=== PATIENT | female | born 1950 | race Caucasian/White ===

== ENCOUNTER → 2016-11-25 | Outpatient (CLI) | payer BC ==
[~2016-11-25] MED LIST: ASPCH81X PO; FEXO1TAB49 PO; KRIL1CAP3 PO; LISI-729 PO; METO1TAB71 PO; RANI300T2 PO; ROSU40TA PO
== END | disposition home or self-care (01) ==
LOC: C.PAPS 11:31
PROVIDERS: ATTEND Obstetrics & Gynecology
DX: Z01.419 Encounter for gynecological examination (general) (routine) without abnormal findings (principal)

== ENCOUNTER → 2017-05-24 | Outpatient (CLI) | payer BC ==
[2017-05-24 09:52] LABS: CHOLESTEROL/HDL RATIO 3.3
== END | disposition home or self-care (01) ==
LOC: C.LAB1850 08:05
PROVIDERS: ATTEND Internal Medicine Cardiovascular Disease
DX: I25.10 Atherosclerotic heart disease of native coronary artery without angina pectoris (principal); E78.5 Hyperlipidemia, unspecified

== ENCOUNTER → 2017-09-29 | Outpatient (CLI) | payer BC ==
[~2017-09-29] MED LIST changes: +METO-649 PO; -METO1TAB71 PO
--- NOTE | 2017-09-29 15:18 | MAMMOGRAPHY REPORT ---
BILATERAL DIGITAL DIAGNOSTIC MAMMOGRAM TOMOSYNTHESIS WITH CAD: 09/29/2017 CLINICAL HISTORY: Personal history of breast cancer. The patient reports no current complaints. TECHNIQUE: Breast tomosynthesis in addition to standard 2D mammography was performed. Current study was also evaluated with a Computer Aided Detection (CAD) system. Bilateral CC and MLO 2-D and tomosy nthesis images and spot magnification left CC and ML views were obtained. COMPARISON: Comparison is made to exams dated: 09/23/2016 mammogram, 09/18/2015 mammogram, 4 mammogram, 09/01/2013 mammogram, 08/26/2012 mammogram, and 08/25/2011 mammogram - [facility]. BREAST COMPOSITION: There are scattered areas of fibroglandular density in both breasts. FINDINGS: There are no suspicious masses, calcifications, or areas of architectural distortion noted within either breast. There has been no significant interval change compared to prior exams. There are stable post surgical changes in the left superior posterior breast at the site of prior lumpectom y, including stable density, architectural distortion, and surgical clips at the lumpectomy bed. The patient had questions regarding the supplemental screening with ultrasound or breast MRI. Given the personal history of breast cancer and strong family history, I would recommend supplemental scree edith with breast MRI, which could be performed between mammograms. IMPRESSION: ACR BI-RADS CATEGORY 2: BENIGN There is no mammographic evidence of malignancy. A 1 year screening mammogram is recommended. Additi onally, given the personal history of breast cancer and strong family history, the patient may qualif y for yearly screening breast MRI in addition to yearly mammography, ideally performed in between [facility] mograms. The patient has been verbally notified of the results. Approximately 10% of breast cancers are not detected with mammography. A negative mammographic report should not delay biopsy if a clinically suggestive mass is present. Mishel Casey M.D. /:09/29/2017 14:57:48 Certified Phlebotomist: Otilio OSPINA(R)(M), [facility] letter sent: Normal 1/2 BI-RADS Code: ACR BI-RADS Category 2: Benign
== END | disposition home or self-care (01) ==
LOC: C.MAMM 13:41
PROVIDERS: ATTEND Obstetrics & Gynecology
DX: Z12.31 Encounter for screening mammogram for malignant neoplasm of breast (principal); Z85.3 Personal history of malignant neoplasm of breast

== ENCOUNTER → 2017-11-17 | Outpatient (CLI) | payer BC ==
[~2017-11-17] MED LIST changes: -METO-649 PO; +METO200T32 PO
[2017-11-17 17:16] LABS: BASO % 0.4 %; BASO ABS # 0.05 K/uL (0-0.2); EOS % 2.1 %; EOS ABS # 0.27 K/uL (0-0.5); HEMATOCRIT 41.3 % (37-47); HEMOGLOBIN 14.1 g/dL (12.0-16.0); IG# 0.05 K/uL (0.00-0.02); LYMPH % 11.1 %; MEAN CELL VOLUME 101.2 fL (80-100); MEAN CORPUSCULAR HEMOGLOBIN 34.6 pg (25-34); MEAN CORPUSCULAR HGB CONC 34.1 g/dl (32-36); MEAN PLATELET VOLUME 9.6 fL (7.4-10.4); MONO % 7.1 %; MONO ABS # 0.89 K/uL (0.11-0.59); NEUT % 78.9 %; PLATELET COUNT 206 K/uL (130-400); RED CELL DISTRIBUTION WIDTH CV 14.7 % (11.5-14.5); RED CELL DISTRIBUTION WIDTH SD 53.7 fL (36.4-46.3); WHITE BLOOD COUNT 12.56 K/uL (4.8-10.8)
[2017-11-17 17:24] LABS: INR 0.9 (0.9-1.1)
[2017-11-17 17:37] LABS: BLOOD UREA NITROGEN 7 mg/dl (7-18); CALCIUM 9.1 mg/dl (8.5-10.1); CARBON DIOXIDE 28 mmol/L (21-32); CREATININE 0.76 mg/dl (0.60-1.20); GLUCOSE 88 mg/dl (70-99); POTASSIUM 3.9 mmol/L (3.5-5.1); SODIUM 136 mmol/L (136-145)
== END | disposition home or self-care (01) ==
LOC: C.LAB1850 16:35
PROVIDERS: ATTEND Physician Assistant Medical
DX: R06.09 Other forms of dyspnea (principal); I73.9 Peripheral vascular disease, unspecified; I25.10 Atherosclerotic heart disease of native coronary artery without angina pectoris

== ENCOUNTER 2017-11-22 09:14 | Day surgery (SDC) | payer BC ==
[~2017-11-22] VITALS: Ht 167.6 cm; Wt 61.0 kg
[~2017-11-22 09:14] MED LIST changes: +SODIUM CHLORIDE 0.9% 1000ML 1,000 ML IV SCH
[2017-11-22 09:46] VITALS: BP 107/69; PULSE 110; TEMP 36.7; O2SAT 94; Ht 167.6 cm; Wt 61.0 kg
--- NOTE | 2017-11-22 11:16 | History & Physical Bridge Note ---
H&P Re-Evaluation Bridge Note: I have examined the patient, reviewed the History & Physical and in the interval since the performance of the History & Physical I have noted the following changes of clinical significance: No changes noted
--- NOTE | 2017-11-22 11:17 | Pre Sedation Assessment ---
Pre Sedation Assessment General Date of Sedation: Nov 22, 2017. Vital Signs Past 12 Hours Date Time Temp Pulse Resp B/P (MAP) Pulse Ox O2 Delivery O2 Flow Rate FiO2 11/22/17 09:46 36.7 110 20 107/69 (82) 94 Room Air Review Cardiovascular: regular rate, rhythm, no edema Lungs: chest non-tender, lungs clear Pre-Sedation Airway Assessment Smoking Status: Current Every Day Smoker Hx of Sleep Apnea: No Hx of difficult intubation: No Short Thick Neck: No Oral Cavity: Capped Teeth Mallampati Classification: Class II ASA Classification: Class III NPO Status Date of Last Intake of Fluids: Nov 22, 2017 Time of Last Intake of Fluids: 0800 Date of Last Intake of Solids: Nov 21, 2017 Time of Last Intake of Solids: 1800 Procedure Planning Contraindications for Sedation: None Current Medications Reviewed: Yes Notes The planned sedation has been discussed with the patient. Informed Consent was obtained. I have identified the patient, determined the appropriateness of sedation and have assessed the patient immediately prior to the procedure. All medicine(s) and interventions are by my order.
[2017-11-22] MEDS ORDERED: FENTANYL CITRATE INJ 50 MCG/1 ML 2 ML VIAL ONE (12:00)
[2017-11-22] MEDS ORDERED: HEPARIN SOD (PORCINE) 1000 UNIT/ML 10 ML VIAL ONE (12:00)
[2017-11-22] MEDS ORDERED: MIDAZOLAM HCL 1 MG/ML 2ML VIAL ONE (12:00)
[2017-11-22] MEDS ORDERED: FENTANYL CITRATE INJ 50 MCG/1 ML 2 ML VIAL IV ONE ×2 (12:54→13:49)
[2017-11-22] MEDS ORDERED: MIDAZOLAM HCL 1 MG/ML 2ML VIAL IV ONE ×2 (12:54→13:49)
[2017-11-22] MEDS ORDERED: LIDOCAINE HCL 1% 20 ML VIAL INJ ONE (12:54)
[2017-11-22] MEDS ORDERED: HEPARIN SOD (PORCINE) 1000 UNIT/ML 10 ML VIAL IV ONE ×2 (13:15→13:50)
[2017-11-22] MEDS ORDERED: SODIUM CHLORIDE 0.9% 1000ML 300 ML IV SCH (13:23)
[2017-11-22] MEDS ORDERED: SODIUM CHLORIDE 0.9% 1000ML 100 ML IV SCH (13:53)
[2017-11-22] MEDS ORDERED: NITROGLYCERIN/D5W 100MCG/ML 20ML SYR ONE (14:10)
[2017-11-22] MEDS ORDERED: IODIXANOL (VISIPAQUE) 270 MG/ML 150ML XX ONE (15:00)
[2017-11-22] MEDS ORDERED: NITROGLYCERIN 5 MG/ML 10 ML VIAL IART ONE (15:04)
--- NOTE | 2017-11-22 15:05 | Post Sedation Assessment ---
Post Sedation Assessment General Date of Sedation Nov 22, 2017. Vital Signs: Vital Signs Past 12 Hours Date Time Temp Pulse Resp B/P (MAP) Pulse Ox O2 Delivery O2 Flow Rate FiO2 11/22/17 09:46 36.7 110 20 107/69 (82) 94 Room Air Post Procedure Recovery Score Activity: (2) Moves 4 extremities * Respiration: (2) Deep breath/cough Circulation: (2) +/-20% PreAnes Value Consciousness: (2) Fully Awake Oxygen Saturation: (2) > 92% On Room Air Discharge Sedation Level of Care: Fast Track Phase II Post Sedation Plan On clinical assessment, the patient appears to have tolerated the sedation without complications. Patient is recovering as anticipated. Patient will continue to be monitored by nursing and may be discharged when sedation discharge criteria are met per below protocol. Upon Completions of procedure and additional 15 minutes continue every 5 minute vital signs and the P.A.R. score; then discharge to a Phase I or Fast Track to Phase II per the following guidelines: * Discharge Patient to appropriate Phase II area if PAR is 8 or greater or return to pre- procedure baseline. The post - procedure orders will be as directed. * If PAR score is less than 8 or not return to pre-procedure baseline then patient will follow Phase I monitoring till PAR is reached for Phase II. The Phase I may be done in procedure room or may call to secure a Phase I area. * If naloxone or flumazenil are used for reversal, hold in Phase I for an additional 60 -120 minutes before discharge to Phase II. Please call the Sedation Physician to re-evaluate and complete post-note for discharge to Phase II area. Do NOT discharge from procedure sedation or Phase 1 until post- sedation evaluation note is complete by procedure /sedation MD Sedation Discharge Instructions to be given to the patient at discharge to home.
[2017-11-22] MEDS ORDERED: CLOPIDOGREL BISULFATE 300 MG TAB PO STA (15:19)
[2017-11-22] MEDS ORDERED: SODIUM CHLORIDE 0.9% 1000ML 1,000 ML IV SCH (15:19)
--- NOTE | 2017-11-22 15:19 | [facility] Operative Report ---
Operative Report Operative Date Nov 22, 2017. Pre-Operative Diagnosis Intermittent Claudication, Peripheral Artery Disease Post-Operative Diagnosis Peripheral Artery Disease Procedure(s) Performed Bilateral Lower Extremity Angiogram Ultrasound Localization of Right Femoral Artery Percutaneous Transluminal Angioplasty of Left Popliteal Mechanical Atherectomy of Left Popliteal Mechanical Closure of Right Femoral Artery Moderate Sedation: 1254- Surgeon Roman Cap Cutter Surgeon(s) None Estimated Blood Loss 32 Findings Left lower extremity: Common iliac - Minimal disease External iliac - Minimal disease Internal iliac - Minimal disease DOCTORATE OF CHIROPRACTIC - Minimal disease Profunda - Minimal disease SFA - Minimal disease Popliteal - Subtotal occlusion (50 mm) proximally with surrounding haziness suggestive of thrombus; reconstitution in mid popliteal TPT - minimal disease AT - mild disease PT - mild disease Peroneal - occluded in the mid segment Right lower extremity: Common iliac - Minimal disease External iliac - Minimal disease Internal iliac - Minimal disease DOCTORATE OF CHIROPRACTIC - Minimal disease, OK for closure device placement Profunda - Minimal disease SFA - Minimal disease Popliteal - Mild disease TPT - minimal disease AT - mild diffuse disease PT - mild disease Peroneal - mild disease Specimens None Drains None Anesthesia Moderate Complication(s) None Disposition Recovery Room / PACU Description of Procedure US guided right common femoral access obtained, short 5Fr sheath place LLE angiogram performed with RIM catheter 6Fr 45cm destination sheath placed Popliteal occlusion crossed with glideadvantage wire Lesion ballooned with 4.0 and 6.0 balloons without significant expansion Due to concern for thrombus decision made to perform atherectomy with Jetstream device. 7Fr 45cm destination sheat placed Glideadvantage wire exchanged for Spider Filter 2.1/3.0 Jetstream device used - 2 passes in total, 2nd with blades out. Lesion rewired with command wire and filter removed. Lesion treated with prolonged 6.0 balloon inflation with good expansion. Distal SFA/popliteal then treated with 6.0 x 120 mm Inpact drug-eluting balloon. Post procedure good angiographic result, no evidence of hemodynamically significant dissection and good 2 vessel distal run-off. Mynx device placed to right DOCTORATE OF CHIROPRACTIC. Summary: 1. Left lower extremity with short subtotal proximal popliteal occlusion and distal 2 vessel runoff (occluded peroneal) 2. Right lower extremity with minimal disease and 3 vessel distal runoff. 3. Successful BIOLOGY FACULTY MEMBER/atherectomyDrug-eluting balloon to left proximal popliteal artery I attest to the content of the Intraoperative Record and any orders documented therein. Any exceptions are noted below.
[2017-11-22 15:20] VITALS: BP 96/66; PULSE 60; TEMP 36.7; O2SAT 98
[2017-11-22] MEDS ORDERED: ASPIRIN 325 MG ECTAB PO ONE (15:30)
[2017-11-22] MEDS ORDERED: ACETAMINOPHEN 325 MG TAB PO PRN (15:30)
[2017-11-22] MEDS ORDERED: NURSING VERBAL MED ORDER ONE (15:30)
[2017-11-22 15:50] VITALS: BP 98/57; PULSE 68; O2SAT 99
[2017-11-22] MEDS ORDERED: PLV75 PO (17:31)
--- NOTE | 2017-11-22 17:34 | Discharge Instructions ---
Discharge Instructions Procedure Procedure Date: Nov 22, 2017. Reason for Visit: Peripheral Vascular Disease. Discharge Discharge Date: Nov 22, 2017. Discharge Diagnosis: Peripheral arterial disease Last Recorded Wt (Kilograms): 61 Instructions Activity Recommendations: limitations as noted below Recommended Home Diet: resume previous diet, low sodium Allergies: Coded Allergies: Tetracyclines (Verified Allergy, Unknown, MINOCIN-RASH,HIVES, 11/22/17) Follow Up Additional Instructions: ACTIVITY RECOMMENDATIONS: It is common to feel weak and fatigue for a few days. * Do not drive or operate any motorized equipment for the next 2 days. * Limit stair usage (2 or 3 trips a day only) for the next three days. * Do not lift anything heavier than 10 pounds for the next three days. * Do not engage in vigorous exercise or any sports for the next five days. * You may shower the day after your procedure, but do not immerse the area for three days. Cleanse the site gently with soap and water. SPECIAL CARE INSTRUCTIONS: * You may replace the pressure dressing or band-aid the morning after the procedure. * After your procedure, it is normal to have a small bruise or small lump at the site. Examine your site daily for any change in the bruise or lump, redness, swelling, drainage or numbness. Notify your doctor if any change. BLEEDING: * If there is a small amount of bleeding at the site, lie down and apply firm pressure with a clean cloth for ten minutes. When the bleeding stops, lie quietly keeping the procedure limb straight for six hours. Notify your doctor as soon as possible. * If the bleeding does not stop after ten minutes or if there is a large amount of bleeding or spurting, call 911 immediately. Continue to lie down and hold firm pressure until help arrives. SKIN IRRITATION: * You may experience some redness and/or swelling in the area where radiation was administered. If any skin irritation occurs, please contact your family physician. FOLLOW UP VISIT: Keep any scheduled doctor appointments. Follow-up with: [address] Roman Gandhi Recommendations: Call your doctor if: * Temperature above 101 degrees * Pain not relieved by pain medicine ordered * There is increased drainage or redness from any incision * You have any unanswered questions or concerns. Your Doctors Instructions noted above were prepared by provider Zeus Owens. Patient Signature Section: Patient Instructions Signature Page Genet Abraham Patient (or Guardian) Signature/Date: I have read and understand the instructions given to me by my caregivers. Caregiver/RN/Doctor Signature/Date: The above-named patient and/or guardian has received patient instructions on this date. + Original Patient Signature Page (only) stays with chart. Please make copy for patient.
[2017-11-23] MEDS ORDERED: ASPIRIN 81 MG ECTAB PO SCH (09:00)
[2017-11-23] MEDS ORDERED: CLOPIDOGREL BISULFATE 75 MG TAB PO SCH (09:00)
== END 2017-11-22 17:45 | disposition home or self-care (01) ==
LOC: C.ACU 09:14
PROVIDERS: ATTEND Internal Medicine Interventional Cardiology
DX: I73.9 Peripheral vascular disease, unspecified (principal); I87.2 Venous insufficiency (chronic) (peripheral); R09.89 Other specified symptoms and signs involving the circulatory and respiratory systems; I25.10 Atherosclerotic heart disease of native coronary artery without angina pectoris; I10 Essential (primary) hypertension; E78.5 Hyperlipidemia, unspecified; F17.200 Nicotine dependence, unspecified, uncomplicated; K58.9 Irritable bowel syndrome, unspecified; I25.2 Old myocardial infarction; Z85.3 Personal history of malignant neoplasm of breast; Z80.3 Family history of malignant neoplasm of breast; Z80.0 Family history of malignant neoplasm of digestive organs

== ENCOUNTER → 2017-11-26 | Outpatient (CLI) | payer BC ==
[~2017-11-26] MED LIST changes: -KRIL1CAP3 PO; +PLV75 PO; -SODIUM CHLORIDE 0.9% 1000ML 1,000 ML IV SCH
--- NOTE | 2017-11-26 16:05 | DIAGNOSTIC IMAGING REPORT ---
CHEST 2 VIEWS ROUTINE CLINICAL HISTORY: Dyspnea on exertion. COMPARISON STUDY: Chest radiograph December 28, 2011. FINDINGS: Old lateral left fourth rib fracture is incidentally noted. Lung volumes are normal. No pneumothorax or pleural effusion is noted. Pulmonary vascularity is normal. Cardiomediastinal silhouette is normal. The appearance of the chest is unchanged. There is no consolidation to suggest pneumonia. Left breast/axillary surgical clips are noted. IMPRESSION: No acute cardiopulmonary findings. Electronically signed by: Harrison Hoang M.D. 11/26/2017 4:04 PM Dictated Date/Time: 11/26/2017 4:03 PM
== END | disposition home or self-care (01) ==
LOC: C.RAD1850 15:41
PROVIDERS: ATTEND Physician Assistant Medical
DX: R06.09 Other forms of dyspnea (principal)

== ENCOUNTER → 2017-12-27 | Outpatient (CLI) | payer BC ==
--- NOTE | 2017-12-27 16:14 | DIAGNOSTIC IMAGING REPORT ---
CT LUNG SCREENING, LOW DOSE WITH COMPUTER-AIDED DETECTION (CAD) CLINICAL HISTORY: 67 years-old Female with screening study. COMPARISON STUDY: No previous studies for comparison. CT DOSE: 67.94 mGycm TECHNIQUE: Low-dose helical CT was acquired without intravenous contrast from lung apices to bases and reconstructed at 2.5 mm every 2 mm. CAD was utilized for this study. A dose lowering technique was utilized adhering to the principles of ALARA. FINDINGS: No dominant thyroid nodule identified. Surgical clips are seen within the left axilla suggesting prior left axillary node dissection. Surgical clips are also noted within the lateral aspect of the left breast with adjacent surgical clips and soft tissue nodularity measuring 8 x 8 mm nicely seen on image 154 series 3. No pathologic adenopathy identified. Nonspecific white physiologic 8 mm subcarinal lymph node is present. Coronary arterial disease. Heart is within normal limits in size. No aortic aneurysm identified. Moderate atherosclerosis of the aorta. Mild centrilobular emphysema of the upper lung zones. 5 mm groundglass opacity of the left lung apex, image 35 series 3. Subpleural reticular opacities of the anterolateral lingula suggest posttreatment related changes/pleural parenchymal scarring. Additionally, there is mild subsegmental linear atelectasis/scarring of the basal right lower lobe. Central airways are patent. 1.5 x 1.1 cm tracheocele is noted adjacent to the right tracheoesophageal groove, image 33 series 3. Liver appears mildly enlarged. No acute abnormality of the imaged upper abdomen. Soft tissues are within normal limits. The bones appear intact. Mild multilevel intervertebral disc space narrowing with endplate spurring and facet arthrosis. IMPRESSION: 1. 5 mm groundglass nodule of the left lung apex. 2. Mild centrilobular emphysema. 3. Postoperative changes from prior left axillary node dissection. 8 mm nodule of the left breast is noted with adjacent surgical clips. 4. 1.5 cm tracheocele adjacent to the right tracheoesophageal groove. CAD FINDINGS: Overall Lung RADS Category: 2 Lung RADS Management Recommendation: Continue annual lung cancer screening. Lung RADS Follow Up Date: 2018-12-27 The above report was generated using voice recognition software. It may contain grammatical, syntax or spelling errors. Electronically signed by: Eitan Acevedo M.D. 12/27/2017 4:19 PM Dictated Date/Time: 12/27/2017 3:54 PM
== END | disposition home or self-care (01) ==
LOC: C.CTS 14:47
PROVIDERS: ATTEND Internal Medicine Pulmonary Disease
DX: Z87.891 Personal history of nicotine dependence (principal); R91.8 Other nonspecific abnormal finding of lung field

== ENCOUNTER 2018-02-25 16:44 | Emergency (ER) | payer BC ==
[~2018-02-25] VITALS: Ht 167.6 cm; Wt 59.0 kg
[2018-02-25 16:48] VITALS: TEMP 36.9; Ht 167.6 cm; Wt 59.0 kg
[2018-02-25] MEDS ORDERED: FENTANYL CITRATE INJ 50 MCG/1 ML 2 ML VIAL IV STA (17:11)
[2018-02-25 17:34] LABS: BASO % 0.1 %; BASO ABS # 0.02 K/uL (0-0.2); EOS % 0.7 %; EOS ABS # 0.09 K/uL (0-0.5); HEMATOCRIT 38.6 % (37-47); HEMOGLOBIN 13.1 g/dL (12.0-16.0); IG# 0.05 K/uL (0.00-0.02); LYMPH % 7.8 %; LYMPH ABS # 1.06 K/uL (1.2-3.4); MEAN CORPUSCULAR HEMOGLOBIN 33.2 pg (25-34); MEAN CORPUSCULAR HGB CONC 33.9 g/dl (32-36); MONO % 14.6 %; MONO ABS # 1.98 K/uL (0.11-0.59); NEUT % 76.4 %; NEUT ABS # 10.36 K/uL (1.4-6.5); PLATELET COUNT 224 K/uL (130-400); RED CELL DISTRIBUTION WIDTH CV 14.4 % (11.5-14.5); RED CELL DISTRIBUTION WIDTH SD 51.1 fL (36.4-46.3); WHITE BLOOD COUNT 13.56 K/uL (4.8-10.8)
[2018-02-25] MEDS ORDERED: HEPARIN SOD 5000 UNIT/0.5 ML CARP ONE (17:38)
[2018-02-25] MEDS ORDERED: HEPARIN 25000 UNIT/500 ML D5W ONE (17:39)
[2018-02-25 17:46] LABS: PTT PATIENT 25.7 SECONDS (21.0-31.0)
[2018-02-25] MEDS ORDERED: GABA-113 PO (17:49)
[2018-02-25 17:54] LABS: ALBUMIN 3.4 gm/dl (3.4-5.0); CALCIUM 9.5 mg/dl (8.5-10.1); CREATININE 0.9 mg/dl (0.60-1.20); POTASSIUM 3.4 mmol/L (3.5-5.1)
[2018-02-25 18:11] VITALS: O2SAT 94
[2018-02-25] MEDS ORDERED: SODIUM CHLORIDE 0.9% 1000ML 1,000 ML IV STA (18:46)
[2018-02-25] MEDS ORDERED: MoRPHine SULFATE 4 MG/ML 1 ML CARP\\VIAL IV STA (19:02)
--- NOTE | 2018-02-25 19:05 | DIAGNOSTIC IMAGING REPORT ---
L ART DOP DUPLEX LWR EXT UNI HISTORY: 67 years-old Female cyanosis acute pain and swelling of the left lower extremity COMPARISON: Duplex venous Doppler study of same day TECHNIQUE: Multiple real-time sonographic images of the left lower extremity arterial structures were obtained assessing grayscale appearance, color and spectral flow FINDINGS: Common femoral artery is patent. Moderate mixed plaquing of the common femoral artery is noted. There is patency of the profunda femoris artery. The proximal and mid portions of the superficial femoral artery are patent with triphasic waveforms. Mildly blunted biphasic waveforms are seen within the distal superficial femoral artery with exclusion of the distal femoral, popliteal and proximal posterior tibial arteries. Blunted monophasic waveform with spectral broadening noted within the proximal and mid posterior tibial artery. There is an area of no flow seen within the mid posterior tibial artery as well. Blunted monophasic waveforms of the distal posterior tibial artery. Occlusion of the peroneal artery. Blunted monophasic waveforms are seen within the anterior tibial and dorsalis pedis arteries. Collateral vessels of the left lower extremity are noted throughout the left lower extremity about the knee and calf. No significantly elevated peak systolic velocities identified. IMPRESSION: 1. Occlusion of the distal aspect superficial femoral artery extending into the popliteal and posterior tibial artery with occlusion of the peroneal artery also noted. Associated collateral vessels of the left lower extremity may reflect chronic etiology. Correlate with clinical exam and patient presentation. 2. Patent common femoral artery with moderate degree of mixed plaquing. The above report was generated using voice recognition software. It may contain grammatical, syntax or spelling errors. Electronically signed by: Eitan Acevedo M.D. 02/25/2018 7:04 PM Dictated Date/Time: 02/25/2018 6:59 PM
[2018-02-25 22:10] VITALS: BP 116/65; PULSE 87; O2SAT 95
--- NOTE | 2018-02-25 22:11 | EMERGENCY ROOM VISIT NOTE ---
History Report prepared by Sergio: Supriya Wilson Under the Supervision of: Dr. Joe Vela M.D. First contact with patient: 17:01 Chief Complaint: ABNORMAL DIAGNOSTIC TESTING Stated Complaint: SAMANTHA, BLOOD FLOW TO LEFT FOOT History of Present Illness The patient is a 67 year old female who presents to the Emergency Room with complaints of worsening left leg pain starting 1 month ago. She was referred to the ED with a arterial occlusion. The patient had a popliteal angioplasty in the left leg around 3 months ago. 1 month ago, she started having worsening pain and discoloration which started in her toes and spread up her leg. She denies any fever, chills, cough, or congestion. She has not had any procedures on her right leg. She is currently not on any blood thinners. Source of History: patient Onset: 1 month ago Position: leg (left) Quality: other (pain, discoloration) Timing: worsening Associated Symptoms: No fevers, No chills, No cough Review of Systems See HPI for pertinent positives and negatives. A total of ten systems were reviewed and were otherwise negative. Past Medical & Surgical Medical Problems: (1) Breast cancer Family History Cancer Heart disease Social History Smoking Status: Current Every Day Smoker Occupation Status: retired Current/Historical Medications Scheduled Aspirin (Aspirin Chewable), 81 MG PO QPM Gabapentin (Neurontin), 300 MG PO BID Gabapentin (Neurontin), 600 MG PO QPM Lisinopril (Zestril), 5 MG PO QAM Metoprolol Succinate (Toprolxl (Toprol-Xl), 200 MG PO QAM Montelukast Sodium (Singulair), 1 TAB PO DAILY Rosuvastatin Calcium (Crestor), 40 MG PO QAM Allergies Coded Allergies: Tetracyclines (Verified Allergy, Unknown, MINOCIN-RASH,HIVES, 02/25/18) Physical Exam Vital Signs Date Time Temp Pulse Resp B/P (MAP) Pulse Ox O2 Delivery O2 Flow Rate FiO2 02/25/18 22:10 87 16 116/65 95 02/25/18 21:08 88 16 131/80 97 Room Air 02/25/18 19:35 89 16 127/81 98 Room Air 02/25/18 18:11 97 126/85 95 02/25/18 18:11 94 Room Air 02/25/18 17:38 96 02/25/18 16:48 36.9 98 18 153/76 99 Room Air Physical Exam GENERAL: Awake, alert, uncomfortable-appearing, in no distress HENT: Normocephalic, atraumatic. Dry mucous membranes, otherwise oropharynx unremarkable. EYES: Normal conjunctiva. Sclera non-icteric. NECK: Supple. No nuchal rigidity. FROM. No JVD. RESPIRATORY: Clear to auscultation. CARDIAC: Regular rate, normal rhythm. Extremities warm and well perfused. Pulses equal. ABDOMEN: Soft, non-distended. No tenderness to palpation. No rebound or guarding. No masses. RECTAL: Deferred. MUSCULOSKELETAL: Chest examination reveals no tenderness. The back is symmetrical on inspection without obvious abnormality. There is no CVA tenderness to palpation. No joint edema. LOWER EXTREMITIES: Mild edema, cyanosis, and coolness to the left foot, no dopplerable pulses, delayed cap refill >5 seconds. NEURO: Normal sensorium. No sensory or motor deficits noted. SKIN: No rash or jaundice noted. Medical Decision & Procedures ER Provider Diagnostic Interpretation: Radiology results as stated below per my review and radiologist interpretation: L ART DOP DUPLEX LWR EXT UNI HISTORY: 67 years-old Female cyanosis acute pain and swelling of the left lower extremity COMPARISON: Duplex venous Doppler study of same day TECHNIQUE: Multiple real-time sonographic images of the left lower extremity arterial structures were obtained assessing grayscale appearance, color and spectral flow FINDINGS: Common femoral artery is patent. Moderate mixed plaquing of the common femoral artery is noted. There is patency of the profunda femoris artery. The proximal and mid portions of the superficial femoral artery are patent with triphasic waveforms. Mildly blunted biphasic waveforms are seen within the distal superficial femoral artery with exclusion of the distal femoral, popliteal and proximal posterior tibial arteries. Blunted monophasic waveform with spectral broadening noted within the proximal and mid posterior tibial artery. There is an area of no flow seen within the mid posterior tibial artery as well. Blunted monophasic waveforms of the distal posterior tibial artery. Occlusion of the peroneal artery. Blunted monophasic waveforms are seen within the anterior tibial and dorsalis pedis arteries. Collateral vessels of the left lower extremity are noted throughout the left lower extremity about the knee and calf. No significantly elevated peak systolic velocities identified. IMPRESSION: 1. Occlusion of the distal aspect superficial femoral artery extending into the popliteal and posterior tibial artery with occlusion of the peroneal artery also noted. Associated collateral vessels of the left lower extremity may reflect chronic etiology. Correlate with clinical exam and patient presentation. 2. Patent common femoral artery with moderate degree of mixed plaquing. The above report was generated using voice recognition software. It may contain grammatical, syntax or spelling errors. Electronically signed by: Eitan Acevedo M.D. 02/25/2018 7:04 PM Dictated Date/Time: 02/25/2018 6:59 PM Laboratory Results 02/25/18 17:17 Red Blood Count 3.94, Mean Corpuscular Volume 98.0, Mean Corpuscular Hemoglobin 33.2, Mean Corpuscular Hemoglobin Concent 33.9, Mean Platelet Volume 9.0, Neutrophils (%) (Auto) 76.4, Lymphocytes (%) (Auto) 7.8, Monocytes (%) (Auto) 14.6, Eosinophils (%) (Auto) 0.7, Basophils (%) (Auto) 0.1, Neutrophils # (Auto ) 10.36, Lymphocytes # (Auto) 1.06, Monocytes # (Auto) 1.98, Eosinophils # (Auto ) 0.09, Basophils # (Auto) 0.02 02/25/18 17:17 Test 02/25/18 17:17 White Blood Count 13.56 K/uL (4.8-10.8) Red Blood Count 3.94 M/uL (4.2-5.4) Hemoglobin 13.1 g/dL (12.0-16.0) Hematocrit 38.6 % (37-47) Mean Corpuscular Volume 98.0 fL (80-100) Mean Corpuscular Hemoglobin 33.2 pg (25-34) Mean Corpuscular Hemoglobin Concent 33.9 g/dl (32-36) Platelet Count 224 K/uL (130-400) Mean Platelet Volume 9.0 fL (7.4-10.4) Neutrophils (%) (Auto) 76.4 % Lymphocytes (%) (Auto) 7.8 % Monocytes (%) (Auto) 14.6 % Eosinophils (%) (Auto) 0.7 % Basophils (%) (Auto) 0.1 % Neutrophils # (Auto) 10.36 K/uL (1.4-6.5) Lymphocytes # (Auto) 1.06 K/uL (1.2-3.4) Monocytes # (Auto) 1.98 K/uL (0.11-0.59) Eosinophils # (Auto) 0.09 K/uL (0-0.5) Basophils # (Auto) 0.02 K/uL (0-0.2) RDW Standard Deviation 51.1 fL (36.4-46.3) RDW Coefficient of Variation 14.4 % (11.5-14.5) Immature Granulocyte % (Auto) 0.4 % Immature Granulocyte # (Auto) 0.05 K/uL (0.00-0.02) Prothrombin Time 10.0 SECONDS (9.0-12.0) Prothromb Time International Ratio 1.0 (0.9-1.1) Activated Partial Thromboplast Time 25.7 SECONDS (21.0-31.0) Partial Thromboplastin Ratio 1.0 Anion Gap 3.0 mmol/L (3-11) Est Creatinine Clear Calc Drug Dose 57.3 ml/min Estimated GFR () 77.2 Estimated GFR (Non- 66.6 BUN/Creatinine Ratio 11.0 (10-20) Calcium Level 9.5 mg/dl (8.5-10.1) Total Bilirubin 1.0 mg/dl (0.2-1) Direct Bilirubin 0.3 mg/dl (0-0.2) Aspartate Amino Transf (AST/SGOT) 25 U/L (15-37) Alanine Aminotransferase (ALT/SGPT) 20 U/L (12-78) Alkaline Phosphatase 151 U/L (45-117) Total Protein 8.0 gm/dl (6.4-8.2) Albumin 3.4 gm/dl (3.4-5.0) Lipase 194 U/L (73-393) Laboratory results reviewed by me Medications Administered Medications (Trade) Dose Ordered Sig/Nika Route Start Time Stop Time Status Last Admin Dose Admin Fentanyl Citrate (Fentanyl Inj) 50 mcg NOW STAT IV 02/25/18 17:11 02/25/18 17:12 DC 02/25/18 17:26 50 MCG Heparin Sodium (Porcine) (Heparin Sq 5000 Unit/0.5ml) 5,000 unit STK-MED ONCE .ROUTE 02/25/18 17:38 02/25/18 17:39 DC 02/25/18 17:44 5,000 UNIT Heparin Sodium/ Dextrose (Heparin 25,000 Unit/500ml D5W) 25,000 unit STK-MED ONCE .ROUTE 02/25/18 17:39 02/25/18 17:40 DC 02/25/18 17:43 25,000 UNIT Sodium Chloride 1,000 ml @ 100 mls/hr Q10H STAT IV 02/25/18 18:46 02/25/18 22:33 DC 02/25/18 19:38 100 MLS/HR Morphine Sulfate (MoRPHine SULFATE INJ) 4 mg NOW STAT IV 02/25/18 19:02 02/25/18 19:03 DC 02/25/18 19:38 4 MG ECG Per My Interpretation Indication: other Rate (beats per minute): 91 Rhythm: sinus rhythm Findings: PAC (occasional), PVC (occasional), no acute ischemic change, other ( normal axis) ED Course 1655: I spoke with Dr. Owens, [facility] [place] cardiology who let me know that the patient is coming. We discussed the patient's case. He will be in to see the patient. 1703: The patient was evaluated in room C2B. A complete history and physical exam was performed. 1725: Dr. Owens is at bedside. 1803: Dr. Owens has evaluated the patient and will arrange transfer to [place]. He recommends getting an arterial duplex. Medical Decision I reviewed the patient's past medical history, medications, and the nursing notes as described above. Differential diagnosis: Etiologies such as DVT, musculoskeletal, infection, joint effusion, trauma, lymphedema, idiopathic, CHF, as well as others were entertained.. The patient is a 67-year-old woman with a past medical history of peripheral artery disease status post left popliteal artery angioplasty in October presents emergency department with worsening pain in her left lower extremity with discoloration seen by PA at vascular clinic referred to the emergency department for vascular evaluation per hpi. I discussed the case with Dr. Owens , patient's vascular surgeon who informed us of the patient's arrival, labs were ordered and the patient was placed on heparin per recommendations. On arrival patient is uncomfortable but no acute distress, afebrile stable vital signs. Her left lower extremity has mild edema with mild discoloration/ cyanosis that is cool. Patient has monophasic popliteal dopplerable pulse. Otherwise left DP, PT, AT not detected. Dr. Owens evaluated the patient at the bedside and decision was made to transfer the patient to [facility]. Arrangements made by Dr. Owens. Arterial duplex demonstrates "occlusion of the distal aspect superficial femoral artery extending into the popliteal and posterior tibial artery with occlusion of the peroneal artery also noted. Associated collateral vessels of the left lower extremity may reflect chronic etiology". WBC 13 and labs otherwise unremarkable. Patient transferred via ALS with heparin drip. Medication Reconcilliation Current Medication List: was personally reviewed by me Blood Pressure Screening Patient's blood pressure: Elevated blood pressure Consults Consulting Physician: Dr. Owens, [facility] [place] cardiology Returned Call: [phone] I spoke with him who let me know that the patient is coming. We discussed the patient's case. He will be in to see the patient. Impression Primary Impression: Arterial occlusion, lower extremity Critical Care I have personally spent greater than 35 minutes of critical care time in the direct management of this patient. This includes bedside care, interpretation of diagnostic studies, and testing, discussion with consultants, patient, and family members, and other required patient management activities. This 35 minutes is in excess of all separately billable procedures. Scribe Attestation The scribe's documentation has been prepared under my direction and personally reviewed by me in its entirety. I confirm that the note above accurately reflects all work, treatment, procedures, and medical decision making performed by me. Departure Information Dispostion Transfer Acute Care Facility Referrals Josie Sommer D.O. (PCP) Patient Instructions [facility]
[2018-02-26] MEDS ORDERED: FENTANYL CITRATE INJ 50 MCG/1 ML 2 ML VIAL ONE (02:46)
[2018-02-26] MEDS ORDERED: HEPARIN 25,000 UNIT/500ML D5W 500 ML IV SCH (14:30)
--- NOTE | 2018-03-01 02:42 | CARDIOLOGY CONSULTATION ---
DATE OF CONSULTATION: 02/25/2018 CONSULTATION REQUESTED BY: Dr. Vela. REASON FOR CONSULTATION: Acute limb ischemia. HISTORY OF PRESENT ILLNESS: Mrs. Abraham is a very pleasant 67-year-old woman with a history of coronary artery disease, status post anterior AR in September of 2018, hypertension, dyslipidemia, chronic venous insufficiency, status post multiple saphenous vein ablations, ongoing tobacco abuse, and peripheral arterial disease, status post prior endovascular intervention to her left popliteal artery in October of 2017, who presented to my office earlier today with worsening left lower extremity pain. The patient endorsed pain 4 weeks which is becoming progressively worse over the last several days. Her leg was discolored and was unable to move her toes distally, and with any light touch, experienced severe pain. She initially presented to the pain management and was referred for urgent evaluation at our office. In the office, lower extremity arterial duplex was obtained which showed a newly occluded distal SFA in the popliteal with occluded peroneal artery. TBIs could not be obtained. In the setting of diminished pulses and what appeared to be possible acute limb ischemia, she was referred to the ED. PAST MEDICAL HISTORY: Peripheral arterial disease, underwent [employer] with atherectomy, popliteal artery and was treated with a drug-eluting balloon to her popliteal artery, her post-procedure VAL showed normal tibial pressures on the left post-intervention, coronary artery disease status post AR in September of 2008, hypertension, dyslipidemia, chronic venous insufficiency, irritable bowel. FAMILY HISTORY: Has a family history of breast cancer and colon cancer. PAST SURGICAL HISTORY: Prior partial mastectomy, history of cardiac catheterization as discussed above and endovascular intervention as discussed above. SOCIAL HISTORY: She reports being a social drinker. She is a current active smoker. She is , still working. HOME MEDICATIONS: Include rosuvastatin 40, lisinopril 5, metoprolol succinate 200 mg daily, Nitrostat, Farida. ALLERGIES: MINOCYCLINE, TETRACYCLINE. PHYSICAL EXAMINATION: VITAL SIGNS: Temperature 36.9, pulse 98, blood pressure 153/76, satting 99% on room air. GENERAL: She appeared comfortable with significant lower extremity discomfort. HEENT: Sclerae anicteric. Oropharynx is clear. LUNGS: Clear to auscultation bilaterally. CARDIAC: She has regular rate and rhythm with no murmurs, rubs or gallops. ABDOMEN: Soft, nontender. EXTREMITIES: She had nonpalpable DP and PT pulses, nonpalpable popliteal pulse on the left. Her lower extremity was discolored, purplish from toes up to ankle. She had decreased motion in her toes and had severe pain to any light sensation over her foot. She had palpable DP pulse on the right. NEUROLOGIC: Nonfocal. PSYCHIATRIC: Alert and appropriate. LABORATORY DATA: White blood cell count is 13.5, hemoglobin of 13.1, platelets of 224. INR was 1.0. Sodium 135, potassium 3.4, BUN of 10, creatinine of 0.9. LFTs within normal limits except for an alkaline phosphatase that was mildly elevated at 151. Lower extremity arterial duplex showed occlusion of the distal aspect of the superficial femoral artery extending through the popliteal as well as occlusion of the peroneal artery. There was an associated collaterals and tibial flow in the anterior tibial and posterior tibial arteries. IMPRESSION AND PLAN: 1. Acute lower limb ischemia. 2. History of peripheral arterial disease, status post prior endovascular intervention to left popliteal artery. 3. History of coronary artery disease, status post prior myocardial infarction. 4. Ongoing tobacco abuse. 5. Hypertension. 6. Chronic venous insufficiency. Mrs. Abraham is here with subacute onset of left lower extremity pain. On exam, she has signs of inadequate perfusion with nonpalpable pulses. She has limited motion of her distal left foot and sensory, but no significant sensory loss. At this time, concerned for acute limb ischemia with a threatened viable limb. I have discussed options with patient and would recommend urgent revascularization. Unfortunately, unable to perform procedure at [facility] and have discussed with [facility] vascular surgery who is willing to accept patient. We will arrange for transfer to [facility]. I will continue on heparin infusion until that time. Otherwise, will continue on home antihypertensives and antiplatelet therapy. Thank you for allowing us to participate in the care of this patient.
== END 2018-02-25 22:10 | disposition short-term general hospital (02) ==
LOC: C.EDB 16:45 → C.EDC 22:10
DX: I74.3 Embolism and thrombosis of arteries of the lower extremities (principal); I73.9 Peripheral vascular disease, unspecified; F17.200 Nicotine dependence, unspecified, uncomplicated; Z85.3 Personal history of malignant neoplasm of breast; Z79.82 Long term (current) use of aspirin; Z79.899 Other long term (current) drug therapy; Z88.1 Allergy status to other antibiotic agents; Z98.62 Peripheral vascular angioplasty status

== ENCOUNTER → 2018-02-25 | Outpatient (CLI) | payer BC ==
[~2018-02-25] MED LIST changes: +GABA-113 PO; +HYDR25TA4 PO; +MONT1TAB3 PO
--- NOTE | 2018-02-25 09:53 | DIAGNOSTIC IMAGING REPORT ---
LEFT LOWER EXTREMITY VENOUS DOPPLER CLINICAL HISTORY: Left foot pain. COMPARISON STUDY: No previous studies for comparison. TECHNIQUE: Sonography of the deep venous system of the left lower extremity was performed. Compression and augmentation were evaluated. FINDINGS: The left common femoral, superficial femoral and popliteal veins were compressible. Augmentation was normal. Flow was shown within the deep calf vessels. IMPRESSION: No evidence of deep venous thrombus within the left lower extremity. Electronically signed by: Harrison Hoang M.D. 02/25/2018 9:51 AM Dictated Date/Time: 02/25/2018 9:48 AM
== END | disposition home or self-care (01) ==
LOC: C.ULTRBC 09:22
PROVIDERS: ATTEND Anesthesiology
DX: M79.673 Pain in unspecified foot (principal)

== ENCOUNTER → 2018-02-25 | Outpatient (CLI) | payer BC ==
[2018-02-25 13:40] LABS: BASO % 0.2 %; BASO ABS # 0.02 K/uL (0-0.2); EOS % 0.9 %; EOS ABS # 0.11 K/uL (0-0.5); HEMATOCRIT 39.2 % (37-47); HEMOGLOBIN 13.2 g/dL (12.0-16.0); IG# 0.04 K/uL (0.00-0.02); LYMPH % 8.1 %; LYMPH ABS # 1.04 K/uL (1.2-3.4); MEAN CELL VOLUME 98.5 fL (80-100); MEAN CORPUSCULAR HEMOGLOBIN 33.2 pg (25-34); MEAN CORPUSCULAR HGB CONC 33.7 g/dl (32-36); MEAN PLATELET VOLUME 9.9 fL (7.4-10.4); MONO % 11.4 %; MONO ABS # 1.47 K/uL (0.11-0.59); NEUT % 79.1 %; NEUT ABS # 10.22 K/uL (1.4-6.5); PLATELET COUNT 246 K/uL (130-400); RED CELL DISTRIBUTION WIDTH CV 14.2 % (11.5-14.5); RED CELL DISTRIBUTION WIDTH SD 50.4 fL (36.4-46.3)
== END | disposition home or self-care (01) ==
LOC: C.LABBC 10:15
PROVIDERS: ATTEND Anesthesiology
DX: M79.89 Other specified soft tissue disorders (principal)

== ENCOUNTER → 2018-03-08 | Outpatient (CLI) | payer BC ==
[~2018-03-08] MED LIST changes: +BUPR-79 PO; +CLIN1GEL5 TOP; +ELDCR/30 TOP; -FEXO1TAB49 PO; +FLUO0.0566 TOP; -HYDR25TA4 PO; +NF34; -PLV75 PO; -RANI300T2 PO; +TACR0.5C3 PO
--- NOTE | 2018-03-08 14:45 | DIAGNOSTIC IMAGING REPORT ---
LEFT LOWER EXTREMITY VENOUS DOPPLER HISTORY: L LEG SWELLING NON HEALING WOUND R/O DVT COMPARISON STUDY: None. FINDINGS: There is normal compressibility, flow, and augmentation within the left lower extremity deep venous system. IMPRESSION: No DVT within the left lower extremity. Electronically signed by: Mark Garcia M.D. 03/08/2018 2:44 PM Dictated Date/Time: 03/08/2018 2:44 PM
== END | disposition home or self-care (01) ==
LOC: C.ULTRBC 13:56
PROVIDERS: ATTEND Emergency Medicine
DX: M79.89 Other specified soft tissue disorders (principal)

== ENCOUNTER 2021-08-30 22:27 | Inpatient (IN) ==
[2021-08-30] MEDS ORDERED: ONDANSETRON INJ 2 MG/ML 2 ML VIAL IV STA (22:48)
[2021-08-30] MEDS ORDERED: cefTRIAXone SODIUM 1,000 MG/50 ML BAG IV STA (22:48)
--- NOTE | 2021-08-30 22:57 | Emergency Department Note ---
Impression & Plan Hypotension, Hematemesis, Anemia, Acute GI bleeding, Fall, Acute head trauma, Diffuse abdominal pain ED Provider Note NAME: KACY BONE AGE: 71 SEX: F : 1950 ARRIVES VIA: Ambulance INFORMANT: [Patient][daughter, nursing] ED PROVIDER(S): [Bryce Farias MD] CHIEF COMPLAINT: Fall HISTORY OF PRESENT ILLNESS: The patient is a 71-year-old female who apparently fell 2 days ago striking her head. Somehow, she fell she was trying to get to the bathroom. She had a contusion around her right eye. She seemed fine after so she was not seen by any physician. Tonight, around 2 hours ago, she called her daughter as she had fallen again. When the daughter arrived, she found an area of bloody emesis. EMS was summoned. The patient seems disoriented to the daughter, she seems in pain and dehydrated. The patient has a history of alcohol abuse but the daughter is unsure if the patient is currently drinking alcohol heavily. The daughter states the patient had a negative endoscopy and colonoscopy just last month. The patient does live alone. The patient is a poor historian. She is moaning. She says that she is thirsty. She feels nauseated. She complains of diffuse abdominal pain. Given the mental state, no further history obtainable. REVIEW OF SYSTEMS: Unobtainable given the mental state. PMHx/PSHx: See Below SOCIAL HISTORY: See Below. PHYSICAL EXAM: GENERAL: Patient is in mild distress from pain. Thin and frail. HEENT: Patient has an older appearing contusion to the right face just lateral to her eye. The right globe appears uninjured. Mucous membranes quite dry, no nasal congestion. NECK: No stridor, no adenopathy, no meningismus, trachea is midline. No cervical spine step-off. LUNGS: Clear to auscultation bilaterally when listening anteriorly no wheeze, no rhonchi, breath sounds equal. HEART: Without murmurs gallops or rubs, regular rate and rhythm. ABDOMEN: Soft, mildly diffusely tender, bowel sounds positive, no hernias, no peritonitis. EXTREMITIES: No cyanosis, mild bilateral pedal edema, full range of motion of all the joints without pain or difficulty, no signs for acute trauma. NEUROLOGIC: Confused, moaning, no acute motor or sensory deficits, no focal weakness. SKIN: No rash, no diaphoresis. Rectal: Tarry stool, heme positive. DIFFERENTIAL DIAGNOSIS: Infection, sepsis, UTI, dehydration, metabolic abnormality, hypo/hyperglycemia, electrolyte disturbance, anemia, hypoxia, cardiac sources, intracerebral event, toxicologic issues, stroke, TIA, as well as other pathologies. Differential diagnosis also included intracranial bleeding, facial fracture, C-spine fractu re, GI bleeding, among others. EMERGENCY DEPARTMENT COURSE/PROCEDURES: ECG: Indication was abdominal pain and fall. ECG shows a sinus rhythm with a shorter TX. The rate is 92. There are flat T waves in the lateral leads. There is some very mild T wave depression laterally. No ST elevation, no PVCs. The QTc is 477. Compared to an ECG from 23 June 2021, the T wave changes actually appear improved. Continuous Cardiac Monitoring: An order was placed for continuous cardiac monitoring. The monitor shows a rate of 103 with sinus tachycardia. Critical Care Note: I have personally spent 68 minutes of critical care time in the direct management of this patient. This includes bedside care, interpretation of diagnostic studies, and testing, discussion with consultants, patient, and family members, and other required patient management activities. This 68 minutes is in excess of all separately billable procedures. MEDICAL DECISION MAKING: There is a mild leukocytosis, this could be consistent with infection or just the stress of today's event. Hemoglobin was low at 8.1. This is a three-point drop for her. Rectal exam was performed, stool was tarry in color and heme p ositive. Platelet count mildly high at 402. No coagulopathy. Renal panel testing does suggest some dehydration with a higher BUN and creatinine. Potassium was normal. Lactic acid level was elevated at over 3. This elevation is consistent with dehydration or infection. No concerning liver enzyme elevation. Ammonia level is not elevated. Patient appears to be in a euthyroid state. ECG shows a sinus rhythm with a shorter TX, no ST elevation. The ECG actually looked improved compared to previous EKGs. Cardiac enzyme testing x1 is not consistent with acute cardiac injury. Urinalysis shows some contamination, no obvious infection. Alcohol level was undetectable. Covid test was negative. Chest film did not show CHF or pneumonia. There was no free air. Brain CT showed no acute bleed or mass-effect. C-spine CT showed no acute fracture. Facial CT showed no acute fracture. Abdominal and pelvis CT showed some gastritis, no bowel obstruction, no free air, no evidence for intraabdominal traumatic injury. The patient was hypotensive. She had vomited blood prior to arrival. She had suffered 2 recent falls. She had a history of alcohol abuse. The patient was aggressively managed. 3 IVs were established. She received 2 L of IV saline, she received IV Protonix, IV Zofran. She received IV ceftriaxone, IV Tylenol, IV fentanyl. She was ordered for 1 unit of packed red blood cells to be transfused. I did speak with GI. They suggested starting octreotide. She received an IV bolus of octreotide and then was placed on an octreotide drip. I spoke with the patient's daughter, I spoke with the patient. The patient wants resuscitation but does not want overly aggressive care. I spoke with her daughter over the phone and the daughter reviewed the patient's living well. She does not believe the patient wants CPR or intubation. The patient is clearly in need of a hospital stay. She is suffering from an upper GI bleed. She is anemic, she is dehydrated. She has suffered 2 falls as of late. The patient's vital signs have improved. She seems more comfortable. I did speak with case management, the on-call hospitalist was consulted. Past Med/Surg History Medical History Acute renal insufficiency Anemia CAD (coronary artery disease) Cataract Lt eye Critical lower limb ischemia Dyslipidemia (high LDL; low HDL) GERD (gastroesophageal reflux disease) History of breast cancer Lt - s/p lumpectomy, chemo/radiation History of broken leg RLE - 04/2019 - S/P SURGICAL REPAIR History of herpes simplex infection HTN (hypertension) Hx of radiation therapy Ischemic leg Myocardial Infarction 2007 Neuropathy On anticoagulant therapy Prediabetes PVD (peripheral vascular disease) Rosacea Smoker Surgical History History of anesthesia reaction combative History of angioplasty of peripheral vessel X 2 - LLE - FOLLOWS W/ DR. ANDREA - on Eliquis History of breast biopsy History of cardiac cath 2007 - [facility] - NO STENTS - FOLLOWS W/ DR. WHITLEY History of cataract surgery Rt eye History of colonoscopy w/ polypectomy History of laparoscopy x 3 History of lumpectomy History of lymph node excision History of surgery on extremity broken RLE 04/2019 History of tonsillectomy S/P femoral-popliteal bypass surgery Family History Mother Breast cancer Grandmother (Maternal) Family hx of colon cancer Social History (Reviewed 08/31/21 @ 01:22 EST by Bryce Farias MD) Smoking Status: Current every day smoker Tobacco Type: Cigarettes Cigarettes Per Day: 15-20 a day; Second Hand Exposure: No; Hx Alcohol Use: Yes (2-4 glasses daily) Alcohol type: wine Hx Substance Use: No Preferred Language: Palestinian Communication Ability: Effective Visual Impairment: Limited Hearing Ability: Normal Copy Supervisor Required: No Beliefs That Will Affect Care: None marital status: Current Living Situation: Family Current Living Situation Comment: lives w/ dtr current occupational status: retired Feels Safe at Home: No Is there a partner from a previous relationship who is making you feel unsafe now?: No Assistive Devices: Cane, Glasses and Walker Allergies Allergies Allergy/AdvReac Type Severity Reaction Status Date / Time minocycline Allergy Intermediate Hives Verified 08/30/21 23:46 Tetracyclines Allergy Intermediate MINOCIN-ROSANNA Verified 08/30/21 23:46 H,HIVES duloxetine AdvReac Intermediate "MADE ME Verified 08/30/21 23:46 LOOPY" Home Meds Home Medications Medication Instructions Recorded Confirmed alpha lipoic acid 300 mg capsule 300 mg PO DAILY 06/23/21 08/30/21 apixaban 2.5 mg tablet (Eliquis) 2.5 mg PO BID 06/23/21 08/30/21 clopidogrel 75 mg tablet 75 mg PO DAILY 06/23/21 08/30/21 cyanocobalamin (vitamin B-12) 1,000 mcg PO DAILY 06/23/21 08/30/21 1,000 mcg tablet folic acid 1 mg tablet 1 mg PO DAILY 06/23/21 08/30/21 furosemide 20 mg tablet 20 mg PO DAILY PRN 06/23/21 08/30/21 gabapentin 300 mg capsule 300 mg PO TID 06/23/21 08/30/21 hydroxyzine HCl 25 mg tablet 25 mg PO Q6 PRN 06/23/21 08/30/21 omeprazole 20 mg capsule,delayed 20 mg PO BID 06/23/21 08/30/21 release thiamine HCl (vitamin B1) 100 mg 100 mg PO DAILY 06/23/21 08/30/21 tablet aspirin 81 mg tablet,delayed 81 mg PO HS 08/07/21 08/30/21 release Previous Rx's Medication Instructions Recorded rosuvastatin 40 mg tablet 40 mg PO HS #90 tab 12/31/20 metoprolol succinate 25 mg 25 mg PO QAM #90 tab 03/06/21 tablet,extended release 24 hr nitroglycerin 0.4 mg sublingual 0.4 mg SL .COMPLEX PRN #25 tab 04/16/21 tablet ondansetron 4 mg disintegrating 4 mg PO Q8H PRN #10 tab 06/23/21 tablet doxepin 10 mg capsule 10 mg PO DAILY 30 Days #30 cap 08/07/21 Results & Data (ED) Vital Signs Vital Signs - 24 hr 08/30/21 22:32 08/30/21 23:08 08/30/21 23:30 Temperature 36.4 C L Temperature Source Oral Pulse Rate 103 H 93 H Pulse Rate [Left Finger] Pulse Rate from SpO2 Sensor Pulse Rhythm Regular Pulse Rhythm [Left Finger] Pulse Strength Normal Pulse Strength [Left Finger] Respiratory Rate 18 22 Respiratory Effort / Characteristics Non-Labored Spontaneous Respiratory Depth Normal Respiratory Pattern Regular Blood Pressure 92/60 L 126/79 Blood Pressure [Right Arm] Blood Pressure Mean 70 94 Blood Pressure Mean [Right Arm] Blood Pressure Position Lying Blood Pressure Position [Right Arm] Pulse Oximetry 94 94 Oxygen Delivery Method Room Air Sepsis Recent Fever Within 48 Hours No Sepsis New/Unexplained Change in Mental Status N/A Sepsis Action Taken by Nursing No Action Required 08/31/21 00:30 08/31/21 00:53 08/31/21 01:25 EDT Temperature 36.5 C Temperature Source Oral Pulse Rate 94 H 83 Pulse Rate [Left Finger] 93 H Pulse Rate from SpO2 Sensor 93 H Pulse Rhythm Pulse Rhythm [Left Finger] Regular Pulse Strength Pulse Strength [Left Finger] Normal Respiratory Rate 25 H 16 18 Respiratory Effort / Characteristics Non-Labored Spontaneous Respiratory Depth Normal Respiratory Pattern Regular Blood Pressure 109/64 109/64 Blood Pressure [Right Arm] 117/68 Blood Pressure Mean 79 79 Blood Pressure Mean [Right Arm] 84 Blood Pressure Position Lying Blood Pressure Position [Right Arm] Lying Pulse Oximetry 91 100 100 Oxygen Delivery Method Room Air Sepsis Recent Fever Within 48 Hours Sepsis New/Unexplained Change in Mental Status Sepsis Action Taken by Longterm Medications Current Medication List: was personally reviewed by me Laboratory Data Attestation: I reviewed the patient's lab results. Result diagrams: 08/30/21 22:47 08/30/21 22:47 Lab Results 08/30/21 08/30/21 08/30/21 Range/Units 22:47 22:47 22:47 WBC 12.88 H (4.8-10.8) K/uL RBC 2.62 L (4.2-5.4) M/uL Hgb 8.1 L (12.0-16.0) g/dL Hct 24.5 L (37-47) % MCV 93.5 (80-100) fL MCH 30.9 (25-34) pg MCHC 33.1 (32-36) g/dL RDW Std Deviation 51.9 H (36.4-46.3) fL RDW Coeff of Farrah 15.2 H (11.5-14.5) % Plt Count 402 H (130-400) K/uL MPV 10.3 (7.4-10.4) fL Immature Gran % (Auto) 1.7 % Neut % (Auto) 81.1 % Lymph % (Auto) 11.4 % [place] % (Auto) 5.3 % Eos % (Auto) 0.3 % Baso % (Auto) 0.2 % Neut # (Auto) 10.44 H (1.4-6.5) K/uL Lymph # (Auto) 1.47 (1.2-3.4) K/uL [place] # (Auto) 0.68 H (0.11-0.59) K/uL Eos # (Auto) 0.04 (0-0.5) K/uL Baso # (Auto) 0.03 (0-0.2) K/uL Immature Gran # (Auto) 0.22 H (0.00-0.02) K/uL Absolute Nucleated RBC 0.03 H (0-0) K/uL Nucleated RBC % (auto) 0.2 % PT 10.9 (9.0-12.0) Seconds INR 1.1 (0.9-1.1) APTT 23.4 (21.0-31.0) Seconds PTT Ratio 0.9 Sodium 139 (136-145) mmol/L Potassium 4.1 (3.5-5.1) mmol/L Chloride 108 H (98-107) mmol/L Carbon Dioxide 18 L (21-32) mmol/L Anion Gap 14.0 H (3-11) BUN 34 H (7-18) mg/dl Creatinine 1.26 H (0.6-1.2) mg/dl Est Cr Clr Drug Dosing 34.7 ml/min Est GFR ( Amer) 50.0 ml/min Est GFR (Non-Af Amer) 43.1 ml/min BUN/Creatinine Ratio 27.2 H (10-20) Glucose 150 H (70-99) mg/dl Lactate (0.4-2.0) mmol/L Calcium 8.7 (8.5-10.1) mg/dl Magnesium 2.1 (1.8-2.4) mg/dl Total Bilirubin 0.2 (0.2-1) mg/dl AST 27 (15-37) U/L ALT 16 (12-78) U/L Alkaline Phosphatase 90 (45-117) U/L Ammonia (11-32) umol/L Total Creatine Kinase 165 (26-192) U/L Troponin I < 0.015 (0-0.045) ng/ml Total Protein 5.8 L (6.4-8.2) gm/dl Albumin 2.0 L (3.4-5.0) gm/dl Globulin 3.8 (2.5-4.0) gm/dl Albumin/Globulin Ratio 0.5 L (0.9-2) TSH 3.770 (0.300-4.500) uIu/ml Urine Color Urine Appearance (Clear) Urine pH (4.5-7.5) Ur Specific [place] (1.000-1.030) Urine Protein (Negative) Urine Glucose (UA) (Negative) Urine Ketones (Negative) Urine Blood (Negative) Urine Nitrite (Negative) Urine Bilirubin (Negative) Urine Urobilinogen (Negative) Ur Leukocyte Esterase (Negative) Urine WBC (Auto) (0-5) /hpf Urine RBC (Auto) (0-4) /hpf U Hyaline Cast (Auto) (0-5) /lpf U Epithel Cells (Auto) (0-5) /lpf Urine Bacteria (Auto) (Negative) Ur Renal Epithelial Cell Calcium Oxalate Crystal (None Prsent) Granular Casts (0) /lpf Urine Mucus (None Prsent) Ethyl Alcohol mg/dL (0-3) mg/dl COVID-19 Eval Order SARS-CoV-2 (PCR) (Negative) Blood Type Antibody Screen Crossmatch 08/30/21 08/30/21 08/30/21 Range/Units 23:04 23:04 23:08 WBC (4.8-10.8) K/uL RBC (4.2-5.4) M/uL Hgb (12.0-16.0) g/dL Hct (37-47) % MCV (80-100) fL MCH (25-34) pg MCHC (32-36) g/dL RDW Std Deviation (36.4-46.3) fL RDW Coeff of Farrah (11.5-14.5) % Plt Count (130-400) K/uL MPV (7.4-10.4) fL Immature Gran % (Auto) % Neut % (Auto) % Lymph % (Auto) % [place] % (Auto) % Eos % (Auto) % Baso % (Auto) % Neut # (Auto) (1.4-6.5) K/uL Lymph # (Auto) (1.2-3.4) K/uL [place] # (Auto) (0.11-0.59) K/uL Eos # (Auto) (0-0.5) K/uL Baso # (Auto) (0-0.2) K/uL Immature Gran # (Auto) (0.00-0.02) K/uL Absolute Nucleated RBC (0-0) K/uL Nucleated RBC % (auto) % PT (9.0-12.0) Seconds INR (0.9-1.1) APTT (21.0-31.0) Seconds PTT Ratio Sodium (136-145) mmol/L Potassium (3.5-5.1) mmol/L Chloride (98-107) mmol/L Carbon Dioxide (21-32) mmol/L Anion Gap (3-11) BUN (7-18) mg/dl Creatinine (0.6-1.2) mg/dl Est Cr Clr Drug Dosing ml/min Est GFR ( Amer) ml/min Est GFR (Non-Af Amer) ml/min BUN/Creatinine Ratio (10-20) Glucose (70-99) mg/dl Lactate 3.5 H* (0.4-2.0) mmol/L Calcium (8.5-10.1) mg/dl Magnesium (1.8-2.4) mg/dl Total Bilirubin (0.2-1) mg/dl AST (15-37) U/L ALT (12-78) U/L Alkaline Phosphatase (45-117) U/L Ammonia (11-32) umol/L Total Creatine Kinase (26-192) U/L Troponin I (0-0.045) ng/ml Total Protein (6.4-8.2) gm/dl Albumin (3.4-5.0) gm/dl Globulin (2.5-4.0) gm/dl Albumin/Globulin Ratio (0.9-2) TSH (0.300-4.500) uIu/ml Urine Color Urine Appearance (Clear) Urine pH (4.5-7.5) Ur Specific [place] (1.000-1.030) Urine Protein (Negative) Urine Glucose (UA) (Negative) Urine Ketones (Negative) Urine Blood (Negative) Urine Nitrite (Negative) Urine Bilirubin (Negative) Urine Urobilinogen (Negative) Ur Leukocyte Esterase (Negative) Urine WBC (Auto) (0-5) /hpf Urine RBC (Auto) (0-4) /hpf U Hyaline Cast (Auto) (0-5) /lpf U Epithel Cells (Auto) (0-5) /lpf Urine Bacteria (Auto) (Negative) Ur Renal Epithelial Cell Calcium Oxalate Crystal (None Prsent) Granular Casts (0) /lpf Urine Mucus (None Prsent) Ethyl Alcohol mg/dL (0-3) mg/dl COVID-19 Eval Order Covid19 at [facility] SARS-CoV-2 (PCR) NEGATIVE (Negative) Blood Type Antibody Screen Crossmatch 08/30/21 08/30/21 08/30/21 Range/Units 23:08 23:08 23:11 WBC (4.8-10.8) K/uL RBC (4.2-5.4) M/uL Hgb (12.0-16.0) g/dL Hct (37-47) % MCV (80-100) fL MCH (25-34) pg MCHC (32-36) g/dL RDW Std Deviation (36.4-46.3) fL RDW Coeff of Farrah (11.5-14.5) % Plt Count (130-400) K/uL MPV (7.4-10.4) fL Immature Gran % (Auto) % Neut % (Auto) % Lymph % (Auto) % [place] % (Auto) % Eos % (Auto) % Baso % (Auto) % Neut # (Auto) (1.4-6.5) K/uL Lymph # (Auto) (1.2-3.4) K/uL [place] # (Auto) (0.11-0.59) K/uL Eos # (Auto) (0-0.5) K/uL Baso # (Auto) (0-0.2) K/uL Immature Gran # (Auto) (0.00-0.02) K/uL Absolute Nucleated RBC (0-0) K/uL Nucleated RBC % (auto) % PT (9.0-12.0) Seconds INR (0.9-1.1) APTT (21.0-31.0) Seconds PTT Ratio Sodium (136-145) mmol/L Potassium (3.5-5.1) mmol/L Chloride (98-107) mmol/L Carbon Dioxide (21-32) mmol/L Anion Gap (3-11) BUN (7-18) mg/dl Creatinine (0.6-1.2) mg/dl Est Cr Clr Drug Dosing ml/min Est GFR ( Amer) ml/min Est GFR (Non-Af Amer) ml/min BUN/Creatinine Ratio (10-20) Glucose (70-99) mg/dl Lactate (0.4-2.0) mmol/L Calcium (8.5-10.1) mg/dl Magnesium (1.8-2.4) mg/dl Total Bilirubin (0.2-1) mg/dl AST (15-37) U/L ALT (12-78) U/L Alkaline Phosphatase (45-117) U/L Ammonia 17.5 (11-32) umol/L Total Creatine Kinase (26-192) U/L Troponin I (0-0.045) ng/ml Total Protein (6.4-8.2) gm/dl Albumin (3.4-5.0) gm/dl Globulin (2.5-4.0) gm/dl Albumin/Globulin Ratio (0.9-2) TSH (0.300-4.500) uIu/ml Urine Color Urine Appearance (Clear) Urine pH (4.5-7.5) Ur Specific [place] (1.000-1.030) Urine Protein (Negative) Urine Glucose (UA) (Negative) Urine Ketones (Negative) Urine Blood (Negative) Urine Nitrite (Negative) Urine Bilirubin (Negative) Urine Urobilinogen (Negative) Ur Leukocyte Esterase (Negative) Urine WBC (Auto) (0-5) /hpf Urine RBC (Auto) (0-4) /hpf U Hyaline Cast (Auto) (0-5) /lpf U Epithel Cells (Auto) (0-5) /lpf Urine Bacteria (Auto) (Negative) Ur Renal Epithelial Cell Calcium Oxalate Crystal (None Prsent) Granular Casts (0) /lpf Urine Mucus (None Prsent) Ethyl Alcohol mg/dL < 3.0 (0-3) mg/dl COVID-19 Eval Order SARS-CoV-2 (PCR) (Negative) Blood Type A Positive Antibody Screen NEGATIVE Crossmatch See Detail 08/30/21 08/31/21 Range/Units 23:15 01:29 EST WBC (4.8-10.8) K/uL RBC (4.2-5.4) M/uL Hgb (12.0-16.0) g/dL Hct (37-47) % MCV (80-100) fL MCH (25-34) pg MCHC (32-36) g/dL RDW Std Deviation (36.4-46.3) fL RDW Coeff of Farrah (11.5-14.5) % Plt Count (130-400) K/uL MPV (7.4-10.4) fL Immature Gran % (Auto) % Neut % (Auto) % Lymph % (Auto) % [place] % (Auto) % Eos % (Auto) % Baso % (Auto) % Neut # (Auto) (1.4-6.5) K/uL Lymph # (Auto) (1.2-3.4) K/uL [place] # (Auto) (0.11-0.59) K/uL Eos # (Auto) (0-0.5) K/uL Baso # (Auto) (0-0.2) K/uL Immature Gran # (Auto) (0.00-0.02) K/uL Absolute Nucleated RBC (0-0) K/uL Nucleated RBC % (auto) % PT (9.0-12.0) Seconds INR (0.9-1.1) APTT (21.0-31.0) Seconds PTT Ratio Sodium (136-145) mmol/L Potassium (3.5-5.1) mmol/L Chloride (98-107) mmol/L Carbon Dioxide (21-32) mmol/L Anion Gap (3-11) BUN (7-18) mg/dl Creatinine (0.6-1.2) mg/dl Est Cr Clr Drug Dosing ml/min Est GFR ( Amer) ml/min Est GFR (Non-Af Amer) ml/min BUN/Creatinine Ratio (10-20) Glucose (70-99) mg/dl Lactate 1.5 (0.4-2.0) mmol/L Calcium (8.5-10.1) mg/dl Magnesium (1.8-2.4) mg/dl Total Bilirubin (0.2-1) mg/dl AST (15-37) U/L ALT (12-78) U/L Alkaline Phosphatase (45-117) U/L Ammonia (11-32) umol/L Total Creatine Kinase (26-192) U/L Troponin I (0-0.045) ng/ml Total Protein (6.4-8.2) gm/dl Albumin (3.4-5.0) gm/dl Globulin (2.5-4.0) gm/dl Albumin/Globulin Ratio (0.9-2) TSH (0.300-4.500) uIu/ml Urine Color Dark Yellow Urine Appearance Cloudy A (Clear) Urine pH 5.5 (4.5-7.5) Ur Specific [place] 1.027 (1.000-1.030) Urine Protein 1+ H (Negative) Urine Glucose (UA) Negative (Negative) Urine Ketones 1+ H (Negative) Urine Blood Negative (Negative) Urine Nitrite Negative (Negative) Urine Bilirubin 2+ H (Negative) Urine Urobilinogen Negative (Negative) Ur Leukocyte Esterase 1+ H (Negative) Urine WBC (Auto) 5-10 H (0-5) /hpf Urine RBC (Auto) 0-4 (0-4) /hpf U Hyaline Cast (Auto) 10-30 H (0-5) /lpf U Epithel Cells (Auto) >30 H (0-5) /lpf Urine Bacteria (Auto) 1+ H (Negative) Ur Renal Epithelial Cell Not Reportable Calcium Oxalate Crystal Present A (None Prsent) Granular Casts 1-5 H (0) /lpf Urine Mucus Present A (None Prsent) Ethyl Alcohol mg/dL (0-3) mg/dl COVID-19 Eval Order SARS-CoV-2 (PCR) (Negative) Blood Type Antibody Screen Crossmatch Administered Medications Octreotide Acetate 500 mcg/ (Sodium Chloride) 105 mls @ 10.5 mls/hr IV .Q10H ELY Stop: 09/30/21 00:44 Last Admin: 08/31/21 01:14 EDT Dose: 50 mcg/hr, 10.5 mls/hr Documented by: [id number] Discontinued Medications Fentanyl Citrate (Fentanyl Citrate 100 Mcg/2 Ml Vial) 50 mcg IV NOW STA Stop: 08/30/21 23:58 Last Admin: 08/31/21 00:17 Dose: 50 mcg Documented by: [id number] Sodium Chloride (Nss 1000ml) 1,000 mls @ 999 mls/hr IV .Q1H1M ELY Stop: 08/31/21 00:00 Last Infusion: 08/31/21 00:02 Dose: 0 mls/hr Documented by: [id number] Admin: 08/30/21 22:54 Dose: 999 mls/hr Documented by: [id number] Ceftriaxone Sodium (Rocephin) 1,000 mg in 50 mls @ 100 mls/hr IV NOW STA Stop: 08/30/21 23:17 Last Infusion: 08/30/21 23:45 Dose: 0 mls/hr Documented by: [id number] Admin: 08/30/21 23:15 Dose: 100 mls/hr Documented by: [id number] Pantoprazole Sodium 80 mg/ (Dextrose) 100 mls @ 400 mls/hr IV ONE STA Stop: 08/30/21 23:55 Last Infusion: 08/31/21 00:49 Dose: 0 mls/hr Documented by: [id number] Admin: 08/31/21 00:10 Dose: 400 mls/hr Documented by: [id number] Acetaminophen (Ofirmev) 65 mls @ 200 mls/hr IV NOW ONE; Protocol Stop: 08/31/21 00:16 Last Infusion: 08/31/21 01:04 EDT Dose: 0 mls/hr Documented by: [id number] Admin: 08/31/21 00:43 Dose: 200 mls/hr Documented by: [id number] Sodium Chloride (Nss 1000ml) 1,000 mls @ 999 mls/hr IV .Q1H1M ONE Stop: 08/31/21 00:58 Last Admin: 08/31/21 01:09 EDT Dose: 999 mls/hr Documented by: [id number] Octreotide Acetate 50 mcg/ (Syringe) 10 mls @ 3 mls/min IV ONE STA Stop: 08/31/21 00:35 Last Admin: 08/31/21 01:05 EDT Dose: 3 mls/min Documented by: [id number] Ioversol (Optiray 320 100ml) 94 ml IV ONCE ONE Stop: 08/31/21 00:15 Last Admin: 08/31/21 00:14 Dose: 94 ml Documented by: [id number] Ondansetron HCl (Ondansetron Inj 2 Mg/Ml 2 Ml Vial) 4 mg IV NOW STA Stop: 08/30/21 22:49 Last Admin: 08/30/21 23:10 Dose: 4 mg Documented by: [id number] Imaging Data Attestation: I personally reviewed and interpreted this imaging study as follows: My Impression: Chest x-ray: There is no free air, no mediastinal widening, lungs are clear. Radiologist's Impression: Brain CT: No acute intracranial hemorrhage. Age-related cerebral volume loss. Facial CT: There is no acute facial fracture. Soft tissue swelling seen. C-spine CT: There is no acute fracture. There is some degenerative change noted. Abdominal and pelvis CT with contrast: Mild wall thickening of the antrum and proximal duodenum which may be underdistention or gastritis. No acute fracture seen. No solid organ injury. No free air in the abdomen or pelvis. Head Trauma GCS Score: 14 Discharge Plan Visit Data Chief Complaint: Fall Stated Complaint: GENERAL ILLNESS ED Provider: Bryce Farias Discharge Problem: Hypotension, Hematemesis, Anemia, Acute GI bleeding, Fall, Acute head trauma, Diffuse abdominal pain Patient Disposition: Admitted As Inpatient Condition: Serious Forms Stand Alone Forms: My [facility] Prescriptions Prescriptions: No Action rosuvastatin 40 mg tablet 40 mg PO HS Qty: 90 RF: 3 metoprolol succinate 25 mg tablet extended release 24 hr 25 mg PO QAM Qty: 90 RF: 3 aspirin 81 mg tablet,delayed release (DR/EC) 81 mg PO HS RF: 0 doxepin 10 mg capsule 10 mg PO DAILY 30 Days Qty: 30 RF: 1 nitroglycerin 0.4 mg tablet, sublingual 0.4 mg SL .COMPLEX PRN (Reason: chest pain) Qty: 25 RF: 2 clopidogrel 75 mg tablet 75 mg PO DAILY RF: 0 Eliquis 2.5 mg tablet 2.5 mg PO BID RF: 0 folic acid 1 mg tablet 1 mg PO DAILY RF: 0 omeprazole 20 mg capsule,delayed release(DR/EC) 20 mg PO BID RF: 0 gabapentin 300 mg capsule 300 mg PO TID RF: 0 hydroxyzine HCl 25 mg tablet 25 mg PO Q6 PRN (Reason: Anxiety) RF: 0 thiamine HCl (vitamin B1) 100 mg tablet 100 mg PO DAILY RF: 0 cyanocobalamin (vitamin B-12) 1,000 mcg Tablet 1,000 mcg PO DAILY RF: 0 alpha lipoic acid 300 mg Capsule 300 mg PO DAILY RF: 0 furosemide 20 mg Tablet 20 mg PO DAILY PRN (Reason: Fluid Retention) RF: 0 ondansetron 4 mg tablet,disintegrating 4 mg PO Q8H PRN (Reason: nausea and vomiting) Qty: 10 RF: 0 Referrals Referrals: Josie Sommer DO [Primary Care Provider] - Discharge Problem: Hypotension Qualifiers: Hypotension type: unspecified hypotension type Qualified Code(s): I95.9 - Hypotension, unspecified Hematemesis Qualifiers: Nausea presence: unspecified Qualified Code(s): K92.0 - Hematemesis Anemia Qualifiers: Anemia type: unspecified type Qualified Code(s): D64.9 - Anemia, unspecified Fall Qualifiers: Encounter type: initial encounter Qualified Code(s): W19.XXXA - Unspecified fall, initial encounter Acute head trauma Qualifiers: Encounter type: initial encounter Qualified Code(s): S09.90XA - Unspecified injury of head, initial encounter
[2021-08-30] MEDS ORDERED: SODIUM CHLORIDE 0.9% 1000ML 1,000 ML IV SCH (23:00)
[2021-08-30 23:05] LABS: Basophils # (auto) 0.03 K/uL (0-0.2); Basophils % (auto) 0.2 %; Eosinophils # (auto) 0.04 K/uL (0-0.5); Eosinophils % (auto) 0.3 %; Hematocrit (blood only) 24.5 % (37-47); Hemoglobin 8.1 g/dL (12.0-16.0); Immature Granulocytes # (auto) 0.22 K/uL (0.00-0.02); Immature Granulocytes % (auto) 1.7 %; Lymphocytes # (auto) 1.47 K/uL (1.2-3.4); Lymphocytes % (auto) 11.4 %; Mean Corpuscular Hemoglobin 30.9 pg (25-34); Mean Corpuscular Hgb Conc 33.1 g/dL (32-36); Mean Corpuscular Volume 93.5 fL (80-100); Mean Platelet Volume 10.3 fL (7.4-10.4); Monocytes # (auto) 0.68 K/uL (0.11-0.59); Monocytes % (auto) 5.3 %; Neutrophils # (auto) 10.44 K/uL (1.4-6.5); Neutrophils % (auto) 81.1 %; Nucleated RBC # (auto) 0.03 K/uL (0-0); Nucleated RBC % (auto) 0.2 %; Platelet Count 402 K/uL (130-400); RDW Coefficient of Variation 15.2 % (11.5-14.5); RDW Standard Deviation 51.9 fL (36.4-46.3); Red Blood Count 2.62 M/uL (4.2-5.4); White Blood Count 12.88 K/uL (4.8-10.8)
[2021-08-30] MEDS ORDERED: SODIUM CHLORIDE 0.9% 250 ML IV PRN (23:10)
[2021-08-30 23:17] LABS: INR 1.1 (0.9-1.1); Partial Thromboplastin Ratio 0.9; Partial Thromboplastin Time 23.4 Seconds (21.0-31.0); Prothrombin Time 10.9 Seconds (9.0-12.0)
[2021-08-30 23:29] LABS: Appearance Urine Cloudy (Clear); Blood Urine Negative (Negative); Color Urine Dark Yellow; Epithelial Cell Urine Auto >30 /lpf (0-5); Glucose Urine UA Negative (Negative); Ketones Urine 1+ (Negative); Leukocyte Esterase Urine 1+ (Negative); Nitrite Urine Negative (Negative); Protein Urine 1+ (Negative); Specific Gravity Urine 1.027 (1.000-1.030); Urobilinogen Urine Negative (Negative); pH Urine 5.5 (4.5-7.5)
[2021-08-30 23:30] LABS: Bilirubin Urine 2+ (Negative)
[2021-08-30 23:31] LABS: Alanine Aminotransferase 16 U/L (12-78); Aspartate Aminotransferase 27 U/L (15-37); BUN Creatinine Ratio 27.2 (10-20); Blood Urea Nitrogen 34 mg/dl (7-18); Calcium 8.7 mg/dl (8.5-10.1); Carbon Dioxide 18 mmol/L (21-32); Chloride 108 mmol/L (98-107); Creatinine Clr Calc Pharmacy 34.7 ml/min; Est GFR (Non-African American) 43.1 ml/min; Glucose 150 mg/dl (70-99); Magnesium 2.1 mg/dl (1.8-2.4); Potassium 4.1 mmol/L (3.5-5.1); Sodium 139 mmol/L (136-145)
[2021-08-30] MEDS ORDERED: PANTOprazole 80 MG in DEXTROSE 5% 100 ML IV STA (23:41)
[2021-08-30 23:42] LABS: Albumin Globulin Ratio 0.5 (0.9-2); Alkaline Phosphatase 90 U/L (45-117); Bilirubin,Total 0.2 mg/dl (0.2-1); Creatine Kinase 165 U/L (26-192); Globulin 3.8 gm/dl (2.5-4.0); Total Protein 5.8 gm/dl (6.4-8.2); Troponin I < 0.015 ng/ml (0-0.045)
[2021-08-30 23:47] LABS: Mucus Urine Present (None Prsent)
[2021-08-30 23:49] LABS: Calcium Oxalate Crystals Urine Present (None Prsent)
[2021-08-30 23:51] LABS: RBC Urine Automated 0-4 /hpf (0-4)
[2021-08-30 23:54] LABS: Bacteria Urine Automated 1+ (Negative)
[2021-08-30] MEDS ORDERED: fentaNYL citrate 100 MCG/2 ML VIAL IV PRN (23:57)
[2021-08-30] MEDS ORDERED: ACETAMINOPHEN 65 ML IV ONE (23:57)
[2021-08-30] MEDS ORDERED: fentaNYL citrate 100 MCG/2 ML VIAL IV STA (23:57)
[2021-08-30] MEDS ORDERED: SODIUM CHLORIDE 0.9% 1000ML 1,000 ML IV ONE (23:58)
[2021-08-31] MEDS ORDERED: OPTIRAY 320 100ml IV ONE (00:14)
[2021-08-31] MEDS ORDERED: OCTREOTIDE ACETATE 50 MCG in SYRINGE 9.5 ML IV STA (00:32)
[2021-08-31] MEDS ORDERED: SODIUM CHLORIDE 0.9% 250 ML IV PRN ×2 (00:37→08:37)
[2021-08-31] MEDS: OCTREOTIDE ACETATE 500 MCG in 0.9 % SODIUM CHLORIDE 100 ML IV SCH ×2 (01:14→11:55)
[2021-08-31] MEDS ORDERED: THIAMINE HCL 100 MG in SYRINGE 9 ML IV STA (01:47)
--- NOTE | 2021-08-31 02:04 | History & Physical Report ---
Date of Service August 31, 2021 Assessment & Plan (1) UGIB (upper gastrointestinal bleed): Plan: Differentials include alcoholic gastritis, Isabella-Tran tear, PUD In the setting of ASA, Eliquis intake for PAD status post surgery Hemodynamic instability upon arrival at the ER given hypotension and hemoglobin drop from baseline. Recurrent syncope likely from orthostasis from GI bleed Rule out alcohol withdrawal seizures hx CAD as per records valvular heart disease (mild MR, mild to moderate TR, trace AR on TTE 2020) hypertension, patient hypotensive upon arrival to the ER hyperlipidemia on statin Rx CRI, creatinine at baseline left breast cancer status post surgery/chemoradiation fatty liver as per records Depression, suboptimal with fleeting suicidal ideations although none currently as per patient history laryngocele status post surgery/difficult intubation as per records Hyperglycemia rule out DM Malnutrition, low BMI chronic neuropathy ongoing tobacco abuse Medical telemetry IV PPI Appropriate to hold aspirin and Eliquis for now given active GI bleed Transfuse PRBC to maintain hemoglobin above 8 GI consult Re: UGI B (ER provider already in touch with Dr. Yates who recommends Octreotide infusion as well. Keep n.p.o. in anticipation of endoscopy in a.m.) Hold home BP and diuretic meds until BP improved IVF EEG Re: Recurrent syncope ABILIO S, DT precautions Psych consult Re: Depression with fleeting suicidal ideations Check hemoglobin A1c Nutrition consult Re: Low BMI Nutrition consult DVT prophylaxis. TEDS (pharmacologic anticoagulation contraindicated with GI bleed, SCDs contraindicated with PAD history) Full code in a temporary situation as per patient. Patient requests for her daughter to be updated of plan of care. Ms. Azul Abraham, contact #[phone]. Text document was generated using [employer] voice recognition software. It may contain grammatical or spelling errors. Kindly contact undersigned for clarification of any documentation item in question. History of Present Illness Chief Complaint: Hematemesis Primary Care Provider: Josie Sommer DO History obtained from patient and records. Medical history significant for CAD, PAD status post surgery on Eliquis, valvular heart disease (mild MR, mild to moderate TR, trace AR on TTE 2020), hypertension, hyperlipidemia, CRI (baseline creatinine 1.5), left breast cancer status post surgery/chemoradiation, fatty liver as per records, chronic anemia (recent outpatient hemoglobin 10-11), anxiety disorder, history laryngocele status post surgery, difficult intubation as per records, chronic neuropathy, past alcohol abuse as per patient, ongoing tobacco abuse. Six months history of achy abdominal pain with diarrhea symptoms occasionally with dark stools. Dysphagia and about 20 pound weight loss as per patient. Admits to some depression with fleeting suicidal ideations. Endoscopy recommended by GI specialist on outpatient visit 3 months ago. Outpatient psychology referral made by PCP on follow-up visit 2 months ago. Outpatient EGD last month was normal. Colonoscopy showed internal hemorrhoids, poor preparation. Dark stools noted the last few days at home with usual achy abdominal pain as per patient. Two unwitnessed syncopal events at home the last week preceded by lightheadedness on getting up. Second episode led to a "black eye" on the right. No consultations done. No tongue biting/seizures as per patient. Last night, patient felt nauseous and sick after taking her gabapentin pill for neuropathy. Patient felt lightheaded on her way to the bathroom culminating in a " controlled fall" as per patient. No head trauma, no syncope, no chest pain, no S OB. Subsequent hematemesis. Last EtOH intake as per patient was 2 nights ago. Patient later brought to ER for evaluation. Initial SBP at the ER 90s. IV Protonix and Octreotide given at the ER for GI bleed 1 unit packed RBC administered at the ER. Medical History as above Last confinement [facility] January 21 to January 24, 2021 for critical left lower extremity ischemia status post mechanical thrombectomy and angioplasty with catheter directed TPA. Difficult airway posed by laryngoceles necessitating intubation with 5.5 ET tube and postop mechanical ventilation and Decadron for about 2 days. Patient discharged on aspirin, Plavix and Eliquis. Patient later on stopped Plavix as per her preference. Patient underwent direct microlaryngoscopy with CO2 laser excision [place] [facility] [place]. Surgical History : Breast/lymph node biopsy, left breast surgery, femoropopliteal artery revascularization with stent and angioplasty,, partial mastectomy left, pilonidal cyst removal, laryngoscopy with biopsy Family History : Breast cancer, colon cancer, dementia, heart disease, stroke Personal/Social history : Reports pack daily, past alcohol abuse as per patient, occasional EtOH consumption currently; [employer] employment Allergies Allergy/AdvReac Type Severity Reaction Status Date / Time minocycline Allergy Intermediate Hives Verified 08/30/21 23:46 Tetracyclines Allergy Intermediate MINOCIN-ROSANNA Verified 08/30/21 23:46 H,HIVES duloxetine AdvReac Intermediate "MADE ME Verified 08/30/21 23:46 LOOPY" Home Medications Medication Instructions Recorded Confirmed Type rosuvastatin 40 mg tablet 40 mg PO HS #90 tab 12/31/20 08/30/21 Rx metoprolol succinate 25 mg 25 mg PO QAM #90 tab 03/06/21 08/30/21 Rx tablet,extended release 24 hr nitroglycerin 0.4 mg sublingual 0.4 mg SL .COMPLEX PRN #25 tab 04/16/21 08/30/21 Rx tablet alpha lipoic acid 300 mg capsule 300 mg PO DAILY 06/23/21 08/30/21 History apixaban 2.5 mg tablet (Eliquis) 2.5 mg PO BID 06/23/21 08/30/21 History cyanocobalamin (vitamin B-12) 1,000 mcg PO DAILY 06/23/21 08/30/21 History 1,000 mcg tablet folic acid 1 mg tablet 1 mg PO DAILY 06/23/21 08/30/21 History furosemide 20 mg tablet 20 mg PO DAILY PRN 06/23/21 08/30/21 History gabapentin 300 mg capsule 300 mg PO TID 06/23/21 08/30/21 History hydroxyzine HCl 25 mg tablet 25 mg PO Q6 PRN 06/23/21 08/30/21 History omeprazole 20 mg capsule,delayed 20 mg PO BID 06/23/21 08/30/21 History release ondansetron 4 mg disintegrating 4 mg PO Q8H PRN #10 tab 06/23/21 08/30/21 Rx tablet thiamine HCl (vitamin B1) 100 mg 100 mg PO DAILY 06/23/21 08/30/21 History tablet aspirin 81 mg tablet,delayed 81 mg PO HS 08/07/21 08/30/21 History release doxepin 10 mg capsule 10 mg PO DAILY 30 Days #30 cap 08/07/21 08/30/21 Rx Past Med/Surg History Medical History Acute renal insufficiency Anemia CAD (coronary artery disease) Cataract Lt eye Critical lower limb ischemia Dyslipidemia (high LDL; low HDL) GERD (gastroesophageal reflux disease) History of breast cancer Lt - s/p lumpectomy, chemo/radiation History of broken leg RLE - 04/2019 - S/P SURGICAL REPAIR History of herpes simplex infection HTN (hypertension) Hx of radiation therapy Ischemic leg Myocardial Infarction 2007 Neuropathy On anticoagulant therapy Prediabetes PVD (peripheral vascular disease) Rosacea Smoker Surgical History History of anesthesia reaction combative History of angioplasty of peripheral vessel X 2 - LLE - FOLLOWS W/ DR. ANDREA - on Eliquis History of breast biopsy History of cardiac cath 2007 - [facility] - NO STENTS - FOLLOWS W/ DR. RADFORD History of cataract surgery Rt eye History of colonoscopy w/ polypectomy History of laparoscopy x 3 History of lumpectomy History of lymph node excision History of surgery on extremity broken RLE 04/2019 History of tonsillectomy S/P femoral-popliteal bypass surgery Family History Mother Breast cancer Grandmother (Maternal) Family hx of colon cancer Social History (Reviewed 08/31/21 @ 01:22 EST by Bryce Farias MD) Smoking Status: Current every day smoker Tobacco Type: Cigarettes Cigarettes Per Day: 15-20; Second Hand Exposure: No; Hx Alcohol Use: Yes Alcohol type: hard liquor Hx Substance Use: No Preferred Language: Cymraes Communication Ability: Effective Visual Impairment: Limited Hearing Ability: Normal Engineering Associate Required: No Beliefs That Will Affect Care: None marital status: Current Living Situation: Alone Current Living Situation Comment: at home alone current occupational status: retired Feels Safe at Home: Yes Safety Concerns: Feels Safe At This Time Assistive Devices: None Review of Systems Review of Systems: As per HPI, all 10 systems reviewed, all other ROS negative Physical Exam Physical Exam: GENERAL: Slightly uncomfortable, alcoholic fetor, underweight, no respiratory distress SKIN: Pallor, warm HEENT: Right periorbital ecchymosis, pale palpebral conjunctivae, no ptosis, dry buccal mucosa NECK : Supple, no tenderness CHEST : Decreased breath sounds, no tenderness HEART : RRR, no obvious murmurs ABDOMEN: Minimal distention, epigastric tenderness EXTREMITIES : No LE swelling/tenderness, no other conspicuous deformities noted NEUROLOGIC : Coherent, no facial asymmetry, no other gross focality Results & Data Results & Data ([facility]) Vital Signs (Past 12 Hours) Vital Signs Temp Pulse Pulse Resp BP BP Pulse Ox 08/31/21 01:25 EDT 36.5 C 83 18 109/64 100 08/31/21 00:53 93 H 16 117/68 100 08/31/21 00:30 94 H 25 H 109/64 91 08/30/21 23:30 93 H 22 126/79 94 08/30/21 23:08 94 08/30/21 22:32 36.4 C L 103 H 18 92/60 L Laboratory Results Laboratory Results WBC 12.88 K/uL (4.8-10.8) H 08/30/21 22:47 RBC 2.62 M/uL (4.2-5.4) L 08/30/21 22:47 Hgb 8.1 g/dL (12.0-16.0) L 08/30/21 22:47 Hct 24.5 % (37-47) L 08/30/21 22:47 MCV 93.5 fL (80-100) 08/30/21 22:47 MCH 30.9 pg (25-34) 08/30/21 22:47 MCHC 33.1 g/dL (32-36) 08/30/21 22:47 RDW Std Deviation 51.9 fL (36.4-46.3) H 08/30/21 22:47 RDW Coeff of Farrah 15.2 % (11.5-14.5) H 08/30/21 22:47 Plt Count 402 K/uL (130-400) H 08/30/21 22:47 MPV 10.3 fL (7.4-10.4) 08/30/21 22:47 Immature Gran % (Auto) 1.7 % 08/30/21 22:47 Neut % (Auto) 81.1 % 08/30/21 22:47 Lymph % (Auto) 11.4 % 08/30/21 22:47 [place] % (Auto) 5.3 % 08/30/21 22:47 Eos % (Auto) 0.3 % 08/30/21 22:47 Baso % (Auto) 0.2 % 08/30/21 22:47 Neut # (Auto) 10.44 K/uL (1.4-6.5) H 08/30/21 22:47 Lymph # (Auto) 1.47 K/uL (1.2-3.4) 08/30/21 22:47 [place] # (Auto) 0.68 K/uL (0.11-0.59) H 08/30/21 22:47 Eos # (Auto) 0.04 K/uL (0-0.5) 08/30/21 22:47 Baso # (Auto) 0.03 K/uL (0-0.2) 08/30/21 22:47 Immature Gran # (Auto) 0.22 K/uL (0.00-0.02) H 08/30/21 22:47 Absolute Nucleated RBC 0.03 K/uL (0-0) H 08/30/21 22:47 Nucleated RBC % (auto) 0.2 % 08/30/21 22:47 PT 10.9 Seconds (9.0-12.0) 08/30/21 22:47 INR 1.1 (0.9-1.1) 08/30/21 22:47 APTT 23.4 Seconds (21.0-31.0) 08/30/21 22:47 PTT Ratio 0.9 08/30/21 22:47 Sodium 139 mmol/L (136-145) 08/30/21 22:47 Potassium 4.1 mmol/L (3.5-5.1) 08/30/21 22:47 Chloride 108 mmol/L (98-107) H 08/30/21 22:47 Carbon Dioxide 18 mmol/L (21-32) L 08/30/21 22:47 Anion Gap 14.0 (3-11) H 08/30/21 22:47 BUN 34 mg/dl (7-18) H 08/30/21 22:47 Creatinine 1.26 mg/dl (0.6-1.2) H 08/30/21 22:47 Est Cr Clr Drug Dosing 34.7 ml/min 08/30/21 22:47 Est GFR ( Amer) 50.0 ml/min 08/30/21 22:47 Est GFR (Non-Af Amer) 43.1 ml/min 08/30/21 22:47 BUN/Creatinine Ratio 27.2 (10-20) H 08/30/21 22:47 Glucose 150 mg/dl (70-99) H 08/30/21 22:47 Lactate 1.5 mmol/L (0.4-2.0) 08/31/21 01:29 EST Calcium 8.7 mg/dl (8.5-10.1) 08/30/21 22:47 Magnesium 2.1 mg/dl (1.8-2.4) 08/30/21 22:47 Total Bilirubin 0.2 mg/dl (0.2-1) 08/30/21 22:47 AST 27 U/L (15-37) 08/30/21 22:47 ALT 16 U/L (12-78) 08/30/21 22:47 Alkaline Phosphatase 90 U/L (45-117) 08/30/21 22:47 Ammonia 17.5 umol/L (11-32) 08/30/21 23:08 Total Creatine Kinase 165 U/L (26-192) 08/30/21 22:47 Troponin I < 0.015 ng/ml (0-0.045) 08/30/21 22:47 Total Protein 5.8 gm/dl (6.4-8.2) L 08/30/21 22:47 Albumin 2.0 gm/dl (3.4-5.0) L 08/30/21 22:47 Globulin 3.8 gm/dl (2.5-4.0) 08/30/21 22:47 Albumin/Globulin Ratio 0.5 (0.9-2) L 08/30/21 22:47 TSH 3.770 uIu/ml (0.300-4.500) 08/30/21 22:47 Urine Color Dark Yellow 08/30/21 23:15 Urine Appearance Cloudy (Clear) A 08/30/21 23:15 Urine pH 5.5 (4.5-7.5) 08/30/21 23:15 Ur Specific [place] 1.027 (1.000-1.030) 08/30/21 23:15 Urine Protein 1+ (Negative) H 08/30/21 23:15 Urine Glucose (UA) Negative (Negative) 08/30/21 23:15 Urine Ketones 1+ (Negative) H 08/30/21 23:15 Urine Blood Negative (Negative) 08/30/21 23:15 Urine Nitrite Negative (Negative) 08/30/21 23:15 Urine Bilirubin 2+ (Negative) H 08/30/21 23:15 Urine Urobilinogen Negative (Negative) 08/30/21 23:15 Ur Leukocyte Esterase 1+ (Negative) H 08/30/21 23:15 Urine WBC (Auto) 5-10 /hpf (0-5) H 08/30/21 23:15 Urine RBC (Auto) 0-4 /hpf (0-4) 08/30/21 23:15 U Hyaline Cast (Auto) 10-30 /lpf (0-5) H 08/30/21 23:15 U Epithel Cells (Auto) >30 /lpf (0-5) H 08/30/21 23:15 Urine Bacteria (Auto) 1+ (Negative) H 08/30/21 23:15 Ur Renal Epithelial Cell Not Reportable 08/30/21 23:15 Calcium Oxalate Crystal Present (None Prsent) A 08/30/21 23:15 Granular Casts 1-5 /lpf (0) H 08/30/21 23:15 Urine Mucus Present (None Prsent) A 08/30/21 23:15 Ethyl Alcohol mg/dL < 3.0 mg/dl (0-3) 08/30/21 23:08 COVID-19 Eval Order Covid19 at [facility] 08/30/21 23:04 SARS-CoV-2 (PCR) NEGATIVE (Negative) 08/30/21 23:04 Blood Type A Positive 08/30/21 23:11 Antibody Screen NEGATIVE 08/30/21 23:11 Crossmatch See Detail 08/30/21 23:[address] read as follows CT HEAD: No acute intracranial hemorrhage, extra-axial fluid collection or mass- effect. No CT evidence of acute territorial infarct. Age-related generalized cerebral volume losswith mild presumed chronic microvascular ischemic changes in the supratentorial white matter. CT FACIAL: No acute fracture of the facial b ones. Mild bilateral periorbital soft tissue swelling. CT C SPINE: No acute fracture or traumatic malalignment of the cervical spine. Mild multilevel degenerative changes of the spine. Atherosclerotic calcifications of both carotid bulbs. Mild emphysematous changes visualized within the lung apices. CT ABDOMEN & PELVIS With Contrast: Mild wall thickening of the antrumand proximal duodenummaybe attributed to under distention versus gastritis/duodenitis. No acute fracture visualized. No evidence of solid organ injury. No significant ascites or free air in the abdomen or pelvis. EKG as per my interpretation : Rate 90, NSR, normal axis, short AR, delta wave, incomplete RBBB, diffuse T wave flattening over limb leads
[2021-08-31] MEDS: PANTOprazole 40 MG in DEXTROSE 5% 100 ML IV SCH ×3 (03:01→14:16)
[2021-08-31] MEDS: NICOTINE 14 MG/24 HR PATCH TD SCH ×2 (03:21→07:49)
[2021-08-31] MEDS ORDERED: LORazepam 2 MG/4 ML VIAL IV PRN (04:47)
[2021-08-31] MEDS ORDERED: LORazepam 1 MG/2 ML VIAL IV PRN ×2 (04:47)
[2021-08-31] MEDS ORDERED: HYDROmorphone INJ 0.5 MG/0.5 ML SYR IV PRN (04:47)
[2021-08-31] MEDS ORDERED: LORazepam 3 MG/6 ML VIAL IV PRN (04:47)
[2021-08-31] MEDS ORDERED: ACETAMINOPHEN 325 MG TAB PO PRN (04:47)
[2021-08-31] MEDS ORDERED: PROMETHAZINE HCL 6.25 MG in SODIUM CHLORIDE 0.9% 50 ML IV PRN (04:47)
[2021-08-31] MEDS ORDERED: ATIVAN IV ALCOHOL WITHDRAWL IV PRN (04:47)
[2021-08-31] MEDS: SODIUM CHLORIDE 0.9% 1000ML 1,000 ML IV SCH (04:56)
--- NOTE | 2021-08-31 07:44 | CT Scan Report ---
CT facial bones wo con CLINICAL HISTORY: 71 years-old Female presenting with fall, trauma. Acute facial trauma status post f all COMPARISON STUDY: CT head and cervical spine studies of same day TECHNIQUE: High-resolution CT scan of the facial bones is performed. Images are reviewed in the axia l, sagittal, and coronal planes. IV contrast was not administered for this examination. A dose lower ing technique was utilized adhering to the principles of ALARA. FINDINGS: Prior bilateral lens repair. Streak artifact from dental amalgam hardware. Minimal periorbital subcut aneous edema. No opaque foreign body. Degenerative changes of the imaged cervical spine. Mastoid air cells and middle ear cavities are clear. Paranasal sinuses are generally clear with minimal polypoid mucosal thickening of the right maxillary sinus. No acute facial bone fracture. IMPRESSION: No acute facial bone fracture. ACT 112: Negative or not required by law. The above report was generated using voice recognition software. It may contain grammatical, syntax o r spelling errors. Electronically signed by: García Acevedo M.D. 08/31/2021 7:43 AM
--- NOTE | 2021-08-31 07:47 | CT Scan Report ---
CT head/brain wo con CLINICAL HISTORY: 71 years-old Female with fall, trauma. Acute posttraumatic head injury TECHNIQUE: Multiple axial CT images of the head were obtained without contrast. A dose lowering tech nique was utilized adhering to the principles of ALARA. COMPARISON: CT cervical spine and maxillofacial studies of same day FINDINGS: No acute intracranial hemorrhage, midline shift, intracranial mass, hydrocephalus, territorial ischem ia or abnormal extra-axial collection. Age-related involutional changes. White matter hypodensities s uggest chronic microvascular ischemic disease. Cerebral vascular calcifications. The calvarium is intact. Prior bilateral lens repair. The paranasal sinuses, mastoid air cells, and m iddle ear cavities are clear. IMPRESSION: No acute intracranial abnormality or calvarial fracture. ACT 112: Negative or not required by law. The above report was generated using voice recognition software. It may contain grammatical, syntax o r spelling errors. Electronically signed by: García Acevedo M.D. 08/31/2021 7:46 AM
--- NOTE | 2021-08-31 07:51 | CT Scan Report ---
CT OF THE CERVICAL SPINE WITHOUT CONTRAST CLINICAL HISTORY: fall, trauma COMPARISON STUDY: No previous studies for comparison. TECHNIQUE: Helical axial images of the cervical spine were obtained without IV contrast. Sagittal a nd coronal reconstructions were viewed. Automated exposure control was utilized for the study. A do se lowering technique was utilized adhering to the principles of ALARA. FINDINGS: Alignment of the cervical spine is anatomic. Vertebral body heights are maintained. No acut e cervical spine fracture or subluxation is present. There is no prevertebral edema. Facet joints are intact. Moderate multilevel facet arthrosis is present. A 9 mm left upper lobe groundglass nodule w ith possible small solid component is noted. This has mildly increased in size since chest CT of 2017. Upper lobe emphysema. Hypodensities within the vallecula, left larger than right, are note d. IMPRESSION: 1. No acute cervical spine fracture or subluxation. 2. Slight increase in size of a 9 mm left upper lobe groundglass nodule with possible small solid com ponent since CT of December 27, 2017. This is indeterminate. Nonemergent chest CT is recommended. This fi nding will be called/faxed to the ordering provider at time of dictation. 3. Apparent cystic lesions within the vallecula and along the epiglottis, as described above. Follow- up nonemergent CT of the neck with IV contrast is recommended for further evaluation ACT 112: Negative or not required by law. Electronically signed by: Harrison Hoang M.D. 08/31/2021 7:49 AM
--- NOTE | 2021-08-31 07:59 | CT Scan Report ---
ABDOMEN AND PELVIS CT WITH IV CONTRAST HISTORY: Acute abdominal trauma status post fall vomiting, pain TECHNIQUE: Multiaxial CT images of the abdomen and pelvis were performed following the IV administrat ion of 94 cc of Optiray, A dose lowering technique was utilized adhering to the principles of ALARA. COMPARISON STUDY: CT abdomen and pelvis 06/23/2021 FINDINGS: Coronary artery calcifications. Mild linear subsegmental bibasilar atelectasis/scarring. No pneumatosis or pneumoperitoneum. Unremarkable spleen, mildly distended gallbladder, and adrenal glan ds. Hepatic steatosis. No evidence of cirrhosis or hepatic mass lesion. Patent portal vein. Edema adj acent to the pancreatic head is likely reactive from the gastric and duodenal findings as below. Mild generalized pancreatic atrophy. Unremarkable kidneys. No hydronephrosis. 8 mm cyst of the superior p ole right kidney. Moderate urinary bladder wall thickening with partial distention. Unremarkable uter us and ovaries. Atherosclerosis of the aorta without aneurysm. High-grade stenosis at the origin of t he SMA with at least moderate stenosis of the proximal renal arteries. No adenopathy. No bowel obstruction. There is moderate wall thickening of the distal stomach and proximal duodenum. There is a 1.7 cm saccular outpouching involving the distal stomach on image 164 series 10. No eviden ce of perforation. Mildly prominent lymph nodes measure up to 5 mm. Moderate fecal retention. Mild co lonic diverticulosis. Scattered small and large bowel air-fluid levels are present with normal append ix. Unremarkable soft tissues. Degenerative changes of the spine, pelvis and hips. Healing subacute a ppearing lateral right ninth rib. IMPRESSION: 1. 1.7 cm saccular outpouching involving the distal stomach with moderate adjacent distal stomach and proximal duodenal wall thickening with mild surrounding inflammatory stranding. This finding is sugg estive of probable peptic ulcer disease however correlation with endoscopy is recommended to exclude the less likely possibility of an ulcerative mucosal lesion. No evidence of perforation. 2. No bowel obstruction or pneumoperitoneum. 3. Hepatic steatosis. 4. Colonic diverticulosis. 5. Healing subacute nondisplaced fracture of the lateral right ninth rib. 6. Additional findings as above. ACT 112: Negative or not required by law. The above report was generated using voice recognition software. It may contain grammatical, syntax o r spelling errors. Electronically signed by: García Acevedo M.D. 08/31/2021 7:57 AM
[2021-08-31] MEDS ORDERED: INFLUENZA VACCINE HIGH DOSE PF 65+ 0.7 ML SYR IM ONE (08:00)
--- NOTE | 2021-08-31 08:14 | XRay Report ---
XR chest 1V portable HISTORY: 71 years-old Female weakness acute weakness COMPARISON: Chest radiograph 04/26/2019 TECHNIQUE: Portable AP view of the chest FINDINGS: Cardiomediastinal and hilar silhouettes are within normal limits. No pneumothorax, pleural effusion, airspace consolidation or overt pulmonary edema. Emphysema. Nipple shadow projects over the left lung base. Degenerative changes of the shoulders and spine. Healed chronic fracture deformity of the post erolateral left fourth rib. Surgical clips of the left axilla. IMPRESSION: Emphysema without acute process. ACT 112: Negative or not required by law. The above report was generated using voice recognition software. It may contain grammatical, syntax o r spelling errors. Electronically signed by: García Acevedo M.D. 08/31/2021 8:13 AM
[2021-08-31 08:26] LABS: Basophils # (auto) 0.02 K/uL (0-0.2); Basophils % (auto) 0.2 %; Eosinophils # (auto) 0.05 K/uL (0-0.5); Eosinophils % (auto) 0.4 %; Hematocrit (blood only) 22.3 % (37-47); Hemoglobin 7.4 g/dL (12.0-16.0); Immature Granulocytes # (auto) 0.07 K/uL (0.00-0.02); Immature Granulocytes % (auto) 0.6 %; Lymphocytes # (auto) 1.24 K/uL (1.2-3.4); Lymphocytes % (auto) 10.2 %; Mean Corpuscular Hemoglobin 30.6 pg (25-34); Mean Corpuscular Hgb Conc 33.2 g/dL (32-36); Mean Corpuscular Volume 92.1 fL (80-100); Mean Platelet Volume 9.7 fL (7.4-10.4); Monocytes % (auto) 8.2 %; Neutrophils % (auto) 80.4 %; Platelet Count 214 K/uL (130-400); RDW Coefficient of Variation 15.4 % (11.5-14.5); RDW Standard Deviation 50.9 fL (36.4-46.3); Red Blood Count 2.42 M/uL (4.2-5.4); White Blood Count 12.18 K/uL (4.8-10.8)
[2021-08-31 08:42] LABS: RBC Morphology Unremarkable
[2021-08-31 08:55] LABS: Albumin Level 1.3 gm/dl (3.4-5.0); BUN Creatinine Ratio 32.6 (10-20); Calcium 7.6 mg/dl (8.5-10.1); Creatinine Clr Calc Pharmacy 41.2 ml/min; Est GFR (African American) 65.3 ml/min; Est GFR (Non-African American) 56.4 ml/min; Potassium 3.7 mmol/L (3.5-5.1)
[2021-08-31 09:19] LABS: Albumin Globulin Ratio 0.5 (0.9-2); Bilirubin,Total 0.2 mg/dl (0.2-1); Globulin 2.8 gm/dl (2.5-4.0); Total Protein 4.1 gm/dl (6.4-8.2)
--- NOTE | 2021-08-31 09:36 | Gastrointestinal Consultation ---
Date of Consultation August 31, 2021 Assessment & Plan (1) UGIB (upper gastrointestinal bleed): Suspect PUD based on CT scan findings and elevated BUN. Continue IV PPI EGD today. Patient was explained in detail regarding risks, benefits, limitations and alternatives of the above endoscopic procedure. Risks of intravenous sedation used for procedure were also explained. Risks include, but not limited to perforation, bleeding, infection, respiratory distress, cardiac arrest and . Patient is also aware about the possibility of missed lesion. Patient's questions were answered. The patient verbalized understanding the information and agreed to undergo the procedure. (2) Anemia: History of Present Illness Attending Physician: Chilango Bay MD History of Present Illness 71 years old female patient with medical comorbids pf PVD on Eliquis, HTN, CKD, Neuropathy, Hx of Laryngocele, Chronic alcohol abuse, presented to the hospital after multiple falls, found to have a anemia with drop in H/H, reports an episode of hematemesis. Had EGD/colonoscopy last month foe dysphagia and diarrhea and both were unremarkable. Also follows with Hepatology for abnormal LFTs. Allergies Allergy/AdvReac Type Severity Reaction Status Date / Time minocycline Allergy Intermediate Hives Verified 08/30/21 23:46 Tetracyclines Allergy Intermediate MINOCIN-ROSANNA Verified 08/30/21 23:46 H,HIVES duloxetine AdvReac Intermediate "MADE ME Verified 08/30/21 23:46 LOOPY" Home Medications Medication Instructions Recorded Confirmed Type rosuvastatin 40 mg tablet 40 mg PO HS #90 tab 12/31/20 08/30/21 Rx metoprolol succinate 25 mg 25 mg PO QAM #90 tab 03/06/21 08/30/21 Rx tablet,extended release 24 hr nitroglycerin 0.4 mg sublingual 0.4 mg SL .COMPLEX PRN #25 tab 04/16/21 08/30/21 Rx tablet alpha lipoic acid 300 mg capsule 300 mg PO DAILY 06/23/21 08/30/21 History apixaban 2.5 mg tablet (Eliquis) 2.5 mg PO BID 06/23/21 08/30/21 History cyanocobalamin (vitamin B-12) 1,000 mcg PO DAILY 06/23/21 08/30/21 History 1,000 mcg tablet folic acid 1 mg tablet 1 mg PO DAILY 06/23/21 08/30/21 History furosemide 20 mg tablet 20 mg PO DAILY PRN 06/23/21 08/30/21 History gabapentin 300 mg capsule 300 mg PO TID 06/23/21 08/30/21 History hydroxyzine HCl 25 mg tablet 25 mg PO Q6 PRN 06/23/21 08/30/21 History omeprazole 20 mg capsule,delayed 20 mg PO BID 06/23/21 08/30/21 History release ondansetron 4 mg disintegrating 4 mg PO Q8H PRN #10 tab 06/23/21 08/30/21 Rx tablet thiamine HCl (vitamin B1) 100 mg 100 mg PO DAILY 06/23/21 08/30/21 History tablet aspirin 81 mg tablet,delayed 81 mg PO HS 08/07/21 08/30/21 History release doxepin 10 mg capsule 10 mg PO DAILY 30 Days #30 cap 08/07/21 08/30/21 Rx Patient History Medical History Acute renal insufficiency Anemia CAD (coronary artery disease) Cataract Lt eye Critical lower limb ischemia Dyslipidemia (high LDL; low HDL) GERD (gastroesophageal reflux disease) History of breast cancer Lt - s/p lumpectomy, chemo/radiation History of broken leg RLE - 04/2019 - S/P SURGICAL REPAIR History of herpes simplex infection HTN (hypertension) Hx of radiation therapy Ischemic leg Myocardial Infarction 2007 Neuropathy On anticoagulant therapy Prediabetes PVD (peripheral vascular disease) Rosacea Smoker Surgical History History of anesthesia reaction combative History of angioplasty of peripheral vessel X 2 - LLE - FOLLOWS W/ DR. ANDREA - on Eliquis History of breast biopsy History of cardiac cath 2007 - [facility] - NO STENTS - FOLLOWS W/ DR. WHITLEY History of cataract surgery Rt eye History of colonoscopy w/ polypectomy History of laparoscopy x 3 History of lumpectomy History of lymph node excision History of surgery on extremity broken RLE 04/2019 History of tonsillectomy S/P femoral-popliteal bypass surgery Family History Mother Breast cancer Grandmother (Maternal) Family hx of colon cancer Social History (Reviewed 08/31/21 @ 01:22 EST by Bryce Farias MD) Smoking Status: Current every day smoker Tobacco Type: Cigarettes Cigarettes Per Day: 15-20; Second Hand Exposure: No; Hx Alcohol Use: Yes Alcohol type: hard liquor Hx Substance Use: No Preferred Language: Georgian Communication Ability: Effective Visual Impairment: Limited Hearing Ability: Normal Biomedical Engineering Internship Required: No Beliefs That Will Affect Care: None marital status: Current Living Situation: Alone Current Living Situation Comment: at home alone current occupational status: retired Feels Safe at Home: Yes Safety Concerns: Feels Safe At This Time Assistive Devices: None Review of Systems Constitutional: no fever, no chills, no fatigue and no weight loss Eyes: no eye pain and no worsening vision Ear, Nose, Mouth, Throat: no tinnitus, no dizziness, no nasal discharge and no epistaxis Respiratory: no cough, no dyspnea, no dyspnea on exertion and no wheezing Cardiovascular: no chest pain, no orthopnea, no palpitations and no edema Gastrointestinal: as per Subjective / HPI Genitourinary: no dysuria, no urinary frequency, no urinary incontinence and no hematuria Musculoskeletal: no stiffness and no myalgia Neurologic: no localized weakness, no paralysis, no tremor(s) and no headache(s) Endocrine: no polydipsia and no polyuria Hematologic / Lymphatic: no easy bleeding and no night sweats Physical Exam Constitutional: + well hydrated, cooperative and comfortable Eyes: PERRL, conjunctivae normal, anicteric sclerae ENMT: external ear and nose normal, oropharynx normal Neck: normal visual inspection and trachea midline Respiratory: normal respiratory effort, lungs clear to auscultation Auscultation: no wheezes Cardiovascular: RRR, no murmur, no edema Gastrointestinal (Abdomen): Inspection/Auscultation: abdomen normal to inspect ion and normal bowel sounds Percussion/Palpation: abdomen soft Musculoskeletal: no cyanosis or clubbing, extremities motor strength 5/5 Skin: no rashes, warm and dry Neurologic: awake; no focal motor deficits Motor/Sensory: no tremor Results & Data ([facility]) Vital Signs (Past 12 Hours) Vital Signs Temp Pulse Pulse Resp BP BP BP 08/31/21 07:55 36.5 C 95 H 94/48 L 08/31/21 05:42 69 08/31/21 05:01 36.4 C L 75 18 105/74 08/31/21 03:59 74 18 106/65 08/31/21 02:06 80 18 123/94 08/31/21 01:25 EDT 36.5 C 83 18 109/64 08/31/21 00:53 93 H 16 117/68 08/31/21 00:30 94 H 25 H 109/64 08/30/21 23:30 93 H 22 126/79 08/30/21 23:08 Pulse Ox 08/31/21 07:55 90 08/31/21 05:42 08/31/21 05:01 91 08/31/21 03:59 98 08/31/21 02:06 95 08/31/21 01:25 EDT 100 08/31/21 00:53 100 08/31/21 00:30 91 08/30/21 23:30 94 08/30/21 23:08 94 Laboratory Results Laboratory Results - last 24 hr 08/30/21 08/30/21 08/30/21 22:47 22:47 22:47 WBC 12.88 H RBC 2.62 L Hgb 8.1 L Hct 24.5 L MCV 93.5 MCH 30.9 MCHC 33.1 RDW Std Deviation 51.9 H RDW Coeff of Farrah 15.2 H Plt Count 402 H MPV 10.3 Immature Gran % (Auto) 1.7 Neut % (Auto) 81.1 Lymph % (Auto) 11.4 [place] % (Auto) 5.3 Eos % (Auto) 0.3 Baso % (Auto) 0.2 Neut # (Auto) 10.44 H Lymph # (Auto) 1.47 [place] # (Auto) 0.68 H Eos # (Auto) 0.04 Baso # (Auto) 0.03 Immature Gran # (Auto) 0.22 H Absolute Nucleated RBC 0.03 H Nucleated RBC % (auto) 0.2 RBC Morphology PT 10.9 INR 1.1 APTT 23.4 PTT Ratio 0.9 Sodium 139 Potassium 4.1 Chloride 108 H Carbon Dioxide 18 L Anion Gap 14.0 H BUN 34 H Creatinine 1.26 H Est Cr Clr Drug Dosing 34.7 Est GFR ( Amer) 50.0 Est GFR (Non-Af Amer) 43.1 BUN/Creatinine Ratio 27.2 H Glucose 150 H Estimat Average Glucose Hemoglobin A1c Lactate Calcium 8.7 Magnesium 2.1 Total Bilirubin 0.2 AST 27 ALT 16 Alkaline Phosphatase 90 Ammonia Total Creatine Kinase 165 Troponin I < 0.015 Total Protein 5.8 L Albumin 2.0 L Globulin 3.8 Albumin/Globulin Ratio 0.5 L TSH 3.770 Urine Color Urine Appearance Urine pH Ur Specific Roby Urine Protein Urine Glucose (UA) Urine Ketones Urine Blood Urine Nitrite Urine Bilirubin Urine Urobilinogen Ur Leukocyte Esterase Urine WBC (Auto) Urine RBC (Auto) U Hyaline Cast (Auto) U Epithel Cells (Auto) Urine Bacteria (Auto) Ur Renal Epithelial Cell Calcium Oxalate Crystal Granular Casts Urine Mucus Ethyl Alcohol mg/dL COVID-19 Eval Order SARS-CoV-2 (PCR) Blood Type Antibody Screen Crossmatch 08/30/21 08/30/21 08/30/21 23:04 23:04 23:05 WBC RBC Hgb Hct MCV MCH MCHC RDW Std Deviation RDW Coeff of Farrah Plt Count MPV Immature Gran % (Auto) Neut % (Auto) Lymph % (Auto) [place] % (Auto) Eos % (Auto) Baso % (Auto) Neut # (Auto) Lymph # (Auto) [place] # (Auto) Eos # (Auto) Baso # (Auto) Immature Gran # (Auto) Absolute Nucleated RBC Nucleated RBC % (auto) RBC Morphology PT INR APTT PTT Ratio Sodium Potassium Chloride Carbon Dioxide Anion Gap BUN Creatinine Est Cr Clr Drug Dosing Est GFR ( Amer) Est GFR (Non-Af Amer) BUN/Creatinine Ratio Glucose Estimat Average Glucose Pending Hemoglobin A1c Pending Lactate Calcium Magnesium Total Bilirubin AST ALT Alkaline Phosphatase Ammonia Total Creatine Kinase Troponin I Total Protein Albumin Globulin Albumin/Globulin Ratio TSH Urine Color Urine Appearance Urine pH Ur Specific [place] Urine Protein Urine Glucose (UA) Urine Ketones Urine Blood Urine Nitrite Urine Bilirubin Urine Urobilinogen Ur Leukocyte Esterase Urine WBC (Auto) Urine RBC (Auto) U Hyaline Cast (Auto) U Epithel Cells (Auto) Urine Bacteria (Auto) Ur Renal Epithelial Cell Calcium Oxalate Crystal Granular Casts Urine Mucus Ethyl Alcohol mg/dL COVID-19 Eval Order Covid19 at [facility] SARS-CoV-2 (PCR) NEGATIVE Blood Type Antibody Screen Crossmatch 08/30/21 08/30/21 08/30/21 23:08 23:08 23:08 WBC RBC Hgb Hct MCV MCH MCHC RDW Std Deviation RDW Coeff of Farrah Plt Count MPV Immature Gran % (Auto) Neut % (Auto) Lymph % (Auto) [place] % (Auto) Eos % (Auto) Baso % (Auto) Neut # (Auto) Lymph # (Auto) [place] # (Auto) Eos # (Auto) Baso # (Auto) Immature Gran # (Auto) Absolute Nucleated RBC Nucleated RBC % (auto) RBC Morphology PT INR APTT PTT Ratio Sodium Potassium Chloride Carbon Dioxide Anion Gap BUN Creatinine Est Cr Clr Drug Dosing Est GFR ( Amer) Est GFR (Non-Af Amer) BUN/Creatinine Ratio Glucose Estimat Average Glucose Hemoglobin A1c Lactate 3.5 H* Calcium Magnesium Total Bilirubin AST ALT Alkaline Phosphatase Ammonia 17.5 Total Creatine Kinase Troponin I Total Protein Albumin Globulin Albumin/Globulin Ratio TSH Urine Color Urine Appearance Urine pH Ur Specific [place] Urine Protein Urine Glucose (UA) Urine Ketones Urine Blood Urine Nitrite Urine Bilirubin Urine Urobilinogen Ur Leukocyte Esterase Urine WBC (Auto) Urine RBC (Auto) U Hyaline Cast (Auto) U Epithel Cells (Auto) Urine Bacteria (Auto) Ur Renal Epithelial Cell Calcium Oxalate Crystal Granular Casts Urine Mucus Ethyl Alcohol mg/dL < 3.0 COVID-19 Eval Order SARS-CoV-2 (PCR) Blood Type Antibody Screen Crossmatch 08/30/21 08/30/21 08/31/21 23:11 23:15 01:29 EST WBC RBC Hgb Hct MCV MCH MCHC RDW Std Deviation RDW Coeff of Farrah Plt Count MPV Immature Gran % (Auto) Neut % (Auto) Lymph % (Auto) [place] % (Auto) Eos % (Auto) Baso % (Auto) Neut # (Auto) Lymph # (Auto) [place] # (Auto) Eos # (Auto) Baso # (Auto) Immature Gran # (Auto) Absolute Nucleated RBC Nucleated RBC % (auto) RBC Morphology PT INR APTT PTT Ratio Sodium Potassium Chloride Carbon Dioxide Anion Gap BUN Creatinine Est Cr Clr Drug Dosing Est GFR ( Amer) Est GFR (Non-Af Amer) BUN/Creatinine Ratio Glucose Estimat Average Glucose Hemoglobin A1c Lactate 1.5 Calcium Magnesium Total Bilirubin AST ALT Alkaline Phosphatase Ammonia Total Creatine Kinase Troponin I Total Protein Albumin Globulin Albumin/Globulin Ratio TSH Urine Color Dark Yellow Urine Appearance Cloudy A Urine pH 5.5 Ur Specific [place] 1.027 Urine Protein 1+ H Urine Glucose (UA) Negative Urine Ketones 1+ H Urine Blood Negative Urine Nitrite Negative Urine Bilirubin 2+ H Urine Urobilinogen Negative Ur Leukocyte Esterase 1+ H Urine WBC (Auto) 5-10 H Urine RBC (Auto) 0-4 U Hyaline Cast (Auto) 10-30 H U Epithel Cells (Auto) >30 H Urine Bacteria (Auto) 1+ H Ur Renal Epithelial Cell Not Reportable Calcium Oxalate Crystal Present A Granular Casts 1-5 H Urine Mucus Present A Ethyl Alcohol mg/dL COVID-19 Eval Order SARS-CoV-2 (PCR) Blood Type A Positive Antibody Screen NEGATIVE Crossmatch See Detail 08/31/21 08/31/21 08:18 08:19 WBC 12.18 H RBC 2.42 L Hgb 7.4 L Hct 22.3 L MCV 92.1 MCH 30.6 MCHC 33.2 RDW Std Deviation 50.9 H RDW Coeff of Farrah 15.4 H Plt Count 214 MPV 9.7 Immature Gran % (Auto) 0.6 Neut % (Auto) 80.4 Lymph % (Auto) 10.2 [place] % (Auto) 8.2 Eos % (Auto) 0.4 Baso % (Auto) 0.2 Neut # (Auto) 9.80 H Lymph # (Auto) 1.24 [place] # (Auto) 1.00 H Eos # (Auto) 0.05 Baso # (Auto) 0.02 Immature Gran # (Auto) 0.07 H Absolute Nucleated RBC Nucleated RBC % (auto) RBC Morphology Unremarkable PT INR APTT PTT Ratio Sodium 143 Potassium 3.7 Chloride 115 H Carbon Dioxide 19 L Anion Gap 9.0 BUN 33 H Creatinine 1.01 Est Cr Clr Drug Dosing 41.2 Est GFR ( Amer) 65.3 Est GFR (Non-Af Amer) 56.4 BUN/Creatinine Ratio 32.6 H Glucose 92 Estimat Average Glucose Hemoglobin A1c Lactate Calcium 7.6 L Magnesium Total Bilirubin 0.2 AST 25 ALT 13 Alkaline Phosphatase 86 Ammonia Total Creatine Kinase Troponin I Total Protein 4.1 L D Albumin 1.3 L Globulin 2.8 Albumin/Globulin Ratio 0.5 L TSH Urine Color Urine Appearance Urine pH Ur Specific [place] Urine Protein Urine Glucose (UA) Urine Ketones Urine Blood Urine Nitrite Urine Bilirubin Urine Urobilinogen Ur Leukocyte Esterase Urine WBC (Auto) Urine RBC (Auto) U Hyaline Cast (Auto) U Epithel Cells (Auto) Urine Bacteria (Auto) Ur Renal Epithelial Cell Calcium Oxalate Crystal Granular Casts Urine Mucus Ethyl Alcohol mg/dL COVID-19 Eval Order SARS-CoV-2 (PCR) Blood Type Antibody Screen Crossmatch
[2021-08-31] MEDS ORDERED: PROPOFOL IV EMULSION 10 MG/ML 20 ML VIAL IV ONE (09:42)
[2021-08-31] MEDS ORDERED: LIDOCAINE 2% 2 ML VIAL/AMP(20MG/ML) INFIL ONE (09:42)
[2021-08-31] MEDS ORDERED: SUCCINYLCHOLINE CHLORIDE 20 MG/ML 10 ML VIAL IV ONE (09:42)
--- NOTE | 2021-08-31 09:57 | Anesthesiology Consultation ---
Date of Service August 31, 2021 Assessment & Plan (1) Encounter for pre-operative examination: History Surgery Operation Date: 08/31/21 09:15 Proposed Procedures p Esophagogastroduodenoscopy - Luanne Yates MD Height/Weight Height: 5 ft 6 in Weight: 50.3 kg Allergies Allergy/AdvReac Type Severity Reaction Status Date / Time minocycline Allergy Intermediate Hives Verified 08/30/21 23:46 Tetracyclines Allergy Intermediate MINOCIN-ROSANNA Verified 08/30/21 23:46 H,HIVES duloxetine AdvReac Intermediate "MADE ME Verified 08/30/21 23:46 LOOPY" Medications Home Medications Medication Instructions Recorded Confirmed Last Taken rosuvastatin 40 mg tablet 40 mg PO HS #90 tab 12/31/20 08/30/21 06/22/21 metoprolol succinate 25 mg 25 mg PO QAM #90 tab 03/06/21 08/30/21 06/23/21 tablet,extended release 24 hr nitroglycerin 0.4 mg sublingual 0.4 mg SL .COMPLEX PRN #25 tab 04/16/21 08/30/21 Unknown tablet alpha lipoic acid 300 mg capsule 300 mg PO DAILY 06/23/21 08/30/21 06/23/21 apixaban 2.5 mg tablet (Eliquis) 2.5 mg PO BID 06/23/21 08/30/21 08/30/21 08:00 cyanocobalamin (vitamin B-12) 1,000 mcg PO DAILY 06/23/21 08/30/21 06/23/21 1,000 mcg tablet folic acid 1 mg tablet 1 mg PO DAILY 06/23/21 08/30/21 06/23/21 furosemide 20 mg tablet 20 mg PO DAILY PRN 06/23/21 08/30/21 Unknown gabapentin 300 mg capsule 300 mg PO TID 06/23/21 08/30/21 06/23/21 hydroxyzine HCl 25 mg tablet 25 mg PO Q6 PRN 06/23/21 08/30/21 Unknown omeprazole 20 mg capsule,delayed 20 mg PO BID 06/23/21 08/30/21 06/23/21 release ondansetron 4 mg disintegrating 4 mg PO Q8H PRN #10 tab 06/23/21 08/30/21 Unknown tablet thiamine HCl (vitamin B1) 100 mg 100 mg PO DAILY 06/23/21 08/30/21 06/23/21 tablet aspirin 81 mg tablet,delayed 81 mg PO HS 08/07/21 08/30/21 08/29/21 release doxepin 10 mg capsule 10 mg PO DAILY 30 Days #30 cap 08/07/21 08/30/21 Unknown Active Medications Generic Name Dose Route Start Last Admin Trade Name Navarro PRN Reason Stop Dose Admin Octreotide Acetate 500 mcg/ 105 mls @ 10.5 mls/hr 08/31/21 00:45 08/31/21 01:14 EDT Sodium Chloride IV 09/30/21 00:44 50 mcg/hr .Q10H ELY 10.5 mls/hr Administration 50 MCG/HR Pantoprazole Sodium 40 mg/ 100 mls @ 20 mls/hr 08/31/21 02:15 08/31/21 07:48 Dextrose IV 09/30/21 02:14 8 mg/hr Q5H ELY 20 mls/hr Administration 8 MG/HR Sodium Chloride 1,000 mls @ 60 mls/hr 08/31/21 02:15 08/31/21 04:56 Nss 1000ml IV 09/30/21 02:14 60 mls/hr .[id number] ELY Administration Miscellaneous 1 ea 08/31/21 08:59 08/31/21 07:51 Remove Nicoderm Patch N/A 09/30/21 08:58 Not Given DAILY@[id number] ELY Nicotine 14 mg 08/31/21 02:15 08/31/21 07:49 Nicotine 14 Mg/24 Hr Patch TD 09/30/21 02:14 14 mg QAM ELY Administration Past Medical History Medical History Acute renal insufficiency Anemia CAD (coronary artery disease) Cataract Lt eye Critical lower limb ischemia Dyslipidemia (high LDL; low HDL) GERD (gastroesophageal reflux disease) History of breast cancer Lt - s/p lumpectomy, chemo/radiation History of broken leg RLE - 04/2019 - S/P SURGICAL REPAIR History of herpes simplex infection HTN (hypertension) Hx of radiation therapy Ischemic leg Myocardial Infarction 2007 Neuropathy On anticoagulant therapy Prediabetes PVD (peripheral vascular disease) Rosacea Smoker Past Family History Family History Mother Breast cancer Grandmother (Maternal) Family hx of colon cancer Past Surgical History Surgical History History of anesthesia reaction combative History of angioplasty of peripheral vessel X 2 - LLE - FOLLOWS W/ DR. ANDREA - on Eliquis History of breast biopsy History of cardiac cath 2007 - [facility] - NO STENTS - FOLLOWS W/ DR. RADFORD History of cataract surgery Rt eye History of colonoscopy w/ polypectomy History of laparoscopy x 3 History of lumpectomy History of lymph node excision History of surgery on extremity broken RLE 04/2019 History of tonsillectomy S/P femoral-popliteal bypass surgery Social History Smoking Status: Current every day smoker tobacco type: cigarettes Smoking cigarettes per day: 15-20 Hx Alcohol Use: Yes Alcohol type: hard liquor alcohol intake frequency: 0-2 drinks per day Alcohol Intake Frequency Comment: "I've been trying to be on the wagon for at least 2 months" Hx Substance Use: No substance use type: does not use Physical Exam Vital Signs Last Vital Signs Temp 36.5 C 08/31/21 09:37 Pulse 73 08/31/21 09:37 Resp 16 08/31/21 09:37 BP 90/57 L 08/31/21 09:37 Pulse Ox 90 08/31/21 07:55 Testing Laboratory Results 08/31/21 08:19 08/31/21 08:18 PT 10.9 Seconds (9.0-12.0) 08/30/21 22:47 INR 1.1 (0.9-1.1) 08/30/21 22:47 APTT 23.4 Seconds (21.0-31.0) 08/30/21 22:47 Urine Color Dark Yellow 08/30/21 23:15 Urine Appearance Cloudy (Clear) A 08/30/21 23:15 Urine pH 5.5 (4.5-7.5) 08/30/21 23:15 Ur Specific [place] 1.027 (1.000-1.030) 08/30/21 23:15 Urine Protein 1+ (Negative) H 08/30/21 23:15 Urine Glucose (UA) Negative (Negative) 08/30/21 23:15 Urine Ketones 1+ (Negative) H 08/30/21 23:15 Urine Nitrite Negative (Negative) 08/30/21 23:15 Ur Leukocyte Esterase 1+ (Negative) H 08/30/21 23:15 Urine WBC (Auto) 5-10 /hpf (0-5) H 08/30/21 23:15 Urine RBC (Auto) 0-4 /hpf (0-4) 08/30/21 23:15 U Hyaline Cast (Auto) 10-30 /lpf (0-5) H 08/30/21 23:15 U Epithel Cells (Auto) >30 /lpf (0-5) H 08/30/21 23:15 Urine Bacteria (Auto) 1+ (Negative) H 08/30/21 23:15 Blood Type A Positive 08/30/21 23:11 Antibody Screen NEGATIVE 08/30/21 23:11 Electrocardiogram Date: 08/30/21 Sinus rhythm with short OR Nonspecific ST and T wave abnormality Abnormal ECG When compared with ECG of 23-JUN-2021 16:38, Nonspecific T wave abnormality, improved in Inferior leads T wave inversion no longer evident in Anterolateral leads Chest X-Ray Date: 08/30/21 IMPRESSION: Emphysema without acute process. Echocardiogram Date: 01/10/21 EF: 55-60 LV Function: normal hypokinesis
[2021-08-31] MEDS ORDERED: ATROPINE SULFATE 0.1 MG/ML 10ML SYR IV PRN (10:20)
[2021-08-31] MEDS ORDERED: ePHEDrine sulfate 50 MG/ML AMP IV PRN (10:20)
[2021-08-31] MEDS ORDERED: KETAMINE 50 MG/5 ML SYRINGE ONE (10:29)
--- NOTE | 2021-08-31 10:31 | Psychiatric Consultation ---
Date of Consultation August 31, 2021 Impression / Recommendations Impression 71 yo female with vegetative symptoms of depression that could also be attributable to significant anemia and GI issues. She is not particularly interested in a retrial of medication "unless helpful for neuropathy" and she is already on doxepin, neurontin, and is listed to have a reaction to a prior trial of duloxetine. Reviewed that Remeron can be helpful for sleep and appetite but I would not advise starting at this time as NPO and recent falls I'd be concerned about combined sedation with doxepin and neurontin given she lives alone. (1) Depressive disorder: She is agreeable to a therapy referral and liaison can assist with a list of providers, referral if still hospitalized when offices reopen, etc. Psych History Identifying Data 71 yo female, prefers name Tania, lives alone in [place]. Admite medically 08/31/21 for anemia, recent falls, need GI w/u. Chief Complaint "Yeah, I've been depressed for a while, low energy, just like I'm a burden but I'm also not very excited to try medications". History of Present Illness She has had fleeting SI in the past, none currently. Hx of alcohol abuse (none in 2 months other than 1 drink 3-4 times/month). Admit with low Hemoglobin and received PRBCs. Currently NPO. She states that she chronically has diarrhea of a cyclical nature. She is then afraid to refeed after and recently has only been taking in 1-2 bites of yogurt a day. "No wonder I fell". Sleep varies depending on her neuropathy. She scored a 12 on PHQ-9 for little interest "just do through motions of life",, depression, anergia, poor appetite, "I'm a pain to my daughter", etc. 0 on question 9. Past Psychiatric History Previous Psych History: saw a psychiatrist >5 years ago, otherwise no services, inpatient, prior suicide attempts, no access to guns. Past Medication Trials: "tried 3-4 and they made me feel funny". Duloxetine is listed among her allergies. Allergies Allergy/AdvReac Type Severity Reaction Status Date / Time minocycline Allergy Intermediate Hives Verified 08/30/21 23:46 Tetracyclines Allergy Intermediate MINOCIN-ROSANNA Verified 08/30/21 23:46 H,HIVES duloxetine AdvReac Intermediate "MADE ME Verified 08/30/21 23:46 LOOPY" Home Medications Medication Instructions Recorded Confirmed Type rosuvastatin 40 mg tablet 40 mg PO HS #90 tab 12/31/20 08/30/21 Rx metoprolol succinate 25 mg 25 mg PO QAM #90 tab 03/06/21 08/30/21 Rx tablet,extended release 24 hr nitroglycerin 0.4 mg sublingual 0.4 mg SL .COMPLEX PRN #25 tab 04/16/21 08/30/21 Rx tablet alpha lipoic acid 300 mg capsule 300 mg PO DAILY 06/23/21 08/30/21 History apixaban 2.5 mg tablet (Eliquis) 2.5 mg PO BID 06/23/21 08/30/21 History cyanocobalamin (vitamin B-12) 1,000 mcg PO DAILY 06/23/21 08/30/21 History 1,000 mcg tablet folic acid 1 mg tablet 1 mg PO DAILY 06/23/21 08/30/21 History furosemide 20 mg tablet 20 mg PO DAILY PRN 06/23/21 08/30/21 History gabapentin 300 mg capsule 300 mg PO TID 06/23/21 08/30/21 History hydroxyzine HCl 25 mg tablet 25 mg PO Q6 PRN 06/23/21 08/30/21 History omeprazole 20 mg capsule,delayed 20 mg PO BID 06/23/21 08/30/21 History release ondansetron 4 mg disintegrating 4 mg PO Q8H PRN #10 tab 06/23/21 08/30/21 Rx tablet thiamine HCl (vitamin B1) 100 mg 100 mg PO DAILY 06/23/21 08/30/21 History tablet aspirin 81 mg tablet,delayed 81 mg PO HS 08/07/21 08/30/21 History release doxepin 10 mg capsule 10 mg PO DAILY 30 Days #30 cap 08/07/21 08/30/21 Rx Family History denied Substance Abuse History no rehab, denies substances other than Etoh Personal History Living Arrangements Comments: daughter lives close by Employment Status: Retired Marital Status: Single Beliefs That Will Affect Care: None History of Legal Problems: no Psychological Trauma History Comment: no "just life" Patient History Medical History Acute renal insufficiency Anemia CAD (coronary artery disease) Cataract Lt eye Critical lower limb ischemia Dyslipidemia (high LDL; low HDL) GERD (gastroesophageal reflux disease) History of breast cancer Lt - s/p lumpectomy, chemo/radiation History of broken leg RLE - 04/2019 - S/P SURGICAL REPAIR History of herpes simplex infection HTN (hypertension) Hx of radiation therapy Ischemic leg Myocardial Infarction 2007 Neuropathy On anticoagulant therapy Prediabetes PVD (peripheral vascular disease) Rosacea Smoker Surgical History History of anesthesia reaction combative History of angioplasty of peripheral vessel X 2 - LLE - FOLLOWS W/ DR. ANDREA - on Eliquis History of breast biopsy History of cardiac cath 2007 - [facility] - NO STENTS - FOLLOWS W/ DR. WHITLEY History of cataract surgery Rt eye History of colonoscopy w/ polypectomy History of laparoscopy x 3 History of lumpectomy History of lymph node excision History of surgery on extremity broken RLE 04/2019 History of tonsillectomy S/P femoral-popliteal bypass surgery Family History Mother Breast cancer Grandmother (Maternal) Family hx of colon cancer Social History (Reviewed 08/31/21 @ 01:22 EST by Bryce Farias MD) Smoking Status: Current every day smoker Tobacco Type: Cigarettes Cigarettes Per Day: 15-20; Second Hand Exposure: No; Hx Alcohol Use: Yes Alcohol type: hard liquor Hx Substance Use: No Preferred Language: Afghan Communication Ability: Effective Visual Impairment: Limited Hearing Ability: Normal Gang Supervisor Required: No Beliefs That Will Affect Care: None marital status: Current Living Situation: Alone Current Living Situation Comment: at home alone current occupational status: retired Feels Safe at Home: Yes Safety Concerns: Feels Safe At This Time Assistive Devices: None Physical Exam Psychiatric: Orientation: alert and oriented x 3 Apperance: appropriately groomed Eye Contact: + poor eye contact Motor Behavior: no abnormal motor movements Speech: normal rate/rhythm/volume of speech Affect: + depressed affect Mood: + depressed mood Thought Process: goal directed thought process Thought Content: reality based without delusions Suicidal Thoughts: denies suicidal thoughts Homicidal Thoughts: denies homicidal thoughts Hallucinations: no auditory hallucinations and no visual hallucinations Cognition: attention grossly intact and language grossly intact Estimated Intelligence: consistent with education level Vital Signs (Past 24 Hours): Last Vital Signs Temp 36.5 C 11/07/21 09:37 Pulse 73 08/31/21 09:37 Resp 16 08/31/21 09:37 BP 90/57 L 08/31/21 09:37 Pulse Ox 90 08/31/21 07:55 Review of Systems All systems reviewed & are unremarkable except as noted in HPI & below Results & Data (PSY) Laboratory Results 08/31/21 08/31/21 08/31/21 Range/Units 08:19 08:18 01:29 EST WBC 12.18 H (4.8-10.8) K/uL RBC 2.42 L (4.2-5.4) M/uL Hgb 7.4 L (12.0-16.0) g/dL Hct 22.3 L (37-47) % MCV 92.1 (80-100) fL MCH 30.6 (25-34) pg MCHC 33.2 (32-36) g/dL RDW Std Deviation 50.9 H (36.4-46.3) fL RDW Coeff of Farrah 15.4 H (11.5-14.5) % Plt Count 214 (130-400) K/uL MPV 9.7 (7.4-10.4) fL Immature Gran % (Auto) 0.6 % Neut % (Auto) 80.4 % Lymph % (Auto) 10.2 % [place] % (Auto) 8.2 % Eos % (Auto) 0.4 % Baso % (Auto) 0.2 % Neut # (Auto) 9.80 H (1.4-6.5) K/uL Lymph # (Auto) 1.24 (1.2-3.4) K/uL [place] # (Auto) 1.00 H (0.11-0.59) K/uL Eos # (Auto) 0.05 (0-0.5) K/uL Baso # (Auto) 0.02 (0-0.2) K/uL Immature Gran # (Auto) 0.07 H (0.00-0.02) K/uL Absolute Nucleated RBC (0-0) K/uL Nucleated RBC % (auto) % RBC Morphology Unremarkable PT (9.0-12.0) Seconds INR (0.9-1.1) APTT (21.0-31.0) Seconds PTT Ratio Sodium 143 (136-145) mmol/L Potassium 3.7 (3.5-5.1) mmol/L Chloride 115 H (98-107) mmol/L Carbon Dioxide 19 L (21-32) mmol/L Anion Gap 9.0 (3-11) BUN 33 H (7-18) mg/dl Creatinine 1.01 (0.6-1.2) mg/dl Est Cr Clr Drug Dosing 41.2 ml/min Est GFR ( Amer) 65.3 ml/min Est GFR (Non-Af Amer) 56.4 ml/min BUN/Creatinine Ratio 32.6 H (10-20) Glucose 92 (70-99) mg/dl Estimat Average Glucose Hemoglobin A1c Lactate 1.5 (0.4-2.0) mmol/L Calcium 7.6 L (8.5-10.1) mg/dl Magnesium (1.8-2.4) mg/dl Total Bilirubin 0.2 (0.2-1) mg/dl AST 25 (15-37) U/L ALT 13 (12-78) U/L Alkaline Phosphatase 86 (45-117) U/L Ammonia (11-32) umol/L Total Creatine Kinase (26-192) U/L Troponin I (0-0.045) ng/ml Total Protein 4.1 L D (6.4-8.2) gm/dl Albumin 1.3 L (3.4-5.0) gm/dl Globulin 2.8 (2.5-4.0) gm/dl Albumin/Globulin Ratio 0.5 L (0.9-2) TSH (0.300-4.500) uIu/ml Urine Color Urine Appearance (Clear) Urine pH (4.5-7.5) Ur Specific [place] (1.000-1.030) Urine Protein (Negative) Urine Glucose (UA) (Negative) Urine Ketones (Negative) Urine Blood (Negative) Urine Nitrite (Negative) Urine Bilirubin (Negative) Urine Urobilinogen (Negative) Ur Leukocyte Esterase (Negative) Urine WBC (Auto) (0-5) /hpf Urine RBC (Auto) (0-4) /hpf U Hyaline Cast (Auto) (0-5) /lpf U Epithel Cells (Auto) (0-5) /lpf Urine Bacteria (Auto) (Negative) Ur Renal Epithelial Cell Calcium Oxalate Crystal (None Prsent) Granular Casts (0) /lpf Urine Mucus (None Prsent) Ethyl Alcohol mg/dL (0-3) mg/dl COVID-19 Eval Order SARS-CoV-2 (PCR) (Negative) Blood Type Antibody Screen Crossmatch 08/30/21 08/30/21 08/30/21 Range/Units 23:15 23:11 23:08 WBC (4.8-10.8) K/uL RBC (4.2-5.4) M/uL Hgb (12.0-16.0) g/dL Hct (37-47) % MCV (80-100) fL MCH (25-34) pg MCHC (32-36) g/dL RDW Std Deviation (36.4-46.3) fL RDW Coeff of Farrah (11.5-14.5) % Plt Count (130-400) K/uL MPV (7.4-10.4) fL Immature Gran % (Auto) % Neut % (Auto) % Lymph % (Auto) % [place] % (Auto) % Eos % (Auto) % Baso % (Auto) % Neut # (Auto) (1.4-6.5) K/uL Lymph # (Auto) (1.2-3.4) K/uL [place] # (Auto) (0.11-0.59) K/uL Eos # (Auto) (0-0.5) K/uL Baso # (Auto) (0-0.2) K/uL Immature Gran # (Auto) (0.00-0.02) K/uL Absolute Nucleated RBC (0-0) K/uL Nucleated RBC % (auto) % RBC Morphology PT (9.0-12.0) Seconds INR (0.9-1.1) APTT (21.0-31.0) Seconds PTT Ratio Sodium (136-145) mmol/L Potassium (3.5-5.1) mmol/L Chloride (98-107) mmol/L Carbon Dioxide (21-32) mmol/L Anion Gap (3-11) BUN (7-18) mg/dl Creatinine (0.6-1.2) mg/dl Est Cr Clr Drug Dosing ml/min Est GFR ( Amer) ml/min Est GFR (Non-Af Amer) ml/min BUN/Creatinine Ratio (10-20) Glucose (70-99) mg/dl Estimat Average Glucose Hemoglobin A1c Lactate (0.4-2.0) mmol/L Calcium (8.5-10.1) mg/dl Magnesium (1.8-2.4) mg/dl Total Bilirubin (0.2-1) mg/dl AST (15-37) U/L ALT (12-78) U/L Alkaline Phosphatase (45-117) U/L Ammonia (11-32) umol/L Total Creatine Kinase (26-192) U/L Troponin I (0-0.045) ng/ml Total Protein (6.4-8.2) gm/dl Albumin (3.4-5.0) gm/dl Globulin (2.5-4.0) gm/dl Albumin/Globulin Ratio (0.9-2) TSH (0.300-4.500) uIu/ml Urine Color Dark Yellow Urine Appearance Cloudy A (Clear) Urine pH 5.5 (4.5-7.5) Ur Specific [place] 1.027 (1.000-1.030) Urine Protein 1+ H (Negative) Urine Glucose (UA) Negative (Negative) Urine Ketones 1+ H (Negative) Urine Blood Negative (Negative) Urine Nitrite Negative (Negative) Urine Bilirubin 2+ H (Negative) Urine Urobilinogen Negative (Negative) Ur Leukocyte Esterase 1+ H (Negative) Urine WBC (Auto) 5-10 H (0-5) /hpf Urine RBC (Auto) 0-4 (0-4) /hpf U Hyaline Cast (Auto) 10-30 H (0-5) /lpf U Epithel Cells (Auto) >30 H (0-5) /lpf Urine Bacteria (Auto) 1+ H (Negative) Ur Renal Epithelial Cell Not Reportable Calcium Oxalate Crystal Present A (None Prsent) Granular Casts 1-5 H (0) /lpf Urine Mucus Present A (None Prsent) Ethyl Alcohol mg/dL < 3.0 (0-3) mg/dl COVID-19 Eval Order SARS-CoV-2 (PCR) (Negative) Blood Type A Positive Antibody Screen NEGATIVE Crossmatch See Detail 08/30/21 08/30/21 08/30/21 Range/Units 23:08 23:08 23:05 WBC (4.8-10.8) K/uL RBC (4.2-5.4) M/uL Hgb (12.0-16.0) g/dL Hct (37-47) % MCV (80-100) fL MCH (25-34) pg MCHC (32-36) g/dL RDW Std Deviation (36.4-46.3) fL RDW Coeff of Farrah (11.5-14.5) % Plt Count (130-400) K/uL MPV (7.4-10.4) fL Immature Gran % (Auto) % Neut % (Auto) % Lymph % (Auto) % [place] % (Auto) % Eos % (Auto) % Baso % (Auto) % Neut # (Auto) (1.4-6.5) K/uL Lymph # (Auto) (1.2-3.4) K/uL [place] # (Auto) (0.11-0.59) K/uL Eos # (Auto) (0-0.5) K/uL Baso # (Auto) (0-0.2) K/uL Immature Gran # (Auto) (0.00-0.02) K/uL Absolute Nucleated RBC (0-0) K/uL Nucleated RBC % (auto) % RBC Morphology PT (9.0-12.0) Seconds INR (0.9-1.1) APTT (21.0-31.0) Seconds PTT Ratio Sodium (136-145) mmol/L Potassium (3.5-5.1) mmol/L Chloride (98-107) mmol/L Carbon Dioxide (21-32) mmol/L Anion Gap (3-11) BUN (7-18) mg/dl Creatinine (0.6-1.2) mg/dl Est Cr Clr Drug Dosing ml/min Est GFR ( Amer) ml/min Est GFR (Non-Af Amer) ml/min BUN/Creatinine Ratio (10-20) Glucose (70-99) mg/dl Estimat Average Glucose Pending Hemoglobin A1c Pending Lactate 3.5 H* (0.4-2.0) mmol/L Calcium (8.5-10.1) mg/dl Magnesium (1.8-2.4) mg/dl Total Bilirubin (0.2-1) mg/dl AST (15-37) U/L ALT (12-78) U/L Alkaline Phosphatase (45-117) U/L Ammonia 17.5 (11-32) umol/L Total Creatine Kinase (26-192) U/L Troponin I (0-0.045) ng/ml Total Protein (6.4-8.2) gm/dl Albumin (3.4-5.0) gm/dl Globulin (2.5-4.0) gm/dl Albumin/Globulin Ratio (0.9-2) TSH (0.300-4.500) uIu/ml Urine Color Urine Appearance (Clear) Urine pH (4.5-7.5) Ur Specific [place] (1.000-1.030) Urine Protein (Negative) Urine Glucose (UA) (Negative) Urine Ketones (Negative) Urine Blood (Negative) Urine Nitrite (Negative) Urine Bilirubin (Negative) Urine Urobilinogen (Negative) Ur Leukocyte Esterase (Negative) Urine WBC (Auto) (0-5) /hpf Urine RBC (Auto) (0-4) /hpf U Hyaline Cast (Auto) (0-5) /lpf U Epithel Cells (Auto) (0-5) /lpf Urine Bacteria (Auto) (Negative) Ur Renal Epithelial Cell Calcium Oxalate Crystal (None Prsent) Granular Casts (0) /lpf Urine Mucus (None Prsent) Ethyl Alcohol mg/dL (0-3) mg/dl COVID-19 Eval Order SARS-CoV-2 (PCR) (Negative) Blood Type Antibody Screen Crossmatch 08/30/21 08/30/21 08/30/21 Range/Units 23:04 23:04 22:47 WBC (4.8-10.8) K/uL RBC (4.2-5.4) M/uL Hgb (12.0-16.0) g/dL Hct (37-47) % MCV (80-100) fL MCH (25-34) pg MCHC (32-36) g/dL RDW Std Deviation (36.4-46.3) fL RDW Coeff of Farrah (11.5-14.5) % Plt Count (130-400) K/uL MPV (7.4-10.4) fL Immature Gran % (Auto) % Neut % (Auto) % Lymph % (Auto) % [place] % (Auto) % Eos % (Auto) % Baso % (Auto) % Neut # (Auto) (1.4-6.5) K/uL Lymph # (Auto) (1.2-3.4) K/uL [place] # (Auto) (0.11-0.59) K/uL Eos # (Auto) (0-0.5) K/uL Baso # (Auto) (0-0.2) K/uL Immature Gran # (Auto) (0.00-0.02) K/uL Absolute Nucleated RBC (0-0) K/uL Nucleated RBC % (auto) % RBC Morphology PT (9.0-12.0) Seconds INR (0.9-1.1) APTT (21.0-31.0) Seconds PTT Ratio Sodium 139 (136-145) mmol/L Potassium 4.1 (3.5-5.1) mmol/L Chloride 108 H (98-107) mmol/L Carbon Dioxide 18 L (21-32) mmol/L Anion Gap 14.0 H (3-11) BUN 34 H (7-18) mg/dl Creatinine 1.26 H (0.6-1.2) mg/dl Est Cr Clr Drug Dosing 34.7 ml/min Est GFR ( Amer) 50.0 ml/min Est GFR (Non-Af Amer) 43.1 ml/min BUN/Creatinine Ratio 27.2 H (10-20) Glucose 150 H (70-99) mg/dl Estimat Average Glucose Hemoglobin A1c Lactate (0.4-2.0) mmol/L Calcium 8.7 (8.5-10.1) mg/dl Magnesium 2.1 (1.8-2.4) mg/dl Total Bilirubin 0.2 (0.2-1) mg/dl AST 27 (15-37) U/L ALT 16 (12-78) U/L Alkaline Phosphatase 90 (45-117) U/L Ammonia (11-32) umol/L Total Creatine Kinase 165 (26-192) U/L Troponin I < 0.015 (0-0.045) ng/ml Total Protein 5.8 L (6.4-8.2) gm/dl Albumin 2.0 L (3.4-5.0) gm/dl Globulin 3.8 (2.5-4.0) gm/dl Albumin/Globulin Ratio 0.5 L (0.9-2) TSH 3.770 (0.300-4.500) uIu/ml Urine Color Urine Appearance (Clear) Urine pH (4.5-7.5) Ur Specific [place] (1.000-1.030) Urine Protein (Negative) Urine Glucose (UA) (Negative) Urine Ketones (Negative) Urine Blood (Negative) Urine Nitrite (Negative) Urine Bilirubin (Negative) Urine Urobilinogen (Negative) Ur Leukocyte Esterase (Negative) Urine WBC (Auto) (0-5) /hpf Urine RBC (Auto) (0-4) /hpf U Hyaline Cast (Auto) (0-5) /lpf U Epithel Cells (Auto) (0-5) /lpf Urine Bacteria (Auto) (Negative) Ur Renal Epithelial Cell Calcium Oxalate Crystal (None Prsent) Granular Casts (0) /lpf Urine Mucus (None Prsent) Ethyl Alcohol mg/dL (0-3) mg/dl COVID-19 Eval Order Covid19 at [facility] SARS-CoV-2 (PCR) NEGATIVE (Negative) Blood Type Antibody Screen Crossmatch 08/30/21 08/30/21 Range/Units 22:47 22:47 WBC 12.88 H (4.8-10.8) K/uL RBC 2.62 L (4.2-5.4) M/uL Hgb 8.1 L (12.0-16.0) g/dL Hct 24.5 L (37-47) % MCV 93.5 (80-100) fL MCH 30.9 (25-34) pg MCHC 33.1 (32-36) g/dL RDW Std Deviation 51.9 H (36.4-46.3) fL RDW Coeff of Farrah 15.2 H (11.5-14.5) % Plt Count 402 H (130-400) K/uL MPV 10.3 (7.4-10.4) fL Immature Gran % (Auto) 1.7 % Neut % (Auto) 81.1 % Lymph % (Auto) 11.4 % [place] % (Auto) 5.3 % Eos % (Auto) 0.3 % Baso % (Auto) 0.2 % Neut # (Auto) 10.44 H (1.4-6.5) K/uL Lymph # (Auto) 1.47 (1.2-3.4) K/uL [place] # (Auto) 0.68 H (0.11-0.59) K/uL Eos # (Auto) 0.04 (0-0.5) K/uL Baso # (Auto) 0.03 (0-0.2) K/uL Immature Gran # (Auto) 0.22 H (0.00-0.02) K/uL Absolute Nucleated RBC 0.03 H (0-0) K/uL Nucleated RBC % (auto) 0.2 % RBC Morphology PT 10.9 (9.0-12.0) Seconds INR 1.1 (0.9-1.1) APTT 23.4 (21.0-31.0) Seconds PTT Ratio 0.9 Sodium (136-145) mmol/L Potassium (3.5-5.1) mmol/L Chloride (98-107) mmol/L Carbon Dioxide (21-32) mmol/L Anion Gap (3-11) BUN (7-18) mg/dl Creatinine (0.6-1.2) mg/dl Est Cr Clr Drug Dosing ml/min Est GFR ( Amer) ml/min Est GFR (Non-Af Amer) ml/min BUN/Creatinine Ratio (10-20) Glucose (70-99) mg/dl Estimat Average Glucose Hemoglobin A1c Lactate (0.4-2.0) mmol/L Calcium (8.5-10.1) mg/dl Magnesium (1.8-2.4) mg/dl Total Bilirubin (0.2-1) mg/dl AST (15-37) U/L ALT (12-78) U/L Alkaline Phosphatase (45-117) U/L Ammonia (11-32) umol/L Total Creatine Kinase (26-192) U/L Troponin I (0-0.045) ng/ml Total Protein (6.4-8.2) gm/dl Albumin (3.4-5.0) gm/dl Globulin (2.5-4.0) gm/dl Albumin/Globulin Ratio (0.9-2) TSH (0.300-4.500) uIu/ml Urine Color Urine Appearance (Clear) Urine pH (4.5-7.5) Ur Specific [place] (1.000-1.030) Urine Protein (Negative) Urine Glucose (UA) (Negative) Urine Ketones (Negative) Urine Blood (Negative) Urine Nitrite (Negative) Urine Bilirubin (Negative) Urine Urobilinogen (Negative) Ur Leukocyte Esterase (Negative) Urine WBC (Auto) (0-5) /hpf Urine RBC (Auto) (0-4) /hpf U Hyaline Cast (Auto) (0-5) /lpf U Epithel Cells (Auto) (0-5) /lpf Urine Bacteria (Auto) (Negative) Ur Renal Epithelial Cell Calcium Oxalate Crystal (None Prsent) Granular Casts (0) /lpf Urine Mucus (None Prsent) Ethyl Alcohol mg/dL (0-3) mg/dl COVID-19 Eval Order SARS-CoV-2 (PCR) (Negative) Blood Type Antibody Screen Crossmatch Medications Administered Octreotide Acetate 500 mcg/ (Sodium Chloride) 105 mls @ 10.5 mls/hr IV .Q10H ELY Stop: 09/30/21 00:44 Last Admin: 08/31/21 01:14 EDT Dose: 50 mcg/hr, 10.5 mls/hr Documented by: [id number] Pantoprazole Sodium 40 mg/ (Dextrose) 100 mls @ 20 mls/hr IV Q5H ELY Stop: 09/30/21 02:14 Last Admin: 08/31/21 07:48 Dose: 8 mg/hr, 20 mls/hr Documented by: [id number] Infusion: 08/31/21 07:48 Dose: 8 mg/hr, 20 mls/hr Documented by: [id number] Admin: 08/31/21 03:01 Dose: 8 mg/hr, 20 mls/hr Documented by: [id number] Sodium Chloride (Nss 1000ml) 1,000 mls @ 60 mls/hr IV .[id number] ELY Stop: 09/30/21 02:14 Last Admin: 08/31/21 04:56 Dose: 60 mls/hr Documented by: [id number] Miscellaneous (Remove Nicoderm Patch) 1 ea N/A DAILY@[id number] ELY Stop: 09/30/21 08:58 Last Admin: 08/31/21 07:51 Dose: Not Given Documented by: [id number] Nicotine (Nicotine 14 Mg/24 Hr Patch) 14 mg TD QAM [facility] Stop: 09/30/21 02:14 Last Admin: 08/31/21 07:49 Dose: 14 mg Documented by: [id number] Admin: 08/31/21 03:21 Dose: Not Given Documented by: [id number] Coding Level of Care Code 06661 U Intl Hosp Care Lvl 2 Diagnoses Depressive disorder F32.9
--- NOTE | 2021-08-31 11:18 | Electrocardiogram Report ---
Test Reason : Blood Pressure : / mmHG Vent. Rate : 092 BPM Atrial Rate : 092 BPM P-R Int : 104 ms QRS Dur : 068 ms QT Int : 386 ms P-R-T Axes : 003 012 084 degrees QTc Int : 477 ms Poor data quality, interpretation may be adversely affected Sinus rhythm with short FL Nonspecific ST and T wave abnormality Abnormal ECG When compared with ECG of 23-JUN-2021 16:38, Nonspecific T wave abnormality, improved in Inferior leads T wave inversion no longer evident in Anterolateral leads Confirmed by Larry Pickard ([id number]) on 08/31/2021 11:17:36 AM Referred By: REFERRED SELF Confirmed By:Larry Pickard
--- NOTE | 2021-08-31 11:23 | Operative Report ---
Post Operative Report Pre & Post Diagnosis Operation Date: 08/31/21 09:15 Pre-Op Diagnosis: Gastrointestinal Bleed Post-Op Diagnosis: Gastrointestinal Bleed I identified the patient and participated in the time-out.: Yes Procedure Operation Date: 08/31/21 09:15 Actual Procedures p Esophagogastroduodenoscopy(Not Applicable) - Luanne Yates MD Surgeon Luanne Yates MD Stave Hewer None Estimated Blood Loss 0 Findings See Below (Non bleeding large duodenal ulcer) Specimens None Description of Procedure EGD I attest to the content of the Intraoperative Record and any orders documented therein. Any exceptions are noted below.
[2021-08-31] MEDS ORDERED: PHENYLEPHRINE 100MCG/ML 5ML SYR ONE (11:28)
[2021-08-31] MEDS: CHOLECALCIFEROL 1,000 UNITS 25 MCG TAB PO SCH (11:33)
[2021-08-31] MEDS: FOLIC ACID 1 MG TAB PO SCH (11:33)
[2021-08-31] MEDS: MULTIVITAMIN TAB PO SCH (11:33)
[2021-08-31] MEDS: GABAPENTIN 300 MG CAP PO SCH ×3 (11:33→22:20)
--- NOTE | 2021-08-31 11:55 | GI REPORT ---
Patient Name: Genet Abarham Procedure Date: 08/31/2021 10:50 AM Date of : 1950 Admit Type: Inpatient Age: 71 Gender: Female Attending MD: Luanne Yates MD Procedure: Upper GI endoscopy Providers: Luanne Yates MD Referring MD: [place] Md Indications: Hematemesis Medicines: Propofol per Anesthesia Complications: No immediate complications. Estimated Blood Loss: Estimated blood loss: none. Procedure: Pre-Anesthesia Assessment: - Prior to the procedure, a History and Physical was performed, and patient medications, allergies and sensitivities were reviewed. The patient's tolerance of previous anesthesia was reviewed. - The risks and benefits of the procedure and the sedation options and risks were discussed with the patient. All questions were answered and informed consent was obtained. - Patient identification and proposed procedure were verified prior to the procedure by the physician and the nurse. The procedure was verified in the procedure room. - Pre-procedure physical examination revealed no contraindications to sedation. After obtaining informed consent, the endoscope was passed under direct vision. Throughout the procedure, the patient's blood pressure, pulse, and oxygen saturations were monitored continuously. The Scope was introduced through the mouth, and advanced to the second part of duodenum. The upper GI endoscopy was accomplished without difficulty. The patient tolerated the procedure well. Findings: The examined esophagus was normal. A small hiatal hernia was present. A few localized erosions with no stigmata of recent bleeding were found in the prepyloric region of the stomach. One non-bleeding cratered duodenal ulcer with no stigmata of bleeding was found in the duodenal bulb. The lesion was 20 mm in largest dimension. The second portion of the duodenum was normal. Impression: - Normal esophagus. - Small hiatal hernia. - Gastritis. - Non-bleeding duodenal ulcer with no stigmata of bleeding. - Normal second portion of the duodenum. - No specimens collected. Recommendation: - [facility]. - Clear liquid diet today. - No aspirin, ibuprofen, naproxen, or other non-steroidal anti-inflammatory drugs. - Use a proton pump inhibitor PO BID for 3 months. - Repeat upper endoscopy in 3 months to check healing. - Alcohol cessation. Luanne Yates MD 08/31/2021 11:55:09 AM This report has been signed electronically. Note Initiated On: 08/31/2021 10:50 AM Number of Addenda: 0 I attest to the content of the Intraoperative Record and orders documented therein, exceptions below {[id number]}
--- NOTE | 2021-08-31 12:02 | Anesthesiology Progress Note ---
Date of Service August 31, 2021 Anesthesia Post Procedure Vital Signs Vital Signs: Temp Pulse Pulse Pulse Resp BP BP 08/31/21 12:00 36.6 C 69 16 08/31/21 11:50 74 18 08/31/21 11:45 68 18 104/59 L 08/31/21 11:40 68 18 08/31/21 11:30 36.3 C L 73 73 12 81/61 L 08/31/21 09:37 36.5 C 73 16 90/57 L 08/31/21 07:55 36.5 C 95 H 94/48 L 08/31/21 05:42 69 08/31/21 05:01 36.4 C L 75 18 08/31/21 03:59 74 18 08/31/21 02:06 80 18 08/31/21 01:25 EDT 36.5 C 83 18 109/64 08/31/21 00:53 93 H 16 08/31/21 00:30 94 H 25 H 109/64 08/30/21 23:30 93 H 22 126/79 08/30/21 23:08 08/30/21 22:32 36.4 C L 103 H 18 92/60 L BP Pulse Ox 08/31/21 12:00 99/60 L 100 08/31/21 11:50 102/61 100 08/31/21 11:45 100 08/31/21 11:40 103/52 L 100 08/31/21 11:30 81/61 L 98 08/31/21 09:37 08/31/21 07:55 90 08/31/21 05:42 08/31/21 05:01 105/74 91 08/31/21 03:59 106/65 98 08/31/21 02:06 123/94 95 08/31/21 01:25 EDT 100 08/31/21 00:53 117/68 100 08/31/21 00:30 91 08/30/21 23:30 94 08/30/21 23:08 94 08/30/21 22:32 Pain Intensity Abdomen: Pain Intensity: 9 Transfer of Care Handoff Completed per policy Notes Mental Status: alert / awake / arousable and participated in evaluation Patient Amnestic to Procedure: Yes Nausea / Vomiting: adequately controlled Pain: adequately controlled Airway Patency, RR, SpO2: stable & adequate BP & HR: stable & adequate Hydration State: stable & adequate Anesthetic Complications: no major complications apparent and Pt Satisfied with anesthetic care
[2021-08-31 14:20] LABS: Hematocrit (blood only) 27.2 % (37-47)
--- NOTE | 2021-08-31 15:44 | Hospitalist Progress Note ---
Date of Service August 31, 2021 Assessment & Plan (1) UGIB (upper gastrointestinal bleed): Plan: Acute upper GI bleed Acute blood loss anemia secondary to above in setting of Aspirin/Eliquis use -CT ABD:1.7 cm saccular outpouching involving the distal stomach with moderate adjacent distal stomach and proximal duodenal wall thickening with mild surrounding inflammatory stranding. This finding is suggestive of probable peptic ulcer disease however correlation with endoscopy is recommended to exclude the less likely possibility of an ulcerative mucosal lesion. No evidence of perforation. No bowel obstruction or pneumoperitoneum. Hepatic steatosis. Colonic diverticulosis. . S/P 2 units PRBCs S/P EGD: Small hiatal hernia, gastritis, nonbleeding duodenal ulcer with no stigmata of bleeding Avoid aspirin, NSAIDs, anticoagulation for now IV Protonix ggt transition to twice daily Appreciate GI input Alcohol cessation counseled We will need repeat endoscopy in in 3 months Monitor H&H and transfuse PRBCs as needed Recurrent syncope Likely Orthostasis from GI bleed CT head:No acute intracranial abnormality or calvarial fracture. Neck CT:No acute cervical spine fracture or subluxation. Fall precautions PT OT when appropriate next Call use disorder Monitor for withdrawal On Ativan protocol Continue thiamine, folic acid Right 9th Rib Fracture Imaging showed Healing subacute nondisplaced fracture of the lateral right ninth rib. Incentive Spirometry Cystic lesions on vallecula and epiglottis Incidental finding on imaging:Hypodensities within the vallecula, left larger than right, are noted. H/O laryngocele S/P surgery Follow-up with ENT as outpatient Left upper lobe pulmonary nodule Imaging showed 9 mm left upper lobe groundglass nodule with possible small solid component is noted Needs follow up with Pulm as outpatient CAD PAD Valvular heart disease (mild MR, mild to moderate TR, trace [place] on TTE 2020) Aspirin on hold Continue metoprolol, statin Hypertension Continue metoprolol with holding parameters Blood pressure relatively low Continue IV fluids Hyperlipidemia on statin CKD III Monitor renal function Avoid nephrotoxic agents as able Left breast cancer S/P surgery/chemoradiation Depression Continue home medications Psychiatry consulted Malnutrition BMI 17.9 Dietitian consulted Ongoing Tobacco abuse 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 patch 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 Quality Improvement to quit DVT Px: TEDS for now Code Status Full code Admission and Anticipated Discharge Date Admission Date: August 31, 2021 Subjective Patient is seen and examined at bedside States feeling slightly better today Had EGD earlier today Reports 2 bowel movements today with no bleeding Received 1 unit PRBC this morning Denies any significant abdominal pain Also denies any chest pain, shortness of breath, dizziness, nausea, vomiting Review of Systems Review of Systems: All systems reviewed & are unremarkable except as noted in Subjective Physical Exam Physical Exam: Physical Exam: Vitals signs as noted above General Appearance: Thin, frail, chronically appearing, no apparent distress Head: normocephalic, Atraumatic Eyes: normal inspection, EOMI Neck: supple, Trachea midline Respiratory/Chest: Decreased breath sounds, CTA Cardiovascular: S1, S2, No murmur Abdomen/GI:Soft, Non tender, Bowel sounds present Extremities/Musculoskeletal:normal inspection, Trace edema Neurologic/Psych:AAOX3, grossly no focal neurological deficits Skin: normal color, warm Results & Data Results & Data ([facility]) Vital Signs (Past 12 Hours) Vital Signs Temp Pulse Pulse Pulse Resp BP BP 08/31/21 15:21 36.4 C L 85 20 97/65 L 08/31/21 12:43 36.7 C 70 99/61 L 08/31/21 12:15 36.7 C 68 16 99/61 L 08/31/21 12:00 36.6 C 69 16 08/31/21 11:50 74 18 08/31/21 11:45 68 18 104/59 L 08/31/21 11:40 68 18 08/31/21 11:30 36.3 C L 73 73 12 81/61 L 08/31/21 09:37 36.5 C 73 16 90/57 L 08/31/21 07:55 36.5 C 95 H 94/48 L 08/31/21 05:42 69 08/31/21 05:01 36.4 C L 75 18 08/31/21 03:59 74 18 BP Pulse Ox 08/31/21 15:21 98 08/31/21 12:43 100 08/31/21 12:15 100 08/31/21 12:00 99/60 L 100 08/31/21 11:50 102/61 100 08/31/21 11:45 100 08/31/21 11:40 103/52 L 100 08/31/21 11:30 81/61 L 98 08/31/21 09:37 08/31/21 07:55 90 08/31/21 05:42 08/31/21 05:01 105/74 91 08/31/21 03:59 106/65 98 Laboratory Results Short CBC 08/30/21 08/31/21 08/31/21 Range/Units 22:47 08:19 13:59 WBC 12.88 H 12.18 H (4.8-10.8) K/uL Hgb 8.1 L 7.4 L 9.0 L (12.0-16.0) g/dL Hct 24.5 L 22.3 L 27.2 L (37-47) % Plt Count 402 H 214 (130-400) K/uL BMP 08/30/21 08/31/21 22:47 08:18 Sodium 139 143 Potassium 4.1 3.7 Chloride 108 H 115 H Carbon Dioxide 18 L 19 L BUN 34 H 33 H Creatinine 1.26 H 1.01 Glucose 150 H 92 Calcium 8.7 7.6 L Cardiac Enzymes 08/30/21 Range/Units 22:47 Total Creatine Kinase 165 (26-192) U/L Troponin I < 0.015 (0-0.045) ng/ml Liver Function 08/30/21 08/31/21 Range/Units 22:47 08:18 Total Bilirubin 0.2 0.2 (0.2-1) mg/dl AST 27 25 (15-37) U/L ALT 16 13 (12-78) U/L Alkaline Phosphatase 90 86 (45-117) U/L Albumin 2.0 L 1.3 L (3.4-5.0) gm/dl Urine 08/30/21 Range/Units 23:15 Urine Color Dark Yellow Urine Appearance Cloudy A (Clear) Urine pH 5.5 (4.5-7.5) Ur Specific [place] 1.027 (1.000-1.030) Urine Protein 1+ H (Negative) Urine Glucose (UA) Negative (Negative)
[2021-08-31 17:58] LABS: Hematocrit (blood only) 28.3 % (37-47); Hemoglobin 9.3 g/dL (12.0-16.0)
[2021-08-31] MEDS: DOXEPIN HCL 10 MG CAPSULE PO SCH (22:20)
[2021-08-31] MEDS: PANTOprazole 40 MG in SYRINGE 0 ML IV SCH (22:23)
[2021-08-31] MEDS: ROSUVASTATIN CALCIUM 20 MG TAB PO SCH (22:25)
[2021-09-01] MEDS: SODIUM CHLORIDE 0.9% 1000ML 1,000 ML IV SCH ×2 (00:42→22:51)
[2021-09-01] MEDS ORDERED: MELATONIN 3 MG TAB PO PRN (01:08)
[2021-09-01 07:13] LABS: Estimated Average Glucose 97 mg/dl
[2021-09-01] MEDS: CHOLECALCIFEROL 1,000 UNITS 25 MCG TAB PO SCH (07:42)
[2021-09-01] MEDS: GABAPENTIN 300 MG CAP PO SCH ×3 (07:44→21:41)
[2021-09-01] MEDS: FOLIC ACID 1 MG TAB PO SCH (07:45)
[2021-09-01] MEDS: METOPROLOL SUCC 25MG EXT REL TAB PO SCH (07:45)
[2021-09-01] MEDS: MULTIVITAMIN TAB PO SCH (07:46)
[2021-09-01] MEDS: THIAMINE HCL 100 MG TAB PO SCH (07:46)
[2021-09-01] MEDS: PANTOprazole 40 MG in SYRINGE 0 ML IV SCH ×2 (07:47→21:41)
[2021-09-01 07:52] LABS: Hematocrit (blood only) 26.7 % (37-47); Hemoglobin 8.9 g/dL (12.0-16.0); Mean Corpuscular Hemoglobin 30.3 pg (25-34); Mean Corpuscular Hgb Conc 33.3 g/dL (32-36); Mean Corpuscular Volume 90.8 fL (80-100); Mean Platelet Volume 9.7 fL (7.4-10.4); Platelet Count 241 K/uL (130-400); RDW Coefficient of Variation 15.7 % (11.5-14.5); Red Blood Count 2.94 M/uL (4.2-5.4); White Blood Count 12.09 K/uL (4.8-10.8)
[2021-09-01 08:25] LABS: Albumin Level 1.4 gm/dl (3.4-5.0); BUN Creatinine Ratio 23.3 (10-20); Calcium 7.9 mg/dl (8.5-10.1); Creatinine Clr Calc Pharmacy 42.2 ml/min; Est GFR (Non-African American) 54.4 ml/min; Magnesium 1.8 mg/dl (1.8-2.4); Potassium 3.5 mmol/L (3.5-5.1)
[2021-09-01 08:28] LABS: Albumin Globulin Ratio 0.5 (0.9-2); Bilirubin,Total 0.2 mg/dl (0.2-1); Total Protein 4.4 gm/dl (6.4-8.2)
--- NOTE | 2021-09-01 08:53 | Hospitalist Progress Note ---
Date of Service September 01, 2021 Assessment & Plan (1) UGIB (upper gastrointestinal bleed): Plan: Acute upper GI bleed Acute blood loss anemia secondary to above in setting of Aspirin/Eliquis use Presented with intermittent black stools, episode of hematemesis -CT ABD:1.7 cm saccular outpouching involving the distal stomach with moderate adjacent distal stomach and proximal duodenal wall thickening with mild surrounding inflammatory stranding. This finding is suggestive of probable peptic ulcer disease however correlation with endoscopy is recommended to exclude the less likely possibility of an ulcerative mucosal lesion. No evidence of perforation. No bowel obstruction or pneumoperitoneum. Hepatic steatosis. Colonic diverticulosis. . S/P 2 units PRBCs S/P EGD: Small hiatal hernia, gastritis, nonbleeding duodenal ulcer with no s tigmata of bleeding Avoid aspirin, NSAIDs, anticoagulation for now IV Protonix ggt transition to twice daily Appreciate GI input Alcohol cessation counseled We will need repeat endoscopy in in 3 months Monitor H&H and transfuse PRBCs as needed Advance to regular diet Transition to p.o. Protonix tomorrow Hemoglobin 8.9 today Recurrent syncope Likely Orthostasis from GI bleed CT head:No acute intracranial abnormality or calvarial fracture. Neck CT:No acute cervical spine fracture or subluxation. Fall precautions PT OT eval Abnormal UA R/O UTI Empirically Started on Rocephin Urine Culture growing gram-negative bacilli Alcohol use disorder Monitor for withdrawal On Ativan protocol Continue thiamine, folic acid Counseled to quit Right 9th Rib Fracture Imaging showed Healing subacute nondisplaced fracture of the lateral right ninth rib. Incentive Spirometry Cystic lesions on vallecula and epiglottis Incidental finding on imaging:Hypodensities within the vallecula, left larger than right, are noted. H/O laryngocele S/P surgery Follow-up with ENT as outpatient Left upper lobe pulmonary nodule Imaging showed 9 mm left upper lobe groundglass nodule with possible small solid component is noted Needs follow up with Pulm as outpatient CAD PAD Valvular heart disease (mild MR, mild to moderate TR, trace [place] on TTE 2020) Aspirin on hold Continue metoprolol, statin Hypertension Continue metoprolol with holding parameters Blood pressure relatively low Received IV fluids Hyperlipidemia on statin CKD III Monitor renal function Avoid nephrotoxic agents as able Left breast cancer S/P surgery/chemoradiation Depression Continue home medications Psychiatry consulted Malnutrition BMI 17.9 Dietitian consulted Ongoing Tobacco abuse 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 DVT Px: TEDS for now Code Status Full code Admission and Anticipated Discharge Date Admission Date: August 31, 2021 Subjective Patient is seen and examined at bedside No recurrence of bleeding issues today States having generalized weakness and tiredness Requesting for regular diet Denies any chest pain, shortness of breath, abd pain, dizziness, nausea, vomiting Review of Systems Review of Systems: All systems reviewed & are unremarkable except as noted in Subjective Physical Exam Physical Exam: Physical Exam: Vitals signs as noted above General Appearance: Thin, frail, chronically appearing, no apparent distress Head: normocephalic, Atraumatic Eyes: normal inspection, EOMI Neck: supple, Trachea midline Respiratory/Chest: Decreased breath sounds, CTA Cardiovascular: S1, S2, No murmur Abdomen/GI:Soft, Non tender, Bowel sounds present Extremities/Musculoskeletal:normal inspection, Trace edema Neurologic/Psych:AAOX3, grossly no focal neurological deficits Skin: normal color, warm Results & Data Results & Data ([facility]) Vital Signs (Past 12 Hours) Vital Signs Temp Pulse Pulse Pulse Resp BP Pulse Ox 09/01/21 08:20 36.4 C L 64 16 121/74 96 09/01/21 04:36 71 09/01/21 03:14 36.6 C 70 17 102/65 98 08/31/21 23:02 36.8 C 69 18 115/73 99 Laboratory Results Short CBC 08/31/21 08/31/21 09/01/21 Range/Units 13:59 17:52 07:31 WBC 12.09 H (4.8-10.8) K/uL Hgb 9.0 L 9.3 L 8.9 L (12.0-16.0) g/dL Hct 27.2 L 28.3 L 26.7 L (37-47) % Plt Count 241 (130-400) K/uL BMP 08/31/21 09/01/21 08:18 07:31 Sodium 143 145 Potassium 3.7 3.5 Chloride 115 H 117 H Carbon Dioxide 19 L 20 L BUN 33 H 24 H Creatinine 1.01 1.04 Glucose 92 84 Calcium 7.6 L 7.9 L Liver Function 08/31/21 09/01/21 Range/Units 08:18 07:31 Total Bilirubin 0.2 0.2 (0.2-1) mg/dl AST 25 33 (15-37) U/L ALT 13 15 (12-78) U/L Alkaline Phosphatase 86 78 (45-117) U/L Albumin 1.3 L 1.4 L (3.4-5.0) gm/dl
[2021-09-01] MEDS: cefTRIAXone SODIUM 1,000 MG in DEXTROSE 5% 50 ML IV SCH (10:57)
[2021-09-01 16:17] LABS: Hematocrit (blood only) 26.7 % (37-47); Hemoglobin 8.7 g/dL (12.0-16.0)
--- NOTE | 2021-09-01 16:28 | Electroencephalogram ---
EEG Procedure Note Date of Service September 01, 2021 Start / End Times Start Time: 06:27 End Time: 06:[address] Bay History A 71 year old woman with recurrent syncope. EEG performed for evaluation of epileptiform activity. Home Medication List Medication Instructions Recorded Confirmed Type rosuvastatin 40 mg tablet 40 mg PO HS #90 tab 12/31/20 08/30/21 Rx metoprolol succinate 25 mg 25 mg PO QAM #90 tab 03/06/21 08/30/21 Rx tablet,extended release 24 hr nitroglycerin 0.4 mg sublingual 0.4 mg SL .COMPLEX PRN #25 tab 04/16/21 08/30/21 Rx tablet alpha lipoic acid 300 mg capsule 300 mg PO DAILY 06/23/21 08/30/21 History apixaban 2.5 mg tablet (Eliquis) 2.5 mg PO BID 06/23/21 08/30/21 History cyanocobalamin (vitamin B-12) 1,000 mcg PO DAILY 06/23/21 08/30/21 History 1,000 mcg tablet folic acid 1 mg tablet 1 mg PO DAILY 06/23/21 08/30/21 History furosemide 20 mg tablet 20 mg PO DAILY PRN 06/23/21 08/30/21 History gabapentin 300 mg capsule 300 mg PO TID 06/23/21 08/30/21 History hydroxyzine HCl 25 mg tablet 25 mg PO Q6 PRN 06/23/21 08/30/21 History omeprazole 20 mg capsule,delayed 20 mg PO BID 06/23/21 08/30/21 History release ondansetron 4 mg disintegrating 4 mg PO Q8H PRN #10 tab 06/23/21 08/30/21 Rx tablet thiamine HCl (vitamin B1) 100 mg 100 mg PO DAILY 06/23/21 08/30/21 History tablet aspirin 81 mg tablet,delayed 81 mg PO HS 08/07/21 08/30/21 History release doxepin 10 mg capsule 10 mg PO DAILY 30 Days #30 cap 08/07/21 08/30/21 Rx Inpatient Medication List Doxepin HCl (Doxepin Hcl 10 Mg Capsule) 10 mg PO HS [facility] Stop: 09/06/21 21:01 Last Admin: 08/31/21 22:20 Dose: Not Given Documented by: [id number] Folic Acid (Folic Acid 1 Mg Tab) 1 mg PO DAILY [facility] Stop: 09/30/21 08:59 Last Admin: 09/01/21 07:45 Dose: 1 mg Documented by: [id number] Admin: 08/31/21 11:33 Dose: Not Given Documented by: [id number] Gabapentin (Gabapentin 300 Mg Cap) 300 mg PO TID [facility] Stop: 09/30/21 08:59 Last Admin: 09/01/21 14:12 Dose: 300 mg Documented by: [id number] Admin: 09/01/21 07:44 Dose: 300 mg Documented by: [id number] Admin: 08/31/21 22:20 Dose: Not Given Documented by: [id number] Admin: 08/31/21 15:01 Dose: 300 mg Documented by: [id number] Admin: 08/31/21 11:33 Dose: Not Given Documented by: [id number] Sodium Chloride (Nss 1000ml) 1,000 mls @ 60 mls/hr IV .[id number] [facility] Stop: 09/02/21 04:14 Last Infusion: 09/01/21 10:57 Dose: 60 mls/hr Documented by: [id number] Admin: 09/01/21 00:42 Dose: 60 mls/hr Documented by: [id number] Infusion: 08/31/21 23:09 Dose: 60 mls/hr Documented by: [id number] Infusion: 08/31/21 12:42 Dose: 60 mls/hr Documented by: [id number] Infusion: 08/31/21 11:09 Dose: 0 mls/hr Documented by: [id number] Admin: 08/31/21 04:56 Dose: 60 mls/hr Documented by: [id number] Pantoprazole Sodium 40 mg/ (Syringe) 10 mls @ 5 mls/min IV BID [facility] Stop: 09/30/21 20:59 Last Admin: 09/01/21 07:47 Dose: 5 mls/min Documented by: [id number] Admin: 08/31/21 22:23 Dose: 5 mls/min Documented by: [id number] Ceftriaxone Sodium 1,000 mg/ (Dextrose) 50 mls @ 100 mls/hr IV Q24H [facility]; Protocol Stop: 09/06/21 08:59 Last Infusion: 09/01/21 12:36 Dose: 0 mls/hr Documented by: [id number] Admin: 09/01/21 10:57 Dose: 100 mls/hr Documented by: [id number] Melatonin (Melatonin 3 Mg Tab) 3 mg PO HS PRN PRN Reason: Sleep Stop: 10/01/21 01:07 Last Admin: 09/01/21 01:24 Dose: 3 mg Documented by: [id number] Metoprolol Succinate (Metoprolol Succ 25mg Ext Rel Tab) 25 mg PO QAM [facility] Stop: 10/01/21 08:59 Last Admin: 09/01/21 07:45 Dose: 25 mg Documented by: [id number] Miscellaneous (Remove Nicoderm Patch) 1 ea N/A [id number] [facility] Stop: 09/30/21 08:58 Last Admin: 09/01/21 07:46 Dose: 1 ea Documented by: [id number] Admin: 08/31/21 07:51 Dose: Not Given Documented by: [id number] Multivitamins ([facility]ivitamin Tab) [facility] [place]: 09/30/21 08:59 Last Admin: 09/01/21 07:46 Dose: 1 tab Documented by: [id number] Admin: 08/31/21 11:33 Dose: Not Given Documented by: [id number] Nicotine (Nicotine 14 Mg/24 Hr Patch) 14 [facility] [place]: 09/30/21 02:14 Last Admin: 08/31/21 07:49 Dose: 14 mg Documented by: [id number] Admin: 08/31/21 03:21 Dose: Not Given Documented by: [id number] Rosuvastatin Calcium (Rosuvastatin Calcium 20 Mg Tab) 40 mg PO HS [facility] Stop: 09/30/21 20:59 Last Admin: 08/31/21 22:25 Dose: 40 mg Documented by: [id number] Thiamine HCl (Thiamine Hcl 100 Mg Tab) 100 mg PO DAILY [facility] Stop: 10/01/21 08:59 Last Admin: 09/01/21 07:46 Dose: 100 mg Documented by: [id number] Vitamin D (Cholecalciferol 1,000 Units 25 Mcg Tab) 1,000 units PO DAILY [facility] Stop: 09/30/21 08:59 Last Admin: 09/01/21 07:42 Dose: Not Given Documented by: [id number] Admin: 08/31/21 11:33 Dose: Not Given Documented by: [id number] Discontinued Medications Fentanyl Citrate (Fentanyl Citrate 100 Mcg/2 Ml Vial) 50 mcg IV NOW STA Stop: 08/30/21 23:58 Last Admin: 08/31/21 00:17 Dose: 50 mcg Documented by: [id number] Sodium Chloride (Nss 1000ml) 1,000 mls @ 999 mls/hr IV .Q1H1M [facility] Stop: 08/31/21 00:00 Last Infusion: 08/31/21 00:02 Dose: 0 mls/hr Documented by: [id number] Admin: 08/30/21 22:54 Dose: 999 mls/hr Documented by: [id number] Ceftriaxone Sodium (Rocephin) 1,000 mg in 50 mls @ 100 mls/hr IV NOW STA Stop: 08/30/21 23:17 Last Infusion: 08/30/21 23:45 Dose: 0 mls/hr Documented by: [id number] Admin: 08/30/21 23:15 Dose: 100 mls/hr Documented by: [id number] Pantoprazole Sodium 80 mg/ (Dextrose) 100 mls @ 400 mls/hr IV ONE STA Stop: 08/30/21 23:55 Last Infusion: 08/31/21 00:49 Dose: 0 mls/hr Documented by: [id number] Admin: 08/31/21 00:10 Dose: 400 mls/hr Documented by: [id number] Acetaminophen (Ofirmev) 65 mls @ 200 mls/hr IV NOW ONE; Protocol Stop: 08/31/21 00:16 Last Infusion: 08/31/21 01:04 EDT Dose: 0 mls/hr Documented by: [id number] Admin: 08/31/21 00:43 Dose: 200 mls/hr Documented by: [id number] Sodium Chloride (Nss 1000ml) 1,000 mls @ 999 mls/hr IV .Q1H1M ONE Stop: 08/31/21 00:58 Last Infusion: 08/31/21 01:43 EST Dose: 0 mls/hr Documented by: [id number] Admin: 08/31/21 01:09 EDT Dose: 999 mls/hr Documented by: [id number] Octreotide Acetate 50 mcg/ (Syringe) 10 mls @ 3 mls/min IV ONE STA Stop: 08/31/21 00:35 Last Admin: 08/31/21 01:05 EDT Dose: 3 mls/min Documented by: [id number] Octreotide Acetate 500 mcg/ (Sodium Chloride) 105 mls @ 10.5 mls/hr IV .Q10H [facility] Stop: 09/30/21 00:44 Last Admin: 08/31/21 11:55 Dose: Not Given Documented by: [id number] Infusion: 08/31/21 11:09 Dose: 0 mcg/hr, 0 mls/hr Documented by: [id number] Admin: 08/31/21 01:14 EDT Dose: 50 mcg/hr, 10.5 mls/hr Documented by: [id number] Thiamine HCl 100 mg/ Syringe 10 mls @ 2 mls/min IV NOW STA Stop: 08/31/21 01:51 EST Last Admin: 08/31/21 02:31 Dose: 2 mls/min Documented by: [id number] Pantoprazole Sodium 40 mg/ (Dextrose) 100 mls @ 20 mls/hr IV Q5H [facility] Stop: 09/30/21 02:14 Last Admin: 08/31/21 14:16 Dose: Not Given Documented by: [id number] Infusion: 08/31/21 14:16 Dose: 0 mg/hr, 0 mls/hr Documented by: [id number] Infusion: 08/31/21 12:42 Dose: 8 mg/hr, 20 mls/hr Documented by: [id number] Infusion: 08/31/21 11:09 Dose: 0 mg/hr, 0 mls/hr Documented by: [id number] Admin: 08/31/21 07:48 Dose: 8 mg/hr, 20 mls/hr Documented by: [id number] Infusion: 08/31/21 07:48 Dose: 8 mg/hr, 20 mls/hr Documented by: [id number] Admin: 08/31/21 03:01 Dose: 8 mg/hr, 20 mls/hr Documented by: [id number] Sodium Chloride (Nss) 250 mls @ 15 mls/hr IV .[id number] PRN PRN Reason: For Transfusion Stop: 08/31/21 18:40 Last Infusion: 08/31/21 14:16 Dose: 0 mls/hr Documented by: [id number] Admin: 08/31/21 12:15 Dose: 150 mls/hr Documented by: [id number] Influenza Virus Vaccine (Influenza Vaccine High Dose Pf 65+ 0.7 Ml Syr) 0.7 ml IM .ONCE ONE Stop: 08/31/21 08:01 Last Admin: 09/01/21 07:42 Dose: Not Given Documented by: [id number] Ioversol (Optiray 320 100ml) 94 ml IV ONCE ONE Stop: 08/31/21 00:15 Last Admin: 08/31/21 00:14 Dose: 94 ml Documented by: [id number] Ondansetron HCl (Ondansetron Inj 2 Mg/Ml 2 Ml Vial) 4 mg IV NOW STA Stop: 08/30/21 22:49 Last Admin: 08/30/21 23:10 Dose: 4 mg Documented by: [id number] Description This is a 21 electrode EEG with a single channel dedicated to limited EKG. The electrodes were placed in accordance with the International 10-20 system. REPORT: At the onset of the EEG the patient is awake. The posterior dominant rhythm is 9 Hz. There is a normal anterior to posterior gradient. Drowsiness is characterized by increased theta activity and decreased myogenic artifact. Photic stimulation does not induce any abnormalities. Interpretation IMPRESSION: This is a normal awake and drowsy EEG. There is no evidence of epileptiform activity.
[2021-09-01] MEDS: ROSUVASTATIN CALCIUM 20 MG TAB PO SCH (21:41)
[2021-09-01] MEDS: DOXEPIN HCL 10 MG CAPSULE PO SCH (21:55)
[2021-09-02 07:22] LABS: Hematocrit (blood only) 25.4 % (37-47); Hemoglobin 8.5 g/dL (12.0-16.0); Mean Corpuscular Hemoglobin 30.7 pg (25-34); Mean Corpuscular Hgb Conc 33.5 g/dL (32-36); Mean Corpuscular Volume 91.7 fL (80-100); Mean Platelet Volume 9.8 fL (7.4-10.4); Platelet Count 221 K/uL (130-400); RDW Coefficient of Variation 15.9 % (11.5-14.5); RDW Standard Deviation 52.6 fL (36.4-46.3); Red Blood Count 2.77 M/uL (4.2-5.4); White Blood Count 8.96 K/uL (4.8-10.8)
[2021-09-02 07:47] LABS: BUN Creatinine Ratio 19.1 (10-20); Calcium 7.8 mg/dl (8.5-10.1); Creatinine Clr Calc Pharmacy 46.1 ml/min; Est GFR (African American) 71.2 ml/min; Est GFR (Non-African American) 61.5 ml/min; Potassium 3.4 mmol/L (3.5-5.1)
[2021-09-02] MEDS ORDERED: POTASSIUM CHLORIDE CRTAB 20 MEQ TABCR PO ONE (08:09)
[2021-09-02] MEDS: NICOTINE 14 MG/24 HR PATCH TD SCH (09:12)
[2021-09-02] MEDS: cefTRIAXone SODIUM 1,000 MG in DEXTROSE 5% 50 ML IV SCH (09:13)
[2021-09-02] MEDS: GABAPENTIN 300 MG CAP PO SCH ×3 (09:14→21:37)
[2021-09-02] MEDS: CHOLECALCIFEROL 1,000 UNITS 25 MCG TAB PO SCH ×2 (09:14→09:22)
[2021-09-02] MEDS: FOLIC ACID 1 MG TAB PO SCH (09:14)
[2021-09-02] MEDS: MULTIVITAMIN TAB PO SCH (09:15)
[2021-09-02] MEDS: PANTOprazole 40 MG in SYRINGE 0 ML IV SCH (09:15)
[2021-09-02] MEDS: METOPROLOL SUCC 25MG EXT REL TAB PO SCH (09:15)
[2021-09-02] MEDS: THIAMINE HCL 100 MG TAB PO SCH (09:16)
[2021-09-02] MEDS ORDERED: POTASSIUM CHLORIDE PWD 20 MEQ PACK PO ONE (11:45)
[2021-09-02] MEDS: oxyCODONE HCL IR 5 MG TAB (IMMEDIATE RELEASE) PO PRN ×2 (12:56→19:32)
--- NOTE | 2021-09-02 15:39 | Hospitalist Progress Note ---
Date of Service September 02, 2021 Assessment & Plan (1) UGIB (upper gastrointestinal bleed): Plan: Acute upper GI bleed Acute blood loss anemia secondary to above in setting of Aspirin/Eliquis use Presented with intermittent black stools, episode of hematemesis -CT ABD:1.7 cm saccular outpouching involving the distal stomach with moderate adjacent distal stomach and proximal duodenal wall thickening with mild surrounding inflammatory stranding. This finding is suggestive of probable peptic ulcer disease however correlation with endoscopy is recommended to exclude the less likely possibility of an ulcerative mucosal lesion. No evidence of perforation. No bowel obstruction or pneumoperitoneum. Hepatic steatosis. Colonic diverticulosis. . S/P 2 units PRBCs S/P EGD: Small hiatal hernia, gastritis, nonbleeding duodenal ulcer with no s tigmata of bleeding Avoid aspirin, NSAIDs, anticoagulation for now IV Protonix ggt transition to PO Protonix BID Appreciate GI input Alcohol cessation counseled We will need repeat endoscopy in in 3 months Monitor H&H and transfuse PRBCs as needed Hemoglobin 8.5 today Needs follow-up with GI upon discharge OK to resume Aspirin upon discharge as per GI (Discussed with GI on 09/02/21) Recurrent syncope Likely due to Orthostasis from GI bleed Positive orthostatics CT head:No acute intracranial abnormality or calvarial fracture. Neck CT:No acute cervical spine fracture or subluxation. EEG:This is a normal awake and drowsy EEG. There is no evidence of epileptiform activity. Fall precautions PT OT eval Patient currently not interested in rehab placement Abnormal UA R/O UTI Continue Rocephin empirically Urine Culture growing gram-negative bacilli Alcohol use disorder Monitor for withdrawal On Ativan protocol Continue thiamine, folic acid Counseled to quit Right 9th Rib Fracture Imaging showed Healing subacute nondisplaced fracture of the lateral right ninth rib. Incentive Spirometry Cystic lesions on vallecula and epiglottis Incidental finding on imaging:Hypodensities within the vallecula, left larger than right, are noted. H/O laryngocele S/P surgery Follow-up with ENT as outpatient Left upper lobe pulmonary nodule Imaging showed 9 mm left upper lobe groundglass nodule with possible small solid component is noted Needs follow up with Pulm as outpatient CAD PAD Valvular heart disease (mild MR, mild to moderate TR, trace [place] on TTE 2020) Aspirin on hold Continue metoprolol, statin Hypertension Continue metoprolol Monitor Hyperlipidemia on statin CKD III Monitor renal function Avoid nephrotoxic agents as able Left breast cancer S/P surgery/chemoradiation Depression Continue home medications Psychiatry consulted Malnutrition BMI 17.9 Dietitian consulted Ongoing Tobacco abuse 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 DVT Px: MACHELLE for now Code Status Full code Admission and Anticipated Discharge Date Admission Date: August 31, 2021 Subjective Patient is seen and examined at bedside Ambulated in hallways earlier today Reports having intermittent dizziness Eager to get discharged Still has significant generalized weakness Denies any chest pain, shortness of breath, abd pain, dizziness, nausea, vomiting No recurrence of bleeding issues Review of Systems Review of Systems: All systems reviewed & are unremarkable except as noted in Subjective Physical Exam Physical Exam: Physical Exam: Vitals signs as noted above General Appearance: Thin, frail, chronically appearing, no apparent distress Head: normocephalic, Atraumatic Eyes: normal inspection, EOMI Neck: supple, Trachea midline Respiratory/Chest: Decreased breath sounds, CTA Cardiovascular: S1, S2, No murmur Abdomen/GI:Soft, Non tender, Bowel sounds present Extremities/Musculoskeletal:normal inspection, Trace edema Neurologic/Psych:AAOX3, grossly no focal neurological deficits Skin: normal color, warm Results & Data Results & Data ([facility]) Vital Signs (Past 12 Hours) Vital Signs Temp Pulse Pulse Pulse Resp BP BP 09/02/21 15:13 76 09/02/21 14:54 36.7 C 69 18 100/65 09/02/21 12:49 80 91/64 L 09/02/21 12:45 74 115/75 09/02/21 08:31 37 C 86 18 117/69 09/02/21 07:45 36.5 C 67 20 116/72 09/02/21 04:23 37.1 C 62 16 93/56 L Pulse Ox 09/02/21 15:13 09/02/21 14:54 100 09/02/21 12:49 09/02/21 12:45 09/02/21 08:31 94 09/02/21 07:45 95 09/02/21 04:23 98 Laboratory Results Short CBC 09/01/21 09/02/21 Range/Units 15:48 07:09 WBC 8.96 (4.8-10.8) K/uL Hgb 8.7 L 8.5 L (12.0-16.0) g/dL Hct 26.7 L 25.4 L (37-47) % Plt Count 221 (130-400) K/uL BMP 09/02/21 07:09 Sodium 146 H Potassium 3.4 L Chloride 120 H Carbon Dioxide 19 L BUN 18 Creatinine 0.94 Glucose 91 Calcium 7.8 L
[2021-09-02 21:17] LABS: Hematocrit (blood only) 22.5 % (37-47); Hemoglobin 7.5 g/dL (12.0-16.0)
[2021-09-02] MEDS: DOXEPIN HCL 10 MG CAPSULE PO SCH (21:36)
[2021-09-02] MEDS: ROSUVASTATIN CALCIUM 20 MG TAB PO SCH (21:37)
[2021-09-02] MEDS: PANTOprazole 40 MG TAB PO SCH (21:37)
[2021-09-03 07:13] LABS: Hematocrit (blood only) 24.3 % (37-47); Hemoglobin 7.9 g/dL (12.0-16.0); Mean Corpuscular Hemoglobin 30.6 pg (25-34); Mean Corpuscular Hgb Conc 32.5 g/dL (32-36); Mean Corpuscular Volume 94.2 fL (80-100); Mean Platelet Volume 9.8 fL (7.4-10.4); Platelet Count 200 K/uL (130-400); RDW Coefficient of Variation 16.1 % (11.5-14.5); RDW Standard Deviation 54.8 fL (36.4-46.3); Red Blood Count 2.58 M/uL (4.2-5.4); White Blood Count 7.49 K/uL (4.8-10.8)
[2021-09-03] MEDS: NICOTINE 14 MG/24 HR PATCH TD SCH (07:25)
[2021-09-03] MEDS: cefTRIAXone SODIUM 1,000 MG in DEXTROSE 5% 50 ML IV SCH (07:31)
[2021-09-03] MEDS: CHOLECALCIFEROL 1,000 UNITS 25 MCG TAB PO SCH (07:31)
[2021-09-03] MEDS: GABAPENTIN 300 MG CAP PO SCH ×3 (07:31→20:32)
[2021-09-03] MEDS: MULTIVITAMIN TAB PO SCH (07:32)
[2021-09-03] MEDS: FOLIC ACID 1 MG TAB PO SCH (07:32)
[2021-09-03] MEDS: THIAMINE HCL 100 MG TAB PO SCH (07:32)
[2021-09-03] MEDS: PANTOprazole 40 MG TAB PO SCH ×2 (07:32→20:32)
[2021-09-03] MEDS: METOPROLOL SUCC 25MG EXT REL TAB PO SCH (07:32)
[2021-09-03 07:45] LABS: BUN Creatinine Ratio 13.9 (10-20); Calcium 8.2 mg/dl (8.5-10.1); Creatinine Clr Calc Pharmacy 45.2 ml/min; Est GFR (African American) 68.6 ml/min; Est GFR (Non-African American) 59.2 ml/min; Magnesium 1.8 mg/dl (1.8-2.4); Phosphorus 2.4 mg/dl (2.5-4.9); Potassium 3.9 mmol/L (3.5-5.1)
[2021-09-03] MEDS: oxyCODONE HCL IR 5 MG TAB (IMMEDIATE RELEASE) PO PRN ×2 (10:35→20:29)
--- NOTE | 2021-09-03 13:54 | Hospitalist Progress Note ---
Date of Service September 03, 2021 Assessment & Plan (1) UGIB (upper gastrointestinal bleed): Plan: Acute upper GI bleed Acute blood loss anemia secondary to above in setting of Aspirin/Eliquis use Presented with intermittent black stools, episode of hematemesis -CT ABD:1.7 cm saccular outpouching involving the distal stomach with moderate adjacent distal stomach and proximal duodenal wall thickening with mild surrounding inflammatory stranding. This finding is suggestive of probable peptic ulcer disease however correlation with endoscopy is recommended to exclude the less likely possibility of an ulcerative mucosal lesion. No evidence of perforation. No bowel obstruction or pneumoperitoneum. Hepatic steatosis. Colonic diverticulosis. . S/P 2 units PRBCs S/P EGD: Small hiatal hernia, gastritis, nonbleeding duodenal ulcer with no stigmata of bleeding Avoid aspirin, NSAIDs, anticoagulation for now IV Protonix ggt transition to PO Protonix BID Appreciate GI input Alcohol cessation counseled Will need repeat endoscopy in in 3 months Monitor H&H and transfuse PRBCs as needed Needs follow-up with GI upon discharge OK to resume Aspirin upon discharge as per GI (Discussed with GI on 09/02/21) Recurrent syncope Likely due to Orthostasis from GI bleed Positive orthostatics CT head:No acute intracranial abnormality or calvarial fracture. Neck CT:No acute cervical spine fracture or subluxation. EEG:This is a normal awake and drowsy EEG. There is no evidence of epileptiform activity. Fall precautions PT OT eval Patient currently not interested in rehab placement Abnormal UA R/O UTI Continue Rocephin empirically Urine Culture growing gram-negative bacilli Alcohol use disorder Monitor for withdrawal On Ativan protocol Continue thiamine, folic acid Counseled to quit Right 9th Rib Fracture Imaging showed Healing subacute nondisplaced fracture of the lateral right ninth rib. Incentive Spirometry Cystic lesions on vallecula and epiglottis Incidental finding on imaging:Hypodensities within the vallecula, left larger than right, are noted. H/O laryngocele S/P surgery Follow-up with ENT as outpatient Left upper lobe pulmonary nodule Imaging showed 9 mm left upper lobe groundglass nodule with possible small solid component is noted Needs follow up with Pulm as outpatient CAD PAD Valvular heart disease (mild MR, mild to moderate TR, trace [place] on TTE 2020) Aspirin on hold Continue metoprolol, statin Hypertension Continue metoprolol Monitor Hyperlipidemia on statin CKD III Monitor renal function Avoid nephrotoxic agents as able Left breast cancer S/P surgery/chemoradiation Depression Continue home medications Psychiatry consulted Malnutrition BMI 17.9 Dietitian consulted Ongoing Tobacco abuse 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 DVT Px: MACHELLE for now Code Status Full code Admission and Anticipated Discharge Date Admission Date: August 31, 2021 Subjective Patient is seen in follow up of GI bleed Hgb 7.5 last night, 7.9 this AM Notified pt hypotensive when working with PT Eager to get discharged home w/ HH, not interested in rehab Denies any chest pain, shortness of breath, abd pain, dizziness, nausea, vomiting Repeat H&H Review of Systems Review of Systems: All systems reviewed & are unremarkable except as noted in Subjective Physical Exam Physical Exam: General Appearance: Thin, frail, chronically appearing, no apparent distress Head: normocephalic, Atraumatic Eyes: normal inspection, EOMI Neck: supple, Trachea midline Respiratory/Chest: Decreased breath sounds, CTA Cardiovascular: S1, S2, No murmur Abdomen/GI:Soft, Non tender, Bowel sounds present, soft Extremities/Musculoskeletal:normal inspection, Trace edema Neurologic/Psych:AAOX3, speech fluent, moves extremities Skin: normal color, warm Results & Data Results & Data ([facility]) Vital Signs (Past 12 Hours) Vital Signs Temp Pulse Pulse Pulse Resp BP Pulse Ox 09/03/21 12:30 36.7 C 71 18 94/61 L 98 09/03/21 07:36 36.3 C L 77 18 106/71 92 09/03/21 03:57 104/62 09/03/21 03:28 67 09/03/21 03:19 36.6 C 68 16 93/54 L 95 Laboratory Results 09/03/21 09/03/21 09/02/21 Range/Units 06:52 06:52 20:52 WBC 7.49 (4.8-10.8) K/uL RBC 2.58 L (4.2-5.4) M/uL Hgb 7.9 L 7.5 L (12.0-16.0) g/dL Hct 24.3 L 22.5 L (37-47) % MCV 94.2 (80-100) fL MCH 30.6 (25-34) pg MCHC 32.5 (32-36) g/dL RDW Std Deviation 54.8 H (36.4-46.3) fL RDW Coeff of Farrah 16.1 H (11.5-14.5) % Plt Count 200 (130-400) K/uL MPV 9.8 (7.4-10.4) fL Sodium 143 (136-145) mmol/L Potassium 3.9 (3.5-5.1) mmol/L Chloride 118 H (98-107) mmol/L Carbon Dioxide 21 (21-32) mmol/L Anion Gap 4.0 (3-11) BUN 14 (7-18) mg/dl Creatinine 0.97 (0.6-1.2) mg/dl Est Cr Clr Drug Dosing 45.2 ml/min Est GFR ( Amer) 68.6 ml/min Est GFR (Non-Af Amer) 59.2 ml/min BUN/Creatinine Ratio 13.9 (10-20) Glucose 85 (70-99) mg/dl Calcium 8.2 L (8.5-10.1) mg/dl Phosphorus 2.4 L (2.5-4.9) mg/dl Magnesium 1.8 (1.8-2.4) mg/dl Crossmatch 08/30/21 Range/Units 23:11 WBC (4.8-10.8) K/uL RBC (4.2-5.4) M/uL Hgb (12.0-16.0) g/dL Hct (37-47) % MCV (80-100) fL MCH (25-34) pg MCHC (32-36) g/dL RDW Std Deviation (36.4-46.3) fL RDW Coeff of Farrah (11.5-14.5) % Plt Count (130-400) K/uL MPV (7.4-10.4) fL Sodium (136-145) mmol/L Potassium (3.5-5.1) mmol/L Chloride (98-107) mmol/L Carbon Dioxide (21-32) mmol/L Anion Gap (3-11) BUN (7-18) mg/dl Creatinine (0.6-1.2) mg/dl Est Cr Clr Drug Dosing ml/min Est GFR ( Amer) ml/min Est GFR (Non-Af Amer) ml/min BUN/Creatinine Ratio (10-20) Glucose (70-99) mg/dl Calcium (8.5-10.1) mg/dl Phosphorus (2.5-4.9) mg/dl Magnesium (1.8-2.4) mg/dl Crossmatch See Detail Medications Administered Current Inpatient Medications Acetaminophen (Acetaminophen 325 Mg Tab) 325 mg PO Q6H PRN PRN Reason: Mild Pain Stop: 09/30/21 04:46 Doxepin HCl (Doxepin Hcl 10 Mg Capsule) 10 mg PO HS [facility] Stop: 09/06/21 21:01 Last Admin: 09/02/21 21:36 Dose: Not Given Documented by: Doxepin HCl (Doxepin Hcl 10 Mg Capsule) 20 mg PO HS [facility]Y Stop: 10/07/21 20:59 Folic Acid (Folic Acid 1 Mg Tab) 1 mg PO DAILY [facility] Stop: 09/30/21 08:59 Last Admin: 09/03/21 07:32 Dose: 1 mg Documented by: Gabapentin (Gabapentin 300 Mg Cap) 300 mg PO TID [facility] Stop: 09/30/21 08:59 Last Admin: 09/03/21 13:48 Dose: 300 mg Documented by: Hydromorphone HCl (Hydromorphone Inj 0.5 Mg/0.5 Ml Syr) 0.25 mg IV Q6H PRN PRN Reason: Pain Stop: 09/14/21 04:46 Lorazepam (Ativan) 1 mg in 2 mls @ 0.5 mls/min IV Q10M PRN PRN Reason: seizures Stop: 09/30/21 04:46 Promethazine HCl 6.25 mg/ (Sodium Chloride) 50.25 mls @ 201 mls/hr IV Q6H PRN PRN Reason: Nausea And Vomiting Stop: 09/30/21 04:46 Lorazepam (Ativan) 1 mg in 2 mls @ 2 mls/min IV UD PRN; Protocol PRN Reason: EtOH Withdrawl AWSS Score 6,7 Stop: 09/30/21 04:46 Lorazepam (Ativan) 2 mg in 4 mls @ 4 mls/min IV UD PRN; Protocol PRN Reason: EtOH Withdrawl AWSS Score 8,9 Stop: 09/30/21 04:46 Lorazepam (Ativan) 3 mg in 6 mls @ 4 mls/min IV ONCE PRN; Protocol PRN Reason: EtOH Withdrawl AWSS Score >=10 Stop: 09/30/21 04:46 Ceftriaxone Sodium 1,000 mg/ (Dextrose) 50 mls @ 100 mls/hr IV Q24H [facility]; Protocol Stop: 09/06/21 08:59 Last Infusion: 09/03/21 08:16 Dose: Infused Documented by: Melatonin (Melatonin 3 Mg Tab) 3 mg PO HS PRN PRN Reason: Sleep Stop: 10/01/21 01:07 Last Admin: 09/01/21 01:24 Dose: 3 mg Documented by: Metoprolol Succinate (Metoprolol Succ 25mg Ext Rel Tab) 25 mg PO QAM [facility] Stop: 10/01/21 08:59 Last Admin: 09/03/21 07:32 Dose: 25 mg Documented by: Miscellaneous (Remove Nicoderm Patch) 1 ea N/A DAILY@0859 [facility] Stop: 09/30/21 08:58 Last Admin: 09/03/21 07:25 Dose: Not Given Documented by: Multivitamins ([facility]itamin Tab) [facility] Stop: 09/30/21 08:59 Last Admin: 09/03/21 07:32 Dose: 1 tab Documented by: Nicotine (Nicotine 14 Mg/24 Hr Patch) 14 mg TD QAM [facility] Stop: 09/30/21 02:14 Last Admin: 09/03/21 07:25 Dose: Not Given Documented by: Oxycodone HCl (Oxycodone Hcl Ir 5 Mg Tab (Immediate Release)) 5 mg PO Q4H PRN PRN Reason: Pain Stop: 09/14/21 04:46 Last Admin: 09/03/21 10:35 Dose: 5 mg Documented by: Pantoprazole Sodium (Pantoprazole 40 Mg Tab) 40 mg PO BID [facility] Stop: 10/02/21 20:59 Last Admin: 09/03/21 07:32 Dose: 40 mg Documented by: Rosuvastatin Calcium (Rosuvastatin Calcium 20 Mg Tab) 40 mg PO HS [facility] Stop: 09/30/21 20:59 Last Admin: 09/02/21 21:37 Dose: 40 mg Documented by: Thiamine HCl (Thiamine Hcl 100 Mg Tab) 100 mg PO DAILY [facility] Stop: 10/01/21 08:59 Last Admin: 09/03/21 07:32 Dose: 100 mg Documented by: Vitamin D (Cholecalciferol 1,000 Units 25 Mcg Tab) 1,000 units PO DAILY [facility] Stop: 09/30/21 08:59 Last Admin: 09/03/21 07:31 Dose: 1,000 units Documented by:
[2021-09-03 14:40] LABS: Hematocrit (blood only) 25.6 % (37-47); Hemoglobin 8.4 g/dL (12.0-16.0)
[2021-09-03] MEDS: DOCUSATE SODIUM 100 MG CAP PO SCH (20:30)
[2021-09-03] MEDS: DOXEPIN HCL 10 MG CAPSULE PO SCH (20:32)
[2021-09-03] MEDS: ROSUVASTATIN CALCIUM 20 MG TAB PO SCH (20:33)
[2021-09-04] MEDS ORDERED: ceFAZolin 1000MG 1,000 MG/7.5 ML SYR IV SCH (06:00)
--- NOTE | 2021-09-04 08:04 | Hospitalist Progress Note ---
Date of Service September 04, 2021 Assessment & Plan (1) UGIB (upper gastrointestinal bleed): Plan: Acute upper GI bleed Acute blood loss anemia secondary to above in setting of Aspirin/Eliquis use Presented with intermittent black stools, episode of hematemesis -CT ABD:1.7 cm saccular outpouching involving the distal stomach with moderate adjacent distal stomach and proximal duodenal wall thickening with mild surrounding inflammatory stranding. This finding is suggestive of probable peptic ulcer disease however correlation with endoscopy is recommended to exclude the less likely possibility of an ulcerative mucosal lesion. No evidence of perforation. No bowel obstruction or pneumoperitoneum. Hepatic steatosis. Colonic diverticulosis. . S/P 2 units PRBCs S/P EGD: Small hiatal hernia, gastritis, nonbleeding duodenal ulcer with no stigmata of bleeding Avoid aspirin, NSAIDs, anticoagulation for now IV Protonix ggt transition to PO Protonix BID Appreciate GI input Alcohol cessation counseled Will need repeat endoscopy in in 3 months Monitor H&H and transfuse PRBCs as needed Needs follow-up with GI upon discharge OK to resume Aspirin upon discharge as per GI (Discussed with GI on 09/02/21) Recurrent syncope Likely due to Orthostasis from GI bleed Positive orthostatics CT head:No acute intracranial abnormality or calvarial fracture. Neck CT:No acute cervical spine fracture or subluxation. EEG:This is a normal awake and drowsy EEG. There is no evidence of epileptiform activity. Fall precautions PT OT eval Patient currently not interested in rehab placement Abnormal UA R/O UTI Continue Rocephin empirically Urine Culture growing gram-negative bacilli PAD -Patient with history of PAD and Femoral-popliteal bypass graft occlusion, left -Arterial Doppler ordered, vascular surgery consulted -Start IV heparin with bolus, further recommendations pending imaging -Given recent GI bleed, monitor H&H closely, monitor for any bleed Venous doppler (09/04) FINDINGS: Currently there is normal compressibility of the deep venous system from the common femoral vein through the proximal calf veins. No current evidence of acute thrombosis is identified. There is a the [place] superficial femoral artery appears occluded to at least the level of the popliteus. Patency of the superficial femoral artery bypass appears occluded as well. Remaining arteries are not assessed on this venous study. Impression: 1. No evidence of deep venous thrombus. 2. 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 Alcohol use disorder Monitor for withdrawal On Ativan protocol Continue thiamine, folic acid Counseled to quit Right 9th Rib Fracture Imaging showed Healing subacute nondisplaced fracture of the lateral right ninth rib. Incentive Spirometry Cystic lesions on vallecula and epiglottis Incidental finding on imaging:Hypodensities within the vallecula, left larger than right, are noted. H/O laryngocele S/P surgery Follow-up with ENT as outpatient Left upper lobe pulmonary nodule Imaging showed 9 mm left upper lobe groundglass nodule with possible small solid component is noted Needs follow up with Pulm as outpatient CAD PAD Valvular heart disease (mild MR, mild to moderate TR, trace [place] on TTE 2020) Aspirin on hold Continue metoprolol, statin Hypertension Continue metoprolol Monitor Hyperlipidemia on statin CKD III Monitor renal function Avoid nephrotoxic agents as able Left breast cancer S/P surgery/chemoradiation Depression Continue home medications Psychiatry consulted Malnutrition BMI 17.9 Dietitian consulted Ongoing Tobacco abuse 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 DVT Px: TEDS for now Code Status Full code Admission and Anticipated Discharge Date Admission Date: August 31, 2021 Subjective Patient is seen in follow up of GI bleed Hgb 9.0 this AM This morning notified by nurse, that patient's left lower extremity is painful Ordered ultrasound, showing arterial occlusion, and arterial bypass occlusion Discussed with radiology, ordered arterial Doppler and also discussed with vascular surgery Patient tells me she noticed last night that she had troubles moving her toes and had more pain in her left calf Currently she is able to move her left toes, and her left leg does not feel very cool Denies any chest pain, shortness of breath, abd pain, dizziness, nausea, vomiting Review of Systems Review of Systems: All systems reviewed & are unremarkable except as noted in Subjective Physical Exam Physical Exam: General Appearance: Thin, frail, chronically ill appearing, no apparent distress Head: normocephalic, Atraumatic Eyes: normal inspection, EOMI Neck: supple, Trachea midline Respiratory/Chest: Decreased breath sounds, CTA Cardiovascular: S1, S2, No murmur Abdomen/GI: Soft, Non tender, Bowel sounds present, soft Extremities/Musculoskeletal: normal inspection, Trace edema Neurologic/Psych:AAOX3, speech fluent, moves extremities Skin: normal color, warm Results & Data Results & Data ([facility]) Vital Signs (Past 12 Hours) Vital Signs Temp Pulse Pulse Resp BP BP Pulse Ox 09/04/21 07:36 65 09/04/21 06:56 36.6 C 73 18 113/73 97 09/04/21 04:21 36.9 C 85 20 90/55 L 91 09/03/21 23:44 36.7 C 91 H 20 92/50 L 97 Laboratory Results 09/04/21 09/04/21 09/03/21 Range/Units 08:28 08:28 14:31 Hgb 9.0 L 8.4 L (12.0-16.0) g/dL Hct 27.8 L 25.6 L (37-47) % Sodium 143 (136-145) mmol/L Potassium 3.6 (3.5-5.1) mmol/L Chloride 115 H (98-107) mmol/L Carbon Dioxide 22 (21-32) mmol/L Anion Gap 6.0 (3-11) BUN 12 (7-18) mg/dl Creatinine 1.08 (0.6-1.2) mg/dl Est Cr Clr Drug Dosing 41.1 ml/min Est GFR ( Amer) 60.2 ml/min Est GFR (Non-Af Amer) 52.0 ml/min BUN/Creatinine Ratio 10.6 (10-20) Glucose 80 (70-99) mg/dl Calcium 8.6 (8.5-10.1) mg/dl Phosphorus 2.7 (2.5-4.9) mg/dl Magnesium 1.9 (1.8-2.4) mg/dl Medications Administered Current Inpatient Medications Acetaminophen (Acetaminophen 325 Mg Tab) 325 mg PO Q6H PRN PRN Reason: Mild Pain Stop: 09/30/21 04:46 Docusate Sodium (Docusate Sodium 100 Mg Cap) 100 mg PO BID [facility] Stop: 10/03/21 20:59 Last Admin: 09/03/21 20:30 Dose: 100 mg Documented by: Doxepin HCl (Doxepin Hcl 10 Mg Capsule) 10 mg PO HS [facility] Stop: 09/06/21 21:01 Last Admin: 09/03/21 20:32 Dose: Not Given Documented by: Doxepin HCl (Doxepin Hcl 10 Mg Capsule) 20 mg PO HS [facility] Stop: 10/07/21 20:59 Folic Acid (Folic Acid 1 Mg Tab) 1 mg PO DAILY [facility] Stop: 09/30/21 08:59 Last Admin: 09/03/21 07:32 Dose: 1 mg Documented by: Gabapentin (Gabapentin 300 Mg Cap) 300 mg PO TID [facility] Stop: 09/30/21 08:59 Last Admin: 09/03/21 20:32 Dose: 300 mg Documented by: Hydromorphone HCl (Hydromorphone Inj 0.5 Mg/0.5 Ml Syr) 0.25 mg IV Q6H PRN PRN Reason: Pain Stop: 09/14/21 04:46 Lorazepam (Ativan) 1 mg in 2 mls @ 0.5 mls/min IV Q10M PRN PRN Reason: seizures Stop: 09/30/21 04:46 Promethazine HCl 6.25 mg/ (Sodium Chloride) 50.25 mls @ 201 mls/hr IV Q6H PRN PRN Reason: Nausea And Vomiting Stop: 09/30/21 04:46 Lorazepam (Ativan) 1 mg in 2 mls @ 2 mls/min IV UD PRN; Protocol PRN Reason: EtOH Withdrawl AWSS Score 6,7 Stop: 09/30/21 04:46 Lorazepam (Ativan) 2 mg in 4 mls @ 4 mls/min IV UD PRN; Protocol PRN Reason: EtOH Withdrawl AWSS Score 8,9 Stop: 09/30/21 04:46 Lorazepam (Ativan) 3 mg in 6 mls @ 4 mls/min IV ONCE PRN; Protocol PRN Reason: EtOH Withdrawl AWSS Score >=10 Stop: 09/30/21 04:46 Ceftriaxone Sodium 1,000 mg/ (Dextrose) 50 mls @ 100 mls/hr IV Q24H [facility]; Protocol Stop: 09/06/21 08:59 Last Infusion: 09/03/21 08:16 Dose: Infused Documented by: Melatonin (Melatonin 3 Mg Tab) 3 mg PO HS PRN PRN Reason: Sleep Stop: 10/01/21 01:07 Last Admin: 09/01/21 01:24 Dose: 3 mg Documented by: Metoprolol Succinate (Metoprolol Succ 25mg Ext Rel Tab) 25 mg PO QAM [facility] Stop: 10/01/21 08:59 Last Admin: 09/03/21 07:32 Dose: 25 mg Documented by: Miscellaneous (Remove Nicoderm Patch) 1 ea N/A DAILY@0859 [facility] Stop: 09/30/21 08:58 Last Admin: 09/03/21 07:25 Dose: Not Given Documented by: Multivitamins (Multivitamin Tab) 1 tab PO QAM [facility] Stop: 09/30/21 08:59 Last Admin: 09/03/21 07:32 Dose: 1 tab Documented by: Nicotine (Nicotine 14 Mg/24 Hr Patch) 14 mg TD QAM [facility] Stop: 09/30/21 02:14 Last Admin: 09/03/21 07:25 Dose: Not Given Documented by: Oxycodone HCl (Oxycodone Hcl Ir 5 Mg Tab (Immediate Release)) 5 mg PO Q4H PRN PRN Reason: Pain Stop: 09/14/21 04:46 Last Admin: 09/03/21 20:29 Dose: 5 mg Documented by: Pantoprazole Sodium (Pantoprazole 40 Mg Tab) 40 mg PO BID [facility] Stop: 10/02/21 20:59 Last Admin: 09/03/21 20:32 Dose: 40 mg Documented by: Polyethylene Glycol (Polyethylene (Miralax) 17 Gm Pack) 17 gm PO DAILY PRN PRN Reason: Constipation Stop: 10/03/21 17:37 Rosuvastatin Calcium (Rosuvastatin Calcium 20 Mg Tab) 40 mg PO HS [facility] Stop: 09/30/21 20:59 Last Admin: 09/03/21 20:33 Dose: 40 mg Documented by: Thiamine HCl (Thiamine Hcl 100 Mg Tab) 100 mg PO DAILY [facility] Stop: 10/01/21 08:59 Last Admin: 09/03/21 07:32 Dose: 100 mg Documented by: Vitamin D (Cholecalciferol 1,000 Units 25 Mcg Tab) 1,000 units PO DAILY [facility] Stop: 09/30/21 08:59 Last Admin: 09/03/21 07:31 Dose: 1,000 units Documented by:
--- NOTE | 2021-09-04 08:17 | Communication Note ---
Date of Service: September 04, 2021 Clarification: Patient on doxepin on admission, indication did not appear to be psych (?pain, perhaps insomnia) and patient was not interested in new psych meds. She is refusing this medication and our service defers to hospitalist. If she was interested in an antidepressant to help sleep and appetite would suggest trial of Remeron as per initial consult. Patient is fall risk so sedating meds, particularly when lives alone should be used with caution.
[2021-09-04] MEDS: FOLIC ACID 1 MG TAB PO SCH (08:42)
[2021-09-04] MEDS: GABAPENTIN 300 MG CAP PO SCH ×3 (08:43→20:04)
[2021-09-04] MEDS: METOPROLOL SUCC 25MG EXT REL TAB PO SCH (08:43)
[2021-09-04] MEDS: DOCUSATE SODIUM 100 MG CAP PO SCH ×2 (08:43→20:06)
[2021-09-04] MEDS: PANTOprazole 40 MG TAB PO SCH (08:44)
[2021-09-04] MEDS: CHOLECALCIFEROL 1,000 UNITS 25 MCG TAB PO SCH (08:44)
[2021-09-04] MEDS: THIAMINE HCL 100 MG TAB PO SCH (08:44)
[2021-09-04] MEDS: cefTRIAXone SODIUM 1,000 MG in DEXTROSE 5% 50 ML IV SCH (08:44)
[2021-09-04] MEDS: NICOTINE 14 MG/24 HR PATCH TD SCH (08:45)
[2021-09-04] MEDS: MULTIVITAMIN TAB PO SCH (08:45)
[2021-09-04 08:46] LABS: Hematocrit (blood only) 27.8 % (37-47)
--- NOTE | 2021-09-04 08:54 | Ultrasound Report ---
US venous doppler LE LT CLINICAL HISTORY: r/o DVT COMPARISON: None available at the time of this dictation. TECHNIQUE: Left lower extremity real-time compression venous ultrasound with Color Doppler imaging. Utilizing real-time ultrasonic imaging multiple real time high-resolution ultrasonic images with comp ression and noncompression maneuvers of the deep venous system in addition to color doppler imaging w ere performed from the common femoral vein through the proximal calf veins. FINDINGS: Currently there is normal compressibility of the deep venous system from the common femoral vein thro ugh the proximal calf veins. No current evidence of acute thrombosis is identified. There is a the na tive superficial femoral artery appears occluded to at least the level of the popliteus. Patency of t he superficial femoral artery bypass appears occluded as well. Remaining arteries are not assessed on this venous study. Impression: 1. No evidence of deep venous thrombus. 2. 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 ACT 112: Negative or not required by law. Electronically signed by: Yassine Gil M.D. 09/04/2021 8:53 AM
[2021-09-04 09:23] LABS: BUN Creatinine Ratio 10.6 (10-20); Calcium 8.6 mg/dl (8.5-10.1); Creatinine Clr Calc Pharmacy 41.1 ml/min; Est GFR (African American) 60.2 ml/min; Magnesium 1.9 mg/dl (1.8-2.4); Phosphorus 2.7 mg/dl (2.5-4.9); Potassium 3.6 mmol/L (3.5-5.1)
[2021-09-04] MEDS ORDERED: HEPARIN SOD (PORCINE) 1000 UNIT/ML IV ONE (10:32)
[2021-09-04] MEDS ORDERED: Heparin IV Adult Wt-Based Standard WITH Bolus Protocol IV SCH (10:45)
[2021-09-04] MEDS: PANTOprazole 40 MG in SYRINGE 0 ML IV SCH (11:19)
[2021-09-04 11:26] LABS: Basophils # (auto) 0.04 K/uL (0-0.2); Basophils % (auto) 0.4 %; Eosinophils # (auto) 0.22 K/uL (0-0.5); Eosinophils % (auto) 2.3 %; Hematocrit (blood only) 26.6 % (37-47); Hemoglobin 8.6 g/dL (12.0-16.0); Immature Granulocytes # (auto) 0.06 K/uL (0.00-0.02); Immature Granulocytes % (auto) 0.6 %; Lymphocytes % (auto) 11.7 %; Mean Corpuscular Hemoglobin 30.6 pg (25-34); Mean Corpuscular Volume 94.7 fL (80-100); Mean Platelet Volume 10.2 fL (7.4-10.4); Monocytes # (auto) 1.24 K/uL (0.11-0.59); Monocytes % (auto) 13.2 %; Neutrophils # (auto) 6.76 K/uL (1.4-6.5); Neutrophils % (auto) 71.8 %; Platelet Count 210 K/uL (130-400); RDW Standard Deviation 54.2 fL (36.4-46.3); Red Blood Count 2.81 M/uL (4.2-5.4); White Blood Count 9.42 K/uL (4.8-10.8)
[2021-09-04] MEDS: HEPARIN SODIUM/DEXTROSE 25,000 UNITS/500 ML BAG IV SCH (11:27)
[2021-09-04 11:37] LABS: Partial Thromboplastin Time 25.5 Seconds (21.0-31.0)
[2021-09-04 11:45] LABS: Mean Corpuscular Hgb Conc 32.3 g/dL (32-36)
[2021-09-04] MEDS ORDERED: SODIUM CHLORIDE 0.9% 250 ML IV PRN (11:46)
--- NOTE | 2021-09-04 11:46 | Ultrasound Report ---
US arterial duplex LE LT HISTORY: 71 years-old Female arterial occlusion follow-up study in a patient with history of periphe ral arterial disease. History of occluded left lower extremity arterial bypass graft. COMPARISON: Duplex venous Doppler study of same day, left lower extremity arterial Doppler 08/06/2018 . TECHNIQUE: Multiple real-time sonographic images of the left lower extremity arterial structures were obtained assessing grayscale appearance, color and spectral flow. FINDINGS: Extensive atherosclerotic plaque is noted throughout. Triphasic waveforms noted within the common fem oral artery with biphasic waveforms within the profunda femoris. Blunted monophasic waveforms are not ed within the proximal aspect of the superficial femoral artery. Additionally, there is occlusion of the [place] superficial femoral, popliteal, posterior tibial, peroneal and dorsalis pedis arteries. Oc clusion of the dorsalis pedis artery appears new. Minimal flow within the anterior tibial artery is n oted with monophasic waveforms demonstrating spectral broadening. Arterial bypass graft is redemonstrated extending from the superficial femoral artery at the proximal calf demonstrating chronic occlusion. IMPRESSION: 1. Chronic occlusion of the bypass graft extending from the superficial femoral artery to the proxima l calf. 2. Chronic occlusion of the [place] superficial femoral, popliteal, posterior tibial and peroneal cisco noreen. 3. Occlusion of the dorsalis pedis artery appears new from 08/06/2018. ACT 112: Negative or not required by law. The above report was generated using voice recognition software. It may contain grammatical, syntax o r spelling errors. Electronically signed by: García Acevedo M.D. 09/04/2021 11:45 AM
[2021-09-04] MEDS ORDERED: ONDANSETRON INJ 2 MG/ML 2 ML VIAL ONE (13:58)
[2021-09-04] MEDS ORDERED: fentaNYL citrate 100 MCG/2 ML VIAL ONE (13:58)
[2021-09-04] MEDS ORDERED: LIDOCAINE 2% 2 ML VIAL/AMP(20MG/ML) INFIL ONE (13:58)
[2021-09-04] MEDS ORDERED: PROPOFOL IV EMULSION 10 MG/ML 20 ML VIAL IV ONE (13:58)
[2021-09-04] MEDS ORDERED: THROMBIN 5000 UNITS KIT ONE (14:30)
[2021-09-04] MEDS ORDERED: HEPARIN (PORCINE) 1000 UNIT/ML 10 ML (CATH LAB USE ONLY) ONE (14:30)
[2021-09-04] MEDS ORDERED: GELATIN SPONGE 12-7MM ONE (14:30)
--- NOTE | 2021-09-04 15:22 | Consultation ---
Date of Consultation September 04, 2021 Assessment & Plan (1) Femoral-popliteal bypass graft occlusion: Pt with occluded BPG, but continues to have adequate doppler DP pulse, and her pain has resolved. Pt also seen by Dr Andrea today, does not recommend aggressive revascularization d/t risks of worsening distal flow. Pt had very poor outflow from her BPG originally and has no good distal targets for new BPG. She does appear to have collateral flow which is perfusing her foot. If her sx become worse(rest pain or ulcerations develop), would reconsider intervention. Will see in office in 4 weeks for reeval. Pt will need eliquis 2.5mg BID at discharge to maintain patentcy of her collateral vessels. Pt is agreeable to this plan. Please call if needed. Patient was seen, examined, and chart reviewed. Agree with exam and treatment plan of the Vascular PA. Encounter type: initial encounter Qualified Code(s): T82.898A - Other specified complication of vascular prosthetic devices, implants and grafts, initial encounter History of Present Illness Reason for Consultation: PAD Attending Physician: Tramaine Feliz MD History of Present Illness 71 yo f with hx of breast ca, CAD, PAD, IBS, dyslipidemia, admitted with UGI bleed, seen in consultation today for occlusion of LLE fem-pop BPG. Pt well known to Dr Andrea for hx of severe PAD, has had LLE fem-pop BPG in 2018 at [facility], then underwent thrombectomy of BPG in 2018. Most recently, pt had thrombosis of her BPG in 12/2020 while at [facility] after her AC was stopped for a laryngeal procdure which required thrombolysis. Pt currently admitted with UGI bleed and her AC was stopped 5 days ago. She required transfusion of 2 PRBC, and her hgb has stabiilized. Pt noted pain/discomfort in L foot overnight and requested an US as she felt this was like previous occlusions. Pt states her pain resolved a few hr ago, and just her chronic numbness remains. States she will get an occasional wave of discomfort, but this is similar to her neuropathic pain. States her toes are chronically discolored, no different than usual. Pt denies DUNHAM, fever, chest pain, SOB, abd pain, N/V, rest pain, claudication, other complaints. Arterial US demonstrates occluded fem-pop BPG. Allergies Allergy/AdvReac Type Severity Reaction Status Date / Time minocycline Allergy Intermediate Hives Verified 08/30/21 23:46 Tetracyclines Allergy Intermediate MINOCIN-ROSANNA Verified 08/30/21 23:46 H,HIVES duloxetine AdvReac Intermediate "MADE ME Verified 08/30/21 23:46 LOOPY" Home Medications Medication Instructions Recorded Confirmed Type rosuvastatin 40 mg tablet 40 mg PO HS #90 tab 12/31/20 08/30/21 Rx metoprolol succinate 25 mg 25 mg PO QAM #90 tab 03/06/21 08/30/21 Rx tablet,extended release 24 hr nitroglycerin 0.4 mg sublingual 0.4 mg SL .COMPLEX PRN #25 tab 04/16/21 08/30/21 Rx tablet alpha lipoic acid 300 mg capsule 300 mg PO DAILY 06/23/21 08/30/21 History apixaban 2.5 mg tablet (Eliquis) 2.5 mg PO BID 06/23/21 08/30/21 History cyanocobalamin (vitamin B-12) 1,000 mcg PO DAILY 06/23/21 08/30/21 History 1,000 mcg tablet folic acid 1 mg tablet 1 mg PO DAILY 06/23/21 08/30/21 History furosemide 20 mg tablet 20 mg PO DAILY PRN 06/23/21 08/30/21 History gabapentin 300 mg capsule 300 mg PO TID 06/23/21 08/30/21 History hydroxyzine HCl 25 mg tablet 25 mg PO Q6 PRN 06/23/21 08/30/21 History omeprazole 20 mg capsule,delayed 20 mg PO BID 06/23/21 08/30/21 History release ondansetron 4 mg disintegrating 4 mg PO Q8H PRN #10 tab 06/23/21 08/30/21 Rx tablet thiamine HCl (vitamin B1) 100 mg 100 mg PO DAILY 06/23/21 08/30/21 History tablet aspirin 81 mg tablet,delayed 81 mg PO HS 08/07/21 08/30/21 History release doxepin 10 mg capsule 10 mg PO DAILY 30 Days #30 cap 08/07/21 08/30/21 Rx Patient History Medical History Acute renal insufficiency Anemia CAD (coronary artery disease) Cataract Lt eye Critical lower limb ischemia Dyslipidemia (high LDL; low HDL) GERD (gastroesophageal reflux disease) History of breast cancer Lt - s/p lumpectomy, chemo/radiation History of broken leg RLE - 04/2019 - S/P SURGICAL REPAIR History of herpes simplex infection HTN (hypertension) Hx of radiation therapy Ischemic leg Myocardial Infarction 2007 Neuropathy On anticoagulant therapy Prediabetes PVD (peripheral vascular disease) Rosacea Smoker Surgical History History of anesthesia reaction combative History of angioplasty of peripheral vessel X 2 - LLE - FOLLOWS W/ DR. ANDREA - on Eliquis History of breast biopsy History of cardiac cath 2007 - [facility] - NO STENTS - FOLLOWS W/ DR. WHITLEY History of cataract surgery Rt eye History of colonoscopy w/ polypectomy History of laparoscopy x 3 History of lumpectomy History of lymph node excision History of surgery on extremity broken RLE 04/2019 History of tonsillectomy S/P femoral-popliteal bypass surgery Family History Mother Breast cancer Grandmother (Maternal) Family hx of colon cancer Social History Smoking Status: Current every day smoker Tobacco Type: Cigarettes Cigarettes Per Day: 15-20; Second Hand Exposure: No; Hx Alcohol Use: Yes Alcohol type: hard liquor Hx Substance Use: No Preferred Language: Bruneian Communication Ability: Effective Visual Impairment: Limited Hearing Ability: Normal Envelope Addresser Required: No Beliefs That Will Affect Care: None marital status: Single Current Living Situation: Alone Current Living Situation Comment: at home alone current occupational status: retired Feels Safe at Home: Yes Safety Concerns: Feels Safe At This Time Assistive Devices: Glasses and Walker Review of Systems Review of Systems: All systems reviewed & are unremarkable except as noted in HPI & below Physical Exam Constitutional: WD/WN, vitals as above cooperative and comfortable; not in distress ENMT: Ears: no hearing impairment Neck: trachea midline Respiratory: normal respiratory effort, lungs clear to auscultation Auscultation: + diminished lung sounds Cardiovascular: Rate/Rhythm: regular rate and regular rhythm Vessels: posterior tibial pulses present (+ doppler RLE, no signal LLE), dorsalis pedis pulses present (+ doppler BLE) and radial pulses present; + abnormal peripheral pulses Extremities: + abnormal capillary refill (delayed BLE) Gastrointestinal (Abdomen): Inspection/Auscultation: normal bowel sounds; abdomen not distended Percussion/Palpation: abdomen soft; abdomen nontender Musculoskeletal: no cyanosis or clubbing, extremities motor strength 5/5 Skin: no rashes, warm and dry Neurologic: moves all extremities and awake; no focal motor deficits and not confused Psychiatric: A+Ox3, euthymic affect Results & Data ([facility]) Vital Signs (Past 12 Hours) Vital Signs Temp Pulse Pulse Resp BP BP Pulse Ox 09/04/21 14:30 36.6 C 77 16 124/73 98 09/04/21 07:36 65 09/04/21 06:56 36.6 C 73 18 113/73 97 09/04/21 04:21 36.9 C 85 20 90/55 L 91
[2021-09-04] MEDS: oxyCODONE HCL IR 5 MG TAB (IMMEDIATE RELEASE) PO PRN (15:50)
[2021-09-04 17:21] LABS: Hematocrit (blood only) 23.9 % (37-47); Hemoglobin 7.7 g/dL (12.0-16.0)
[2021-09-04 19:00] LABS: Partial Thromboplastin Ratio > 5.3
[2021-09-04 19:01] LABS: Partial Thromboplastin Time > 139.0 Seconds (21.0-31.0)
[2021-09-04] MEDS: PANTOprazole 40 MG in DEXTROSE 5% 100 ML IV SCH (19:11)
[2021-09-04] MEDS: ROSUVASTATIN CALCIUM 20 MG TAB PO SCH (20:04)
[2021-09-04] MEDS: DOXEPIN HCL 10 MG CAPSULE PO SCH (20:06)
[2021-09-04] MEDS: ASPIRIN 81 MG ECTAB PO SCH (20:09)
[2021-09-04 22:00] LABS: Partial Thromboplastin Ratio 2.3
[2021-09-04 22:04] LABS: Partial Thromboplastin Time 59.4 Seconds (21.0-31.0)
[2021-09-04 22:34] LABS: Hematocrit (blood only) 23.6 % (37-47); Hemoglobin 7.8 g/dL (12.0-16.0)
[2021-09-05] MEDS: PANTOprazole 40 MG in DEXTROSE 5% 100 ML IV SCH ×5 (00:09→21:05)
[2021-09-05 04:39] LABS: Partial Thromboplastin Ratio 4.3
[2021-09-05 04:41] LABS: BUN Creatinine Ratio 10.8 (10-20); Calcium 8.2 mg/dl (8.5-10.1); Creatinine Clr Calc Pharmacy 45.3 ml/min; Est GFR (African American) 67.7 ml/min; Est GFR (Non-African American) 58.4 ml/min; Phosphorus 2.7 mg/dl (2.5-4.9); Potassium 3.1 mmol/L (3.5-5.1)
[2021-09-05 04:53] LABS: Partial Thromboplastin Time 112.5 Seconds (21.0-31.0)
--- NOTE | 2021-09-05 06:50 | Hospitalist Progress Note ---
Date of Service September 05, 2021 Assessment & Plan (1) UGIB (upper gastrointestinal bleed): Plan: Acute upper GI bleed Acute blood loss anemia secondary to above in setting of Aspirin/Eliquis use Presented with intermittent black stools, episode of hematemesis -CT ABD:1.7 cm saccular outpouching involving the distal stomach with moderate adjacent distal stomach and proximal duodenal wall thickening with mild surrounding inflammatory stranding. This finding is suggestive of probable peptic ulcer disease however correlation with endoscopy is recommended to exclude the less likely possibility of an ulcerative mucosal lesion. No evidence of perforation. No bowel obstruction or pneumoperitoneum. Hepatic steatosis. Colonic diverticulosis. . S/P 2 units PRBCs S/P EGD: Small hiatal hernia, gastritis, nonbleeding duodenal ulcer with no stigmata of bleeding Avoid aspirin, NSAIDs, anticoagulation for now IV Protonix ggt transition to PO Protonix BID Appreciate GI input Alcohol cessation counseled Will need repeat endoscopy in in 3 months Monitor H&H and transfuse PRBCs as needed Needs follow-up with GI upon discharge Given arter. bypass occlusion, pt now on IV heparin Cont. to monitor H&H, stools PAD Femoral-popliteal bypass graft occlusion, left -Patient with history of PAD andFemoral-popliteal bypass graft occlusion, left -Arterial Doppler ordered, vascular surgery consulted -Started IV heparin with bolus -Given recent GI bleed, monitor H&H closely, monitor for any bleed Venous doppler (09/04) FINDINGS: Currently there is normal compressibility of the deep venous system from the common femoral vein through the proximal calf veins. No current evidence of acut e thrombosis is identified. There is a the [place] superficial femoral artery appears occluded to at least the level of the popliteus. Patency of the superficial femoral artery bypass appears occluded as well. Remaining arteries are not assessed on this venous study. Impression: 1. No evidence of deep venous thrombus. 2. 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 Recurrent syncope Likely due to Orthostasis from GI bleed Positive orthostatics CT head:No acute intracranial abnormality or calvarial fracture. Neck CT:No acute cervical spine fracture or subluxation. EEG:This is a normal awake and drowsy EEG. There is no evidence of epileptiform activity. Fall precautions PT OT eval Patient currently not interested in rehab placement Abnormal UA R/O UTI Continue Rocephin empirically Urine Culture growing gram-negative bacilli Alcohol use disorder Monitor for withdrawal On Ativan protocol Continue thiamine, folic acid Counseled to quit Right 9th Rib Fracture Imaging showed Healing subacute nondisplaced fracture of the lateral right ninth rib. Incentive Spirometry Cystic lesions on vallecula and epiglottis Incidental finding on imaging:Hypodensities within the vallecula, left larger than right, are noted. H/O laryngocele S/P surgery Follow-up with ENT as outpatient Left upper lobe pulmonary nodule Imaging showed 9 mm left upper lobe groundglass nodule with possible small solid component is noted Needs follow up with Pulm as outpatient CAD PAD Valvular heart disease (mild MR, mild to moderate TR, trace IN on TTE 2020) Aspirin on hold Continue metoprolol, statin Hypertension Continue metoprolol Monitor Hyperlipidemia on statin CKD III Monitor renal function Avoid nephrotoxic agents as able Left breast cancer S/P surgery/chemoradiation Depression Continue home medications Psychiatry consulted Malnutrition BMI 17.9 Dietitian consulted Ongoing Tobacco abuse Nicotine patch [employer] to quit DVT Px: TEDS for now Code Status Full code Admission and Anticipated Discharge Date Admission Date: August 31, 2021 Subjective Patient is seen in follow up of GI bleed, arter. bypass occlusion Hgb stable this AM, pt is on IV heparin Currently she is able to move her left toes, and her left leg does not feel very cool Denies any chest pain, shortness of breath, abd pain, dizziness, nausea, vomiting Seen by vasc. surgery this AM for follow up Review of Systems Review of Systems: All systems reviewed & are unremarkable except as noted in Subjective Physical Exam Physical Exam: General Appearance: Thin, frail, chronically ill appearing, no apparent distress Head: normocephalic, Atraumatic Eyes: normal inspection, EOMI Neck: supple, Trachea midline Respiratory/Chest: Decreased breath sounds, CTA Cardiovascular: S1, S2, No murmur Abdomen/GI: Soft, Non tender, Bowel sounds present, soft Extremities/Musculoskeletal: normal inspection, Trace edema Neurologic/Psych:AAOX3, speech fluent, moves extremities Skin: normal color, warm Results & Data Results & Data ([facility]) Vital Signs (Past 12 Hours) Vital Signs Temp Pulse Pulse Pulse Resp BP BP 09/05/21 05:07 75 09/05/21 04:00 36.9 C 70 18 85/51 L 09/04/21 23:00 37 C 74 20 82/41 L 09/04/21 19:13 36.8 C 71 20 103/59 L Pulse Ox 09/05/21 05:07 09/05/21 04:00 92 09/04/21 23:00 92 09/04/21 19:13 96 Laboratory Results 09/05/21 09/05/21 09/05/21 Range/Units 19:39 18:36 11:51 WBC (4.8-10.8) K/uL RBC (4.2-5.4) M/uL Hgb 7.6 L (12.0-16.0) g/dL Hct 23.1 L (37-47) % MCV (80-100) fL MCH (25-34) pg MCHC (32-36) g/dL RDW Std Deviation (36.4-46.3) fL RDW Coeff of Farrah (11.5-14.5) % Plt Count (130-400) K/uL MPV (7.4-10.4) fL APTT 55.8 H* 66.6 H* (21.0-31.0) Seconds PTT Ratio 2.1 2.5 Sodium (136-145) mmol/L Potassium (3.5-5.1) mmol/L Chloride (98-107) mmol/L Carbon Dioxide (21-32) mmol/L Anion Gap (3-11) BUN (7-18) mg/dl Creatinine (0.6-1.2) mg/dl Est Cr Clr Drug Dosing ml/min Est GFR ( Amer) ml/min Est GFR (Non-Af Amer) ml/min BUN/Creatinine Ratio (10-20) Glucose (70-99) mg/dl Calcium (8.5-10.1) mg/dl Phosphorus (2.5-4.9) mg/dl Magnesium (1.8-2.4) mg/dl 09/05/21 09/05/21 09/05/21 Range/Units 08:37 04:09 04:09 WBC 7.84 (4.8-10.8) K/uL RBC 2.74 L (4.2-5.4) M/uL Hgb 8.2 L (12.0-16.0) g/dL Hct 25.4 L (37-47) % MCV 92.7 (80-100) fL MCH 29.9 (25-34) pg MCHC 32.3 (32-36) g/dL RDW Std Deviation 52.5 H (36.4-46.3) fL RDW Coeff of Farrah 15.7 H (11.5-14.5) % Plt Count 223 (130-400) K/uL MPV 10.5 H (7.4-10.4) fL APTT 112.5 H* (21.0-31.0) Seconds PTT Ratio 4.3 Sodium 142 (136-145) mmol/L Potassium 3.1 L (3.5-5.1) mmol/L Chloride 114 H (98-107) mmol/L Carbon Dioxide 23 (21-32) mmol/L Anion Gap 5.0 (3-11) BUN 11 (7-18) mg/dl Creatinine 0.98 (0.6-1.2) mg/dl Est Cr Clr Drug Dosing 45.3 ml/min Est GFR ( Amer) 67.7 ml/min Est GFR (Non-Af Amer) 58.4 ml/min BUN/Creatinine Ratio 10.8 (10-20) Glucose 90 (70-99) mg/dl Calcium 8.2 L (8.5-10.1) mg/dl Phosphorus 2.7 (2.5-4.9) mg/dl Magnesium 2.0 (1.8-2.4) mg/dl Medications Administered Current Inpatient Medications Acetaminophen (Acetaminophen 325 Mg Tab) 325 mg PO Q6H PRN PRN Reason: Mild Pain Stop: 09/30/21 04:46 Aspirin (Aspirin 81 Mg Ectab) 81 mg PO [facility] Stop: 10/04/21 20:59 Last Admin: 09/04/21 20:09 Dose: 81 mg Documented by: Docusate Sodium (Docusate Sodium 100 Mg Cap) 100 mg PO BID [facility]Y Stop: 10/03/21 20:59 Last Admin: 09/04/21 20:06 Dose: 100 mg Documented by: Doxepin HCl (Doxepin Hcl 10 Mg Capsule) 10 mg PO [facility] Stop: 09/06/21 21:01 Last Admin: 09/04/21 20:06 Dose: Not Given Documented by: Doxepin HCl (Doxepin Hcl 10 Mg Capsule) 20 mg PO [facility] Stop: 10/07/21 20:59 Folic Acid (Folic Acid 1 Mg Tab) 1 mg PO DAILY ELY Stop: 09/30/21 08:59 Last Admin: 09/04/21 08:42 Dose: 1 mg Documented by: Gabapentin (Gabapentin 300 Mg Cap) 300 mg PO TID [facility]Y Stop: 09/30/21 08:59 Last Admin: 09/04/21 20:04 Dose: 300 mg Documented by: Hydromorphone HCl (Hydromorphone Inj 0.5 Mg/0.5 Ml Syr) 0.25 mg IV Q6H PRN PRN Reason: Pain Stop: 09/14/21 04:46 Lorazepam (Ativan) 1 mg in 2 mls @ 0.5 mls/min IV Q10M PRN PRN Reason: seizures Stop: 09/30/21 04:46 Promethazine HCl 6.25 mg/ (Sodium Chloride) 50.25 mls @ 201 mls/hr IV Q6H PRN PRN Reason: Nausea And Vomiting Stop: 09/30/21 04:46 Lorazepam (Ativan) 1 mg in 2 mls @ 2 mls/min IV UD PRN; Protocol PRN Reason: EtOH Withdrawl AWSS Score 6,7 Stop: 09/30/21 04:46 Lorazepam (Ativan) 2 mg in 4 mls @ 4 mls/min IV UD PRN; Protocol PRN Reason: EtOH Withdrawl AWSS Score 8,9 Stop: 09/30/21 04:46 Lorazepam (Ativan) 3 mg in 6 mls @ 4 mls/min IV ONCE PRN; Protocol PRN Reason: EtOH Withdrawl AWSS Score >=10 Stop: 09/30/21 04:46 Ceftriaxone Sodium 1,000 mg/ (Dextrose) 50 mls @ 100 mls/hr IV Q24H ELY; Protocol Stop: 09/06/21 08:59 Last Infusion: 09/04/21 09:57 Dose: Infused Documented by: Heparin Sodium/Dextrose (Heparin Sodium/Dextrose) 25,000 units in 500 mls @ 11 mls/hr IV .Q24H ELY; Protocol Stop: 10/04/21 10:44 Last Titration: 09/05/21 05:58 Dose: 550 units/hr, 11 mls/hr Documented by: Pantoprazole Sodium 40 mg/ (Syringe) 10 mls @ 5 mls/min IV BID [facility] Stop: 10/04/21 10:59 Last Admin: 09/04/21 11:19 Dose: 5 mls/min Documented by: Pantoprazole Sodium 40 mg/ (Dextrose) 100 mls @ 20 mls/hr IV Q5H [facility] Stop: 10/04/21 18:14 Last Admin: 09/05/21 05:01 Dose: 8 mg/hr, 20 mls/hr Documented by: Melatonin (Melatonin 3 Mg Tab) 3 mg PO HS PRN PRN Reason: Sleep Stop: 10/01/21 01:07 Last Admin: 09/01/21 01:24 Dose: 3 mg Documented by: Metoprolol Succinate (Metoprolol Succ 25mg Ext Rel Tab) 25 mg PO QAM [facility] Stop: 10/01/21 08:59 Last Admin: 09/04/21 08:43 Dose: 25 mg Documented by: Miscellaneous (Remove Nicoderm Patch) 1 ea N/A DAILY@0859 [facility] Stop: 09/30/21 08:58 Last Admin: 09/04/21 08:45 Dose: 1 ea Documented by: Multivitamins (Multivitamin Tab) 1 tab PO QAM [facility] Stop: 09/30/21 08:59 Last Admin: 09/04/21 08:45 Dose: 1 tab Documented by: Nicotine (Nicotine 14 Mg/24 Hr Patch) 14 mg TD QAM [facility] Stop: 09/30/21 02:14 Last Admin: 09/04/21 08:45 Dose: Not Given Documented by: Oxycodone HCl (Oxycodone Hcl Ir 5 Mg Tab (Immediate Release)) 5 mg PO Q4H PRN PRN Reason: Pain Stop: 09/14/21 04:46 Last Admin: 09/04/21 15:50 Dose: 5 mg Documented by: Pantoprazole Sodium (Pantoprazole 40 Mg Tab) 40 mg PO BID [facility] Stop: 10/02/21 20:59 Last Admin: 09/04/21 08:44 Dose: 40 mg Documented by: Polyethylene Glycol (Polyethylene (Miralax) 17 Gm Pack) 17 gm PO DAILY PRN PRN Reason: Constipation Stop: 10/03/21 17:37 Rosuvastatin Calcium (Rosuvastatin Calcium 20 Mg Tab) 40 mg PO HS [facility] Stop: 09/30/21 20:59 Last Admin: 09/04/21 20:04 Dose: 40 mg Documented by: Thiamine HCl (Thiamine Hcl 100 Mg Tab) 100 mg PO DAILY [facility] Stop: 10/01/21 08:59 Last Admin: 09/04/21 08:44 Dose: 100 mg Documented by: Vitamin D (Cholecalciferol 1,000 Units 25 Mcg Tab) 1,000 units PO DAILY [facility] Stop: 09/30/21 08:59 Last Admin: 09/04/21 08:44 Dose: 1,000 units Documented by:
[2021-09-05] MEDS: CHOLECALCIFEROL 1,000 UNITS 25 MCG TAB PO SCH (08:44)
[2021-09-05] MEDS: THIAMINE HCL 100 MG TAB PO SCH (08:44)
[2021-09-05] MEDS: DOCUSATE SODIUM 100 MG CAP PO SCH ×2 (08:44→20:35)
[2021-09-05] MEDS: GABAPENTIN 300 MG CAP PO SCH ×3 (08:44→20:33)
[2021-09-05] MEDS: FOLIC ACID 1 MG TAB PO SCH (08:44)
[2021-09-05] MEDS: METOPROLOL SUCC 25MG EXT REL TAB PO SCH (08:44)
[2021-09-05] MEDS: MULTIVITAMIN TAB PO SCH (08:44)
[2021-09-05] MEDS: NICOTINE 14 MG/24 HR PATCH TD SCH (08:45)
[2021-09-05] MEDS: cefTRIAXone SODIUM 1,000 MG in DEXTROSE 5% 50 ML IV SCH (08:45)
[2021-09-05 09:00] LABS: Hematocrit (blood only) 25.4 % (37-47); Hemoglobin 8.2 g/dL (12.0-16.0); Mean Corpuscular Hemoglobin 29.9 pg (25-34); Mean Corpuscular Hgb Conc 32.3 g/dL (32-36); Mean Corpuscular Volume 92.7 fL (80-100); Mean Platelet Volume 10.5 fL (7.4-10.4); Platelet Count 223 K/uL (130-400); RDW Coefficient of Variation 15.7 % (11.5-14.5); RDW Standard Deviation 52.5 fL (36.4-46.3); Red Blood Count 2.74 M/uL (4.2-5.4); White Blood Count 7.84 K/uL (4.8-10.8)
[2021-09-05] MEDS: HEPARIN SODIUM/DEXTROSE 25,000 UNITS/500 ML BAG IV SCH (10:30)
--- NOTE | 2021-09-05 10:46 | Surgery Progress Note ---
Date of Service September 05, 2021 Assessment & Plan (1) Femoral-popliteal bypass graft occlusion: Plan: Pt with occluded LLE fem-distal BPG, no indications for surgical intervention at this time. No changes on exam. Recommend d/c on Eliquis 2.5mg BID, and will follow up in 4 weeks in office. Please call if needed. Admission and Anticipated Discharge Date Admission Date: August 31, 2021 Subjective 71 yo f with extensive vascular hx, seen in f/ut hermila. Pt states she has "jabbing" pains in BLE, worse in LLE than RLE, but does not feel this is any worse than yesterday. Admits cramping sensation in BLE as well. No new complaints. Review of Systems Review of Systems: All systems reviewed & are unremarkable except as noted in HPI & below Physical Exam Constitutional: WD/WN, vitals as above Cardiovascular: Vessels: femoral pulses present, dorsalis pedis pulses present (LLE dopplerable) and radial pulses present; + abnormal peripheral pulses Extremities: + abnormal capillary refill (BLE toes cool, purplish, with + cap refill) Results & Data ([facility]) Vital Signs (Past 12 Hours) Vital Signs Temp Pulse Pulse Resp BP BP Pulse Ox 09/05/21 10:06 71 09/05/21 07:22 36.6 C 72 18 117/68 99 09/05/21 05:07 75 09/05/21 04:00 36.9 C 70 18 85/51 L 92 09/04/21 23:00 37 C 74 20 82/41 L 92 (1) Femoral-popliteal bypass graft occlusion Encounter type: initial encounter Qualified Code(s): T82.898A - Other specified complication of vascular prosthetic devices, implants and grafts, initial encounter
[2021-09-05] MEDS ORDERED: POTASSIUM CHLORIDE CRTAB 20 MEQ TABCR PO STA (10:47)
[2021-09-05 12:28] LABS: Partial Thromboplastin Ratio 2.5
[2021-09-05 12:30] LABS: Partial Thromboplastin Time 66.6 Seconds (21.0-31.0)
[2021-09-05] MEDS: oxyCODONE HCL IR 5 MG TAB (IMMEDIATE RELEASE) PO PRN ×2 (13:24→20:31)
[2021-09-05 19:11] LABS: Partial Thromboplastin Ratio 2.1
[2021-09-05 19:17] LABS: Partial Thromboplastin Time 55.8 Seconds (21.0-31.0)
[2021-09-05 19:49] LABS: Hematocrit (blood only) 23.1 % (37-47); Hemoglobin 7.6 g/dL (12.0-16.0)
[2021-09-05] MEDS: ROSUVASTATIN CALCIUM 20 MG TAB PO SCH (20:32)
[2021-09-05] MEDS: DOXEPIN HCL 10 MG CAPSULE PO SCH (20:34)
[2021-09-05] MEDS: ASPIRIN 81 MG ECTAB PO SCH (20:35)
[2021-09-06] MEDS: PANTOprazole 40 MG in DEXTROSE 5% 100 ML IV SCH ×5 (02:28→23:14)
[2021-09-06] MEDS: HEPARIN SODIUM/DEXTROSE 25,000 UNITS/500 ML BAG IV SCH (06:29)
[2021-09-06 07:31] LABS: Hematocrit (blood only) 25.7 % (37-47); Hemoglobin 8.4 g/dL (12.0-16.0); Mean Corpuscular Hemoglobin 30.5 pg (25-34); Mean Corpuscular Hgb Conc 32.7 g/dL (32-36); Mean Corpuscular Volume 93.5 fL (80-100); Mean Platelet Volume 10.4 fL (7.4-10.4); Platelet Count 231 K/uL (130-400); RDW Coefficient of Variation 15.4 % (11.5-14.5); Red Blood Count 2.75 M/uL (4.2-5.4); White Blood Count 7.29 K/uL (4.8-10.8)
[2021-09-06 07:52] LABS: Partial Thromboplastin Ratio 2.5
[2021-09-06 07:57] LABS: Partial Thromboplastin Time 64.9 Seconds (21.0-31.0)
[2021-09-06 07:59] LABS: BUN Creatinine Ratio 8.1 (10-20); Calcium 8.2 mg/dl (8.5-10.1); Creatinine Clr Calc Pharmacy 33.1 ml/min; Est GFR (African American) 47.7 ml/min; Est GFR (Non-African American) 41.1 ml/min; Phosphorus 2.7 mg/dl (2.5-4.9); Potassium 3.2 mmol/L (3.5-5.1)
[2021-09-06] MEDS: FOLIC ACID 1 MG TAB PO SCH (08:17)
[2021-09-06] MEDS: THIAMINE HCL 100 MG TAB PO SCH (08:17)
[2021-09-06] MEDS: METOPROLOL SUCC 25MG EXT REL TAB PO SCH (08:17)
[2021-09-06] MEDS: GABAPENTIN 300 MG CAP PO SCH ×3 (08:17→20:27)
[2021-09-06] MEDS: MULTIVITAMIN TAB PO SCH (08:18)
[2021-09-06] MEDS: CHOLECALCIFEROL 1,000 UNITS 25 MCG TAB PO SCH (08:18)
[2021-09-06] MEDS: NICOTINE 14 MG/24 HR PATCH TD SCH (08:19)
[2021-09-06] MEDS ORDERED: POTASSIUM CHLORIDE CRTAB 20 MEQ TABCR PO STA (08:25)
[2021-09-06] MEDS: DOCUSATE SODIUM 100 MG CAP PO SCH ×2 (08:26→20:29)
[2021-09-06] MEDS ORDERED: MAGNESIUM HYDROXIDE SUSP 30 ML UDC PO ONE (10:00)
[2021-09-06] MEDS ORDERED: SODIUM CHLORIDE 0.9% 1000ML 1,000 ML IV SCH (10:15)
[2021-09-06] MEDS: APIXABAN 2.5 MG TAB PO SCH ×2 (11:37→20:29)
--- NOTE | 2021-09-06 14:47 | Hospitalist Progress Note ---
Date of Service September 06, 2021 Assessment & Plan (1) UGIB (upper gastrointestinal bleed): Plan: Acute upper GI bleed Acute blood loss anemia secondary to above in setting of Aspirin/Eliquis use Presented with intermittent black stools, episode of hematemesis -CT ABD:1.7 cm saccular outpouching involving the distal stomach with moderate adjacent distal stomach and proximal duodenal wall thickening with mild surrounding inflammatory stranding. This finding is suggestive of probable peptic ulcer disease however correlation with endoscopy is recommended to exclude the less likely possibility of an ulcerative mucosal lesion. No evidence of perforation. No bowel obstruction or pneumoperitoneum. Hepatic steatosis. Colonic diverticulosis. . S/P 2 units PRBCs S/P EGD: Small hiatal hernia, gastritis, nonbleeding duodenal ulcer with no stigmata of bleeding Avoid aspirin, NSAIDs, anticoagulation for now IV Protonix ggt transition to PO Protonix BID Appreciate GI input Alcohol cessation counseled Will need repeat endoscopy in in 3 months Monitor H&H and transfuse PRBCs as needed Needs follow-up with GI upon discharge Hemoglobin remains stable at 8.4 as on 09/06/2021 Given arter. bypass occlusion, pt now on IV heparin Cont. to monitor H&H, stools IV heparin has been discontinued and started on Eliquis as recommended PAD Femoral-popliteal bypass graft occlusion, left -Patient with history of PAD andFemoral-popliteal bypass graft occlusion, left -Arterial Doppler ordered, vascular surgery consulted-appreciate vascular surgery input and recommendation -Started IV heparin with bolus -Given recent GI bleed, monitor H&H closely, monitor for any bleed Venous doppler (09/04) FINDINGS: Currently there is normal compressibility of the deep venous system from the common femoral vein through the proximal calf veins. No current evidence of acute thrombosis is identified. There is a the [place] superficial femoral artery appears occluded to at least the level of the popliteus. Patency of the superficial femoral artery bypass appears occluded as well. Remaining arteries are not assessed on this venous study. Impression: 1. No evidence of deep venous thrombus. 2. 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 Recurrent syncope Likely due to Orthostasis from GI bleed Positive orthostatics CT head:No acute intracranial abnormality or calvarial fracture. Neck CT:No acute cervical spine fracture or subluxation. EEG:This is a normal awake and drowsy EEG. There is no evidence of epileptiform activity. Fall precautions PT OT eval Patient currently not interested in rehab placement Abnormal UA R/O UTI Continue Rocephin empirically Urine Culture growing gram-negative bacilli-Gardnerella like bacilli Alcohol use disorder Monitor for withdrawal On Ativan protocol Continue thiamine, folic acid Counseled to quit Right 9th Rib Fracture Imaging showed Healing subacute nondisplaced fracture of the lateral right ninth rib. Incentive Spirometry Cystic lesions on vallecula and epiglottis Incidental finding on imaging:Hypodensities within the vallecula, left larger than right, are noted. H/O laryngocele S/P surgery Follow-up with ENT as outpatient Left upper lobe pulmonary nodule Imaging showed 9 mm left upper lobe groundglass nodule with possible small solid component is noted Needs follow up with Pulm as outpatient CAD PAD Valvular heart disease (mild MR, mild to moderate TR, trace VT on TTE 2020) Aspirin on hold Continue metoprolol, statin Hypertension Continue metoprolol Monitor Hyperlipidemia on statin CKD III Monitor renal function Avoid nephrotoxic agents as able Left breast cancer S/P surgery/chemoradiation Depression Continue home medications Psychiatry consulted Malnutrition BMI 17.9 Dietitian consulted Ongoing Tobacco abuse 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 DVT Px: TEDS for now Code Status Full code Plan: Likely discharge home with home health nurse Admission and Anticipated Discharge Date Admission Date: August 31, 2021 Subjective 09/06/2021 The patient was seen and examined in medical telemetry unit She has been complaining of bilateral leg pain secondary to neuropathy and is complicated by peripheral arterial disease status post bypass surgery Denies any abdominal pain, nausea and or vomiting Remains generally weak and lethargic Review of Systems Review of Systems: All systems reviewed and are unremarkable except as noted below Musculoskeletal: Additionally joint Neurologic: Bilateral leg pain Physical Exam Physical Exam: Lying in bed comfortably Constitutional: well developed, well nourished, + ill appearing and + obese Eyes: PERRL, conjunctivae normal, anicteric sclerae ENMT: external ear and nose normal, oropharynx normal Respiratory: no respiratory distress and no cough Auscultation: + diminished lung sounds; no crackles Cardiovascular: Rate/Rhythm: regular rate and regular rhythm; not tachycardic Heart Sounds: normal S1 and normal S2; no murmur Extremities: + edema (Trace edema bilaterally) Gastrointestinal (Abdomen): Inspection/Auscultation: normal bowel sounds; abdomen not distended Percussion/Palpation: abdomen soft; abdomen nontender Musculoskeletal: No acute arthritis in any joint Neurologic: Awake and oriented x3. She generally very weak and lethargic. Moving all limbs equally Results & Data Results & Data ([facility]) Vital Signs (Past 12 Hours) Vital Signs Temp Pulse Pulse Resp BP Pulse Ox 09/06/21 12:02 36.7 C 70 18 115/68 91 09/06/21 08:06 36.7 C 65 18 117/61 94 09/06/21 04:00 37.1 C 85 18 109/62 91 Laboratory Results Short CBC 09/05/21 09/06/21 Range/Units 19:39 07:11 WBC 7.29 (4.8-10.8) K/uL Hgb 7.6 L 8.4 L (12.0-16.0) g/dL Hct 23.1 L 25.7 L (37-47) % Plt Count 231 (130-400) K/uL BMP 09/06/21 07:11 Sodium 141 Potassium 3.2 L Chloride 110 H Carbon Dioxide 26 BUN 11 Creatinine 1.31 H D Glucose 81 Calcium 8.2 L Medications Administered Current Inpatient Medications Acetaminophen (Acetaminophen 325 Mg Tab) 325 mg PO Q6H PRN PRN Reason: Mild Pain Stop: 09/30/21 04:46 Apixaban (Apixaban 2.5 Mg Tab) 2.5 mg PO BID [facility] Stop: 10/06/21 10:14 Last Admin: 09/06/21 11:37 Dose: 2.5 mg Documented by: Aspirin (Aspirin 81 Mg Ectab) 81 mg PO HS [facility] Stop: 10/04/21 20:59 Last Admin: 09/05/21 20:35 Dose: 81 mg Documented by: Docusate Sodium (Docusate Sodium 100 Mg Cap) 100 mg PO BID [facility] Stop: 10/03/21 20:59 Last Admin: 09/06/21 08:26 Dose: 100 mg Documented by: Doxepin HCl (Doxepin Hcl 10 Mg Capsule) 10 mg PO HS [facility] Stop: 09/06/21 21:01 Last Admin: 09/05/21 20:34 Dose: 10 mg Documented by: Doxepin HCl (Doxepin Hcl 10 Mg Capsule) 20 mg PO [facility] Stop: 10/07/21 20:59 Folic Acid (Folic Acid 1 Mg Tab) 1 mg PO DAILY [facility] Stop: 09/30/21 08:59 Last Admin: 09/06/21 08:17 Dose: 1 mg Documented by: Gabapentin (Gabapentin 300 Mg Cap) 300 mg PO TID [facility] Stop: 09/30/21 08:59 Last Admin: 09/06/21 14:13 Dose: 300 mg Documented by: Hydromorphone HCl (Hydromorphone Inj 0.5 Mg/0.5 Ml Syr) 0.25 mg IV Q6H PRN PRN Reason: Pain Stop: 09/14/21 04:46 Lorazepam (Ativan) 1 mg in 2 mls @ 0.5 mls/min IV Q10M PRN PRN Reason: seizures Stop: 09/30/21 04:46 Promethazine HCl 6.25 mg/ (Sodium Chloride) 50.25 mls @ 201 mls/hr IV Q6H PRN PRN Reason: Nausea And Vomiting Stop: 09/30/21 04:46 Pantoprazole Sodium 40 mg/ (Syringe) 10 mls @ 5 mls/min IV BID [facility] Stop: 10/04/21 10:59 Last Admin: 09/04/21 11:19 Dose: 5 mls/min Documented by: Pantoprazole Sodium 40 mg/ (Dextrose) 100 mls @ 20 mls/hr IV Q5H [facility] Stop: 10/04/21 18:14 Last Admin: 09/06/21 12:46 Dose: 8 mg/hr, 20 mls/hr Documented by: Sodium Chloride (Nss 1000ml) 1,000 mls @ 125 mls/hr IV .Q8H [facility] Stop: 09/06/21 18:14 Last Admin: 09/06/21 11:38 Dose: 125 mls/hr Documented by: Melatonin (Melatonin 3 Mg Tab) 3 mg PO HS PRN PRN Reason: Sleep Stop: 10/01/21 01:07 Last Admin: 09/01/21 01:24 Dose: 3 mg Documented by: Metoprolol Succinate (Metoprolol Succ 25mg Ext Rel Tab) 25 mg PO QAM [facility] Stop: 10/01/21 08:59 Last Admin: 09/06/21 08:17 Dose: 25 mg Documented by: Miscellaneous (Remove Nicoderm Patch) 1 ea N/A DAILY@0859 [facility] Stop: 09/30/21 08:58 Last Admin: 09/06/21 08:15 Dose: 1 ea Documented by: Multivitamins (Multivitamin Tab) 1 tab PO QAM [facility] Stop: 09/30/21 08:59 Last Admin: 09/06/21 08:18 Dose: 1 tab Documented by: Nicotine (Nicotine 14 Mg/24 Hr Patch) 14 mg TD QAM [facility] Stop: 09/30/21 02:14 Last Admin: 09/06/21 08:19 Dose: Not Given Documented by: Oxycodone HCl (Oxycodone Hcl Ir 5 Mg Tab (Immediate Release)) 5 mg PO Q4H PRN PRN Reason: Pain Stop: 09/14/21 04:46 Last Admin: 09/05/21 20:31 Dose: 5 mg Documented by: Pantoprazole Sodium (Pantoprazole 40 Mg Tab) 40 mg PO BID [facility] Stop: 10/02/21 20:59 Last Admin: 09/04/21 08:44 Dose: 40 mg Documented by: Polyethylene Glycol (Polyethylene (Miralax) 17 Gm Pack) 17 gm PO DAILY PRN PRN Reason: Constipation Stop: 10/03/21 17:37 Rosuvastatin Calcium (Rosuvastatin Calcium 20 Mg Tab) 40 mg PO HS [facility] Stop: 09/30/21 20:59 Last Admin: 09/05/21 20:32 Dose: 40 mg Documented by: Thiamine HCl (Thiamine Hcl 100 Mg Tab) 100 mg PO DAILY [facility] Stop: 10/01/21 08:59 Last Admin: 09/06/21 08:17 Dose: 100 mg Documented by: Vitamin D (Cholecalciferol 1,000 Units 25 Mcg Tab) 1,000 units PO DAILY [facility] Stop: 09/30/21 08:59 Last Admin: 09/06/21 08:18 Dose: 1,000 units Documented by:
[2021-09-06] MEDS: oxyCODONE HCL IR 5 MG TAB (IMMEDIATE RELEASE) PO PRN (17:29)
[2021-09-06] MEDS: DOXEPIN HCL 10 MG CAPSULE PO SCH (20:28)
[2021-09-06] MEDS: ASPIRIN 81 MG ECTAB PO SCH (20:28)
[2021-09-06] MEDS: ROSUVASTATIN CALCIUM 20 MG TAB PO SCH (20:42)
[2021-09-06] MEDS ORDERED: SODIUM CHLORIDE 0.9% 1000ML 500 ML IV SCH (23:30)
[2021-09-07] MEDS ORDERED: D5W AND NSS 1,000 ML IV SCH (01:30)
[2021-09-07 01:40] LABS: Hematocrit (blood only) 23.5 % (37-47); Hemoglobin 7.5 g/dL (12.0-16.0); Mean Corpuscular Hemoglobin 29.9 pg (25-34); Mean Corpuscular Volume 93.6 fL (80-100); Mean Platelet Volume 10.2 fL (7.4-10.4); Platelet Count 220 K/uL (130-400); RDW Coefficient of Variation 15.4 % (11.5-14.5); Red Blood Count 2.51 M/uL (4.2-5.4); White Blood Count 8.95 K/uL (4.8-10.8)
[2021-09-07 01:52] LABS: Partial Thromboplastin Ratio 1.3; Partial Thromboplastin Time 34.9 Seconds (21.0-31.0)
[2021-09-07 01:57] LABS: Albumin Level 1.1 gm/dl (3.4-5.0); BUN Creatinine Ratio 8.5 (10-20); Calcium 7.6 mg/dl (8.5-10.1); Creatinine Clr Calc Pharmacy 35.9 ml/min; Est GFR (African American) 52.5 ml/min; Est GFR (Non-African American) 45.3 ml/min; Potassium 3.3 mmol/L (3.5-5.1)
[2021-09-07 02:00] LABS: Albumin Globulin Ratio 0.4 (0.9-2); Bilirubin,Total 0.2 mg/dl (0.2-1); Globulin 2.9 gm/dl (2.5-4.0)
[2021-09-07 02:04] LABS: Mean Corpuscular Hgb Conc 31.9 g/dL (32-36)
[2021-09-07] MEDS: oxyCODONE HCL IR 5 MG TAB (IMMEDIATE RELEASE) PO PRN ×3 (02:13→17:49)
[2021-09-07] MEDS ORDERED: POTASSIUM CHLORIDE CRTAB 20 MEQ TABCR PO STA (02:13)
[2021-09-07] MEDS ORDERED: SODIUM CHLORIDE 0.9% 250 ML IV PRN (02:14)
[2021-09-07 02:24] LABS: Basophils # (auto) 0.03 K/uL (0-0.2); Basophils % (auto) 0.3 %; Echinocytes 1+; Eosinophils # (auto) 0.32 K/uL (0-0.5); Eosinophils % (auto) 3.6 %; Immature Granulocytes # (auto) 0.02 K/uL (0.00-0.02); Immature Granulocytes % (auto) 0.2 %; Lymphocytes # (auto) 1.28 K/uL (1.2-3.4); Lymphocytes % (auto) 14.3 %; Monocytes # (auto) 1.65 K/uL (0.11-0.59); Monocytes % (auto) 18.4 %; Neutrophils # (auto) 5.65 K/uL (1.4-6.5); Neutrophils % (auto) 63.2 %
[2021-09-07] MEDS ORDERED: POTASSIUM CHLORIDE 20 MEQ/15 ML UDC PO STA (02:49)
[2021-09-07] MEDS: PANTOprazole 40 MG in DEXTROSE 5% 100 ML IV SCH ×4 (04:37→20:42)
--- NOTE | 2021-09-07 08:12 | Hospitalist Progress Note ---
Date of Service September 07, 2021 Assessment & Plan (1) UGIB (upper gastrointestinal bleed): Plan: Acute upper GI bleed Acute blood loss anemia secondary to above in setting of Aspirin/Eliquis use Presented with intermittent black stools, episode of hematemesis -CT ABD:1.7 cm saccular outpouching involving the distal stomach with moderate adjacent distal stomach and proximal duodenal wall thickening with mild surrounding inflammatory stranding. This finding is suggestive of probable peptic ulcer disease however correlation with endoscopy is recommended to exclude the less likely possibility of an ulcerative mucosal lesion. No evidence of perforation. No bowel obstruction or pneumoperitoneum. Hepatic steatosis. Colonic diverticulosis. . S/P 2 units PRBCs S/P EGD: Small hiatal hernia, gastritis, nonbleeding duodenal ulcer with no stigmata of bleeding Avoid aspirin, NSAIDs, anticoagulation for now IV Protonix ggt transition to PO Protonix BID Appreciate GI input Alcohol cessation counseled Will need repeat endoscopy in in 3 months Monitor H&H and transfuse PRBCs as needed Needs follow-up with GI upon discharge Hemoglobin stable at 8.4 as on 09/06/2021 -switched from IV heparin to Eliquis Current hemoglobin 7.5 (09/07) - and patient received 1 unit of PRBCs Given arter. bypass occlusion, pt was started on IV heparin, now back on home Eliquis Cont. to monitor H&H, stools PAD Femoral-popliteal bypass graft occlusion, left -Patient with history of PAD andFemoral-popliteal bypass graft occlusion, left -Arterial Doppler ordered, vascular surgery consulted-appreciate vascular surgery input and recommendation -Started IV heparin with bolus -Given recent GI bleed, monitor H&H closely, monitor for any bleed Venous doppler (09/04) FINDINGS: Currently there is normal compressibility of the deep venous system from the common femoral vein through the proximal calf veins. No current evidence of acute thrombosis is identified. There is a the [place] superficial femoral artery appears occluded to at least the level of the popliteus. Patency of the superficial femoral artery bypass appears occluded as well. Remaining arteries are not assessed on this venous study. Impression: 1. No evidence of deep venous thrombus. 2. 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 Recurrent syncope Likely due to Orthostasis from GI bleed Positive orthostatics CT head:No acute intracranial abnormality or calvarial fracture. Neck CT:No acute cervical spine fracture or subluxation. EEG:This is a normal awake and drowsy EEG. There is no evidence of epileptiform activity. Fall precautions PT OT eval Patient currently not interested in rehab placement Abnormal UA R/O UTI Continued Rocephin empirically - now stopped Urine Culture growing gram-negative bacilli-Gardnerella like bacilli Alcohol use disorder Monitor for withdrawal On Ativan protocol Continue thiamine, folic acid Counseled to quit Right 9th Rib Fracture Imaging showed Healing subacute nondisplaced fracture of the lateral right ninth rib. Incentive Spirometry Cystic lesions on vallecula and epiglottis Incidental finding on imaging:Hypodensities within the vallecula, left larger than right, are noted. H/O laryngocele S/P surgery Follow-up with ENT as outpatient Left upper lobe pulmonary nodule Imaging showed 9 mm left upper lobe groundglass nodule with possible small solid component is noted Needs follow up with Pulm as outpatient CAD PAD Valvular heart disease (mild MR, mild to moderate TR, trace [place] on TTE 2020) Aspirin on hold Continue metoprolol, statin ESTEFANIA -Creatinine elevated yesterday (09/06) at 1.3, patient received IV fluids -Renal function now normalized -Likely d/t poor p.o. intake, patient reports inadequate p.o. 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 bypass occlusion Hgb 7.5 this AM, and she received 1 unit of packed red blood cells IV heparin switched to Eliquis yesterday, as her H&H was stable Currently she is able to move her left toes, and her left leg feels warm, toes purple/ chronic She has been complaining of bilateral leg pain secondary to neuropathy and is complicated by peripheral arterial disease status post bypass surgery Denies any chest pain, shortness of breath, abd pain, dizziness, nausea, vomiting Reports no bowel movement Review of Systems Review of Systems: All systems reviewed & are unremarkable except as noted in Subjective Physical Exam Physical Exam: General Appearance: Thin, frail, chronically ill appearing, no apparent distress Head: normocephalic, Atraumatic Eyes: normal inspection, EOMI Neck: supple, Trachea midline Respiratory/Chest: Decreased breath sounds, CTA Cardiovascular: S1, S2, No murmur Abdomen/GI: Soft, Non tender, Bowel sounds present, soft Extremities/Musculoskeletal: normal inspection, Trace edema Neurologic/Psych:AAOX3, speech fluent, moves extremities Skin: normal color, warm Results & Data Results & Data ([facility]) Vital Signs (Past 12 Hours) Vital Signs Temp Pulse Pulse Pulse Resp BP BP 09/07/21 07:09 37.2 C 94 H 17 99/59 L 09/07/21 06:15 37.0 C 67 18 91/57 L 09/07/21 05:15 37.1 C 73 18 83/50 L 09/07/21 04:45 37.1 C 74 18 90/52 L 09/07/21 04:30 36.5 C 74 18 103/60 09/07/21 04:10 36.9 C 75 18 93/52 L 09/06/21 23:24 37.1 C 77 18 09/06/21 22:19 72 09/06/21 21:00 37.1 C BP Pulse Ox 09/07/21 07:09 92 09/07/21 06:15 96 09/07/21 05:15 94 09/07/21 04:45 96 09/07/21 04:30 96 09/07/21 04:10 95 09/06/21 23:24 87/48 L 97 09/06/21 22:19 09/06/21 21:00 Laboratory Results 09/07/21 09/07/21 09/07/21 Range/Units 01:32 01:32 01:32 WBC (4.8-10.8) K/uL RBC (4.2-5.4) M/uL Hgb (12.0-16.0) g/dL Hct (37-47) % MCV (80-100) fL MCH (25-34) pg MCHC (32-36) g/dL RDW Std Deviation (36.4-46.3) fL RDW Coeff of Farrah (11.5-14.5) % Plt Count (130-400) K/uL MPV (7.4-10.4) fL Immature Gran % (Auto) % Neut % (Auto) % Lymph % (Auto) % [place] % (Auto) % Eos % (Auto) % Baso % (Auto) % Neut # (Auto) (1.4-6.5) K/uL Lymph # (Auto) (1.2-3.4) K/uL [place] # (Auto) (0.11-0.59) K/uL Eos # (Auto) (0-0.5) K/uL Baso # (Auto) (0-0.2) K/uL Immature Gran # (Auto) (0.00-0.02) K/uL Echinocytes APTT (21.0-31.0) Seconds PTT Ratio Sodium 140 (136-145) mmol/L Potassium 3.3 L (3.5-5.1) mmol/L Chloride 110 H (98-107) mmol/L Carbon Dioxide 26 (21-32) mmol/L Anion Gap 4.0 (3-11) BUN 10 (7-18) mg/dl Creatinine 1.21 H (0.6-1.2) mg/dl Est Cr Clr Drug Dosing 35.9 ml/min Est GFR ( Amer) 52.5 ml/min Est GFR (Non-Af Amer) 45.3 ml/min BUN/Creatinine Ratio 8.5 L (10-20) Glucose 89 (70-99) mg/dl Lactate 0.6 (0.4-2.0) mmol/L Calcium 7.6 L (8.5-10.1) mg/dl Total Bilirubin 0.2 (0.2-1) mg/dl AST 21 (15-37) U/L ALT 16 (12-78) U/L Alkaline Phosphatase 70 (45-117) U/L Total Protein 4.0 L (6.4-8.2) gm/dl Albumin 1.1 L (3.4-5.0) gm/dl Globulin 2.9 (2.5-4.0) gm/dl Albumin/Globulin Ratio 0.4 L (0.9-2) Blood Type A Positive Antibody Screen NEGATIVE Crossmatch See Detail 09/07/21 09/07/21 09/04/21 Range/Units 01:32 01:32 11:57 WBC 8.95 (4.8-10.8) K/uL RBC 2.51 L (4.2-5.4) M/uL Hgb 7.5 L (12.0-16.0) g/dL Hct 23.5 L (37-47) % MCV 93.6 (80-100) fL MCH 29.9 (25-34) pg MCHC 31.9 L (32-36) g/dL RDW Std Deviation 52.0 H (36.4-46.3) fL RDW Coeff of Farrah 15.4 H (11.5-14.5) % Plt Count 220 (130-400) K/uL MPV 10.2 (7.4-10.4) fL Immature Gran % (Auto) 0.2 % Neut % (Auto) 63.2 % Lymph % (Auto) 14.3 % [place] % (Auto) 18.4 % Eos % (Auto) 3.6 % Baso % (Auto) 0.3 % Neut # (Auto) 5.65 (1.4-6.5) K/uL Lymph # (Auto) 1.28 (1.2-3.4) K/uL [place] # (Auto) 1.65 H (0.11-0.59) K/uL Eos # (Auto) 0.32 (0-0.5) K/uL Baso # (Auto) 0.03 (0-0.2) K/uL Immature Gran # (Auto) 0.02 (0.00-0.02) K/uL Echinocytes 1+ APTT 34.9 H (21.0-31.0) Seconds PTT Ratio 1.3 Sodium (136-145) mmol/L Potassium (3.5-5.1) mmol/L Chloride (98-107) mmol/L Carbon Dioxide (21-32) mmol/L Anion Gap (3-11) BUN (7-18) mg/dl Creatinine (0.6-1.2) mg/dl Est Cr Clr Drug Dosing ml/min Est GFR ( Amer) ml/min Est GFR (Non-Af Amer) ml/min BUN/Creatinine Ratio (10-20) Glucose (70-99) mg/dl Lactate (0.4-2.0) mmol/L Calcium (8.5-10.1) mg/dl Total Bilirubin (0.2-1) mg/dl AST (15-37) U/L ALT (12-78) U/L Alkaline Phosphatase (45-117) U/L Total Protein (6.4-8.2) gm/dl Albumin (3.4-5.0) gm/dl Globulin (2.5-4.0) gm/dl Albumin/Globulin Ratio (0.9-2) Blood Type Antibody Screen Crossmatch See Detail Medications Administered Current Inpatient Medications Acetaminophen (Acetaminophen 325 Mg Tab) 325 mg PO Q6H PRN PRN Reason: Mild Pain Stop: 09/30/21 04:46 Apixaban (Apixaban 2.5 Mg Tab) 2.5 mg PO BID [facility] Stop: 10/06/21 10:14 Last Admin: 09/06/21 20:29 Dose: 2.5 mg Documented by: Aspirin (Aspirin 81 Mg Ectab) 81 mg PO HS [facility] Stop: 10/04/21 20:59 Last Admin: 09/06/21 20:28 Dose: 81 mg Documented by: Docusate Sodium (Docusate Sodium 100 Mg Cap) 100 mg PO BID [facility] Stop: 10/03/21 20:59 Last Admin: 09/06/21 20:29 Dose: 100 mg Documented by: Doxepin HCl (Doxepin Hcl 10 Mg Capsule) 20 mg PO HS [facility] Stop: 10/07/21 20:59 Folic Acid (Folic Acid 1 Mg Tab) 1 mg PO DAILY [facility] Stop: 09/30/21 08:59 Last Admin: 09/06/21 08:17 Dose: 1 mg Documented by: Gabapentin (Gabapentin 300 Mg Cap) 300 mg PO TID [facility] Stop: 09/30/21 08:59 Last Admin: 09/06/21 20:27 Dose: 300 mg Documented by: Hydromorphone HCl (Hydromorphone Inj 0.5 Mg/0.5 Ml Syr) 0.25 mg IV Q6H PRN PRN Reason: Pain Stop: 09/14/21 04:46 Lorazepam (Ativan) 1 mg in 2 mls @ 0.5 mls/min IV Q10M PRN PRN Reason: seizures Stop: 09/30/21 04:46 Promethazine HCl 6.25 mg/ (Sodium Chloride) 50.25 mls @ 201 mls/hr IV Q6H PRN PRN Reason: Nausea And Vomiting Stop: 09/30/21 04:46 Pantoprazole Sodium 40 mg/ (Syringe) 10 mls @ 5 mls/min IV BID [facility] Stop: 10/04/21 10:59 Last Admin: 09/04/21 11:19 Dose: 5 mls/min Documented by: Pantoprazole Sodium 40 mg/ (Dextrose) 100 mls @ 20 mls/hr IV Q5H [facility] Stop: 10/04/21 18:14 Last Admin: 09/07/21 04:37 Dose: 8 mg/hr, 20 mls/hr Documented by: Dextrose/Sodium Chloride (D5w And Nss) 1,000 mls @ 100 mls/hr IV .Q10H [facility] Stop: 10/07/21 01:29 Last Admin: 09/07/21 01:40 Dose: 100 mls/hr Documented by: Sodium Chloride (Nss) 250 mls @ 15 mls/hr IV .[id number] PRN PRN Reason: For Transfusion Stop: 09/07/21 12:14 Melatonin (Melatonin 3 Mg Tab) 3 mg PO HS PRN PRN Reason: Sleep Stop: 10/01/21 01:07 Last Admin: 09/01/21 01:24 Dose: 3 mg Documented by: Metoprolol Succinate (Metoprolol Succ 25mg Ext Rel Tab) 25 mg PO QAM [facility] Stop: 10/01/21 08:59 Last Admin: 09/06/21 08:17 Dose: 25 mg Documented by: Miscellaneous (Remove Nicoderm Patch) 1 ea N/A DAILY@0859 [facility] Stop: 09/30/21 08:58 Last Admin: 09/06/21 08:15 Dose: 1 ea Documented by: Multivitamins (Multivitamin Tab) [facility] Stop: 09/30/21 08:59 Last Admin: 09/06/21 08:18 Dose: 1 tab Documented by: Nicotine (Nicotine 14 Mg/24 Hr Patch) 14 mg TD QAM [facility] Stop: 09/30/21 02:14 Last Admin: 09/06/21 08:19 Dose: Not Given Documented by: Oxycodone HCl (Oxycodone Hcl Ir 5 Mg Tab (Immediate Release)) 5 mg PO Q4H PRN PRN Reason: Pain Stop: 09/14/21 04:46 Last Admin: 09/07/21 02:13 Dose: 5 mg Documented by: Pantoprazole Sodium (Pantoprazole 40 Mg Tab) 40 mg PO BID [facility] Stop: 10/02/21 20:59 Last Admin: 09/04/21 08:44 Dose: 40 mg Documented by: Polyethylene Glycol (Polyethylene (Miralax) 17 Gm Pack) 17 gm PO DAILY PRN PRN Reason: Constipation Stop: 10/03/21 17:37 Rosuvastatin Calcium (Rosuvastatin Calcium 20 Mg Tab) 40 mg PO HS [facility] Stop: 09/30/21 20:59 Last Admin: 09/06/21 20:42 Dose: 40 mg Documented by: Thiamine HCl (Thiamine Hcl 100 Mg Tab) 100 mg PO DAILY [facility] Stop: 10/01/21 08:59 Last Admin: 09/06/21 08:17 Dose: 100 mg Documented by: Vitamin D (Cholecalciferol 1,000 Units 25 Mcg Tab) 1,000 units PO DAILY [facility] Stop: 09/30/21 08:59 Last Admin: 09/06/21 08:18 Dose: 1,000 units Documented by:
[2021-09-07] MEDS: POLYETHYLENE (MIRALAX) 17 GM PACK PO PRN (08:27)
[2021-09-07] MEDS: FOLIC ACID 1 MG TAB PO SCH (08:31)
[2021-09-07] MEDS: GABAPENTIN 300 MG CAP PO SCH ×3 (08:32→20:44)
[2021-09-07] MEDS: CHOLECALCIFEROL 1,000 UNITS 25 MCG TAB PO SCH (08:32)
[2021-09-07] MEDS: APIXABAN 2.5 MG TAB PO SCH ×2 (08:32→20:42)
[2021-09-07] MEDS: THIAMINE HCL 100 MG TAB PO SCH (08:33)
[2021-09-07] MEDS: DOCUSATE SODIUM 100 MG CAP PO SCH ×2 (08:33→20:42)
[2021-09-07] MEDS: MULTIVITAMIN TAB PO SCH (08:34)
[2021-09-07] MEDS: NICOTINE 14 MG/24 HR PATCH TD SCH (08:37)
[2021-09-07] MEDS: METOPROLOL SUCC 25MG EXT REL TAB PO SCH (09:00)
[2021-09-07 09:12] LABS: Basophils # (auto) 0.04 K/uL (0-0.2); Basophils % (auto) 0.5 %; Eosinophils # (auto) 0.28 K/uL (0-0.5); Eosinophils % (auto) 3.2 %; Immature Granulocytes # (auto) 0.03 K/uL (0.00-0.02); Immature Granulocytes % (auto) 0.3 %; Lymphocytes # (auto) 1.13 K/uL (1.2-3.4); Lymphocytes % (auto) 12.7 %; Mean Corpuscular Hemoglobin 29.9 pg (25-34); Mean Corpuscular Hgb Conc 32.3 g/dL (32-36); Mean Corpuscular Volume 92.5 fL (80-100); Mean Platelet Volume 11.2 fL (7.4-10.4); Monocytes # (auto) 1.46 K/uL (0.11-0.59); Monocytes % (auto) 16.4 %; Neutrophils # (auto) 5.94 K/uL (1.4-6.5); Neutrophils % (auto) 66.9 %; Platelet Count 265 K/uL (130-400); RDW Coefficient of Variation 15.4 % (11.5-14.5); RDW Standard Deviation 51.4 fL (36.4-46.3); Red Blood Count 3.35 M/uL (4.2-5.4); White Blood Count 8.88 K/uL (4.8-10.8)
[2021-09-07 09:13] LABS: Hematocrit (blood only) 30.9 % (37-47)
[2021-09-07 09:47] LABS: BUN Creatinine Ratio 8.7 (10-20); Calcium 7.9 mg/dl (8.5-10.1); Creatinine Clr Calc Pharmacy 39.5 ml/min; Est GFR (African American) 55.2 ml/min; Est GFR (Non-African American) 47.7 ml/min; Phosphorus 2.5 mg/dl (2.5-4.9)
[2021-09-07] MEDS: ROSUVASTATIN CALCIUM 20 MG TAB PO SCH (20:43)
[2021-09-07] MEDS: DOXEPIN HCL 10 MG CAPSULE PO SCH (20:43)
[2021-09-07 21:23] LABS: Hematocrit (blood only) 30.5 % (37-47)
[2021-09-08] MEDS: PANTOprazole 40 MG in DEXTROSE 5% 100 ML IV SCH ×2 (01:10→06:16)
[2021-09-08] MEDS ORDERED: Nursing to Pharmacy Communication SCH (05:30)
--- NOTE | 2021-09-08 07:32 | Hospitalist Progress Note ---
Date of Service September 08, 2021 Assessment & Plan (1) UGIB (upper gastrointestinal bleed): Plan: Acute upper GI bleed Acute blood loss anemia secondary to above in setting of Aspirin/Eliquis use Presented with intermittent black stools, episode of hematemesis -CT ABD:1.7 cm saccular outpouching involving the distal stomach with moderate adjacent distal stomach and proximal duodenal wall thickening with mild surrounding inflammatory stranding. This finding is suggestive of probable peptic ulcer disease however correlation with endoscopy is recommended to exclude the less likely possibility of an ulcerative mucosal lesion. No evidence of perforation. No bowel obstruction or pneumoperitoneum. Hepatic steatosis. Colonic diverticulosis. . S/P 2 units PRBCs S/P EGD: Small hiatal hernia, gastritis, nonbleeding duodenal ulcer with no stigmata of bleeding Avoid aspirin, NSAIDs, anticoagulation for now IV Protonix ggt transition to PO Protonix BID Appreciate GI input Alcohol cessation counseled Will need repeat endoscopy in in 3 months Monitor H&H and transfuse PRBCs as needed Needs follow-up with GI upon discharge Hemoglobin stable at 8.4 as on 09/06/2021 -switched from IV heparin to Eliquis hemoglobin 7.5 (09/07) - and patient received 1 unit of PRBCs Current Hgb 11 (09/08)- cont. Eliquis and ASA Given arter. bypass occlusion, pt was started on IV heparin, now back on home Eliquis Cont. to monitor H&H, stools PAD Femoral-popliteal bypass graft occlusion, left -Patient with history of PAD andFemoral-popliteal bypass graft occlusion, left -Arterial Doppler ordered, vascular surgery consulted-appreciate vascular surgery input and recommendation -Started IV heparin with bolus -Given recent GI bleed, monitor H&H closely, monitor for any bleed Venous doppler (09/04) FINDINGS: Currently there is normal compressibility of the deep venous system from the common femoral vein through the proximal calf veins. No current evidence of acute thrombosis is identified. There is a the [place] superficial femoral artery appears occluded to at least the level of the popliteus. Patency of the superficial femoral artery bypass appears occluded as well. Remaining arteries are not assessed on this venous study. Impression: 1. No evidence of deep venous thrombus. 2. 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 Recurrent syncope Likely due to Orthostasis from GI bleed Positive orthostatics CT head:No acute intracranial abnormality or calvarial fracture. Neck CT:No acute cervical spine fracture or subluxation. EEG:This is a normal awake and drowsy EEG. There is no evidence of epileptiform activity. Fall precautions PT OT eval Patient currently not interested in rehab placement Abnormal UA R/O UTI Continued Rocephin empirically - now stopped Urine Culture growing gram-negative bacilli-Gardnerella like bacilli Alcohol use disorder Monitor for withdrawal On Ativan protocol Continue thiamine, folic acid Counseled to quit Right 9th Rib Fracture Imaging showed Healing subacute nondisplaced fracture of the lateral right ninth rib. Incentive Spirometry Cystic lesions on vallecula and epiglottis Incidental finding on imaging:Hypodensities within the vallecula, left larger than right, are noted. H/O laryngocele S/P surgery Follow-up with ENT as outpatient Left upper lobe pulmonary nodule Imaging showed 9 mm left upper lobe groundglass nodule with possible small solid component is noted Needs follow up with Pulm as outpatient CAD PAD Valvular heart disease (mild MR, mild to moderate TR, trace MD on TTE 2020) Aspirin on hold Continue metoprolol, statin ESTEFANIA -Likely d/t poor p.o. intake, patient reports inadequate p.o. intake -Creatinine elevated (09/06) at 1.3, patient received IV fluids -Renal function then normalized - again Cr slightly elevated, will give gentle IVF and encourage p.o. 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 bypass occlusion Hgb 11 this AM, received 1 unit of packed red blood cells yesterday Pt is now on Eliquis Denies any chest pain, shortness of breath, abd pain, dizziness, nausea, vomiting She has been complaining of bilateral leg pain secondary to neuropathy and is complicated by peripheral arterial disease status post bypass surgery Pt reports no change at this time in her leg discomfort Had a bowel movement this AM Review of Systems Review of Systems: All systems reviewed & are unremarkable except as noted in Subjective Physical Exam Physical Exam: General Appearance: Thin, frail, chronically ill appearing, no apparent distress Head: normocephalic, Atraumatic Eyes: normal inspection, EOMI Neck: supple, Trachea midline Respiratory/Chest: Decreased breath sounds, CTA Cardiovascular: S1, S2, No murmur Abdomen/GI: Soft, Non tender, Bowel sounds present, soft Extremities/Musculoskeletal: normal inspection, Trace edema Neurologic/Psych:AAOX3, speech fluent, moves extremities Skin: normal color, warm Results & Data Results & Data ([facility]) Vital Signs (Past 12 Hours) Vital Signs Temp Pulse Pulse Pulse Resp BP Pulse Ox 09/08/21 07:16 99 H 09/08/21 04:00 36.6 C 83 18 118/69 95 09/08/21 00:50 36.8 C 80 18 114/63 92 09/07/21 22:18 76 09/07/21 19:56 37.3 C 85 18 123/69 95 Laboratory Results 09/08/21 09/08/21 09/08/21 Range/Units 08:03 08:03 08:03 WBC 8.02 (4.8-10.8) K/uL RBC 3.74 L (4.2-5.4) M/uL Hgb 11.1 L (12.0-16.0) g/dL Hct 34.2 L (37-47) % MCV 91.4 (80-100) fL MCH 29.7 (25-34) pg MCHC 32.5 (32-36) g/dL RDW Std Deviation 51.4 H (36.4-46.3) fL RDW Coeff of Farrah 15.5 H (11.5-14.5) % Plt Count 276 (130-400) K/uL MPV 10.7 H (7.4-10.4) fL Immature Gran % (Auto) % Neut % (Auto) % Lymph % (Auto) % [place] % (Auto) % Eos % (Auto) % Baso % (Auto) % Neut # (Auto) (1.4-6.5) K/uL Lymph # (Auto) (1.2-3.4) K/uL [place] # (Auto) (0.11-0.59) K/uL Eos # (Auto) (0-0.5) K/uL Baso # (Auto) (0-0.2) K/uL Immature Gran # (Auto) (0.00-0.02) K/uL APTT 37.7 H (21.0-31.0) Seconds PTT Ratio 1.4 Sodium Pending (136-145) mmol/L Potassium Pending (3.5-5.1) mmol/L Chloride Pending (98-107) mmol/L Carbon Dioxide Pending (21-32) mmol/L Anion Gap Pending (3-11) BUN Pending (7-18) mg/dl Creatinine Pending (0.6-1.2) mg/dl Est Cr Clr Drug Dosing Pending ml/min Est GFR ( Amer) Pending ml/min Est GFR (Non-Af Amer) Pending ml/min BUN/Creatinine Ratio Pending (10-20) Glucose Pending (70-99) mg/dl Calcium Pending (8.5-10.1) mg/dl Phosphorus Pending (2.5-4.9) mg/dl Magnesium Pending Crossmatch 09/07/21 09/07/21 09/07/21 Range/Units 21:07 08:25 08:25 WBC 8.88 (4.8-10.8) K/uL RBC 3.35 L (4.2-5.4) M/uL Hgb 10.0 L 10.0 L 10.0 L (12.0-16.0) g/dL Hct 30.5 L 30.9 L 31.0 L (37-47) % MCV 92.5 (80-100) fL MCH 29.9 (25-34) pg MCHC 32.3 (32-36) g/dL RDW Std Deviation 51.4 H (36.4-46.3) fL RDW Coeff of Farrah 15.4 H (11.5-14.5) % Plt Count 265 (130-400) K/uL MPV 11.2 H (7.4-10.4) fL Immature Gran % (Auto) 0.3 % Neut % (Auto) 66.9 % Lymph % (Auto) 12.7 % [place] % (Auto) 16.4 % Eos % (Auto) 3.2 % Baso % (Auto) 0.5 % Neut # (Auto) 5.94 (1.4-6.5) K/uL Lymph # (Auto) 1.13 L (1.2-3.4) K/uL [place] # (Auto) 1.46 H (0.11-0.59) K/uL Eos # (Auto) 0.28 (0-0.5) K/uL Baso # (Auto) 0.04 (0-0.2) K/uL Immature Gran # (Auto) 0.03 H (0.00-0.02) K/uL APTT (21.0-31.0) Seconds PTT Ratio Sodium (136-145) mmol/L Potassium (3.5-5.1) mmol/L Chloride (98-107) mmol/L Carbon Dioxide (21-32) mmol/L Anion Gap (3-11) BUN (7-18) mg/dl Creatinine (0.6-1.2) mg/dl Est Cr Clr Drug Dosing ml/min Est GFR ( Amer) ml/min Est GFR (Non-Af Amer) ml/min BUN/Creatinine Ratio (10-20) Glucose (70-99) mg/dl Calcium (8.5-10.1) mg/dl Phosphorus (2.5-4.9) mg/dl Magnesium Crossmatch 09/07/21 09/07/21 Range/Units 08:25 01:32 WBC (4.8-10.8) K/uL RBC (4.2-5.4) M/uL Hgb (12.0-16.0) g/dL Hct (37-47) % MCV (80-100) fL MCH (25-34) pg MCHC (32-36) g/dL RDW Std Deviation (36.4-46.3) fL RDW Coeff of Farrah (11.5-14.5) % Plt Count (130-400) K/uL MPV (7.4-10.4) fL Immature Gran % (Auto) % Neut % (Auto) % Lymph % (Auto) % [place] % (Auto) % Eos % (Auto) % Baso % (Auto) % Neut # (Auto) (1.4-6.5) K/uL Lymph # (Auto) (1.2-3.4) K/uL [place] # (Auto) (0.11-0.59) K/uL Eos # (Auto) (0-0.5) K/uL Baso # (Auto) (0-0.2) K/uL Immature Gran # (Auto) (0.00-0.02) K/uL APTT (21.0-31.0) Seconds PTT Ratio Sodium 142 (136-145) mmol/L Potassium 4.0 D (3.5-5.1) mmol/L Chloride 112 H (98-107) mmol/L Carbon Dioxide 23 (21-32) mmol/L Anion Gap 7.0 (3-11) BUN 10 (7-18) mg/dl Creatinine 1.16 (0.6-1.2) mg/dl Est Cr Clr Drug Dosing 39.5 ml/min Est GFR ( Amer) 55.2 ml/min Est GFR (Non-Af Amer) 47.7 ml/min BUN/Creatinine Ratio 8.7 L (10-20) Glucose 93 (70-99) mg/dl Calcium 7.9 L (8.5-10.1) mg/dl Phosphorus 2.5 (2.5-4.9) mg/dl Magnesium Crossmatch See Detail Medications Administered Current Inpatient Medications Acetaminophen (Acetaminophen 325 Mg Tab) 325 mg PO Q6H PRN PRN Reason: Mild Pain Stop: 09/30/21 04:46 Apixaban (Apixaban 2.5 Mg Tab) 2.5 mg PO BID [facility] Stop: 10/06/21 10:14 Last Admin: 09/07/21 20:42 Dose: 2.5 mg Documented by: Aspirin (Aspirin 81 Mg Ectab) 81 mg PO HS [facility] Stop: 10/04/21 20:59 Last Admin: 09/06/21 20:28 Dose: 81 mg Documented by: Docusate Sodium (Docusate Sodium 100 Mg Cap) 100 mg PO BID [facility] Stop: 10/03/21 20:59 Last Admin: 09/07/21 20:42 Dose: 100 mg Documented by: Doxepin HCl (Doxepin Hcl 10 Mg Capsule) 20 mg PO HS [facility] Stop: 10/07/21 20:59 Last Admin: 09/07/21 20:43 Dose: 20 mg Documented by: Folic Acid (Folic Acid 1 Mg Tab) 1 mg PO DAILY [facility] Stop: 09/30/21 08:59 Last Admin: 09/07/21 08:31 Dose: 1 mg Documented by: Gabapentin (Gabapentin 300 Mg Cap) 300 mg PO TID [facility] Stop: 09/30/21 08:59 Last Admin: 09/07/21 20:44 Dose: 300 mg Documented by: Hydromorphone HCl (Hydromorphone Inj 0.5 Mg/0.5 Ml Syr) 0.25 mg IV Q6H PRN PRN Reason: Pain Stop: 09/14/21 04:46 Lorazepam (Ativan) 1 mg in 2 mls @ 0.5 mls/min IV Q10M PRN PRN Reason: seizures Stop: 09/30/21 04:46 Promethazine HCl 6.25 mg/ (Sodium Chloride) 50.25 mls @ 201 mls/hr IV Q6H PRN PRN Reason: Nausea And Vomiting Stop: 09/30/21 04:46 Pantoprazole Sodium 40 mg/ (Syringe) 10 mls @ 5 mls/min IV BID [facility] Stop: 10/04/21 10:59 Last Admin: 09/04/21 11:19 Dose: 5 mls/min Documented by: Pantoprazole Sodium 40 mg/ (Dextrose) 100 mls @ 20 mls/hr IV Q5H [facility] Stop: 10/04/21 18:14 Last Admin: 09/08/21 06:16 Dose: 8 mg/hr, 20 mls/hr Documented by: Dextrose/Sodium Chloride (D5w And Nss) 1,000 mls @ 100 mls/hr IV .Q10H [facility] Stop: 10/07/21 01:29 Last Infusion: 09/07/21 20:51 Dose: Infused Documented by: Melatonin (Melatonin 3 Mg Tab) 3 mg PO HS PRN PRN Reason: Sleep Stop: 10/01/21 01:07 Last Admin: 09/01/21 01:24 Dose: 3 mg Documented by: Metoprolol Succinate (Metoprolol Succ 25mg Ext Rel Tab) 25 mg PO QAM [facility] Stop: 10/01/21 08:59 Last Admin: 09/07/21 09:00 Dose: Not Given Documented by: Miscellaneous (Remove Nicoderm Patch) 1 ea N/A DAILY@0859 [facility] Stop: 09/30/21 08:58 Last Admin: 09/07/21 08:36 Dose: 1 ea Documented by: Multivitamins (Multivitamin Tab) 1 tab PO QAM [facility] Stop: 09/30/21 08:59 Last Admin: 09/07/21 08:34 Dose: 1 tab Documented by: Nicotine (Nicotine 14 Mg/24 Hr Patch) 14 mg TD QAM [facility] Stop: 09/30/21 02:14 Last Admin: 09/07/21 08:37 Dose: Not Given Documented by: Oxycodone HCl (Oxycodone Hcl Ir 5 Mg Tab (Immediate Release)) 5 mg PO Q4H PRN PRN Reason: Pain Stop: 09/14/21 04:46 Last Admin: 09/07/21 17:49 Dose: 5 mg Documented by: Pantoprazole Sodium (Pantoprazole 40 Mg Tab) 40 mg PO BID [facility] Stop: 10/02/21 20:59 Last Admin: 09/04/21 08:44 Dose: 40 mg Documented by: Polyethylene Glycol (Polyethylene (Miralax) 17 Gm Pack) 17 gm PO DAILY PRN PRN Reason: Constipation Stop: 10/03/21 17:37 Last Admin: 09/07/21 08:27 Dose: 17 gm Documented by: Rosuvastatin Calcium (Rosuvastatin Calcium 20 Mg Tab) 40 mg PO HS [facility] Stop: 09/30/21 20:59 Last Admin: 09/07/21 20:43 Dose: 40 mg Documented by: Thiamine HCl (Thiamine Hcl 100 Mg Tab) 100 mg PO DAILY [facility] Stop: 10/01/21 08:59 Last Admin: 09/07/21 08:33 Dose: 100 mg Documented by: Vitamin D (Cholecalciferol 1,000 Units 25 Mcg Tab) 1,000 units PO DAILY [facility] Stop: 09/30/21 08:59 Last Admin: 09/07/21 08:32 Dose: 1,000 units Documented by:
[2021-09-08] MEDS: GABAPENTIN 300 MG CAP PO SCH ×3 (07:57→20:49)
[2021-09-08] MEDS: FOLIC ACID 1 MG TAB PO SCH (07:57)
[2021-09-08] MEDS: APIXABAN 2.5 MG TAB PO SCH ×2 (07:57→20:50)
[2021-09-08] MEDS: METOPROLOL SUCC 25MG EXT REL TAB PO SCH (07:57)
[2021-09-08] MEDS: THIAMINE HCL 100 MG TAB PO SCH (07:58)
[2021-09-08] MEDS: MULTIVITAMIN TAB PO SCH (07:58)
[2021-09-08] MEDS: DOCUSATE SODIUM 100 MG CAP PO SCH ×2 (07:58→20:50)
[2021-09-08] MEDS: NICOTINE 14 MG/24 HR PATCH TD SCH (07:59)
[2021-09-08] MEDS: CHOLECALCIFEROL 1,000 UNITS 25 MCG TAB PO SCH (07:59)
[2021-09-08 08:21] LABS: Hematocrit (blood only) 34.2 % (37-47); Hemoglobin 11.1 g/dL (12.0-16.0); Mean Corpuscular Hemoglobin 29.7 pg (25-34); Mean Corpuscular Hgb Conc 32.5 g/dL (32-36); Mean Corpuscular Volume 91.4 fL (80-100); Mean Platelet Volume 10.7 fL (7.4-10.4); Platelet Count 276 K/uL (130-400); RDW Coefficient of Variation 15.5 % (11.5-14.5); RDW Standard Deviation 51.4 fL (36.4-46.3); Red Blood Count 3.74 M/uL (4.2-5.4); White Blood Count 8.02 K/uL (4.8-10.8)
[2021-09-08 08:31] LABS: Partial Thromboplastin Ratio 1.4; Partial Thromboplastin Time 37.7 Seconds (21.0-31.0)
[2021-09-08 08:52] LABS: BUN Creatinine Ratio 7.1 (10-20); Calcium 8.4 mg/dl (8.5-10.1); Creatinine Clr Calc Pharmacy 34.2 ml/min; Est GFR (Non-African American) 39.7 ml/min; Magnesium 2.4 mg/dl (1.8-2.4); Potassium 4.1 mmol/L (3.5-5.1)
[2021-09-08] MEDS: SUCRALFATE 1 GM/10 ML UDC PO SCH ×4 (09:48→20:48)
[2021-09-08] MEDS: PANTOprazole 40 MG in SYRINGE 0 ML IV SCH ×2 (09:48→23:51)
[2021-09-08] MEDS: SODIUM CHLORIDE 0.9% 1000ML 1,000 ML IV SCH ×2 (09:49→21:02)
[2021-09-08] MEDS: oxyCODONE HCL IR 5 MG TAB (IMMEDIATE RELEASE) PO PRN (09:52)
[2021-09-08] MEDS: POLYETHYLENE (MIRALAX) 17 GM PACK PO PRN (09:57)
[2021-09-08] MEDS: DOXEPIN HCL 10 MG CAPSULE PO SCH (20:49)
[2021-09-08] MEDS: ROSUVASTATIN CALCIUM 20 MG TAB PO SCH (20:49)
[2021-09-08] MEDS: ASPIRIN 81 MG ECTAB PO SCH (20:50)
[2021-09-09] MEDS: APIXABAN 2.5 MG TAB PO SCH (07:35)
[2021-09-09] MEDS: DOCUSATE SODIUM 100 MG CAP PO SCH (07:35)
[2021-09-09] MEDS: CHOLECALCIFEROL 1,000 UNITS 25 MCG TAB PO SCH (07:35)
[2021-09-09] MEDS: THIAMINE HCL 100 MG TAB PO SCH (07:35)
[2021-09-09] MEDS: FOLIC ACID 1 MG TAB PO SCH (07:35)
[2021-09-09] MEDS: METOPROLOL SUCC 25MG EXT REL TAB PO SCH (07:36)
[2021-09-09] MEDS: GABAPENTIN 300 MG CAP PO SCH ×2 (07:36→15:10)
[2021-09-09] MEDS: SUCRALFATE 1 GM/10 ML UDC PO SCH ×3 (07:37→17:30)
[2021-09-09] MEDS: NICOTINE 14 MG/24 HR PATCH TD SCH (07:37)
[2021-09-09] MEDS: MULTIVITAMIN TAB PO SCH (07:37)
[2021-09-09] MEDS: PANTOprazole 40 MG in SYRINGE 0 ML IV SCH (07:37)
[2021-09-09 07:57] LABS: Partial Thromboplastin Ratio 1.5; Partial Thromboplastin Time 39.9 Seconds (21.0-31.0)
[2021-09-09 07:58] LABS: Hematocrit (blood only) 27.1 % (37-47); Hemoglobin 8.9 g/dL (12.0-16.0)
[2021-09-09 08:31] LABS: BUN Creatinine Ratio 9.2 (10-20); Creatinine Clr Calc Pharmacy 38.4 ml/min; Est GFR (African American) 55.2 ml/min; Est GFR (Non-African American) 47.7 ml/min; Magnesium 2.5 mg/dl (1.8-2.4); Phosphorus 3.1 mg/dl (2.5-4.9); Potassium 3.4 mmol/L (3.5-5.1)
--- NOTE | 2021-09-09 11:37 | CT Scan Report ---
CT head/brain wo con CLINICAL HISTORY: 71 years-old Female with R side hearing difficulty after fall. Acute head trauma s tatus post fall TECHNIQUE: Multiple axial CT images of the head were obtained without contrast. A dose lowering tech nique was utilized adhering to the principles of ALARA. CT DOSE: 537.48 mGy.cm COMPARISON: 08/30/2021 FINDINGS: No acute intracranial hemorrhage, midline shift, intracranial mass, hydrocephalus, territorial ischem ia or abnormal extra-axial collection. Age-related involutional changes. White matter hypodensities s uggest chronic microvascular ischemic disease. Cerebral vascular calcifications. The calvarium is int act. Prior bilateral lens repair. The paranasal sinuses, mastoid air cells, and middle ear cavities a re clear. IMPRESSION: No acute intracranial abnormality or calvarial fracture. ACT 112: Negative or not required by law. The above report was generated using voice recognition software. It may contain grammatical, syntax o r spelling errors. Electronically signed by: García Acevedo M.D. 09/09/2021 11:36 AM
[2021-09-09] MEDS: POLYETHYLENE (MIRALAX) 17 GM PACK PO PRN (11:47)
[2021-09-09] MEDS ORDERED: POTASSIUM CHLORIDE CRTAB 20 MEQ TABCR PO STA (14:44)
--- NOTE | 2021-09-09 14:46 | Hospitalist Progress Note ---
Date of Service September 09, 2021 Assessment & Plan (1) UGIB (upper gastrointestinal bleed): Plan: Acute upper GI bleed Acute blood loss anemia secondary to above in setting of Aspirin/Eliquis use Presented with intermittent black stools, episode of hematemesis -CT ABD:1.7 cm saccular outpouching involving the distal stomach with moderate adjacent distal stomach and proximal duodenal wall thickening with mild surrounding inflammatory stranding. This finding is suggestive of probable peptic ulcer disease however correlation with endoscopy is recommended to exclude the less likely possibility of an ulcerative mucosal lesion. No evidence of perforation. No bowel obstruction or pneumoperitoneum. Hepatic steatosis. Colonic diverticulosis. . S/P 2 units PRBCs S/P EGD: Small hiatal hernia, gastritis, nonbleeding duodenal ulcer with no stigmata of bleeding Avoid aspirin, NSAIDs, anticoagulation for now IV Protonix ggt transition to PO Protonix BID Appreciate GI input Alcohol cessation counseled Will need repeat endoscopy in in 3 months Monitor H&H and transfuse PRBCs as needed Needs follow-up with GI upon discharge Hemoglobin stable at 8.4 as on 09/06/2021 -switched from IV heparin to Eliquis hemoglobin 7.5 (09/07) - and patient received 1 unit of PRBCs Current Hgb 11 (09/08)- cont. Eliquis and ASA Given arter. bypass occlusion, pt was started on IV heparin, now back on home Eliquis Cont. to monitor H&H, stools PAD Femoral-popliteal bypass graft occlusion, left -Patient with history of PAD andFemoral-popliteal bypass graft occlusion, left -Arterial Doppler ordered, vascular surgery consulted-appreciate vascular surgery input and recommendation -Started IV heparin with bolus -Given recent GI bleed, monitor H&H closely, monitor for any bleed Venous doppler (09/04) FINDINGS: Currently there is normal compressibility of the deep venous system from the common femoral vein through the proximal calf veins. No current evidence of acute thrombosis is identified. There is a the [place] superficial femoral artery appears occluded to at least the level of the popliteus. Patency of the superficial femoral artery bypass appears occluded as well. Remaining arteries are not assessed on this venous study. Impression: 1. No evidence of deep venous thrombus. 2. 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 Recurrent syncope Likely due to Orthostasis from GI bleed Positive orthostatics CT head:No acute intracranial abnormality or calvarial fracture. Neck CT:No acute cervical spine fracture or subluxation. EEG:This is a normal awake and drowsy EEG. There is no evidence of epileptiform activity. Fall precautions PT OT eval Patient currently not interested in rehab placement Abnormal UA R/O UTI Continued Rocephin empirically - now stopped Urine Culture growing gram-negative bacilli-Gardnerella like bacilli Alcohol use disorder Monitor for withdrawal On Ativan protocol Continue thiamine, folic acid Counseled to quit Right 9th Rib Fracture Imaging showed Healing subacute nondisplaced fracture of the lateral right ninth rib. Incentive Spirometry Cystic lesions on vallecula and epiglottis Incidental finding on imaging:Hypodensities within the vallecula, left larger than right, are noted. H/O laryngocele S/P surgery Follow-up with ENT as outpatient Left upper lobe pulmonary nodule Imaging showed 9 mm left upper lobe groundglass nodule with possible small solid component is noted Needs follow up with Pulm as outpatient Muffled hearing -Patient concerned about some muffled hearing, given history of fall, CT head repeated, unremarkable -Follow-up with ENT as needed CAD PAD Valvular heart disease (mild MR, mild to moderate TR, trace MT on TTE 2020) Aspirin on hold Continue metoprolol, statin ESTEFANIA -Likely d/t poor p.o. intake, patient reports inadequate p.o. intake -Creatinine elevated (09/06) at 1.3, patient received IV fluids -Renal function then normalized - again Cr slightly elevated, gentle IVF and encourage p.o. 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 bypass occlusion Pt is now on Eliquis Denies any chest pain, shortness of breath, abd pain, dizziness, nausea, vomiting She has been complaining of bilateral leg pain secondary to neuropathy and is complicated by peripheral arterial disease status post bypass surgery Pt reports no change at this time in her leg discomfort Had a bowel movement yesterday Patient is anxious to go home. Review of Systems Review of Systems: All systems reviewed & are unremarkable except as noted in Subjective Physical Exam Physical Exam: General Appearance: Thin, frail, chronically ill appearing, no apparent distress Head: normocephalic, Atraumatic Eyes: normal inspection, EOMI Neck: supple, Trachea midline Respiratory/Chest: Decreased breath sounds, CTA Cardiovascular: S1, S2, No murmur Abdomen/GI: Soft, Non tender, Bowel sounds present, soft Extremities/Musculoskeletal: normal inspection, Trace edema Neurologic/Psych:AAOX3, speech fluent, moves extremities Skin: normal color, warm Results & Data Results & Data ([facility]) Vital Signs (Past 12 Hours) Vital Signs Temp Pulse Pulse Pulse Resp BP Pulse Ox 09/09/21 07:24 36.7 C 67 71 18 111/62 98 09/09/21 04:37 36.7 C 73 18 109/58 L 95 Laboratory Results 09/09/21 09/09/21 09/09/21 Range/Units 07:04 07:04 07:04 Hgb 8.9 L (12.0-16.0) g/dL Hct 27.1 L (37-47) % APTT 39.9 H (21.0-31.0) Seconds PTT Ratio 1.5 Sodium 143 (136-145) mmol/L Potassium 3.4 L D (3.5-5.1) mmol/L Chloride 113 H (98-107) mmol/L Carbon Dioxide 24 (21-32) mmol/L Anion Gap 7.0 (3-11) BUN 11 (7-18) mg/dl Creatinine 1.16 (0.6-1.2) mg/dl Est Cr Clr Drug Dosing 38.4 ml/min Est GFR ( Amer) 55.2 ml/min Est GFR (Non-Af Amer) 47.7 ml/min BUN/Creatinine Ratio 9.2 L (10-20) Glucose 83 (70-99) mg/dl Calcium 8.0 L (8.5-10.1) mg/dl Phosphorus 3.1 (2.5-4.9) mg/dl Magnesium 2.5 H (1.8-2.4) mg/dl Medications Administered Current Inpatient Medications Acetaminophen (Acetaminophen 325 Mg Tab) 325 mg PO Q6H PRN PRN Reason: Mild Pain Stop: 12/07/21 04:46 Apixaban (Apixaban 2.5 Mg Tab) 2.5 mg PO BID [facility] Stop: 10/06/21 10:14 Last Admin: 09/09/21 07:35 Dose: 2.5 mg Documented by: Aspirin (Aspirin 81 Mg Ectab) 81 mg PO HS [facility] Stop: 10/04/21 20:59 Last Admin: 09/08/21 20:50 Dose: 81 mg Documented by: Docusate Sodium (Docusate Sodium 100 Mg Cap) 100 mg PO BID [facility] Stop: 10/03/21 20:59 Last Admin: 09/09/21 07:35 Dose: 100 mg Documented by: Doxepin HCl (Doxepin Hcl 10 Mg Capsule) 20 mg PO HS [facility] Stop: 10/07/21 20:59 Last Admin: 09/08/21 20:49 Dose: 20 mg Documented by: Folic Acid (Folic Acid 1 Mg Tab) 1 mg PO DAILY [facility] Stop: 09/30/21 08:59 Last Admin: 09/09/21 07:35 Dose: 1 mg Documented by: Gabapentin (Gabapentin 300 Mg Cap) 300 mg PO TID [facility] Stop: 09/30/21 08:59 Last Admin: 09/09/21 07:36 Dose: 300 mg Documented by: Hydromorphone HCl (Hydromorphone Inj 0.5 Mg/0.5 Ml Syr) 0.25 mg IV Q6H PRN PRN Reason: Pain Stop: 09/14/21 04:46 Lorazepam (Ativan) 1 mg in 2 mls @ 0.5 mls/min IV Q10M PRN PRN Reason: seizures Stop: 09/30/21 04:46 Promethazine HCl 6.25 mg/ (Sodium Chloride) 50.25 mls @ 201 mls/hr IV Q6H PRN PRN Reason: Nausea And Vomiting Stop: 09/30/21 04:46 Pantoprazole Sodium 40 mg/ (Syringe) 10 mls @ 5 mls/min IV BID [facility] Stop: 10/04/21 10:59 Last Admin: 09/09/21 07:37 Dose: 5 mls/min Documented by: Melatonin (Melatonin 3 Mg Tab) 3 mg PO HS PRN PRN Reason: Sleep Stop: 10/01/21 01:07 Last Admin: 09/01/21 01:24 Dose: 3 mg Documented by: Metoprolol Succinate (Metoprolol Succ 25mg Ext Rel Tab) 25 mg PO QAM [facility] Stop: 10/01/21 08:59 Last Admin: 09/09/21 07:36 Dose: 25 mg Documented by: Miscellaneous (Remove Nicoderm Patch) 1 ea N/A DAILY@0859 [facility] Stop: 09/30/21 08:58 Last Admin: 09/09/21 07:35 Dose: Not Given Documented by: Multivitamins (Multivitamin Tab) 1 tab PO QAM [facility] Stop: 09/30/21 08:59 Last Admin: 09/09/21 07:37 Dose: 1 tab Documented by: Nicotine (Nicotine 14 Mg/24 Hr Patch) 14 mg TD [facility] Stop: 09/30/21 02:14 Last Admin: 09/09/21 07:37 Dose: Not Given Documented by: Oxycodone HCl (Oxycodone Hcl Ir 5 Mg Tab (Immediate Release)) 5 mg PO Q4H PRN PRN Reason: Pain Stop: 09/14/21 04:46 Last Admin: 09/08/21 09:52 Dose: 5 mg Documented by: Pantoprazole Sodium (Pantoprazole 40 Mg Tab) 40 mg PO BID [facility] Stop: 10/02/21 20:59 Last Admin: 09/04/21 08:44 Dose: 40 mg Documented by: Polyethylene Glycol (Polyethylene (Miralax) 17 Gm Pack) 17 gm PO DAILY PRN PRN Reason: Constipation Stop: 10/03/21 17:37 Last Admin: 09/09/21 11:47 Dose: 17 gm Documented by: Rosuvastatin Calcium (Rosuvastatin Calcium 20 Mg Tab) 40 mg PO HS [facility] Stop: 09/30/21 20:59 Last Admin: 09/08/21 20:49 Dose: 40 mg Documented by: Sucralfate (Sucralfate 1 Gm/10 Ml Udc) 1 gm PO QID [facility] Stop: 10/08/21 08:59 Last Admin: 09/09/21 11:42 Dose: 1 gm Documented by: Thiamine HCl (Thiamine Hcl 100 Mg Tab) 100 mg PO DAILY [facility] Stop: 10/01/21 08:59 Last Admin: 09/09/21 07:35 Dose: 100 mg Documented by: Vitamin D (Cholecalciferol 1,000 Units 25 Mcg Tab) 1,000 units PO DAILY [facility] Stop: 09/30/21 08:59 Last Admin: 09/09/21 07:35 Dose: 1,000 units Documented by:
[2021-09-09] MEDS ORDERED: PANTOprazole 40 MG TAB PO SCH (15:30)
[2021-09-09] MEDS ORDERED: SUCRALFATE 1 GM/10 ML UDC PO SCH (15:30)
[2021-09-09] MEDS: DOXEPIN HCL 10 MG CAPSULE PO SCH (16:54)
--- NOTE | 2021-09-09 17:30 | Discharge Summary ---
Date of Service September 09, 2021 Admission HPI Per Admitting Provider History obtained from patient and records. Medical history significant for CAD, PAD status post surgery on Eliquis, valvular heart disease (mild MR, mild to moderate TR, trace [place] on TTE 2020), hypertension, hyperlipidemia, CRI (baseline creatinine 1.5), left breast cancer status post surgery/chemoradiation, fatty liver as per records, chronic anemia (recent outpatient hemoglobin 10-11), anxiety disorder, history laryngocele status post surgery, difficult intubation as per records, chronic neuropathy, past alcohol abuse as per patient, ongoing tobacco abuse. Six months history of achy abdominal pain with diarrhea symptoms occasionally with dark stools. Dysphagia and about 20 pound weight loss as per patient. Admits to some depression with fleeting suicidal ideations. Endoscopy recommended by GI specialist on outpatient visit 3 months ago. Outpatient psychology referral made by PCP on follow-up visit 2 months ago. Outpatient EGD last month was normal. Colonoscopy showed internal hemorrhoids, poor preparation. Dark stools noted the last few days at home with usual achy abdominal pain as per patient. Two unwitnessed syncopal events at home the last week preceded by lightheadednes s on getting up. Second episode led to a "black eye" on the right. No consultations done. No tongue biting/seizures as per patient. Last night, patient felt nauseous and sick after taking her gabapentin pill for neuropathy. Patient felt lightheaded on her way to the bathroom culminating in a " controlled fall" as per patient. No head trauma, no syncope, no chest pain, no S OB. Subsequent hematemesis. Last EtOH intake as per patient was 2 nights ago. Patient later brought to ER for evaluation. Initial SBP at the ER 90s. IV Protonix and Octreotide given at the ER for GI bleed 1 unit packed RBC administered at the ER. Medical History as above Last confinement [facility] January 21 to January 24, 2021 for critical left lower extremity ischemia status post mechanical thrombectomy and angioplasty with catheter directed TPA. Difficult airway posed by laryngoceles necessitating intubation with 5.5 ET tube and postop mechanical ventilation and Decadron for about 2 days. Patient discharged on aspirin, Plavix and Eliquis. Patient later on stopped Plavix as per her preference. Patient underwent direct microlaryngoscopy with CO2 laser [place] [facility]. Surgical History : Breast/lymph node biopsy, left breast surgery, femoropopliteal artery revascularization with stent and angioplasty,, partial mastectomy left, pilonidal cyst removal, laryngoscopy with biopsy Family History : Breast cancer, colon cancer, dementia, heart disease, stroke Personal/Social history : Reports pack daily, past alcohol abuse as per patient, occasional EtOH consumption currently; [employer] employment Admission Exam Per Admitting Provider GENERAL: Slightly uncomfortable, alcoholic fetor, underweight, no respiratory distress SKIN: Pallor, warm HEENT: Right periorbital ecchymosis, pale palpebral conjunctivae, no ptosis, dry buccal mucosa NECK : Supple, no tenderness CHEST : Decreased breath sounds, no tenderness HEART : RRR, no obvious murmurs ABDOMEN: Minimal distention, epigastric tenderness EXTREMITIES : No LE swelling/tenderness, no other conspicuous deformities noted NEUROLOGIC : Coherent, no facial asymmetry, no other gross focality Principal Diagnosis Upper GI bleed Duodenal ulcer Acute both anemia Occluded arterial bypass graft, left lower extremity Discharge Exam General Appearance: Thin, frail, chronically ill appearing, no apparent distress Head: normocephalic, Atraumatic Eyes: normal inspection, EOMI Neck: supple, Trachea midline Respiratory/Chest: Decreased breath sounds, CTA Cardiovascular: S1, S2, No murmur Abdomen/GI: Soft, Non tender, Bowel sounds present, soft Extremities/Musculoskeletal: normal inspection, Trace edema Neurologic/Psych:AAOX3, speech fluent, moves extremities Skin: normal color, warm Discharge Data Allergies Allergy/AdvReac Type Severity Reaction Status Date / Time minocycline Allergy Intermediate Hives Verified 08/30/21 23:46 Tetracyclines Allergy Intermediate MINOCIN-ROSANNA Verified 08/30/21 23:46 H,HIVES duloxetine AdvReac Intermediate "MADE ME Verified 08/30/21 23:46 LOOPY" Consultations 08/31/21 01:11 ED Decision to Admit Stat 08/31/21 04:47 Consult Gastroenterology Routine Consult Psychiatry Routine 09/04/21 09:37 Consult Vascular Surgery Routine Procedures Performed Operation Date: 08/31/21 09:15 Actual Procedures p Esophagogastroduodenoscopy(Not Applicable) - Luanne Yates MD Operation Date: 09/04/21 13:20 <No data on this case meets the specified criteria> Ordered Studies 08/30/21 22:48 CT abd pelvis IV con only Urgent CT head/brain wo con Urgent 08/30/21 22:50 CT cervical spine wo con Urgent CT facial bones wo con Urgent 09/04/21 07:16 US venous doppler LE LT Urgent 09/04/21 09:24 US arterial duplex LE LT Stat 09/09/21 09:22 CT head/brain wo con Routine Hospital Course (1) UGIB (upper gastrointestinal bleed): Acute upper GI bleed Acute blood loss anemia secondary to above in setting of Aspirin/Eliquis use Presented with intermittent black stools, episode of hematemesis -CT ABD:1.7 cm saccular outpouching involving the distal stomach with moderate adjacent distal stomach and proximal duodenal wall thickening with mild surrounding inflammatory stranding. This finding is suggestive of probable peptic ulcer disease however correlation with endoscopy is recommended to exclude the less likely possibility of an ulcerative mucosal lesion. No evidence of perforation. No bowel obstruction or pneumoperitoneum. Hepatic steatosis. Colonic diverticulosis. . S/P 2 units PRBCs S/P EGD: Small hiatal hernia, gastritis, nonbleeding duodenal ulcer with no stigmata of bleeding Avoid aspirin, NSAIDs, anticoagulation for now IV Protonix ggt transition to PO Protonix BID Appreciate GI input Alcohol cessation counseled Will need repeat endoscopy in in 3 months Monitor H&H and transfuse PRBCs as needed Needs follow-up with GI upon discharge Hemoglobin stable at 8.4 as on 09/06/2021 -switched from IV heparin to Eliquis hemoglobin 7.5 (09/07) - and patient received 1 unit of PRBCs Current Hgb 11 (09/08)- cont. Eliquis and ASA Given arter. bypass occlusion, pt was started on IV heparin, now back on home Eliquis Cont. to monitor H&H, stools PAD Femoral-popliteal bypass graft occlusion, left -Patient with history of PAD andFemoral-popliteal bypass graft occlusion, left -Arterial Doppler ordered, vascular surgery consulted-appreciate vascular surgery input and recommendation -Started IV heparin with bolus -Given recent GI bleed, monitor H&H closely, monitor for any bleed Venous doppler (09/04) FINDINGS: Currently there is normal compressibility of the deep venous system from the common femoral vein through the proximal calf veins. No current evidence of acute thrombosis is identified. There is a the elem superficial femoral artery appears occluded to at least the level of the popliteus. Patency of the superficial femoral artery bypass appears occluded as well. Remaining arteries are not assessed on this venous study. Impression: 1. No evidence of deep venous thrombus. 2. 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 Recurrent syncope Likely due to Orthostasis from GI bleed Positive orthostatics CT head:No acute intracranial abnormality or calvarial fracture. Neck CT:No acute cervical spine fracture or subluxation. EEG:This is a normal awake and drowsy EEG. There is no evidence of epileptiform activity. Fall precautions PT OT eval Patient currently not interested in rehab placement Abnormal UA R/O UTI Continued Rocephin empirically - now stopped Urine Culture growing gram-negative bacilli-Gardnerella like bacilli Alcohol use disorder Monitor for withdrawal On Ativan protocol Continue thiamine, folic acid Counseled to quit Right 9th Rib Fracture Imaging showed Healing subacute nondisplaced fracture of the lateral right ninth rib. Incentive Spirometry Cystic lesions on vallecula and epiglottis Incidental finding on imaging:Hypodensities within the vallecula, left larger than right, are noted. H/O laryngocele S/P surgery Follow-up with ENT as outpatient Left upper lobe pulmonary nodule Imaging showed 9 mm left upper lobe groundglass nodule with possible small solid component is noted Needs follow up with Pulm as outpatient Muffled hearing -Patient concerned about some muffled hearing, given history of fall, CT head repeated, unremarkable -Follow-up with ENT as needed CAD PAD Valvular heart disease (mild MR, mild to moderate TR, trace [place] on TTE 2020) Aspirin on hold Continue metoprolol, statin ESTEFANIA -Likely d/t poor p.o. intake, patient reports inadequate p.o. intake -Creatinine elevated (09/06) at 1.3, patient received IV fluids -Renal function then normalized - again Cr slightly elevated, gentle IVF and encourage p.o. 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 Operator to quit Plan to discharge home with home health nurse Total Time Total Time Spent Total Time Spent (In Minutes): 40 Discharge Plan Discharge Items Patient Disposition: Home - Home Health Services Reason For Visit: ANEMIA; GI BLEED Discharge Diagnosis: Upper GI bleed Duodenal ulcer Acute both anemia Occluded arterial bypass graft, left lower extremity Condition on Discharge: Serious Activity: Per Instructions section Non-emergency contact: Primary Care Provider Call non-emergency contact if: you have any medication questions and your symptoms worsen Follow-up/Referrals: Josie Sommer DO [Primary Care Provider] - ( Date & Time 09/16/2021 10:00 AM Provider Josie Sommer DO [facility] ) Volodymyr Reed MD [Physician] - 10/13/21 2:30 pm Diet: Low Fiber and Low Fat Addtl Attending Provider Instructions: Follow-up with primary care doctor, the appointment was scheduled for you for September 16. You will also need to follow-up with vascular surgeon, Dr. Reed, on October 13. Because of the bleeding, you will need to take pantoprazole twice a day as prescribed, also take sucralfate 4 times a day, preferably before meals. If you are not able to take pantoprazole, continue your home omeprazole. Discuss further with your family physician. Make sure to continue aspirin and Eliquis. Pending Studies at Discharge: No Stand-Alone Forms: My [employer], Smoking Cessation Medications and DC Order Prescriptions: New nicotine 7 mg/24 hr Patch 24 Hour 14 mg transdermal QAM Qty: 7 RF: 0 pantoprazole 40 mg Tablet,Delayed Release (Dr/Ec) 40 mg PO BID Qty: 60 RF: 0 sucralfate 100 mg/mL Suspension 1 g PO QID Qty: 200 RF: 0 Continued rosuvastatin 40 mg tablet 40 mg PO HS Qty: 90 RF: 3 metoprolol succinate 25 mg tablet extended release 24 hr 25 mg PO QAM Qty: 90 RF: 3 aspirin 81 mg tablet,delayed release (DR/EC) 81 mg PO HS RF: 0 doxepin 10 mg capsule 10 mg PO DAILY 30 Days Qty: 30 RF: 1 nitroglycerin 0.4 mg tablet, sublingual 0.4 mg SL .COMPLEX PRN (Reason: chest pain) Qty: 25 RF: 2 Eliquis 2.5 mg tablet 2.5 mg PO BID RF: 0 folic acid 1 mg tablet 1 mg PO DAILY RF: 0 omeprazole 20 mg capsule,delayed release(DR/EC) 20 mg PO BID RF: 0 gabapentin 300 mg capsule 300 mg PO TID RF: 0 hydroxyzine HCl 25 mg tablet 25 mg PO Q6 PRN (Reason: Anxiety) RF: 0 thiamine HCl (vitamin B1) 100 mg tablet 100 mg PO DAILY RF: 0 cyanocobalamin (vitamin B-12) 1,000 mcg Tablet 1,000 mcg PO DAILY RF: 0 alpha lipoic acid 300 mg Capsule 300 mg PO DAILY RF: 0 furosemide 20 mg Tablet 20 mg PO DAILY PRN (Reason: Fluid Retention) RF: 0 ondansetron 4 mg tablet,disintegrating 4 mg PO Q8H PRN (Reason: nausea and vomiting) Qty: 10 RF: 0 Discharge Orders: Discharge Order (Routine); Ordered 09/09/21 Ordered By: Tramaine Feliz Admission Data Admit Date/Time: 08/31/21 02:08 Attending Provider: Tramaine Feliz Admit Provider: Pancho Perdue Primary Care Provider: Josie Sommer Other Providers: Pancho Perdue ; Luanne Yates ; Katie Pat ; Carolyn Chavez ; Dilma Watson ; Mele Silva ; [facility] ; [place] ; Volodymyr Reed ; Tramaine Feliz ; Jessica Martinez Other Interventions: Discharge Summary Assessment (RN) Last Done: 09/09/21 16:18
== END 2021-09-09 19:04 | disposition home health service (06) | DRG 378 ==
LOC: ED 22:27 → SUATTDRO 08-31 02:08 → 2N 08-31 02:08

== ENCOUNTER 2022-01-06 10:54 | Inpatient (IN) ==
--- NOTE | 2021-12-30 11:18 | Anesthesiology Consultation ---
Date of Service December 30, 2021 Assessment & Plan Chart Review Chart Review: Acceptable Risk for Surgery and Patient NOT seen in Pre Admission Testing Consults Requested none ASA ASA4 Proposed Anesthesia Anesthesia Type: General Anesthesia Line Insertion: Arterial line History Surgery Operation Date: 01/06/22 12:10 Proposed Procedures p Left Femoral to Anteiror Insitu Tibial Bypass - Volodymyr Andrea MD Height/Weight Height: 5 ft 6 in Weight: 50.802 kg Allergies Allergy/AdvReac Type Severity Reaction Status Date / Time minocycline Allergy Intermediate Hives Verified 12/30/21 10:43 Tetracyclines Allergy Intermediate MINOCIN-ROSANNA Verified 12/30/21 10:43 H,HIVES duloxetine AdvReac Intermediate "MADE ME Verified 12/30/21 10:43 LOOPY" Medications Home Medications Medication Instructions Recorded Confirmed Last Taken rosuvastatin 40 mg tablet 40 mg PO HS #90 tab 12/31/20 12/30/21 12/28/21 21:00 metoprolol succinate 25 mg 25 mg PO QAM #90 tab 03/06/21 12/30/21 12/29/21 05:00 tablet,extended release 24 hr nitroglycerin 0.4 mg sublingual 0.4 mg SL .COMPLEX PRN #25 tab 04/16/21 12/30/21 11/27/19 tablet alpha lipoic acid 300 mg capsule 300 mg PO QAM 06/23/21 12/30/21 12/16/21 cyanocobalamin (vitamin B-12) 1,000 mcg PO DAILY 06/23/21 12/30/21 12/27/21 08:00 1,000 mcg tablet folic acid 1 mg tablet 1 mg PO QAM 06/23/21 12/30/21 12/27/21 08:00 furosemide 20 mg tablet 20 mg PO DAILY PRN 06/23/21 12/30/21 12/02/20 gabapentin 300 mg capsule 300 mg PO TID 06/23/21 12/30/21 12/28/21 17:00 hydroxyzine HCl 25 mg tablet 25 mg PO Q6 PRN 06/23/21 12/30/21 09/29/21 omeprazole 20 mg capsule,delayed 20 mg PO BID 06/23/21 12/30/21 12/28/21 17:00 release thiamine HCl (vitamin B1) 100 mg 100 mg PO QAM 08/12/30/21 12/26/21 08:00 tablet aspirin 81 mg tablet,delayed 81 mg PO HS 08/07/21 12/30/21 12/28/21 23:00 release apixaban 2.5 mg tablet (Eliquis) 2.5 mg PO BID #180 tab 10/10/21 12/30/21 12/26/21 20:00 hydrocodone 5 mg-acetaminophen 300 1 tab PO Q6H PRN #30 tab 12/12/21 12/30/21 12/28/21 17:00 mg tablet levofloxacin 250 mg tablet 250 mg PO DAILY 12/29/21 12/30/21 12/28/21 14:00 Past Medical History Medical History Alcohol use disorder Anemia pt declined iron supplementation and transfusion per heme/onc note CAD (coronary artery disease) [place] 2007-total distal LAD occlusion with unsuccessful attempt at PCI-mild atherosclerotic disease to remainder of LAD, left Cx and RCA. Negative stress test at 99% MPHR in 2010. Normal systolic function 12/2020 echo. Follows with [facility]. Carotid stenosis 50-69% stenosis left ICA, less than 50% stenosis per 08/2020 carotid ultrasound Chronic kidney disease stage 3b COPD (chronic obstructive pulmonary disease) stable per pt, last rescue inhaler use "never"; last appt with pulm 12/2020 did not return for f/u Depression Difficult intubation "Due to difficult airway (intubated w/ 5.5 ETT), she was kept on ventilator for two days for repeat vascular procedure on 01/22. She received 4 doses of decadron over 36H. After definitive vascular procedure, she was extubated successfully in ICU after cuff leak confirmed in addition to intact respiratory and neurological status. She has since had no stridor and has remained stable on room air with no increased WOB." [facility] discharge summary for 01/21/2021-01/24/2021 hospitalization. Dyslipidemia (high LDL; low HDL) GERD (gastroesophageal reflux disease) upper GI bleed 08/2021 per 09/09/21 d/c summary, CT Abd suggestive of PUD-EGD small hiatal hernia, gastritis, nonbleeding duodenal ulcer with no stigmata of bleeding- 2 units PRBCs and IV Protonix transitioned to oral-f/u EGD scheduled 12/2021 with [facility] per records History of blood transfusion 08/2021 during 9 day [facility] hospitalization-hypotension, anemia, upper GI bleeding d/t PUD, alcohol use disorder, right 9th rib fracture per discharge summary History of breast cancer Lt -1999- s/p lumpectomy, chemo/radiation History of herpes simplex infection positive culture R lateral buttock per [facility] derm 11/12/21, resolved per pt HTN (hypertension) controlled, stable per pt Laryngocele bilat, s/p DML CO2 laser R ventriculectomy 03/2021, pt declined left, follows with [facility] ENT Myocardial Infarction 2007 Neuropathy follows with [facility] On anticoagulant therapy Prediabetes Pulmonary nodule stable per f/u CT scan 04/2021 PVD (peripheral vascular disease) h/o 2 failed bypasses left leg, follows with vascular surgery Rosacea Pt denies S/P angiogram of extremity Left Lower Extremity Angiogram, Smoker Thyroid nodule right, follows with [facility] ENT Valvular heart disease Mild mitral regurgitation. Mild to moderate tricuspid regurgitation. 12/2020 echo. Exercise / Class Metabolic Activity III < 4 Walking/Shop/Light housework Past Family History Family History Mother Breast cancer Grandmother (Maternal) Family hx of colon cancer Past Surgical History Surgical History History of amputation Left Great Toe Transmetatarsal amputation and left Second Toe Amputation History of anesthesia reaction combative History of angioplasty of peripheral vessel X 2 - LLE - FOLLOWS W/ DR. ANDREA - on Eliquis History of breast biopsy History of cardiac cath 2007 - [facility] - "total distal LAD occlusion. Unsuccessful attempt at PCI to this occlusion. Mild atherosclerotic disease of the remainder of the LAD, left circumflex, and right coronary arteries." Follows with Dr. [facility] cardio. History of cataract surgery Rt eye History of colonoscopy w/ polypectomy History of laparoscopy x 3 History of lumpectomy History of lymph node excision History of surgery CO2 laser R ventriculectomy 03/2021, pt declined left due to GI/vascular co- morbidities at time of 06/2021 [facility] ENT note History of surgery on extremity broken RLE d/t compound fracture after mechanical fall 04/2019 per records History of tonsillectomy S/P femoral-popliteal bypass surgery Past Anesthesia History No Hx of Anesthesia Complications and No Family Hx of Anesthesia Complications History of PONV No Hx of PONV and No Hx of Motion Sickness Social History Smoking Status: Current every day smoker tobacco type: cigarettes Smoking cigarettes per day: 15-20 Hx Alcohol Use: Yes Alcohol type: hard liquor alcohol intake frequency: 0-2 drinks per day Hx Substance Use: No substance use type: does not use Testing Electrocardiogram Date: 12/01/21 Findings: + NSR @ (at 74;) and + NSST changes Chest X-Ray Date: 12/01/21 Findings: + NAD Echocardiogram Date: 01/10/21 EF: 55% LV Function: normal RWMA: + hypokinetic (mild inferoapical HK) Valvular Disease: + MR (mild) Moderate TR: increased RV systolic pressure Other Testing 10/11/19-carotid U/S-<50% MARI;50-69% LICA
--- NOTE | 2022-01-06 10:25 | History & Physical Report ---
Date of Service January 06, 2022 History of Present Illness Primary Care Provider: Josie Sommer DO [facility], [id number] History & Physical Report Signed Patient:KACY BONE Admit Date:12/29/21 MR#:[id number] Att Phy:Volodymyr Andrea M.D. Acct ID:[id number] Almaz Phy:Josie Sommer DO Date:1950 Fam Phy: Age:71 Location:[facility] Sex:F Room/Bed: cc: ~ *NOTICE TO RECEIVING REPUBLICAN/AGENCY This information is strictly Confidential and protected under [place] law. [place] law prohibits you from making any further disclosure of this information unless further disclosure is expressly permitted by the written consent of the person to whom it pertains or is authorized by law. A general authorization for the release of medical or other information is not sufficient for this purpose. Hospital accepts no responsibility if the information is made available to any other person, INCLUDING THE PATIENT. Date of Service December 29, 2021 Assessment & Plan (1) Gangrene of left foot: Plan: Patient for arteriography of the left lower extremity. I have discussed the risks options and benefits of the procedure with the patient. The patient understands the risks options and benefits and agrees to the procedure. History of Present Illness Chief Complaint: Gangrenous wound left foot Primary Care Provider: Josie Sommer DO This is a 71yo female who has severe PAD. She underwent great toe amp about 2 weeks ago. The wound is now gangrenous. Patient admitted for arteriography. Allergies Allergy/AdvReac Type Severity Reaction Status Date / Time minocycline Allergy Intermediate Hives Verified 12/29/21 06:55 Tetracyclines Allergy Intermediate MINOCIN-ROSANNA Verified 12/29/21 06:55 H,HIVES duloxetine AdvReac Intermediate "MADE ME Verified 12/29/21 06:55 LOOPY" Home Medications Medication Instructions Recorded Confirmed Type rosuvastatin 40 mg tablet 40 mg PO HS #90 tab 12/31/20 12/29/21 Rx metoprolol succinate 25 mg 25 mg PO QAM #90 tab 03/06/21 12/29/21 Rx tablet,extended release 24 hr nitroglycerin 0.4 mg sublingual 0.4 mg SL .COMPLEX PRN #25 tab 04/16/21 12/29/21 Rx tablet alpha lipoic acid 300 mg capsule 300 mg PO QAM 06/23/21 2 History cyanocobalamin (vitamin B-12) 1,000 mcg PO DAILY 06/23/21 12/29/21 H istory 1,000 mcg tablet folic acid 1 mg tablet 1 mg PO QAM 06/23/21 12/29/21 History furosemide 20 mg tablet 20 mg PO DAILY PRN 06/23/21 12/29/21 History gabapentin 300 mg capsule 300 mg PO TID 06/23/21 12/29/21 Histo ry hydroxyzine HCl 25 mg tablet 25 mg PO Q6 PRN 06/23/21 12/29/21 Hi story omeprazole 20 mg capsule,delayed 20 mg PO BID 06/23/21 2 History release thiamine HCl (vitamin B1) 100 mg 100 mg PO QAM 06/23/21 2 History tablet aspirin 81 mg tablet,delayed 81 mg PO HS 08/07/21 12/29/21 Hi story release apixaban 2.5 mg tablet (Eliquis) 2.5 mg PO BID #180 tab 10/10/2105/15 Rx hydrocodone 5 mg-acetaminophen 300 1 tab PO Q6H PRN #30 tab 12/12/21 12/29/21 Rx mg tablet levofloxacin 250 mg tablet 250 mg PO DAILY 12/29/21 12/29/21 Hist ory Past Med/Surg History Medical History Alcohol use disorder Anemia pt declined iron supplementation and transfusion per heme/onc noteCAD (coronary artery disease) [place] 2007-total distal LAD occlusion with unsuccessful attempt at PCI-mild atherosclerotic disease to remainder of LAD, left Cx and RCA. Negative stress test at 99% MPHR in 2010. Normal systolic function 12/2020 echo. Follows with [place] [facility].Carotid stenosis 50-69% stenosis left ICA, less than 50% stenosis per 08/2020 carotid ultrasoundChronic kidney disease stage 3bCOPD (chronic obstructive pulmonary disease) stable per pt, last rescue inhaler use "never"; last appt with pulm 12/2020 did not return for f/uDepression Difficult intubation "Due to difficult airway (intubated w/ 5.5 ETT), she was kept on ventilator for two days for repeat vascular procedure on 01/22. She received 4 doses of decadron over 36H. After definitive vascular procedure, she was extubated successfully in ICU after cuff leak confirmed in addition to intact respiratory and neurological status. She has since had no stridor and has remained stable on room air with no increased WOB." [facility] discharge summary for 01/21/2021-01/24/2021 hospitalization.Dyslipidemia (high LDL; low HDL) GERD (gastroesophageal reflux disease) upper GI bleed 08/2021 per 09/09/21 d/c summary, CT Abd suggestive of PUD-EGD small hiatal hernia, gastritis, nonbleeding duodenal ulcer with no stigmata of bleeding- 2 units PRBCs and IV Protonix transitioned to oral-f/u EGD scheduled 12/2021 with [facility] per recordsHistory of blood transfusion 08/2021 during 9 day [facility] hospitalization-hypotension, anemia, upper GI bleeding d/t PUD, alcohol use disorder, right 9th rib fracture per discharge summaryHistory of breast cancer Lt -1999- s/p lumpectomy, chemo/radiationHistory of herpes simplex infection positive culture R lateral buttock per [facility] derm 11/12/21, resolved per ptHTN (hypertension) controlled, stable per ptLaryngocele bilat, s/p DML CO2 laser R ventriculectomy 03/2021, pt declined left, follows with [facility] ENTMyocardial Infarction 2008Neuropathy follows with [place] neuroOn anticoagulant therapy Prediabetes Pulmonary nodule stable per f/u CT scan VD (peripheral vascular disease) h/o 2 failed bypasses left leg, follows with vascular surgeryRosacea Pt deniesSmoker Thyroid nodule right, follows with [facility] ENTValvular heart disease Mild mitral regurgitation. Mild to moderate tricuspid regurgitation. 12/2020 echo. Surgical History History of anesthesia reaction combativeHistory of angioplasty of peripheral vessel X 2 - LLE - FOLLOWS W/ DR. ANDREA - on EliquisHistory of breast biopsy History of cardiac cath 2007 [facility] - "total distal LAD occlusion. Unsuccessful attempt at PCI to this occlusion. Mild atherosclerotic disease of the remainder of the LAD, left circumflex, and right coronary arteries." Follows with [facility].History of cataract surgery Rt eyeHistory of colonoscopy w/ polypectomyHistory of laparoscopy x 3History of lumpectomy History of lymph node excision History of surgery CO2 laser R ventriculectomy 03/2021, pt declined left due to GI/vascular co-morbidities at time of 06/2021 [facility] ENT noteHistory of surgery on extremity broken RLE d/t compound fracture after mechanical fall 04/2019 per recordsHistory of tonsillectomy S/P femoral-popliteal bypass surgery Family History Mother Breast cancerGrandmother (Maternal) Family hx of colon cancer Social History Smoking Status: Current every day smoker Tobacco Type: Cigarettes Cigarettes Per Day: 15-20; Second Hand Exposure: No; Hx Alcohol Use: Yes Alcohol type: hard liquor Alcohol type Comment: pt states one drink of lisbet's irishi cream weekly Hx Substance Use: No Preferred Language: Egyptian Communication Ability: Effective Visual Impairment: Limited Hearing Ability: Normal County Manager Required: No Beliefs That Will Affect Care: None marital status: Single Current Living Situation: Alone current occupational status: retired Feels Safe at Home: Yes caffeine: Yes during the past year weight has: decreased > 10 lbs Gender Identity: Female Assistive Devices: Glasses and Walker Review of Systems All systems reviewed & are unremarkable except as noted in HPI & below Physical Exam Physical Exam: Constitutional:L well developed and well nourished; n o acute distress Respiratory: normal respiratory effort, lungs tamanna ar to auscultation Cardiovascular:L Rate/Rhythm: regul ar rate and regula r rhythm Vessels: + posterior tibia l pulses abnormal and + dorsalis ped is pulses abnormal The left great toe is mummified a nd is demarcated n icely. There is a gangrenous eschar along the foot in cision. There is no drainage from e ither toe. Gastrointestinal ( Abdomen): Inspection/Auscult ation: abdomen nor mal to inspection Percussion/Palpat ion: abdomen soft; abdomen nontender Musculoskeletal: Extremities: stren gth 5/5 throughout Neurologic: CN's II-XI intact bilaterally and mo ves all extremitie s Psychiatric: Orientation: alert and oriented x 3 Results & Data ([facility]) Vital Signs (Past 12 Hours) Vital Signs Temp Pulse Resp BP Pulse Ox 12/29/21 07:08 36.8 C 74 18 130/78 98 Signed By: <Electronically signed by Volodymyr Andrea MD> 12/29/21 0745 Created:12/29/21 0741 The status of this report isSigned. Draft = Not yet reviewed or approved by Medical Physician. Signed = Reviewed and approved by Medical Physician. Allergies Allergy/AdvReac Type Severity Reaction Status Date / Time minocycline Allergy Intermediate Hives Verified 12/30/21 10:43 Tetracyclines Allergy Intermediate MINOCIN-ROSANNA Verified 12/30/21 10:43 H,HIVES duloxetine AdvReac Intermediate "MADE ME Verified 12/30/21 10:43 LOOPY" Home Medications Medication Instructions Recorded Confirmed Type rosuvastatin 40 mg tablet 40 mg PO HS #90 tab 12/31/20 12/30/21 Rx metoprolol succinate 25 mg 25 mg PO QAM #90 tab 03/06/21 12/30/21 Rx tablet,extended release 24 hr nitroglycerin 0.4 mg sublingual 0.4 mg SL .COMPLEX PRN #25 tab 04/16/21 12/30/21 Rx tablet alpha lipoic acid 300 mg capsule 300 mg PO QAM 06/23/21 12/30/21 History cyanocobalamin (vitamin B-12) 1,000 mcg PO DAILY 06/23/21 12/30/21 History 1,000 mcg tablet folic acid 1 mg tablet 1 mg PO QAM 06/23/21 12/30/21 History furosemide 20 mg tablet 20 mg PO DAILY PRN 06/23/21 12/30/21 History gabapentin 300 mg capsule 300 mg PO TID 06/23/21 12/30/21 History hydroxyzine HCl 25 mg tablet 25 mg PO Q6 PRN 06/23/21 12/30/21 History omeprazole 20 mg capsule,delayed 20 mg PO BID 06/23/21 12/30/21 History release thiamine HCl (vitamin B1) 100 mg 100 mg PO QAM 06/23/21 12/30/21 History tablet aspirin 81 mg tablet,delayed 81 mg PO HS 08/07/21 12/30/21 History release apixaban 2.5 mg tablet (Eliquis) 2.5 mg PO BID #180 tab 10/10/21 12/30/21 Rx hydrocodone 5 mg-acetaminophen 300 1 tab PO Q6H PRN #30 tab 12/12/21 12/30/21 Rx mg tablet levofloxacin 250 mg tablet 250 mg PO DAILY 12/29/21 12/30/21 History Past Med/Surg History Medical History Alcohol use disorder Anemia pt declined iron supplementation and transfusion per heme/onc note CAD (coronary artery disease) [place] 2007-total distal LAD occlusion with unsuccessful attempt at PCI-mild atherosclerotic disease to remainder of LAD, left Cx and RCA. Negative stress test at 99% MPHR in 2010. Normal systolic function 12/2020 echo. Follows with [facility]. Carotid stenosis 50-69% stenosis left ICA, less than 50% stenosis per 08/2020 carotid ultrasound Chronic kidney disease stage 3b COPD (chronic obstructive pulmonary disease) stable per pt, last rescue inhaler use "never"; last appt with pulm 12/2020 did not return for f/u Depression Difficult intubation "Due to difficult airway (intubated w/ 5.5 ETT), she was kept on ventilator for two days for repeat vascular procedure on 01/22. She received 4 doses of decadron over 36H. After definitive vascular procedure, she was extubated successfully in ICU after cuff leak confirmed in addition to intact respiratory and neurological status. She has since had no stridor and has remained stable on room air with no increased WOB." [facility] for 01/21/2021-01/24/2021 hospitalization. Dyslipidemia (high LDL; low HDL) GERD (gastroesophageal reflux disease) upper GI bleed 08/2021 per 09/09/21 d/c summary, CT Abd suggestive of PUD-EGD small hiatal hernia, gastritis, nonbleeding duodenal ulcer with no stigmata of bleeding- 2 units PRBCs and IV Protonix transitioned to oral-f/u EGD scheduled 12/2021 with [facility] per records History of blood transfusion 08/2021 during 9 day [facility] hospitalization-hypotension, anemia, upper GI bleeding d/t PUD, alcohol use disorder, right 9th rib fracture per discharge summary History of breast cancer Lt -1999- s/p lumpectomy, chemo/radiation History of herpes simplex infection positive culture R lateral buttock per [facility] derm 11/12/21, resolved per pt HTN (hypertension) controlled, stable per pt Laryngocele bilat, s/p DML CO2 laser R ventriculectomy 03/2021, pt declined left, follows with [facility] ENT Myocardial Infarction 2007 Neuropathy follows with [facility] On anticoagulant therapy Prediabetes Pulmonary nodule stable per f/u CT scan 04/2021 PVD (peripheral vascular disease) h/o 2 failed bypasses left leg, follows with vascular surgery Rosacea Pt denies S/P angiogram of extremity Left Lower Extremity Angiogram, Smoker Thyroid nodule right, follows with [facility] ENT Valvular heart disease Mild mitral regurgitation. Mild to moderate tricuspid regurgitation. 12/2020 echo. Surgical History History of amputation Left Great Toe Transmetatarsal amputation and left Second Toe Amputation History of anesthesia reaction combative History of angioplasty of peripheral vessel X 2 - LLE - FOLLOWS W/ DR. ANDREA - on Eliquis History of breast biopsy History of cardiac cath 2007 - [facility] - "total distal LAD occlusion. Unsuccessful attempt at PCI to this occlusion. Mild atherosclerotic disease of the remainder of the LAD, left circumflex, and right coronary arteries." Follows with Dr. [place] [facility]. History of cataract surgery Rt eye History of colonoscopy w/ polypectomy History of laparoscopy x 3 History of lumpectomy History of lymph node excision History of surgery CO2 laser R ventriculectomy 03/2021, pt declined left due to GI/vascular co- morbidities at time of 06/2021 [facility] ENT note History of surgery on extremity broken RLE d/t compound fracture after mechanical fall 04/2019 per records History of tonsillectomy S/P femoral-popliteal bypass surgery Family History Mother Breast cancer Grandmother (Maternal) Family hx of colon cancer Social History Smoking Status: Current every day smoker Tobacco Type: Cigarettes Cigarettes Per Day: 15-20; Second Hand Exposure: No; Hx Alcohol Use: Yes Alcohol type: hard liquor Alcohol type Comment: pt states one drink of lisbet's irishi cream weekly Hx Substance Use: No Preferred Language: Egyptian Communication Ability: Effective Visual Impairment: Limited Hearing Ability: Normal County Manager Required: No Beliefs That Will Affect Care: None marital status: Single Current Living Situation: Alone current occupational status: retired Feels Safe at Home: Yes caffeine: Yes during the past year weight has: decreased > 10 lbs Gender Identity: Female Assistive Devices: Glasses and Walker
[~2022-01-06 10:54] MED LIST changes: -ASPCH81X PO; -BUPR-79 PO; -CLIN1GEL5 TOP; -ELDCR/30 TOP; -FLUO0.0566 TOP; -GABA-113 PO; -LISI-729 PO; -METO200T32 PO; -MONT1TAB3 PO; -NF34; -ROSU40TA PO; +SODIUM CHLORIDE 0.9% 1000ML IV SCH; -TACR0.5C3 PO; +ceFAZolin 1000MG 1,000 MG/7.5 ML SYR IV SCH
[2022-01-06] MEDS ORDERED: LIDOCAINE 4% MPF LOCAL INJ 5 ML AMP ONE (12:53)
[2022-01-06] MEDS ORDERED: LIDOCAINE VISCOUS 2% 15 ML UDC ONE (12:54)
[2022-01-06] MEDS ORDERED: MIDAZOLAM HCL 1 MG/ML 2ML VIAL ONE ×2 (13:51→14:32)
[2022-01-06] MEDS ORDERED: GLYCOPYRROLATE 0.2 MG/ML VIAL ONE (13:51)
[2022-01-06] MEDS ORDERED: fentaNYL citrate 100 MCG/2 ML VIAL ONE ×2 (13:51→18:28)
[2022-01-06] MEDS ORDERED: LIDOCAINE 2% 2 ML VIAL/AMP(20MG/ML) INFIL ONE (13:51)
[2022-01-06] MEDS ORDERED: PROPOFOL IV EMULSION 10 MG/ML 20 ML VIAL IV ONE (13:51)
[2022-01-06] MEDS ORDERED: KETAMINE 50 MG/5 ML SYRINGE ONE (14:06)
--- NOTE | 2022-01-06 14:27 | History & Physical Bridge Note ---
Date of Service January 06, 2022 History & Physical Bridge Note I have examined the patient, reviewed the History & Physical and in the interval since the performance of the History & Physical I have noted the following changes of clinical significance: no changes noted
[2022-01-06] MEDS ORDERED: ONDANSETRON INJ 2 MG/ML 2 ML VIAL IV PRN ×2 (14:42→18:50)
[2022-01-06] MEDS ORDERED: PROMETHAZINE HCL 12.5 MG in SODIUM CHLORIDE 0.9% 50 ML IV PRN (14:42)
[2022-01-06] MEDS ORDERED: ATROPINE SULFATE 0.1 MG/ML 10ML SYR IV PRN (14:42)
[2022-01-06] MEDS ORDERED: ePHEDrine sulfate 50 MG/ML AMP IV PRN (14:42)
[2022-01-06] MEDS ORDERED: HYDROmorphone INJ 2 MG/ML SYR/VIAL IV PRN (14:42)
[2022-01-06] MEDS ORDERED: fentaNYL citrate 100 MCG/2 ML VIAL IV PRN (14:42)
[2022-01-06] MEDS ORDERED: PAPAVERINE HCL INJ 30 MG/ML 2 ML VIAL ONE (14:46)
[2022-01-06] MEDS ORDERED: HEPARIN (PORCINE) 1000 UNIT/ML 10 ML (CATH LAB USE ONLY) ONE (14:46)
[2022-01-06] MEDS ORDERED: ceFAZolin 330 MG/ML 1 GM VIAL ONE (14:46)
[2022-01-06] MEDS ORDERED: GELATIN SPONGE SZ 100 ONE (14:47)
[2022-01-06] MEDS ORDERED: THROMBIN FOR SOLN 20000 UNIT KIT ONE (14:47)
[2022-01-06] MEDS ORDERED: HEPARIN SOD (PORCINE) 1000 UNIT/ML ONE (16:07)
[2022-01-06] MEDS ORDERED: DEXAMETHASONE SOD INJ 4 MG/ML VIAL ONE ×2 (16:08→18:19)
[2022-01-06] MEDS ORDERED: ONDANSETRON INJ 2 MG/ML 2 ML VIAL ONE ×2 (16:08→18:19)
[2022-01-06] MEDS ORDERED: SURGICEL ABSORB HEMOSTAT 2IN X 14IN TOP ONE (16:55)
[2022-01-06] MEDS ORDERED: ePHEDrine sulfate 50 MG/ML SYR ONE (18:19)
[2022-01-06] MEDS ORDERED: PHENYLEPHRINE HCL 10 MG/ML VIAL ONE (18:19)
[2022-01-06] MEDS ORDERED: hydrOXYzine HCl 25 MG TAB PO PRN (18:55)
[2022-01-06] MEDS ORDERED: FUROSEMIDE 20 MG TAB PO PRN (18:55)
[2022-01-06] MEDS ORDERED: HYDROCODONE/ACETAMOPHEN 5/325MG TAB PO PRN (18:55)
[2022-01-06] MEDS ORDERED: NITROGLYCERIN SL 0.4 MG/TAB TAB SL PRN (18:55)
--- NOTE | 2022-01-06 18:57 | Operative Report ---
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 She previously underwent superficial femoral to popliteal artery bypass. This then occluded and had to be thrombectomized. It is occluded again. She underwent diagnostic angiography last week. This again revealed occlusion of her prior bypass and runoff to the foot via anterior tibial artery. She does not have adequate vein for conduit. She presents for femoral to anterior tibial artery bypass. Description of Procedure The patient was taken to the operating suite and placed in the supine position. The patient's identity, procedure, and surgical site were verified. The patients left leg was circumferentially prepped and draped in the usual sterile fashion. A time was performed. A longitudinal incision was made in the lateral mid calf between the tibia and fibula. The anterior tibial artery was dissected out. The anterior tibial vein and its crossing branches were densely adhesed to the artery in areas so we did get into the anterior tibial vein but this was repaired. The anterior tibial artery was of adequate size for bypass (about 2mm diameter) and clamp sites that were relatively free of calcification were identified. We then dissected out the common femoral artery and cleared clamp sites at the common femoral artery, superficial femoral artery, and profunda femoris artery. We then turned our attention to making a tunnel. From the leg incision we identified the interosseous membrane and made an incision in this. We widened this to the point that we were able to fit two digits comfortably through the opening. We then passed the tunneler from the distal incision, through the interosseous membrane, and passed the tunneler anatomically between the two heads of the gastrocnemius, along the sartorius tunnel, and up to our femoral incision. The patient was then heparinized. The proximal anastomosis was completed first. Vascular clamps were applied. An 11 blade was used to make an arteriotomy in the common femoral artery and this was extended down over the very proximal superficial femoral artery using Wong scissors. We had excellent pulsatile inflow and backbleeding from the profunda femoris artery. There was no backbleeding from the superficial femoral artery which was expected given the recent arteriography demonstrating superficial femoral artery occlusion. The proximal anastomosis was completed in an end to side fashion using a running 5-0 prolene suture. After completion of the anastomosis the vascular clamps were removed. Pulsatile flow through the graft was noted. We then turned our attention to the distal anastomosis. Bulldog clamps were applied to the anterior tibial artery proximal and distal to our intended site of anastomosis. An 11 blade was used to create an arteriotomy in the anterior tibial artery and this was extended using wong scissors. The distal end of the graft was cut to length with the patients leg straightened out and it was beveled. An end to side anastomosis was completed using running 7-0 prolene suture. Prior to completion of the anastomosis the graft was flushed. After completion of the anastomosis the vascular clamps were removed. At this time we listened for a doppler signal over the anterior tibial artery at the ankle and insonated an excellent triphasic signal. The pulse was weakly palpable here. Hemostasis was obtained. The groin incision was closed with 2-0 vicryl running for subcutaneous tissues and deep dermis. The dermis was closed with running 3-0 vicryl. The skin was closed with enma. A provena wound vac was placed over the incision. The calf incision was closed with interrupted 2-0 vicryl for the fascia, then running 3-0 vicryl for the dermis. The skin was closed with enma. Dry gauze and tape were placed over this incision for dressing. The patient tolerated the procedure well and without immediate complication. At the conclusion of the case all needle, sponge, and instrument counts were correct. The patient was taken to the recovery room in satisfactory condition. Dr. Reed was present and scrubbed for the entirety of the procedure. I attest to the content of the Intraoperative Record and any orders documented therein. Any exceptions are noted below.
--- NOTE | 2022-01-06 18:58 | Post Operative Brief Note ---
Immediate Post Op Note v1 Date of Surgery January 06, 2022 Pre & Post Diagnosis Operation Date: 01/06/22 12:10 Pre-Op Diagnosis: Occlusion of Left Femoral and Popliteal arteries Left Gangrene Foot Post-Op Diagnosis: Occlusion of Left Femoral and Popliteal arteries Left Gangrene Foot I identified the patient and participated in the time-out.: Yes Procedure Operation Date: 01/06/22 12:10 Actual Procedures p Left Femoral to Anterior Tibial Bypass with Prosthetic Graft(Left) - Volodymyr Reed MD Surgeon Volodymyr Reed MD Front Desk Officer Florencia Arndt MD Estimated Blood Loss 350 Findings Consistent with Post-Op Diagnosis Drains Lopez Catheter (16 Fr lopez catheter inserted by Waleska Santana RN without difficulty, draining clear yellow urine. Anesthesia to monitor urine output. ) Anesthesia Type General Complications none Disposition Accompanied Patient To Recovery: No Disposition: Recovery Room
[2022-01-06] MEDS ORDERED: LACTATED RINGER'S 1,000 ML IV SCH (19:00)
[2022-01-06 20:05] LABS: Basophils # (auto) 0.03 K/uL (0-0.2); Basophils % (auto) 0.2 %; Eosinophils # (auto) 0.02 K/uL (0-0.5); Eosinophils % (auto) 0.1 %; Hematocrit (blood only) 30.6 % (37-47); Hemoglobin 9.7 g/dL (12.0-16.0); Immature Granulocytes # (auto) 0.07 K/uL (0.00-0.02); Immature Granulocytes % (auto) 0.5 %; Lymphocytes # (auto) 0.58 K/uL (1.2-3.4); Lymphocytes % (auto) 3.8 %; Mean Corpuscular Hemoglobin 25.7 pg (25-34); Mean Corpuscular Hgb Conc 31.7 g/dL (32-36); Mean Platelet Volume 8.5 fL (7.4-10.4); Monocytes # (auto) 0.24 K/uL (0.11-0.59); Monocytes % (auto) 1.6 %; Neutrophils # (auto) 14.35 K/uL (1.4-6.5); Neutrophils % (auto) 93.8 %; Platelet Count 317 K/uL (130-400); RDW Coefficient of Variation 15.2 % (11.5-14.5); RDW Standard Deviation 44.9 fL (36.4-46.3); Red Blood Count 3.78 M/uL (4.2-5.4); White Blood Count 15.29 K/uL (4.8-10.8)
--- NOTE | 2022-01-06 20:10 | Anesthesiology Progress Note ---
Date of Service January 06, 2022 Anesthesia Post Procedure Vital Signs Vital Signs: Temp Pulse Pulse Resp BP BP Pulse Ox 01/06/22 19:55 97.9 F 80 24 106/60 99 01/06/22 19:45 77 24 102/60 97 01/06/22 19:35 80 24 115/65 98 01/06/22 19:25 85 20 112/68 100 01/06/22 19:15 86 27 H 114/68 100 01/06/22 19:07 98.2 F 88 16 122/71 100 01/06/22 11:16 98.6 F 81 18 170/75 H 142/95 H 100 Pain Intensity Left Foot: Pain Intensity: 8 Left Leg: Pain Intensity: 4 Transfer of Care Handoff Completed per policy Notes Mental Status: alert / awake / arousable and participated in evaluation Patient Amnestic to Procedure: Yes Nausea / Vomiting: adequately controlled Pain: adequately controlled Airway Patency, RR, SpO2: stable & adequate BP & HR: stable & adequate Hydration State: stable & adequate Anesthetic Complications: no major complications apparent and Pt Satisfied with anesthetic care
[2022-01-06] MEDS: MoRPHine SULFATE 4 MG/ML 1 ML CARP\\VIAL IV PRN (21:06)
--- NOTE | 2022-01-06 21:45 | Critical Care Consultation ---
Date of Consultation January 06, 2022 Assessment & Plan (1) Femoral-popliteal bypass graft occlusion: Impression: 71-year-old female with left femoral arterial occlusion presents to the ICU postop for monitoring following femoropopliteal bypass. Neuro - Depressive disorder?Patient does have hydroxyzine as needed Pain managementIV morphine, Percocet as needed. Continue gabapentin for neuropathy History of alcohol abuseunsure if she is actively drinking. We will continue thiamine and folic acid, implement ABILIO scale. Cardiac - Femoral arterial occlusionstatus post left femoral-popliteal bypass. Now monitoring in the ICU postop. Palpable pulse to dorsalis and pedal arteries. -Continue aspirin Crestor for PAD -A-line for continuous hemodynamic monitoring. Avoid hypertension -Endovascular managing HTNcontinue MTP CADprior history of stent. No issue at this time. Continue ASA Respiratory - History of COPDpatient denies using rescue inhaler and no medications on home med list. Per chart patient failed to follow-up with pulmonology appointment. She does have history of smoking. She is currently maintaining oxygen saturation on room air. Continuous monitoring pulse ox for now. GI - Heart healthy diet PPI RENAL/LYTES - CKD stage IIIcreatinine 1.26 with baseline 1.16. - Strict I's and O's ENDO - No history of diabetes or thyroid disease ICU hyperglycemic protocol HEME - AnemiaH&H currently stable. No signs of bleeding. Hold anticoagulation postop. Continue folic acid ID - Continue empiric postoperative Ancef LINES/IV ACCESS - Peripheral IVs DVT PROPHYLAXIS - SCDs, hold anticoagulation postop Thank you for allowing us to participate in the care of this patient. Please refer to my attending physician's documentation for any further recommendations. (2) Arterial occlusion: (3) PAD (peripheral artery disease): (4) Neuropathy: (5) Alcohol abuse: (6) Chronic kidney disease (CKD), stage III (moderate): (7) Femoral-popliteal bypass graft occlusion, left: (8) Depressive disorder: (9) Gangrene of left foot: (10) CAD (coronary artery disease): (11) Smoker: (12) Dyslipidemia (high LDL; low HDL): History of Present Illness Attending Physician: Volodymyr Andrea MD History of Present Illness 71-year-old female with PMH of PAD, breast cancer, neuropathy, CKD stage III, anemia, depressive disorder, HTN, CAD, and gangrene of the left foot. Patient really recently had arteriogram of the left lower extremity. She now presents with occlusion of left femoral and popliteal arteries and ongoing left gangrenous foot. She presents to the ICU postoperatively for left femoral to anterior tibial bypass with prosthetic graft. Patient admitted to ICU postop for monitoring. Subjective portion of exam was limited due to patient's agitation, frustration, and unwillingness to participate. She does complain of dry mouth and pain to the left lower extremity, and was very irritable and unwilling to answer all of my questions. She has recently received morphine, and is due for gabapentin and Percocet as well, and RN made aware. Hemodynamically she is stable. She is normotensive and maintaining oxygen saturation on room air. Will monitor in ICU overnight and can likely downgrade in the a.m. if remains stable. Allergies Allergy/AdvReac Type Severity Reaction Status Date / Time minocycline Allergy Intermediate Hives Verified 01/06/22 11:12 Tetracyclines Allergy Intermediate MINOCIN-ROSANNA Verified 01/06/22 11:12 H,HIVES duloxetine AdvReac Intermediate "MADE ME Verified 01/06/22 11:12 LOOPY" Home Medications Medication Instructions Recorded Confirmed Type rosuvastatin 40 mg tablet 40 mg PO HS #90 tab 12/31/20 01/06/22 Rx metoprolol succinate 25 mg 25 mg PO QAM #90 tab 03/06/21 01/06/22 Rx tablet,extended release 24 hr nitroglycerin 0.4 mg sublingual 0.4 mg SL .COMPLEX PRN #25 tab 04/16/21 01/06/22 Rx tablet alpha lipoic acid 300 mg capsule 300 mg PO QAM 06/23/21 01/06/22 History cyanocobalamin (vitamin B-12) 1,000 mcg PO DAILY 06/23/21 01/06/22 History 1,000 mcg tablet folic acid 1 mg tablet 1 mg PO QAM 06/23/21 01/06/22 History furosemide 20 mg tablet 20 mg PO DAILY PRN 06/23/21 01/06/22 History gabapentin 300 mg capsule 300 mg PO TID 06/23/21 01/06/22 History hydroxyzine HCl 25 mg tablet 25 mg PO Q6 PRN 06/23/21 01/06/22 History omeprazole 20 mg capsule,delayed 20 mg PO BID 06/23/21 01/06/22 History release thiamine HCl (vitamin B1) 100 mg 100 mg PO QAM 06/23/21 01/06/22 History tablet aspirin 81 mg tablet,delayed 81 mg PO HS 08/07/21 01/06/22 History release apixaban 2.5 mg tablet (Eliquis) 2.5 mg PO BID #180 tab 10/10/21 01/06/22 Rx hydrocodone 5 mg-acetaminophen 300 1 tab PO Q6H PRN #30 tab 12/12/21 01/06/22 Rx mg tablet levofloxacin 250 mg tablet 250 mg PO DAILY 12/29/21 01/06/22 History Patient History Medical History (Updated 01/06/22 @ 23:02 by CARITO Sena) Alcohol use disorder Anemia pt declined iron supplementation and transfusion per heme/onc note CAD (coronary artery disease) [place] 2007-total distal LAD occlusion with unsuccessful attempt at PCI-mild atherosclerotic disease to remainder of LAD, left Cx and RCA. Negative stress test at 99% MPHR in 2010. Normal systolic function 12/2020 echo. Follows with [facility]. Carotid stenosis 50-69% stenosis left ICA, less than 50% stenosis per 08/2020 carotid ultrasound Chronic kidney disease stage 3b COPD (chronic obstructive pulmonary disease) stable per pt, last rescue inhaler use "never"; last appt with pulm 12/2020 did not return for f/u Depression Difficult intubation "Due to difficult airway (intubated w/ 5.5 ETT), she was kept on ventilator for two days for repeat vascular procedure on 01/22. She received 4 doses of decadron over 36H. After definitive vascular procedure, she was extubated successfully in ICU after cuff leak confirmed in addition to intact respiratory and neurological status. She has since had no stridor and has remained stable on room air with no increased WOB." [facility] discharge summary for 01/21/2021-01/24/2021 hospitalization. Dyslipidemia (high LDL; low HDL) GERD (gastroesophageal reflux disease) upper GI bleed 08/2021 per 09/09/21 d/c summary, CT Abd suggestive of PUD-EGD small hiatal hernia, gastritis, nonbleeding duodenal ulcer with no stigmata of bleeding- 2 units PRBCs and IV Protonix transitioned to oral-f/u EGD scheduled 12/2021 with [facility] per records History of blood transfusion 08/2021 during 9 day [facility] hospitalization-hypotension, anemia, upper GI bleeding d/t PUD, alcohol use disorder, right 9th rib fracture per discharge summary History of breast cancer Lt -1999- s/p lumpectomy, chemo/radiation History of herpes simplex infection positive culture R lateral buttock per [facility] derm 11/12/21, resolved per pt HTN (hypertension) controlled, stable per pt Laryngocele bilat, s/p DML CO2 laser R ventriculectomy 03/2021, pt declined left, follows with [facility] ENT Myocardial Infarction 2007 Neuropathy follows with [facility] On anticoagulant therapy Prediabetes Pulmonary nodule stable per f/u CT scan 04/2021 PVD (peripheral vascular disease) h/o 2 failed bypasses left leg, follows with vascular surgery Rosacea Pt denies S/P angiogram of extremity Left Lower Extremity Angiogram, Smoker Thyroid nodule right, follows with [facility] ENT Valvular heart disease Mild mitral regurgitation. Mild to moderate tricuspid regurgitation. 12/2020 echo. Surgical History History of amputation Left Great Toe Transmetatarsal amputation and left Second Toe Amputation History of anesthesia reaction combative History of angioplasty of peripheral vessel X 2 - LLE - FOLLOWS W/ DR. ANDREA - on Eliquis History of breast biopsy History of cardiac cath 2007 - [place] - [facility] - "total distal LAD occlusion. Unsuccessful attempt at PCI to this occlusion. Mild atherosclerotic disease of the remainder of the LAD, left circumflex, and right coronary arteries." Follows with Dr. [place] cardio. History of cataract surgery Rt eye History of colonoscopy w/ polypectomy History of laparoscopy x 3 History of lumpectomy History of lymph node excision History of surgery CO2 laser R ventriculectomy 03/2021, pt declined left due to GI/vascular co- morbidities at time of 06/2021 [facility] ENT note History of surgery on extremity broken RLE d/t compound fracture after mechanical fall 04/2019 per records History of tonsillectomy S/P femoral-popliteal bypass surgery Family History Mother Breast cancer Grandmother (Maternal) Family hx of colon cancer Social History Smoking Status: Current every day smoker Tobacco Type: Cigarettes Cigarettes Per Day: 15-20; Second Hand Exposure: No; Hx Alcohol Use: Yes Alcohol type: hard liquor Alcohol type Comment: pt states one drink of lisbet's irishi cream weekly Hx Substance Use: No Preferred Language: Mongolian Communication Ability: Effective Visual Impairment: Limited Hearing Ability: Normal Planer Operator Required: No Beliefs That Will Affect Care: None marital status: Single Current Living Situation: Alone current occupational status: retired Feels Safe at Home: Yes Safety Concerns: Feels Safe At This Time caffeine: Yes during the past year weight has: decreased > 10 lbs Gender Identity: Female Assistive Devices: Glasses and Walker Review of Systems Review of Systems: All systems reviewed & are unremarkable except as noted in HPI & below and Other (Exam limited due to patient's unwillingness to participate) Physical Exam Constitutional: WD/WN, vitals as above + frail appearing; + uncooperative and + uncomfortable Eyes: PERRL, conjunctivae normal, anicteric sclerae ENMT: external ear and nose normal, oropharynx normal Neck: trachea midline, no thyromegaly Respiratory: normal respiratory effort, lungs clear to auscultation Cardiovascular: RRR, no murmur, no edema Heart Sounds: normal S1 and normal S2 Extremities: no edema Gastrointestinal (Abdomen): normal bowel sounds, soft, nontender, no hepatosplenomegaly Musculoskeletal: Left foot with necrotic/sloughing gangrene. Surgical incisions well approximated, no spotting on dressings. Skin: no rashes, warm and dry Neurologic: PERRL, EOMI, accommodation nl, no face palsy, no dysarthria Psychiatric: Orientation: oriented x 3; + uncooperative Speech: + pressured speech Affect: + irritable affect Mood: + anxious mood and + irritable mood Results & Data Results & Data ([facility]) Vital Signs (Past 12 Hours) Vital Signs Temp Pulse Pulse Resp BP BP Pulse Ox 01/06/22 20:05 79 23 104/59 L 98 01/06/22 19:55 36.6 C 80 24 106/60 99 01/06/22 19:45 77 24 102/60 97 01/06/22 19:35 80 24 115/65 98 01/06/22 19:25 85 20 112/68 100 03/15/22 19:15 86 27 H 114/68 100 01/06/22 19:07 36.8 C 88 16 122/71 100 01/06/22 11:16 37 C 81 18 170/75 H 142/95 H 100 Coding Level of Care Code 03142 Inpt Consult Level 3 Diagnoses Arterial occlusion I70.90 Femoral-popliteal bypass graft occlusion T82.898A Encounter type: initial encounter PAD (peripheral artery disease) I73.9 Neuropathy G62.9 Alcohol abuse F10.10 Chronic kidney disease (CKD), stage III (moderate) N18.3 Femoral-popliteal bypass graft occlusion, left T82.898A Depressive disorder F32.9 Gangrene of left foot I96 CAD (coronary artery disease) I25.10 Smoker F17.200 Dyslipidemia (high LDL; low HDL) E78.5 (1) Femoral-popliteal bypass graft occlusion Encounter type: initial encounter Qualified Code(s): T82.898A - Other specified complication of vascular prosthetic devices, implants and grafts, initial encounter
[2022-01-06] MEDS: GABAPENTIN 300 MG CAP PO SCH (21:55)
[2022-01-06] MEDS: ROSUVASTATIN CALCIUM 20 MG TAB PO SCH (21:56)
[2022-01-06] MEDS: PANTOprazole 40 MG TAB PO SCH (21:56)
[2022-01-06] MEDS: ASPIRIN 81 MG ECTAB PO SCH (22:04)
[2022-01-06] MEDS: ceFAZolin 1000MG 1,000 MG/7.5 ML SYR IV SCH (23:54)
[2022-01-07] MEDS: MoRPHine SULFATE 4 MG/ML 1 ML CARP\\VIAL IV PRN ×2 (00:45→04:36)
[2022-01-07 05:43] LABS: Hematocrit (blood only) 25.1 % (37-47); Hemoglobin 8.1 g/dL (12.0-16.0); Mean Corpuscular Hemoglobin 25.9 pg (25-34); Mean Corpuscular Hgb Conc 32.3 g/dL (32-36); Mean Corpuscular Volume 80.2 fL (80-100); Mean Platelet Volume 8.8 fL (7.4-10.4); Platelet Count 280 K/uL (130-400); RDW Coefficient of Variation 15.3 % (11.5-14.5); RDW Standard Deviation 45.2 fL (36.4-46.3); Red Blood Count 3.13 M/uL (4.2-5.4); White Blood Count 6.62 K/uL (4.8-10.8)
[2022-01-07] MEDS ORDERED: LACTATED RINGER'S 1,000 ML IV ONE (06:05)
[2022-01-07 06:10] LABS: Creatinine Clr Calc Pharmacy 32.2 ml/min; Est GFR (African American) 46.8 ml/min; Est GFR (Non-African American) 40.4 ml/min; Potassium 3.5 mmol/L (3.5-5.1)
[2022-01-07] MEDS: ceFAZolin 1000MG 1,000 MG/7.5 ML SYR IV SCH (06:10)
[2022-01-07 06:30] LABS: Lymphocytes % (auto) 10.1 %; Monocytes % (auto) 11.2 %; Neutrophils % (auto) 78.3 %
[2022-01-07 06:31] LABS: Basophils # (auto) 0.01 K/uL (0-0.2); Basophils % (auto) 0.2 %; Immature Granulocytes # (auto) 0.01 K/uL (0.00-0.02); Immature Granulocytes % (auto) 0.2 %; Lymphocytes # (auto) 0.67 K/uL (1.2-3.4); Monocytes # (auto) 0.74 K/uL (0.11-0.59); Neutrophils # (auto) 5.19 K/uL (1.4-6.5)
[2022-01-07] MEDS ORDERED: POTASSIUM CHLORIDE CRTAB 20 MEQ TABCR PO STA (06:35)
[2022-01-07] MEDS ORDERED: SODIUM CHLORIDE 0.9% 1000ML 1,000 ML IV ONE (08:41)
[2022-01-07] MEDS ORDERED: ALPHA LIPOIC ACID 300 MG PO SCH (09:00)
[2022-01-07] MEDS: GABAPENTIN 300 MG CAP PO SCH ×3 (09:22→21:23)
[2022-01-07] MEDS: THIAMINE HCL 100 MG TAB PO SCH (09:23)
[2022-01-07] MEDS: METOPROLOL SUCC 25MG EXT REL TAB PO SCH (09:23)
[2022-01-07] MEDS: CYANOCOBALAMIN (B-12) 500 MCG TABLET PO SCH (09:24)
[2022-01-07] MEDS: FOLIC ACID 1 MG TAB PO SCH (09:24)
[2022-01-07] MEDS: PANTOprazole 40 MG TAB PO SCH ×2 (09:32→21:24)
[2022-01-07] MEDS ORDERED: Nursing to Pharmacy Communication SCH (09:45)
--- NOTE | 2022-01-07 09:50 | Critical Care Progress Note ---
Date of Service January 07, 2022 Assessment & Plan (1) Femoral-popliteal bypass graft occlusion: Plan: Impression: 71-year-old female with left femoral arterial occlusion presents to the ICU postop for monitoring following femoropopliteal bypass. Neuro - Depressive disorder?Patient does have hydroxyzine as needed Pain managementIV morphine, Percocet as needed. Continue gabapentin for neuropathy History of alcohol abuseunsure if she is actively drinking. We will continue thiamine and folic acid, implement ABILIO scale. Cardiac - Femoral arterial occlusionstatus post left femoral-popliteal bypass. Now monitoring in the ICU postop. Palpable pulse to dorsalis and pedal arteries. -Continue aspirin Crestor for PAD -A-line for continuous hemodynamic monitoring. Avoid hypertension -Endovascular managing Hypotension: resolved after fluid bolus of saline HTNcontinue MTP (hold for relative hypotension this morning) CADprior history of stent. No issue at this time. Continue ASA Respiratory - History of COPDpatient denies using rescue inhaler and no medications on home med list. Per chart patient failed to follow-up with pulmonology appointment. She does have history of smoking. She is currently maintaining oxygen saturation on room air. Continuous monitoring pulse ox for now. GI - Heart healthy diet PPI RENAL/LYTES - CKD stage IIIcreatinine 1.26 with baseline 1.16. - Strict I's and O's ENDO - No history of diabetes or thyroid disease ICU hyperglycemic protocol HEME - AnemiaH&H currently stable. No signs of bleeding. Hold anticoagulation postop. Continue folic acid ID - Continue empiric postoperative Ancef LINES/IV ACCESS - Peripheral IVs DVT PROPHYLAXIS - SCDs, hold anticoagulation postop (2) Arterial occlusion: (3) PAD (peripheral artery disease): (4) Neuropathy: (5) Alcohol abuse: (6) Chronic kidney disease (CKD), stage III (moderate): (7) Femoral-popliteal bypass graft occlusion, left: (8) Depressive disorder: (9) Gangrene of left foot: (10) CAD (coronary artery disease): (11) Smoker: (12) Dyslipidemia (high LDL; low HDL): Admission and Anticipated Discharge Date Admission Date: January 06, 2022 Results & Data Results & Data ([facility]) Vital Signs (Past 12 Hours) Vital Signs Temp Pulse Pulse Resp BP BP Pulse Ox 01/07/22 07:55 36.5 C 01/07/22 05:46 74 01/07/22 05:00 36.6 C 01/07/22 04:00 36.6 C 01/07/22 03:50 68 16 97 01/07/22 03:40 67 18 97 01/07/22 03:30 67 18 97 01/07/22 03:20 69 19 98 01/07/22 03:10 72 15 97 01/07/22 03:00 36.6 C 70 14 89/49 L 97 01/07/22 02:55 70 10 L 98 01/07/22 02:00 36.6 C 01/07/22 01:00 36.7 C 01/07/22 00:00 36.5 C 01/06/22 23:59 01/06/22 23:48 74 01/06/22 23:00 36.5 C 01/06/22 22:49 36.7 C 85 16 119/65 95 01/06/22 22:00 36.6 C Pulse Ox 01/07/22 07:55 01/07/22 05:46 01/07/22 05:00 01/07/22 04:00 01/07/22 03:50 01/07/22 03:40 01/07/22 03:30 01/07/22 03:20 01/07/22 03:10 01/07/22 03:00 01/07/22 02:55 01/07/22 02:00 01/07/22 01:00 01/07/22 00:00 01/06/22 23:59 100 01/06/22 23:48 01/06/22 23:00 01/06/22 22:49 01/06/22 22:00 Coding Diagnoses Femoral-popliteal bypass graft occlusion T82.898A Encounter type: initial encounter Arterial occlusion I70.90 PAD (peripheral artery disease) I73.9 Neuropathy G62.9 Alcohol abuse F10.10 Chronic kidney disease (CKD), stage III (moderate) N18.3 Femoral-popliteal bypass graft occlusion, left T82.898A Depressive disorder F32.9 Gangrene of left foot I96 CAD (coronary artery disease) I25.10 Smoker F17.200 Dyslipidemia (high LDL; low HDL) E78.5 (1) Femoral-popliteal bypass graft occlusion Encounter type: initial encounter Qualified Code(s): T82.898A - Other specified complication of vascular prosthetic devices, implants and grafts, initial encounter
[2022-01-07] MEDS ORDERED: POTASSIUM CHLORIDE 20 MEQ/15 ML UDC PO ONE (10:30)
[2022-01-07] MEDS: oxyCODONE/ACETAMINOPHEN 5mg/325mg TAB PO PRN ×3 (10:49→21:31)
--- NOTE | 2022-01-07 13:39 | Surgery Progress Note ---
Date of Service January 07, 2022 Assessment & Plan (1) S/P femoral-tibial bypass: Plan: Pt overall doing well POD #1. Excellent doppler signals LLE. Prevena vac removed as it was no longer drawing suction, and dry dressing placed. Post op anemia noted 8.1. Discussed with Derek, will transfer to med/surg tele. Planning on debridement of L foot in OR on WEDNESDAY. Admission and Anticipated Discharge Date Admission Date: January 06, 2022 Subjective 71 yo f POD #1 after LLE fem-ant tib prosthetic BPG, seen in f/u today. Pt admits pain in inciscions, but states is controlled with medications. Denies chest pain, dizziiness, abd pain, SOB, N/V, other new complaints. Review of Systems Review of Systems: All systems reviewed & are unremarkable except as noted in HPI & below Physical Exam Constitutional: WD/WN, vitals as above cooperative; not in distress Respiratory: normal respiratory effort, lungs clear to auscultation Auscultation: + diminished lung sounds Cardiovascular: Rate/Rhythm: regular rate and regular rhythm Vessels: posterior tibial pulses present (doppler LLE), dorsalis pedis pulses present (faintly palpable LLE, excellent doppler LLE) and radial pulses present Extremities: normal capillary refill (to R foot only) Gastrointestinal (Abdomen): Inspection/Auscultation: abdomen normal to inspection and normal bowel sounds Percussion/Palpation: abdomen soft; abdomen nontender Skin: no rashes, warm and dry + wound (l foot dressing in place.) and + incision (C/D/I with enma.) Neurologic: moves all extremities, awake and + confused (mildly); no focal motor deficits Psychiatric: A+Ox3, euthymic affect Results & Data ([facility]) Vital Signs (Past 12 Hours) Vital Signs Temp Pulse Resp BP Pulse Ox 01/07/22 12:31 116/51 L 01/07/22 12:20 78 17 99 01/07/22 12:10 79 15 97 01/07/22 12:00 85 18 01/07/22 11:50 81 25 H 97 01/07/22 11:40 82 23 100 01/07/22 11:30 87 13 01/07/22 11:20 84 17 01/07/22 11:10 89 21 01/07/22 10:50 86 22 01/07/22 10:45 87 22 106/65 01/07/22 10:40 81 27 H 01/07/22 10:30 72 17 93/50 L 100 01/07/22 10:20 72 18 01/07/22 10:15 69 14 83/47 L 97 01/07/22 10:10 70 14 98 01/07/22 10:00 72 2 L 79/41 L 99 01/07/22 09:50 73 17 01/07/22 09:45 82 12 98/65 L 01/07/22 09:40 71 14 99 01/07/22 09:30 83 19 104/61 01/07/22 09:20 76 17 94 01/07/22 09:10 67 99 01/07/22 09:00 70 84/47 L 100 01/07/22 08:50 69 14 99 01/07/22 08:40 69 18 100 01/07/22 08:30 77 20 70 L 01/07/22 08:20 75 13 100 01/07/22 08:10 68 12 99 01/07/22 08:00 75 15 98/53 L 89 L 01/07/22 07:55 36.5 C 01/07/22 07:50 78 17 92 01/07/22 07:40 81 14 99 01/07/22 07:30 88 20 01/07/22 07:20 68 21 98 01/07/22 07:10 69 16 97 01/07/22 07:00 72 15 95/51 L 98 01/07/22 06:50 68 16 98 01/07/22 06:40 68 22 100 01/07/22 06:30 66 16 98 01/07/22 06:20 67 14 97 01/07/22 06:10 66 18 100 01/07/22 06:00 74 26 H 89/48 L 99 01/07/22 05:50 66 17 96 01/07/22 05:46 74 01/07/22 05:40 66 16 96 01/07/22 05:30 69 21 98 01/07/22 05:20 67 15 95 01/07/22 05:10 67 16 97 01/07/22 05:00 36.6 C 64 19 87/47 L 98 01/07/22 04:50 71 16 98 01/07/22 04:48 82 19 88/47 L 97 01/07/22 04:00 36.6 C 01/07/22 03:50 68 16 97 01/07/22 03:40 67 18 97 01/07/22 03:30 67 18 97 01/07/22 03:20 69 19 98 01/07/22 03:10 72 15 97 01/07/22 03:00 36.6 C 70 14 89/49 L 97 01/07/22 02:55 70 10 L 98 01/07/22 02:00 36.6 C
[2022-01-07] MEDS ORDERED: SODIUM CHLORIDE 0.9% 1000ML 500 ML IV ONE (13:46)
[2022-01-07] MEDS ORDERED: hydrOXYzine HCl 25 MG TAB PO STA (19:12)
[2022-01-07] MEDS ORDERED: POTASSIUM CHLORIDE CRTAB 20 MEQ TABCR PO ONE (19:12)
[2022-01-07] MEDS ORDERED: SODIUM CHLORIDE 0.9% 250 ML IV PRN (19:20)
[2022-01-07] MEDS ORDERED: POLYETHYLENE (MIRALAX) 17 GM PACK PO PRN (19:20)
--- NOTE | 2022-01-07 19:26 | Consultation ---
Date of Consultation January 07, 2022 Assessment & Plan (1) Chest pain: Patient with reported onset left sided chest discomfort around 430 this afternoon. Patient is very anxious and reports that she is very concerned about being moved out of the ICU that she is not can be getting her medications for pain when she asked for them. EKG reviewed and without acute ST changes R/O ACS. Risk factors: HTN, hyperlipidemia, CAD. Patient without hypoxia or tachycardia. SBPs in the 90s. DDx: Demand ischemia, anxiety, GERD -Monitor Vitals -Obtain troponin and trend troponin -echo -Continue rosuvastatin, aspirin, metoprolol succinate -Repeat EKG in am (2) Abdominal discomfort: Patient with reported diffuse abdominal discomfort this afternoon. Is eating and drinking. No vomiting. Last BM 2 days ago. -Obtain KUB -Dose Pepcid now and then as needed -Continue PPI. Patient had refused dose today as she was not familiar with medicine Protonix. Patient is on omeprazole at home. Patient educated that Protonix is same class of medicine as omeprazole and she is willing to take. -Bowel regimen (3) Anemia: Hgb: 8.1. Was 9.7 yesterday. Patient noted to be hypotensive afternoon, has received IVF, current BP 93/53 Reported EBL #350 mL -Type and cross and transfuse 1 unit PRBC now -CBC in a.m. S/P femoral tibial bypass LLE PAD History left foot gangrene POD #[address] Andrea Plans on possible OR on 01/09/2022 for debridement left foot -pain management per Dr Andrea -DVT prophylaxis per Dr Andrea. Has ordered Eliquis to resume tonight CAD NE in 2018 -Continue aspirin, metoprolol succinate, rosuvastatin -Chest pain plan as above HTN -Continue metoprolol succinate with holding parameters as patient currently hypotensive HLD -Continue rosuvastatin CKD III Cr: 1.3. Baseline around 1-1.1 -Monitor renal functions, avoid nephrotoxic agents when possible History of GI bleed No signs of current bleeding -Continue PPI Depression/anxiety -Hydroxyzine as needed Tobacco use -Smoking cessation recommended -Nicotine patch History of left breast cancer S/p surgery, chemo radiation DVT Prophylaxis Eliquis Disposition per primary team Follows with Dr Josie Sommer for routine care Pt was seen and care coordinated with Dr Bay. See addendum Supervising Physician Co-Signing Physician Notes Patient is a 71-year-old female with history of peripheral artery disease, coronary artery disease, CKD and other medical problems was consulted for management of chest pain. Patient underwent left lower extremity femoral-tibial bypass surgery by Dr. Andrea for left foot gangrene. Patient complained of sudden onset of left-sided chest pain which is sharp to dull, nonradiating, worsens with movement and increased breathing. Patient tearful and anxious during my encounter. States having pain at surgical site. Stomach feels bloated. Please review HPI for complete details. Blood work and EKG reviewed. On exam patient is thin, frail, anxious, normocephalic atraumatic, EOMI, normal breath sounds, clear to auscultation, S1-S2, no murmur, left lower extremity edematous, surgical site in dressing, alert, awake, oriented, grossly no focal deficits. Patient is consulted for postoperative chest pain rule out ACS. Also noted postoperative acute blood loss anemia. Agree with trending cardiac enzymes, checking resting echo. Continue aspirin, statin, metoprolol. Will repeat EKG in the morning. Anxiety likely contributing as well. Hydroxyzine as needed. Given history of coronary artery disease, peripheral artery disease, will give 1 unit of PRBCs to help with anemia. Monitor CBC. Consider cardiology evaluation if needed. I personally reviewed the record. Patient is i nterviewed and examined at bedside. Patient's care is coordinated with Estrellita Menjivar PA-C. Please refer to the documentation above for details of patient's presentation and for discussion of other issues. History of Present Illness Requesting Physician: Dr. Andrea Reason for Consultation: Chest pain Attending Physician: Volodymyr Andrea MD History of Present Illness Patient is 71-year-old female with PMH CAD, NE in 2018, PAD s/p failed bypasses, left toe amputation, CKD III, HTN, HLD, history of GI bleed, anemia, depression, left breast cancer s/p surgery, chemo and radiation, alcohol use, tobacco use seen in medical consultation for chest pain. Outpatient records, labs reviewed. Patient is postop day 1 s/p left lower extremity femoral-tibial bypass for history of left foot gangrene. EBL reported 350 mL. Patient reports today around 4:30 PM started with left chest pain. Patient reports it is difficult for her to describe but says it is not heaviness feeling. She reports it does not feel like her prior NE. She feels it is worsened with movement. Patient is tearful upon interaction reports that she is feeling very anxious. Denies shortness of breath, cough, neck pain, jaw pain, dizziness, palpitations. Reports pain to left lower leg and noted swelling to left leg since surgery. Reports last bowel movement 2 days ago. She reports usually takes omeprazole at home. This afternoon complaining of diffuse abdominal discomfort. Patient reports was able to eat a little today and denies vomiting. Denies fever/chills, diaphoresis, DUNHAM, urinary symptoms. Allergies Allergy/AdvReac Type Severity Reaction Status Date / Time minocycline Allergy Intermediate Hives Verified 01/06/22 11:12 Tetracyclines Allergy Intermediate MINOCIN-ROSANNA Verified 01/06/22 11:12 H,HIVES duloxetine AdvReac Intermediate "MADE ME Verified 01/06/22 11:12 LOOPY" Home Medications Medication Instructions Recorded Confirmed Type rosuvastatin 40 mg tablet 40 mg PO HS #90 tab 12/31/20 01/06/22 Rx metoprolol succinate 25 mg 25 mg PO QAM #90 tab 03/06/21 01/06/22 Rx tablet,extended release 24 hr nitroglycerin 0.4 mg sublingual 0.4 mg SL .COMPLEX PRN #25 tab 04/16/21 01/06/22 Rx tablet alpha lipoic acid 300 mg capsule 300 mg PO QAM 06/23/21 01/06/22 History cyanocobalamin (vitamin B-12) 1,000 mcg PO DAILY 06/23/21 01/06/22 History 1,000 mcg tablet folic acid 1 mg tablet 1 mg PO QAM 06/23/21 01/06/22 History furosemide 20 mg tablet 20 mg PO DAILY PRN 06/23/21 01/06/22 History gabapentin 300 mg capsule 300 mg PO TID 06/23/21 01/06/22 History hydroxyzine HCl 25 mg tablet 25 mg PO Q6 PRN 06/23/21 01/06/22 History omeprazole 20 mg capsule,delayed 20 mg PO BID 06/23/21 01/06/22 History release thiamine HCl (vitamin B1) 100 mg 100 mg PO QAM 06/23/21 01/06/22 History tablet aspirin 81 mg tablet,delayed 81 mg PO HS 08/07/21 01/06/22 History release apixaban 2.5 mg tablet (Eliquis) 2.5 mg PO BID #180 tab 10/10/21 01/06/22 Rx hydrocodone 5 mg-acetaminophen 300 1 tab PO Q6H PRN #30 tab 12/12/21 01/06/22 Rx mg tablet levofloxacin 250 mg tablet 250 mg PO DAILY 12/29/21 01/06/22 History Patient History Medical History Alcohol use disorder Anemia pt declined iron supplementation and transfusion per heme/onc note CAD (coronary artery disease) NE 2007-total distal LAD occlusion with unsuccessful attempt at PCI-mild atherosclerotic disease to remainder of LAD, left Cx and RCA. Negative stress test at 99% MPHR in 2010. Normal systolic function 12/2020 echo. [facility] Carotid stenosis 50-69% stenosis left ICA, less than 50% stenosis per 08/2020 carotid ultrasound Chronic kidney disease stage 3b COPD (chronic obstructive pulmonary disease) stable per pt, last rescue inhaler use "never"; last appt with pulm 12/2020 did not return for f/u Depression Difficult intubation "Due to difficult airway (intubated w/ 5.5 ETT), she was kept on ventilator for two days for repeat vascular procedure on 01/22. She received 4 doses of decadron over 36H. After definitive vascular procedure, she was extubated successfully in ICU after cuff leak confirmed in addition to intact respiratory and neurological status. She has since had no stridor and has remained stable on room air with no increased WOB." [facility] discharge summary for 01/21/2021-01/24/2021 hospitalization. Dyslipidemia (high LDL; low HDL) GERD (gastroesophageal reflux disease) upper GI bleed 08/2021 per 09/09/21 d/c summary, CT Abd suggestive of PUD-EGD small hiatal hernia, gastritis, nonbleeding duodenal ulcer with no stigmata of bleeding- 2 units PRBCs and IV Protonix transitioned to oral-f/u EGD scheduled 12/2021 with [facility] per records History of blood transfusion 08/2021 during 9 day [facility] hospitalization-hypotension, anemia, upper GI bleeding d/t PUD, alcohol use disorder, right 9th rib fracture per discharge summary History of breast cancer Lt -1999- s/p lumpectomy, chemo/radiation History of herpes simplex infection positive culture R lateral buttock per [facility] derm 11/12/21, resolved per pt HTN (hypertension) controlled, stable per pt Laryngocele bilat, s/p DML CO2 laser R ventriculectomy 03/2021, pt declined left, follows with [facility] ENT Myocardial Infarction 2007 Neuropathy [facility] On anticoagulant therapy Prediabetes Pulmonary nodule stable per f/u CT scan 04/2021 PVD (peripheral vascular disease) h/o 2 failed bypasses left leg, follows with vascular surgery Rosacea Pt denies S/P angiogram of extremity Left Lower Extremity Angiogram, Smoker Thyroid nodule right, follows with [facility] ENT Valvular heart disease Mild mitral regurgitation. Mild to moderate tricuspid regurgitation. 12/2020 echo. Surgical History History of amputation Left Great Toe Transmetatarsal amputation and left Second Toe Amputation History of anesthesia reaction combative History of angioplasty of peripheral vessel X 2 - LLE - FOLLOWS W/ DR. ANDREA - on Eliquis History of breast biopsy History of cardiac cath 2007 - [facility] - "total distal LAD occlusion. Unsuccessful attempt at PCI to this occlusion. Mild atherosclerotic disease of the remainder of the LAD, left circumflex, and right coronary arteries." Follows with Dr. Prabhakar [facility] cardio. History of cataract surgery Rt eye History of colonoscopy w/ polypectomy History of laparoscopy x 3 History of lumpectomy History of lymph node excision History of surgery CO2 laser R ventriculectomy 03/2021, pt declined left due to GI/vascular co- morbidities at time of 06/2021 [facility] ENT note History of surgery on extremity broken RLE d/t compound fracture after mechanical fall 04/2019 per records History of tonsillectomy S/P femoral-popliteal bypass surgery S/P femoral-tibial bypass Family History Mother Breast cancer Grandmother (Maternal) Family hx of colon cancer Social History Smoking Status: Current every day smoker Tobacco Type: Cigarettes Cigarettes Per Day: 15-20; Second Hand Exposure: No; Hx Alcohol Use: Yes Alcohol type: hard liquor Alcohol type Comment: pt states one drink of lisbet's irishi cream weekly Hx Substance Use: No Preferred Language: Namibian Communication Ability: Effective Visual Impairment: Limited Hearing Ability: Normal Hosiery Bagger Required: No Beliefs That Will Affect Care: None marital status: Single Current Living Situation: Alone current occupational status: retired Feels Safe at Home: Yes Safety Concerns: Feels Safe At This Time caffeine: Yes during the past year weight has: decreased > 10 lbs Gender Identity: Female Assistive Devices: Cane and Walker Assistive Devices Comment: shower chair Review of Systems Review of Systems: All systems reviewed & are unremarkable except as noted in HPI & below Physical Exam Physical Exam: General: no distress, +anxious, WDWN Head: normocephalic, atraumatic Eyes: conjunctiva non-injected, anicteric ENT: normal inspection external ears, nose, mucous membranes moist Neck: supple, trachea midline Lungs: clear, no respiratory distress, no wheezing/rhonchi/rales CV: RRR, no murmur Abd: normal BS, soft, no specific tenderness to palpation Ext: LLE: +surgical dressings in place are dry and intact. +LLE edema. RLE without no cyanosis, no calf tenderness Neuro: A&O x 3, no focal deficits noted, anxious affect Skin: warm, dry Results & Data ([facility]) Vital Signs (Past 12 Hours) Vital Signs Temp Pulse Resp BP Pulse Ox 01/07/22 18:20 70 13 01/07/22 18:12 36.6 C 82 23 93/53 L 01/07/22 18:10 84 17 01/07/22 18:00 83/46 L 01/07/22 17:30 73 15 01/07/22 17:20 81 01/07/22 17:10 86 17 01/07/22 17:00 68 16 104/60 01/07/22 16:50 74 13 01/07/22 16:40 84 12 01/07/22 16:30 67 15 92 01/07/22 16:20 68 17 99 01/07/22 16:10 68 14 96 01/07/22 16:00 77 20 97/53 L 97 01/07/22 15:50 65 14 97 01/07/22 15:40 67 16 95 01/07/22 15:30 67 16 96 01/07/22 15:20 65 16 96 01/07/22 15:10 70 17 96 01/07/22 15:00 71 16 90/47 L 92 01/07/22 14:50 72 21 01/07/22 14:40 65 97 01/07/22 14:30 69 16 90 01/07/22 14:20 65 14 01/07/22 14:10 71 20 01/07/22 14:01 82 19 102/58 L 01/07/22 14:00 69 14 01/07/22 13:50 79 15 96 01/07/22 13:40 66 15 01/07/22 13:30 71 17 98 01/07/22 13:20 70 17 96 01/07/22 13:10 75 20 01/07/22 13:02 75 16 01/07/22 13:00 82 25 H 98 01/07/22 12:50 74 19 96 01/07/22 12:45 80 18 106/53 L 01/07/22 12:40 68 18 01/07/22 12:31 116/51 L 01/07/22 12:20 78 17 99 01/07/22 12:10 79 15 97 01/07/22 12:00 85 18 01/07/22 11:50 81 25 H 97 01/07/22 11:40 82 23 100 01/07/22 11:30 87 13 01/07/22 11:20 84 17 01/07/22 11:10 89 21 01/07/22 10:50 86 22 01/07/22 10:45 87 22 106/65 01/07/22 10:40 81 27 H 01/07/22 10:30 72 17 93/50 L 100 01/07/22 10:20 72 18 01/07/22 10:15 69 14 83/47 L 97 01/07/22 10:10 70 14 98 01/07/22 10:00 72 2 L 79/41 L 99 01/07/22 09:50 73 17 01/07/22 09:45 82 12 98/65 L 01/07/22 09:40 71 14 99 01/07/22 09:30 83 19 104/61 01/07/22 09:20 76 17 94 01/07/22 09:10 67 99 01/07/22 09:00 70 84/47 L 100 01/07/22 08:50 69 14 99 01/07/22 08:40 69 18 100 01/07/22 08:30 77 20 70 L 01/07/22 08:20 75 13 100 01/07/22 08:10 68 12 99 01/07/22 08:00 75 15 98/53 L 89 L 01/07/22 07:55 36.5 C 01/07/22 07:50 78 17 92 01/07/22 07:40 81 14 99 01/07/22 07:30 88 20 01/07/22 07:20 68 21 98 Laboratory Results Short CBC 01/06/22 01/07/22 Range/Units 19:52 04:56 WBC 15.29 H 6.62 (4.8-10.8) K/uL Hgb 9.7 L 8.1 L (12.0-16.0) g/dL Hct 30.6 L 25.1 L (37-47) % Plt Count 317 280 (130-400) K/uL BMP 01/07/22 04:56 Sodium 138 Potassium 3.5 Chloride 109 H Carbon Dioxide 23 BUN 20 Creatinine 1.33 H Glucose 131 H Calcium 8.0 L (1) Anemia Anemia type: unspecified type Qualified Code(s): D64.9 - Anemia, unspecified
[2022-01-07] MEDS ORDERED: FAMOTIDINE 40 MG TABLET PO ONE (20:00)
--- NOTE | 2022-01-07 20:26 | XRay Report ---
KUB HISTORY: Acute generalized abdominal pain abd pain COMPARISON: CT abdomen and pelvis 08/30/2021 FINDINGS: Mild obstructive bowel gas pattern. Gaseous distention of the stomach and colon. Colonic st ool volume is mild and within normal limits. Cardiomegaly. No renal calculi. No ureteral calculi. No pneumoperitoneum or pneumatosis. Degenerative changes of the spine, pelvis and hips. No fracture. IMPRESSION: 1. Nonobstructive bowel gas pattern. 2. Mild gaseous distention of the stomach and colon. ACT 112: Negative or not required by law. The above report was generated using voice recognition software. It may contain grammatical, syntax o r spelling errors. Electronically signed by: García Acevedo M.D. 01/07/2022 8:25 PM
[2022-01-07] MEDS: FAMOTIDINE 20 MG TAB PO PRN (21:16)
[2022-01-07] MEDS: NICOTINE 21 MG/24 HR TDSY TD SCH (21:16)
[2022-01-07] MEDS: APIXABAN 2.5 MG TAB PO SCH (21:17)
[2022-01-07] MEDS: ROSUVASTATIN CALCIUM 20 MG TAB PO SCH ×2 (21:17→21:22)
[2022-01-07] MEDS: ASPIRIN 81 MG ECTAB PO SCH (21:23)
[2022-01-07] MEDS: DOCUSATE SODIUM 100 MG CAP PO SCH (21:23)
[2022-01-08] MEDS: oxyCODONE/ACETAMINOPHEN 5mg/325mg TAB PO PRN ×4 (06:36→23:17)
[2022-01-08 08:41] LABS: Hematocrit (blood only) 27.4 % (37-47); Hemoglobin 8.9 g/dL (12.0-16.0); Mean Corpuscular Hgb Conc 32.5 g/dL (32-36); Mean Platelet Volume 8.7 fL (7.4-10.4); Platelet Count 220 K/uL (130-400); RDW Coefficient of Variation 16.4 % (11.5-14.5); RDW Standard Deviation 49.9 fL (36.4-46.3); White Blood Count 7.78 K/uL (4.8-10.8)
[2022-01-08 09:12] LABS: BUN Creatinine Ratio 14.3 (10-20); Creatinine Clr Calc Pharmacy 34.6 ml/min; Potassium 3.5 mmol/L (3.5-5.1)
[2022-01-08] MEDS: PANTOprazole 40 MG TAB PO SCH ×2 (09:17→20:14)
[2022-01-08] MEDS: THIAMINE HCL 100 MG TAB PO SCH (09:18)
[2022-01-08] MEDS: APIXABAN 2.5 MG TAB PO SCH (09:18)
[2022-01-08] MEDS: GABAPENTIN 300 MG CAP PO SCH ×3 (09:19→20:12)
[2022-01-08] MEDS: FOLIC ACID 1 MG TAB PO SCH (09:19)
[2022-01-08] MEDS: METOPROLOL SUCC 25MG EXT REL TAB PO SCH (09:19)
[2022-01-08] MEDS: CYANOCOBALAMIN (B-12) 500 MCG TABLET PO SCH (09:19)
[2022-01-08] MEDS: NICOTINE 21 MG/24 HR TDSY TD SCH (09:22)
[2022-01-08] MEDS: DOCUSATE SODIUM 100 MG CAP PO SCH ×2 (09:27→20:12)
--- NOTE | 2022-01-08 14:13 | Surgery Progress Note ---
Date of Service January 08, 2022 Assessment & Plan (1) S/P femoral-tibial bypass: Plan: This patient is doing well from her bypass grafting. Its patent with excellent flow to the foot. All incisions are healed nicely. (2) Foot ulcer: Plan: At this point the foot wound is in need of debridement. This will be scheduled for tomorrow. I have discussed the risks options and benefits of the procedure with the patient. The patient understands the risks options and benefits and agrees to the procedure. Admission and Anticipated Discharge Date Admission Date: January 06, 2022 Keo De León is complaining of occasional pain in her amputation site of her left foot. Her groin and lower leg incisions are dry and clean. No erythema seen. Show no signs of dehiscence. She has an excellent Doppler signal in her left foot. Results & Data ([facility]) Vital Signs (Past 12 Hours) Vital Signs Temp Pulse Pulse Pulse Resp BP Pulse Ox 01/08/22 11:36 37.0 C 60 20 98/61 L 94 01/08/22 08:32 36.7 C 79 20 92/58 L 94 01/08/22 08:00 79 01/08/22 03:30 36.5 C 67 18 117/75 97
--- NOTE | 2022-01-08 16:39 | Hospitalist Progress Note ---
Date of Service January 08, 2022 Assessment & Plan (1) Chest pain: (2) Abdominal discomfort: (3) Anemia: Plan: 71 year old female with left foot gangrene and PAD s/p femoropopliteal bypass 01/06. Patient had chest pain 01/07 prompting hospitalist consultation. Left foot gangrene and PAD s/p left femoral to anterior tibial bypass with prosthetic graft (left) 01/06/[address] Reed - OR tomorrow for debridement per primary team - further management including pain medication, diet, DVT prophylaxis per primary team Chest pain- likely anxiety attack. Trop x3 negative, EKG with no acute ischemic change. Continue tele. Echo pending. Post op blood loss anemia- Hb 9.7->8.1 post op and was hypotensive. EBL of 350 cc. S/p 1 U of PRBC 01/07 and Hb up to 8.9 CAD/ H/o [place] in 2018-Continue aspirin, metoprolol succinate, rosuvastatin HTN- Continue metoprolol succinate with holding parameters HLD-Continue rosuvastatin CKD III Cr: 1.4, relatively stable. Monitor renal functions, avoid nephrotoxic agents when possible History of GI bleed- No signs of current bleeding. Continue PPI Depression/anxiety-Hydroxyzine as needed Tobacco use-Smoking cessation recommended; continue Nicotine patch History of left breast cancer S/p surgery, chemo radiation DVT Prophylaxis- Eliquis- management per primary team Disposition per primary team Admission and Anticipated Discharge Date Admission Date: January 06, 2022 Subjective Feeling much better today. No more chest pain today. She believes her symptoms were from anxiety. She says she has anti anxiety pills at home to take at home if needed. Discussed about various ways to deal with anxiety rather than anti anxiety medications. Physical Exam Physical Exam: General: Lying comfortably in bed, not in distress, on room air HEENT: EOMI, ALINA, MMM Chest: Clear breath sounds bilaterally, no wheezes or crackles CVS: Regular rate and rhythm, normal heart sounds, no murmur Abdomen: Soft, non tender, not distended, normal bowel sounds Neuro: Awake, alert, oriented, conversing well, non focal Extremities: No cyanosis, clubbing. Groin and leg incisions dry and clean. Left foot covered with dressing Results & Data Results & Data ([facility]) Vital Signs (Past 12 Hours) Vital Signs Temp Pulse Pulse Resp BP Pulse Ox 01/08/22 15:26 36.8 C 65 20 108/71 99 01/08/22 15:17 80 01/08/22 11:36 37.0 C 60 20 98/61 L 94 01/08/22 08:32 36.7 C 79 20 92/58 L 94 01/08/22 08:00 79 Laboratory Results Short CBC 01/08/22 Range/Units 08:24 WBC 7.78 (4.8-10.8) K/uL Hgb 8.9 L (12.0-16.0) g/dL Hct 27.4 L (37-47) % Plt Count 220 (130-400) K/uL BMP 01/08/22 08:24 Sodium 137 Potassium 3.5 Chloride 111 H Carbon Dioxide 24 BUN 20 Creatinine 1.40 H Glucose 89 Calcium 8.0 L Cardiac Enzymes 01/07/22 01/08/22 01/08/22 Range/Units 20:03 00:57 08:24 Troponin I 0.04 0.04 0.04 (0-0.04) ng/ml Medications Administered Current Inpatient Medications Hydrocodone Bitart/Acetaminophen (Hydrocodone/Acetamophen 5/325mg Tab) 1 tab PO Q6H PRN PRN Reason: mild pain Stop: 01/20/22 21:14 Apixaban (Apixaban 2.5 Mg Tab) 2.5 mg PO BID ELY Stop: 02/06/22 20:59 Last Admin: 01/08/22 09:18 Dose: 2.5 mg Documented by: Aspirin (Aspirin 81 Mg Ectab) 81 mg PO HS ELY Stop: 02/05/22 20:59 Last Admin: 01/07/22 21:23 Dose: 81 mg Documented by: Cyanocobalamin (Cyanocobalamin (B-12) 500 Mcg Tablet) 1,000 mcg PO DAILY ELY Stop: 02/06/22 08:59 Last Admin: 01/08/22 09:19 Dose: 1,000 mcg Documented by: Docusate Sodium (Docusate Sodium 100 Mg Cap) 100 mg PO BID ELY Stop: 02/06/22 20:59 Last Admin: 01/08/22 09:27 Dose: Not Given Documented by: Famotidine (Famotidine 20 Mg Tab) 20 mg PO BID PRN PRN Reason: Dyspepsia Stop: 02/06/22 19:19 Last Admin: 01/07/22 21:16 Dose: 20 mg Documented by: Folic Acid (Folic Acid 1 Mg Tab) 1 mg PO QAM [facility] Stop: 02/06/22 08:59 Last Admin: 01/08/22 09:19 Dose: 1 mg Documented by: Gabapentin (Gabapentin 300 Mg Cap) 300 mg PO TID [facility] Stop: 02/05/22 20:59 Last Admin: 01/08/22 14:52 Dose: 300 mg Documented by: Hydroxyzine HCl (Hydroxyzine Hcl 25 Mg Tab) 25 mg PO Q6 PRN PRN Reason: Anxiety Stop: 02/05/22 18:54 Sodium Chloride (Nss) 250 mls @ 15 mls/hr IV .[id number] PRN PRN Reason: For Transfusion Stop: 02/06/22 19:19 Sodium Chloride (Nss 1000ml) 1,000 mls @ 15 mls/hr IV .Q24H [facility] Stop: 01/10/22 05:59 Cefazolin Sodium (Ancef 1000mg) 1,000 mg in 7.5 mls @ 2.5 mls/min IV PREOP ELY; Protocol Stop: 01/09/22 18:00 Sodium Chloride (Nss 1000ml) 1,000 mls @ 50 mls/hr IV .Q20H [facility] Stop: 01/10/22 01:59 Clindamycin Phosphate (Cleocin) 600 mg in 54 mls @ 100 mls/hr IV PREOP ELY Stop: 01/10/22 05:59 Metoprolol Succinate (Metoprolol Succ 25mg Ext Rel Tab) [facility] Stop: 02/06/22 08:59 Last Admin: 01/08/22 09:19 Dose: Not Given Documented by: Miscellaneous (Remove Nicoderm Patch) 1 ea N/A DAILY@0859 [facility] Stop: 02/07/22 08:58 Last Admin: 01/08/22 09:23 Dose: 1 ea Documented by: Morphine Sulfate (Morphine Sulfate 4 Mg/Ml 1 Ml Carp\Vial) 1 - 4 mg IV Q2H PRN PRN Reason: Severe Pain Stop: 01/20/22 18:49 Last Admin: 01/07/22 04:36 Dose: 4 mg Documented by: Nicotine (Nicotine 21 Mg/24 Hr Tdsy) 21 mg TD QAM [facility] Stop: 02/06/22 19:59 Last Admin: 01/08/22 09:22 Dose: 21 mg Documented by: Nitroglycerin (Nitroglycerin Sl 0.4 Mg/Tab Tab) 0.4 mg SL UD PRN PRN Reason: chest pain Stop: 02/05/22 18:54 Ondansetron HCl (Ondansetron Inj 2 Mg/Ml 2 Ml Vial) 4 mg IV Q6H PRN PRN Reason: Nausea And Vomiting Stop: 02/05/22 18:49 Oxycodone/Acetaminophen (Oxycodone/Acetaminophen 5mg/325mg Tab) 1 - 2 tab PO Q4H PRN PRN Reason: Moderate Pain Stop: 01/20/22 18:49 Last Admin: 01/08/22 11:58 Dose: 2 tab Documented by: Pantoprazole Sodium (Pantoprazole 40 Mg Tab) 40 mg PO BID [facility] Stop: 02/05/22 20:59 Last Admin: 01/08/22 09:17 Dose: 40 mg Documented by: Polyethylene Glycol (Polyethylene (Miralax) 17 Gm Pack) 17 gm PO DAILY PRN PRN Reason: Constipation Stop: 02/06/22 19:19 Rosuvastatin Calcium (Rosuvastatin Calcium 20 Mg Tab) 40 mg PO HS [facility] Stop: 02/05/22 20:59 Last Admin: 01/07/22 21:22 Dose: 40 mg Documented by: Thiamine HCl (Thiamine Hcl 100 Mg Tab) 100 mg PO QAM [facility] Stop: 02/06/22 08:59 Last Admin: 01/08/22 09:18 Dose: 100 mg Documented by: (1) Anemia Anemia type: unspecified type Qualified Code(s): D64.9 - Anemia, unspecified
--- NOTE | 2022-01-08 18:40 | XCELERA ---
[id number]
[2022-01-08] MEDS: ASPIRIN 81 MG ECTAB PO SCH (20:13)
[2022-01-09] MEDS ORDERED: ceFAZolin 1000MG 1,000 MG/7.5 ML SYR IV SCH (06:00)
[2022-01-09] MEDS ORDERED: CLINDAMYCIN 600 MG/54 ML BAG IV SCH (06:00)
[2022-01-09] MEDS ORDERED: SODIUM CHLORIDE 0.9% 1000ML IV SCH ×2 (06:00)
[2022-01-09] MEDS ORDERED: ROPIVACAINE 0.5% 5 MG/ML 30 ML VIAL ONE (08:01)
[2022-01-09] MEDS ORDERED: MIDAZOLAM HCL 1 MG/ML 2ML VIAL ONE (08:17)
[2022-01-09] MEDS ORDERED: ONDANSETRON INJ 2 MG/ML 2 ML VIAL ONE (08:17)
[2022-01-09] MEDS ORDERED: fentaNYL citrate 100 MCG/2 ML VIAL ONE (08:17)
[2022-01-09] MEDS ORDERED: LIDOCAINE 2% 2 ML VIAL/AMP(20MG/ML) INFIL ONE (08:17)
[2022-01-09] MEDS ORDERED: PROPOFOL IV EMULSION 10 MG/ML 20 ML VIAL IV ONE (08:17)
--- NOTE | 2022-01-09 08:26 | Anesthesiology Consultation ---
Date of Service January 09, 2022 Assessment & Plan (1) Encounter for pre-operative examination: Chart Review Chart Review: corn grinder initiated History Surgery Operation Date: 01/06/22 12:10 Proposed Procedures p Left Femoral to Anteiror Insitu Tibial Bypass - Volodymyr Andrea MD Operation Date: 01/09/22 10:20 Proposed Procedures p Debridement Left Foot - Volodymyr Andrea MD Height/Weight Height: 5 ft 6 in Weight: 59.4 kg Allergies Allergy/AdvReac Type Severity Reaction Status Date / Time minocycline Allergy Intermediate Hives Verified 01/06/22 11:12 Tetracyclines Allergy Intermediate MINOCIN-ROSANNA Verified 01/06/22 11:12 H,HIVES duloxetine AdvReac Intermediate "MADE ME Verified 01/06/22 11:12 LOOPY" Medications Home Medications Medication Instructions Recorded Confirmed Last Taken rosuvastatin 40 mg tablet 40 mg PO HS #90 tab 12/31/20 01/06/22 01/05/22 20:00 metoprolol succinate 25 mg 25 mg PO QAM #90 tab 03/06/21 01/06/22 01/06/22 08:00 tablet,extended release 24 hr nitroglycerin 0.4 mg sublingual 0.4 mg SL .COMPLEX PRN #25 tab 04/16/21 01/06/22 11/27/19 tablet alpha lipoic acid 300 mg capsule 300 mg PO QAM 06/23/21 01/06/22 12/16/21 cyanocobalamin (vitamin B-12) 1,000 mcg PO DAILY 06/23/21 01/06/22 01/04/22 08:00 1,000 mcg tablet folic acid 1 mg tablet 1 mg PO QAM 06/23/21 01/06/22 01/04/22 08:00 furosemide 20 mg tablet 20 mg PO DAILY PRN 06/23/21 01/06/22 12/02/20 gabapentin 300 mg capsule 300 mg PO TID 06/23/21 01/06/22 01/05/22 20:00 hydroxyzine HCl 25 mg tablet 25 mg PO Q6 PRN 06/23/21 01/06/22 11/25/21 omeprazole 20 mg capsule,delayed 20 mg PO BID 06/23/21 01/06/22 01/05/22 20:00 release thiamine HCl (vitamin B1) 100 mg 100 mg PO QAM 06/23/21 01/06/22 01/05/22 20:00 tablet aspirin 81 mg tablet,delayed 81 mg PO HS 08/07/21 01/06/22 01/05/22 20:00 release apixaban 2.5 mg tablet (Eliquis) 2.5 mg PO BID #180 tab 10/10/21 01/06/22 01/03/22 hydrocodone 5 mg-acetaminophen 300 1 tab PO Q6H PRN #30 tab 12/12/21 01/06/22 01/05/22 20:00 mg tablet levofloxacin 250 mg tablet 250 mg PO DAILY 12/29/21 01/06/22 01/05/22 20:00 Active Medications Generic Name Dose Route Start Last Admin Trade Name Freq PRN Reason Stop Dose Admin Apixaban 2.5 mg 01/07/22 21:00 01/08/22 09:18 Apixaban 2.5 Mg Tab PO 02/06/22 20:59 2.5 mg BID ELY Administration Aspirin 81 mg 01/06/22 21:00 01/08/22 20:13 Aspirin 81 Mg Ectab PO 02/05/22 20:59 81 mg HS ELY Administration Cyanocobalamin 1,000 mcg 01/07/22 09:00 01/08/22 09:19 Cyanocobalamin (B-12) 500 Mcg Tablet PO 02/06/22 08:59 1,000 mcg DAILY ELY Administration Docusate Sodium 100 mg 01/07/22 21:00 01/08/22 20:12 Docusate Sodium 100 Mg Cap PO 02/06/22 20:59 100 mg BID ELY Administration Famotidine 20 mg 01/07/22 19:20 01/07/22 21:16 Famotidine 20 Mg Tab PO 02/06/22 19:19 20 mg BID PRN Administration Dyspepsia Folic Acid 1 mg 01/07/22 09:00 01/08/22 09:19 Folic Acid 1 Mg Tab PO 02/06/22 08:59 1 mg QAM ELY Administration Gabapentin 300 mg 01/06/22 21:00 01/08/22 20:12 Gabapentin 300 Mg Cap PO 02/05/22 20:59 300 mg TID ELY Administration Sodium Chloride 1,000 mls @ 15 mls/hr 01/09/22 06:00 01/09/22 05:48 Nss 1000ml IV 01/10/22 05:59 Not Given .Q24H ELY Sodium Chloride 1,000 mls @ 50 mls/hr 01/09/22 06:00 01/09/22 05:47 Nss 1000ml IV 01/10/22 01:59 50 mls/hr .Q20H ELY Administration Metoprolol Succinate 25 mg 01/07/22 09:00 01/08/22 09:19 Metoprolol Succ 25mg Ext Rel Tab PO 02/06/22 08:59 Not Given QAM ELY Miscellaneous 1 ea 01/08/22 08:59 01/08/22 09:23 Remove Nicoderm Patch N/A 02/07/22 08:58 1 ea DAILY@[id number] ELY Administration Morphine Sulfate 1 - 4 mg 01/06/22 18:50 01/07/22 04:36 Morphine Sulfate 4 Mg/Ml 1 Ml Carp\\Vial IV 01/20/22 18:49 4 mg Q2H PRN Administration Severe Pain Nicotine 21 mg 01/07/22 20:00 01/08/22 09:22 Nicotine 21 Mg/24 Hr Tdsy TD 02/06/22 19:59 21 mg QAM ELY Administration Oxycodone/Acetaminophen 1 - 2 tab 01/06/22 18:50 01/08/22 23:17 Oxycodone/Acetaminophen 5mg/325mg Tab PO 01/20/22 18:49 2 tab Q4H PRN Administration Moderate Pain Pantoprazole Sodium 40 mg 01/06/22 21:00 01/08/22 20:14 Pantoprazole 40 Mg Tab PO 02/05/22 20:59 40 mg BID ELY Administration Rosuvastatin Calcium 40 mg 01/06/22 21:00 01/07/22 21:22 Rosuvastatin Calcium 20 Mg Tab PO 02/05/22 20:59 40 mg HS ELY Administration Thiamine HCl 100 mg 01/07/22 09:00 01/08/22 09:18 Thiamine Hcl 100 Mg Tab PO 02/06/22 08:59 100 mg QAM ELY Administration NPO Date Last Intake of Fluids: 01/09/22 Time Last Intake of Fluids: 00:00 Date Last Intake of Solids: 01/08/22 Time Last Intake of Solids: 18:00 Past Medical History Medical History Alcohol use disorder Anemia pt declined iron supplementation and transfusion per heme/onc note CAD (coronary artery disease) [place] 2007-total distal LAD occlusion with unsuccessful attempt at PCI-mild atherosclerotic disease to remainder of LAD, left Cx and RCA. Negative stress test at 99% MPHR in 2010. Normal systolic function 12/2020 echo. Follows with [place] cardio. Carotid stenosis 50-69% stenosis left ICA, less than 50% stenosis per 08/2020 carotid ultrasound Chronic kidney disease stage 3b COPD (chronic obstructive pulmonary disease) stable per pt, last rescue inhaler use "never"; last appt with pulm 12/2020 did not return for f/u Depression Difficult intubation "Due to difficult airway (intubated w/ 5.5 ETT), she was kept on ventilator for two days for repeat vascular procedure on 01/22. She received 4 doses of decadron over 36H. After definitive vascular procedure, she was extubated successfully in ICU after cuff leak confirmed in addition to intact respiratory and neurological status. She has since had no stridor and has remained stable on room air with no increased WOB." [facility] discharge summary for 01/21/2021-01/24/2021 hospitalization. Dyslipidemia (high LDL; low HDL) GERD (gastroesophageal reflux disease) upper GI bleed 08/2021 per 09/09/21 d/c summary, CT Abd suggestive of PUD-EGD small hiatal hernia, gastritis, nonbleeding duodenal ulcer with no stigmata of bleeding- 2 units PRBCs and IV Protonix transitioned to oral-f/u EGD scheduled 12/2021 with [facility] per records History of blood transfusion 08/2021 during 9 day [facility] hospitalization-hypotension, anemia, upper GI bleeding d/t PUD, alcohol use disorder, right 9th rib fracture per discharge summary History of breast cancer Lt -1999- s/p lumpectomy, chemo/radiation History of herpes simplex infection positive culture R lateral buttock per [facility] derm 11/12/21, resolved per pt HTN (hypertension) controlled, stable per pt Laryngocele bilat, s/p DML CO2 laser R ventriculectomy 03/2021, pt declined left, follows with [facility] ENT Myocardial Infarction 2007 Neuropathy follows [place] neuro On anticoagulant therapy Prediabetes Pulmonary nodule stable per f/u CT scan 04/2021 PVD (peripheral vascular disease) h/o 2 failed bypasses left leg, follows with vascular surgery Rosacea Pt denies S/P angiogram of extremity Left Lower Extremity Angiogram, Smoker Thyroid nodule right, follows with [facility] ENT Valvular heart disease Mild mitral regurgitation. Mild to moderate tricuspid regurgitation. 12/2020 echo. Past Family History Family History Mother Breast cancer Grandmother (Maternal) Family hx of colon cancer Past Surgical History Surgical History History of amputation Left Great Toe Transmetatarsal amputation and left Second Toe Amputation History of anesthesia reaction combative History of angioplasty of peripheral vessel X 2 - LLE - FOLLOWS W/ DR. ANDREA - on Eliquis History of breast biopsy History of cardiac cath 2007 - [facility] - "total distal LAD occlusion. Unsuccessful attempt at PCI to this occlusion. Mild atherosclerotic disease of the remainder of the LAD, left circumflex, and right coronary arteries." Follows with Dr. [place] cardio. History of cataract surgery Rt eye History of colonoscopy w/ polypectomy History of laparoscopy x 3 History of lumpectomy History of lymph node excision History of surgery CO2 laser R ventriculectomy 03/2021, pt declined left due to GI/vascular co- morbidities at time of 06/2021 [facility] ENT note History of surgery on extremity broken RLE d/t compound fracture after mechanical fall 04/2019 per records History of tonsillectomy S/P femoral-popliteal bypass surgery S/P femoral-tibial bypass Social History Smoking Status: Current every day smoker tobacco type: cigarettes Smoking cigarettes per day: 15-20 Hx Alcohol Use: Yes Alcohol type: hard liquor alcohol intake frequency: 0-2 drinks per day Hx Substance Use: No substance use type: does not use Physical Exam Vital Signs Last Vital Signs Temp 98.4 F 01/09/22 07:43 Pulse 66 01/09/22 07:43 Resp 18 01/09/22 07:43 BP 116/75 01/09/22 07:43 Pulse Ox 98 01/09/22 07:43 Testing Laboratory Results 01/08/22 08:24 01/08/22 08:24 Blood Type A Positive 01/06/22 11:17 Antibody Screen NEGATIVE 01/06/22 11:17 Electrocardiogram Date: 01/08/22 Sinus bradycardia with sinus arrhythmia, rate 54 bpm Otherwise normal ECG When compared with ECG of 07-JAN-2022 17:17, (unconfirmed) Nonspecific T wave abnormality, improved in Anterior leads Chest X-Ray Date: 12/01/21 Findings: + NAD Echocardiogram Date: 01/10/21 EF: 55% LV Function: normal RWMA: + hypokinetic (mild inferoapical HK) Valvular Disease: + MR (mild) Moderate TR: increased RV systolic pressure Other Testing 10/11/19-carotid U/S-<50% MARI;50-69% LICA
[2022-01-09] MEDS: NICOTINE 21 MG/24 HR TDSY TD SCH (09:12)
[2022-01-09] MEDS: HYDROCODONE/ACETAMOPHEN 5/325MG TAB PO PRN ×2 (09:13→14:49)
[2022-01-09] MEDS: oxyCODONE/ACETAMINOPHEN 5mg/325mg TAB PO PRN ×2 (09:19→21:36)
[2022-01-09] MEDS ORDERED: KETAMINE 50 MG/5 ML SYRINGE ONE (09:28)
--- NOTE | 2022-01-09 09:32 | History & Physical Bridge Note ---
Date of Service January 09, 2022 History & Physical Bridge Note Patient for debridement of left foot amputation site. I have discussed the risks options and benefits of the procedure with the patient. The patient understands the risks options and benefits and agrees to the procedure. I have examined the patient, reviewed the History & Physical and in the interval since the performance of the History & Physical I have noted the following changes of clinical significance: no changes noted
[2022-01-09] MEDS: METOPROLOL SUCC 25MG EXT REL TAB PO SCH (09:35)
[2022-01-09] MEDS: CYANOCOBALAMIN (B-12) 500 MCG TABLET PO SCH (09:35)
[2022-01-09] MEDS: PANTOprazole 40 MG TAB PO SCH ×2 (09:35→21:35)
[2022-01-09] MEDS: GABAPENTIN 300 MG CAP PO SCH ×3 (09:35→21:35)
[2022-01-09] MEDS: FOLIC ACID 1 MG TAB PO SCH (09:35)
[2022-01-09] MEDS: DOCUSATE SODIUM 100 MG CAP PO SCH ×2 (09:35→21:36)
[2022-01-09] MEDS: THIAMINE HCL 100 MG TAB PO SCH (09:36)
[2022-01-09] MEDS ORDERED: ePHEDrine sulfate 50 MG/ML AMP IV PRN (10:02)
[2022-01-09] MEDS ORDERED: fentaNYL citrate 100 MCG/2 ML VIAL IV PRN (10:02)
[2022-01-09] MEDS ORDERED: ONDANSETRON INJ 2 MG/ML 2 ML VIAL IV PRN (10:02)
[2022-01-09] MEDS ORDERED: ATROPINE SULFATE 0.1 MG/ML 10ML SYR IV PRN (10:02)
[2022-01-09] MEDS ORDERED: LIDOCAINE 1% LOCAL 20 ML VIAL ONE (10:11)
[2022-01-09] MEDS ORDERED: ceFAZolin 330 MG/ML 1 GM VIAL ONE (10:11)
[2022-01-09] MEDS ORDERED: BUPIVACAINE 0.5 % 5 MG/1 ML MPF 30ML VIAL ONE (10:11)
[2022-01-09] MEDS ORDERED: THROMBIN FOR SOLN 20000 UNIT KIT ONE (10:45)
[2022-01-09] MEDS ORDERED: GELATIN SPONGE SZ 100 ONE (10:45)
--- NOTE | 2022-01-09 11:07 | Operative Report ---
Post Operative Report Pre & Post Diagnosis Operation Date: 01/06/22 12:10 Pre-Op Diagnosis: Occlusion of Left Femoral and Popliteal arteries Left Gangrene Foot Post-Op Diagnosis: Occlusion of Left Femoral and Popliteal arteries Left Gangrene Foot Operation Date: 01/09/22 10:20 <No data on this case meets the specified criteria> I identified the patient and participated in the time-out.: Yes Procedure Operation Date: 01/06/22 12:10 Actual Procedures p Left Femoral to Anterior Tibial Bypass with Prosthetic Graft(Left) - Volodymyr Reed MD Operation Date: 01/09/22 10:20 <No data on this case meets the specified criteria> Surgeon Volodymyr Reed MD Software Packaging Engineer Florencia Arndt MD Estimated Blood Loss 350 I attest to the content of the Intraoperative Record and any orders documented therein. Any exceptions are noted below.
--- NOTE | 2022-01-09 11:13 | Operative Report ---
Post Operative Report Pre & Post Diagnosis Operation Date: 01/09/22 10:20 Pre-Op Diagnosis: Occlusion of Left Femoral and Popliteal arteries Left Gangrene Foot Post-Op Diagnosis: Occlusion of Left Femoral and Popliteal arteries Left Gangrene Foot I identified the patient and participated in the time-out.: Yes Procedure Operation Date: 01/09/22 10:20 Left first transmetatarsal amputation, irrigation & debridement of left foot wound, wound vac placement Surgeon Volodymyr Reed MD Offset Duplicating Machine Operator Florencia Arndt MD ; Yudelka Herring PA-C Estimated Blood Loss 30 Findings Consistent with Post-Op Diagnosis Specimens None Drains None Anesthesia Type MAC Regional Complications none Disposition Accompanied Patient To Recovery: No Disposition: Recovery Room Indications This is a 71 year old female with chronic limb threatening ischemia with tissue loss of the left foot. She had a previous left femoral to popliteal bypass which was occluded, so she underwent left common femoral artery to anterior tibial artery bypass with PTFE earlier this week. She also had previously undergone left great toe transmetatarsal amputation however the wound has not healed and displays gangrenous tissue. She presents for additional left great toe transmetatarsal amputation and debridement of her left foot wound. Description of Procedure In the pre-operative area anesthesia performed a regional block at the level of the left ankle. The patient was taken to the operating suite and placed in the supine position on the operating room table. The patient's identity, procedure, and surgical site were verified. The patient's left foot was prepped and draped in the usual sterile fashion. A team time-out was performed. Using 10-blade the necrotic area of the wound was excised with sharp dissection. The involved skin was excised. Non-viable tissue at the base of the wound was debrided with sharp dissection. There was good bleeding from the healthy tissue underneath. No purulence was encountered. The remaining great toe metatarsal was visible at the base of the wound, so the periosteum was pushed back from this segment circumferentially and another ~3 cm of metatarsal was amputated using small oscillating saw. Sharp edges of the bone were removed with rongeurs. The bone edges were smooth. The wound was copiously irrigated with antibiotic irrigation. Hemostasis was obtained. Two interrupted 2-0 vicryl sutures were used to close soft tissue over the remaining great toe metatarsal so no exposed bone was in the base of the wound. A silver sponge was used to place a wound vac over the wound. The wound measured 8cm x 4.5cm x 0.7 cm. The patient tolerated the procedure well and without immediate complication. She was taken to the recovery room in satisfactory condition. At the conclusion of the case all instrument, needle, and sponge counts were correct. Dr. Reed remained present and scrubbed for the duration of the procedure. I attest to the content of the Intraoperative Record and any orders documented therein. Any exceptions are noted below.
--- NOTE | 2022-01-09 12:11 | Anesthesiology Progress Note ---
Date of Service January 09, 2022 Anesthesia Post Procedure Vital Signs Vital Signs: Temp Pulse Pulse Pulse Resp BP Pulse Ox 01/09/22 12:00 79 14 93/53 L 94 01/09/22 11:50 80 23 107/56 L 99 01/09/22 11:44 97.7 F 87 17 100/61 100 01/09/22 09:31 98.6 F 76 20 130/71 98 01/09/22 07:43 98.4 F 66 18 116/75 98 01/09/22 07:26 71 01/09/22 03:43 99.1 F 79 18 123/74 95 01/09/22 00:00 76 01/08/22 23:00 99.0 F 72 18 122/76 98 01/08/22 19:08 98.8 F 79 18 124/85 95 01/08/22 15:26 98.2 F 65 20 108/71 99 01/08/22 15:17 80 Pain Intensity Left Foot: Pain Intensity: 8 Left Leg: Pain Intensity: 10 Transfer of Care Handoff Completed per policy Notes Mental Status: alert / awake / arousable and participated in evaluation Patient Amnestic to Procedure: Yes Nausea / Vomiting: adequately controlled Pain: adequately controlled Airway Patency, RR, SpO2: stable & adequate BP & HR: stable & adequate Hydration State: stable & adequate Anesthetic Complications: no major complications apparent and Pt Satisfied with anesthetic care
--- NOTE | 2022-01-09 12:31 | Electrocardiogram Report ---
Test Reason : Blood Pressure : / mmHG Vent. Rate : 063 BPM Atrial Rate : 063 BPM P-R Int : 150 ms QRS Dur : 086 ms QT Int : 424 ms P-R-T Axes : 047 001 038 degrees QTc Int : 433 ms Normal sinus rhythm Low voltage QRS Poor R wave progression, consider anterior VT vs. lead placement vs. LVH Nonspecific T wave abnormality Abnormal ECG When compared with ECG of 01-DEC-2021 10:33, No significant change was found Confirmed by Viktor Rasheed ([id number]) on 01/09/2022 12:30:42 PM Referred By: Volodymyr Reed Confirmed By:Viktor Rasheed
--- NOTE | 2022-01-09 18:02 | Electrocardiogram Report ---
Test Reason : Blood Pressure : / mmHG Vent. Rate : 054 BPM Atrial Rate : 054 BPM P-R Int : 134 ms QRS Dur : 084 ms QT Int : 428 ms P-R-T Axes : 071 006 059 degrees QTc Int : 405 ms Sinus bradycardia with sinus arrhythmia Nonspecific T wave abnormality When compared with ECG of 07-JAN-2022 17:17, No significant change Confirmed by Viktor Rasheed ([id number]) on 01/09/2022 6:02:31 PM Referred By: Volodymyr Reed Confirmed By:Viktor Rasheed
--- NOTE | 2022-01-09 19:08 | Hospitalist Progress Note ---
Date of Service January 09, 2022 Assessment & Plan (1) Chest pain: (2) Abdominal discomfort: (3) Anemia: Plan: 71 year old female with left foot gangrene and PAD s/p femoropopliteal bypass 01/06. Patient had chest pain 01/07 prompting hospitalist consultation. Left foot gangrene and PAD s/p left femoral to anterior tibial bypass with prosthetic graft (left) 01/06/[address] Reed - S/p left first transmetarsal amputation, I&D of left foot wound with wound vac placemenet today 01/09 - further management including pain medication, diet, DVT prophylaxis per primary team Chest pain- likely anxiety attack. Trop x3 negative, EKG with no acute ischemic change. Continue tele. Echo unremarkable, no change from prior. Post op blood loss anemia- Hb 9.7->8.1 post op and was hypotensive. EBL of 350 cc. S/p 1 U of PRBC 01/07 and Hb up to 8.9 CAD/ H/o OR in 2018-Continue aspirin, metoprolol succinate, rosuvastatin HTN- Continue metoprolol succinate with holding parameters HLD-Continue rosuvastatin CKD III Cr: 1.4, relatively stable. Monitor renal functions, avoid nephrotoxic agents when possible History of GI bleed- No signs of current bleeding. Continue PPI Depression/anxiety-Hydroxyzine as needed Tobacco use-Smoking cessation recommended; continue Nicotine patch History of left breast cancer S/p surgery, chemo radiation DVT Prophylaxis- Eliquis- management per primary team Disposition per primary team Admission and Anticipated Discharge Date Admission Date: January 06, 2022 Subjective No new issues. States the nerve block is wearing off and now she is beginning to experience the pain. Overall comfortable, no more of the anxiety attack. no more chest pain. States no bowel movement since Wednesday or Wednesday, but she is feeling it and she is on stool softeners. Physical Exam Physical Exam: General: Lying comfortably in bed, not in distress, on room air HEENT: EOMI, ALINA, MMM Chest: Clear breath sounds bilaterally, no wheezes or crackles CVS: Regular rate and rhythm, normal heart sounds, no murmur Abdomen: Soft, non tender, not distended, normal bowel sounds Neuro: Awake, alert, oriented, conversing well, non focal Extremities: No cyanosis, clubbing. Groin and leg incisions dry and clean. Left foot with wound vac Results & Data Results & Data ([facility]) Vital Signs (Past 12 Hours) Vital Signs Temp Pulse Pulse Resp BP Pulse Ox 01/09/22 15:16 76 01/09/22 14:54 36.2 C L 82 18 94/53 L 95 01/09/22 13:28 90/50 L 01/09/22 13:00 36.4 C L 18 86/41 L 98 01/09/22 12:46 36.3 C L 80 18 93/57 L 98 01/09/22 12:10 36.7 C 78 20 111/57 L 95 01/09/22 12:00 79 14 93/53 L 94 01/09/22 11:50 80 23 107/56 L 99 01/09/22 11:44 36.5 C 87 17 100/61 100 01/09/22 09:31 37.0 C 76 20 130/71 98 01/09/22 07:43 36.9 C 66 18 116/75 98 01/09/22 07:26 71 (1) Anemia Anemia type: unspecified type Qualified Code(s): D64.9 - Anemia, unspecified
[2022-01-09] MEDS: ASPIRIN 81 MG ECTAB PO SCH (21:34)
[2022-01-09] MEDS: APIXABAN 2.5 MG TAB PO SCH (21:34)
[2022-01-09] MEDS: ROSUVASTATIN CALCIUM 20 MG TAB PO SCH (21:35)
[2022-01-09] MEDS: PSYLLIUM 58.6% POWDER PACKET PO SCH (21:36)
[2022-01-10] MEDS: oxyCODONE/ACETAMINOPHEN 5mg/325mg TAB PO PRN ×4 (08:15→23:57)
[2022-01-10] MEDS: DOCUSATE SODIUM 100 MG CAP PO SCH ×2 (08:15→20:41)
[2022-01-10] MEDS: APIXABAN 2.5 MG TAB PO SCH ×2 (08:15→20:41)
[2022-01-10] MEDS: CYANOCOBALAMIN (B-12) 500 MCG TABLET PO SCH (08:16)
[2022-01-10] MEDS: THIAMINE HCL 100 MG TAB PO SCH (08:16)
[2022-01-10] MEDS: GABAPENTIN 300 MG CAP PO SCH ×3 (08:16→20:40)
[2022-01-10] MEDS: FOLIC ACID 1 MG TAB PO SCH (08:16)
[2022-01-10] MEDS: FAMOTIDINE 20 MG TAB PO PRN (08:16)
[2022-01-10] MEDS: PANTOprazole 40 MG TAB PO SCH ×2 (08:17→20:40)
[2022-01-10] MEDS: NICOTINE 21 MG/24 HR TDSY TD SCH (08:17)
[2022-01-10] MEDS: METOPROLOL SUCC 25MG EXT REL TAB PO SCH (08:17)
--- NOTE | 2022-01-10 09:22 | Surgery Progress Note ---
Date of Service January 10, 2022 Assessment & Plan (1) S/P femoral-tibial bypass: Plan: Doing well Will increase activity. Can be d/c this week once home vac arranged. Admission and Anticipated Discharge Date Admission Date: January 06, 2022 Subjective Patient complaining of mostly thigh pain and some discomfort of debridement site. Physical Exam Constitutional: WD/WN, vitals as above Cardiovascular: Vessels: dorsalis pedis pulses present Extremities: normal capillary refill Skin: + incision (incision dry and clean. Wound vac in place and working) Results & Data ([facility]) Vital Signs (Past 12 Hours) Vital Signs Temp Pulse Pulse Resp BP BP Pulse Ox 01/10/22 08:00 75 01/10/22 07:13 36.8 C 60 18 125/80 93 01/10/22 03:05 36.9 C 74 18 110/62 96 01/09/22 23:03 36.9 C 82 18 101/63 93 01/09/22 22:20 80
[2022-01-10] MEDS ORDERED: PSYLLIUM 58.6% POWDER PACKET PO ONE (12:30)
--- NOTE | 2022-01-10 15:07 | Hospitalist Progress Note ---
Date of Service January 10, 2022 Assessment & Plan (1) Chest pain: (2) Abdominal discomfort: (3) Anemia: Plan: 71 year old female with left foot gangrene and PAD s/p femoropopliteal bypass 01/06. Patient had chest pain 01/07 prompting hospitalist consultation. Left foot gangrene and PAD s/p left femoral to anterior tibial bypass with prosthetic graft (left) 01/06/[address] Reed - S/p left first transmetarsal amputation, I&D of left foot wound with wound vac placemenet today 01/09 - further management including pain medication, diet, DVT prophylaxis per primary team Chest pain- likely anxiety attack. Trop x3 negative, EKG with no acute ischemic change. Echo unremarkable, no change from prior. Post op blood loss anemia- Hb 9.7->8.1 post op and was hypotensive. EBL of 350 cc. S/p 1 U of PRBC 01/07 and Hb up to 8.9. Check intermittently CAD/ H/o OR in 2018-Continue aspirin, metoprolol succinate, rosuvastatin HTN- Continue metoprolol succinate with holding parameters HLD-Continue rosuvastatin CKD III Cr: 1.4, relatively stable. Monitor renal functions, avoid nephrotoxic agents when possible History of GI bleed- No signs of current bleeding. Continue PPI Depression/anxiety-Hydroxyzine as needed Tobacco use-Smoking cessation recommended; continue Nicotine patch History of left breast cancer S/p surgery, chemo radiation DVT Prophylaxis- Eliquis- management per primary team Disposition per primary team Patient is stable from hospitalist perspective. Will follow prn. Please call us with any questions or concerns. Admission and Anticipated Discharge Date Admission Date: January 06, 2022 Subjective No new issues. Slept well. No further chest pain. She wanted the telemetry removed. Pain is controlled. Physical Exam Physical Exam: General: Lying comfortably in bed, not in distress, on room air HEENT: EOMI, ALINA, MMM Chest: Clear breath sounds bilaterally, no wheezes or crackles CVS: Regular rate and rhythm, normal heart sounds, no murmur Abdomen: Soft, non tender, not distended, normal bowel sounds Neuro: Awake, alert, oriented, conversing well, non focal Extremities: No cyanosis, clubbing. Groin and leg incisions dry and clean. Left foot with wound vac Results & Data Results & Data ([facility]) Vital Signs (Past 12 Hours) Vital Signs Temp Pulse Pulse Resp BP BP Pulse Ox 01/10/22 14:45 36.9 C 73 16 90/47 L 100 01/10/22 08:00 75 01/10/22 07:13 36.8 C 60 18 125/80 93 01/10/22 03:05 36.9 C 74 18 110/62 96 Medications Administered Current Inpatient Medications Hydrocodone Bitart/Acetaminophen (Hydrocodone/Acetamophen 5/325mg Tab) 1 tab PO Q6H PRN PRN Reason: mild pain Stop: 01/20/22 21:14 Last Admin: 01/09/22 14:49 Dose: 1 tab Documented by: Apixaban (Apixaban 2.5 Mg Tab) 2.5 mg PO BID ELY Stop: 02/06/22 20:59 Last Admin: 01/10/22 08:15 Dose: 2.5 mg Documented by: Aspirin (Aspirin 81 Mg Ectab) 81 mg PO HS ELY Stop: 02/05/22 20:59 Last Admin: 01/09/22 21:34 Dose: 81 mg Documented by: Cyanocobalamin (Cyanocobalamin (B-12) 500 Mcg Tablet) 1,000 mcg PO DAILY ELY Stop: 02/06/22 08:59 Last Admin: 01/10/22 08:16 Dose: 1,000 mcg Documented by: Docusate Sodium (Docusate Sodium 100 Mg Cap) 100 mg PO BID ELY Stop: 02/06/22 20:59 Last Admin: 01/10/22 08:15 Dose: 100 mg Documented by: Famotidine (Famotidine 20 Mg Tab) 20 mg PO BID PRN PRN Reason: Dyspepsia Stop: 02/06/22 19:19 Last Admin: 01/10/22 08:16 Dose: 20 mg Documented by: Folic Acid (Folic Acid 1 Mg Tab) 1 mg PO QAM ELY Stop: 02/06/22 08:59 Last Admin: 01/10/22 08:16 Dose: 1 mg Documented by: Gabapentin (Gabapentin 300 Mg Cap) 300 mg PO TID ELY Stop: 02/05/22 20:59 Last Admin: 01/10/22 12:23 Dose: 300 mg Documented by: Hydroxyzine HCl (Hydroxyzine Hcl 25 Mg Tab) 25 mg PO Q6 PRN PRN Reason: Anxiety Stop: 02/05/22 18:54 Metoprolol Succinate (Metoprolol Succ 25mg Ext Rel Tab) 25 mg PO QAM [facility] Stop: 02/06/22 08:59 Last Admin: 01/10/22 08:17 Dose: 25 mg Documented by: Miscellaneous (Remove Nicoderm Patch) 1 ea N/A DAILY@[id number] [facility] Stop: 02/07/22 08:58 Last Admin: 01/10/22 08:44 Dose: 1 ea Documented by: Morphine Sulfate (Morphine Sulfate 4 Mg/Ml 1 Ml Carp\Vial) 1 - 4 mg IV Q2H PRN PRN Reason: Severe Pain Stop: 01/20/22 18:49 Last Admin: 01/07/22 04:36 Dose: 4 mg Documented by: Nicotine (Nicotine 21 Mg/24 Hr Tdsy) 21 mg TD [facility] Stop: 02/06/22 19:59 Last Admin: 01/10/22 08:17 Dose: 21 mg Documented by: Nitroglycerin (Nitroglycerin Sl 0.4 Mg/Tab Tab) 0.4 mg SL UD PRN PRN Reason: chest pain Stop: 02/05/22 18:54 Ondansetron HCl (Ondansetron Inj 2 Mg/Ml 2 Ml Vial) 4 mg IV Q6H PRN PRN Reason: Nausea And Vomiting Stop: 02/05/22 18:49 Oxycodone/Acetaminophen (Oxycodone/Acetaminophen 5mg/325mg Tab) 1 - 2 tab PO Q4H PRN PRN Reason: Moderate Pain Stop: 01/20/22 18:49 Last Admin: 01/10/22 12:22 Dose: 2 tab Documented by: Pantoprazole Sodium (Pantoprazole 40 Mg Tab) 40 mg PO BID [facility] Stop: 02/05/22 20:59 Last Admin: 01/10/22 08:17 Dose: 40 mg Documented by: Polyethylene Glycol (Polyethylene (Miralax) 17 Gm Pack) 17 gm PO DAILY PRN PRN Reason: Constipation Stop: 02/06/22 19:19 Psyllium Hydrophilic Mucilloid (Psyllium 58.6% Powder Packet) 1 pkt PO QPM [facility] Stop: 02/08/22 20:59 Last Admin: 01/09/22 21:36 Dose: 1 pkt Documented by: Rosuvastatin Calcium (Rosuvastatin Calcium 20 Mg Tab) 40 mg PO [facility] Stop: 02/05/22 20:59 Last Admin: 01/09/22 21:35 Dose: 40 mg Documented by: Thiamine HCl (Thiamine Hcl 100 Mg Tab) 100 mg PO [facility] Stop: 02/06/22 08:59 Last Admin: 01/10/22 08:16 Dose: 100 mg Documented by: (1) Anemia Anemia type: unspecified type Qualified Code(s): D64.9 - Anemia, unspecified
[2022-01-10] MEDS: ROSUVASTATIN CALCIUM 20 MG TAB PO SCH (20:40)
[2022-01-10] MEDS: PSYLLIUM 58.6% POWDER PACKET PO SCH (20:41)
[2022-01-10] MEDS: ASPIRIN 81 MG ECTAB PO SCH (20:41)
[2022-01-11] MEDS: oxyCODONE/ACETAMINOPHEN 5mg/325mg TAB PO PRN ×4 (06:49→23:38)
[2022-01-11] MEDS: NICOTINE 21 MG/24 HR TDSY TD SCH (10:35)
[2022-01-11] MEDS: APIXABAN 2.5 MG TAB PO SCH ×2 (10:36→20:52)
[2022-01-11] MEDS: CYANOCOBALAMIN (B-12) 500 MCG TABLET PO SCH (10:36)
[2022-01-11] MEDS: GABAPENTIN 300 MG CAP PO SCH ×3 (10:37→20:53)
[2022-01-11] MEDS: METOPROLOL SUCC 25MG EXT REL TAB PO SCH (10:37)
[2022-01-11] MEDS: PANTOprazole 40 MG TAB PO SCH ×2 (10:37→20:52)
[2022-01-11] MEDS: FOLIC ACID 1 MG TAB PO SCH (10:37)
[2022-01-11] MEDS: DOCUSATE SODIUM 100 MG CAP PO SCH ×2 (10:37→20:54)
[2022-01-11] MEDS: THIAMINE HCL 100 MG TAB PO SCH (10:37)
[2022-01-11] MEDS: bisacodyL 5 MG TABEC PO ONE ×2 (12:33→14:13)
--- NOTE | 2022-01-11 15:48 | Hospitalist Progress Note ---
Date of Service January 11, 2022 Assessment & Plan (1) Chest pain: (2) Abdominal discomfort: (3) Anemia: Plan: 71 year old female with left foot gangrene and PAD s/p femoropopliteal bypass 01/06. Patient had chest pain 01/07 prompting hospitalist consultation. Left foot gangrene and PAD s/p left femoral to anterior tibial bypass with prosthetic graft (left) 01/06/[address] Reed - S/p left first transmetarsal amputation, I&D of left foot wound with wound vac placement 01/09 - further management including pain medication, diet, DVT prophylaxis per primary team Chest pain- likely anxiety attack. Trop x3 negative, EKG with no acute ischemic change. Echo unremarkable, no change from prior. Post op blood loss anemia- Hb 9.7->8.1 post op and was hypotensive. EBL of 350 cc. S/p 1 U of PRBC 01/07 and Hb up to 8.9. Check intermittently CAD/ H/o [place] in 2018-Continue aspirin, metoprolol succinate, rosuvastatin HTN- Continue metoprolol succinate with holding parameters HLD-Continue rosuvastatin CKD III Cr: 1.4, relatively stable. Monitor renal functions, avoid nephrotoxic agents when possible History of GI bleed- No signs of current bleeding. Continue PPI Depression/anxiety-Hydroxyzine as needed Tobacco use-Smoking cessation recommended; continue Nicotine patch History of left breast cancer S/p surgery, chemo radiation DVT Prophylaxis- Eliquis- management per primary team Disposition per primary team Patient is stable from hospitalist perspective. Will follow prn. Please call us with any questions or concerns. Admission and Anticipated Discharge Date Admission Date: January 06, 2022 Subjective No new issues. She continues to be emotionally labile. She had multiple questions regarding her wound and recovery which were answered to the best of my ability and directed rest to her surgeon. No chest pain. No shortness of breath. Pain was severe last night, better this morning. Asking for colace. Physical Exam Physical Exam: General: Lying comfortably in bed, not in distress, on room air HEENT: EOMI, ALINA, MMM Chest: Clear breath sounds bilaterally, no wheezes or crackles CVS: Regular rate and rhythm, normal heart sounds, no murmur Abdomen: Soft, non tender, not distended, normal bowel sounds Neuro: Awake, alert, oriented, conversing well, non focal Extremities: No cyanosis, clubbing. Groin and leg incisions dry and clean. Left great toe amputated, wound with wound vac Results & Data Results & Data ([facility]) Vital Signs (Past 12 Hours) Vital Signs Temp Pulse Resp BP Pulse Ox 01/11/22 08:21 36.7 C 64 16 107/60 93 (1) Anemia Anemia type: unspecified type Qualified Code(s): D64.9 - Anemia, unspecified
[2022-01-11] MEDS: ROSUVASTATIN CALCIUM 20 MG TAB PO SCH (20:53)
[2022-01-11] MEDS: ASPIRIN 81 MG ECTAB PO SCH (20:53)
[2022-01-11] MEDS: PSYLLIUM 58.6% POWDER PACKET PO SCH (20:54)
[2022-01-11] MEDS ORDERED: POLYETHYLENE (MIRALAX) 17 GM PACK PO STA (21:28)
[2022-01-12] MEDS: oxyCODONE/ACETAMINOPHEN 5mg/325mg TAB PO PRN ×2 (07:34→16:22)
[2022-01-12] MEDS: MoRPHine SULFATE 4 MG/ML 1 ML CARP\\VIAL IV PRN (09:25)
--- NOTE | 2022-01-12 09:26 | Surgery Progress Note ---
Date of Service January 12, 2022 Assessment & Plan (1) S/P femoral-tibial bypass: Plan: Doing well post op. L foot wound vac changed today, good early granulation and healthy tissue in wound. Will increase activity and encourage oral pain control. Can be d/c this week once home vac arranged. Admission and Anticipated Discharge Date Admission Date: January 06, 2022 Subjective 71 yo f with multiple medical problems, POD #6 after LLE fem-ant tib prosthetic BPG, and POD #3 after debridement of L foot, seen in f/u today. Pt admits pain in L thigh, and constipation. Denies other complaints. Review of Systems Review of Systems: All systems reviewed & are unremarkable except as noted in HPI & below Physical Exam Constitutional: WD/WN, vitals as above cooperative; not in distress Respiratory: normal respiratory effort, lungs clear to auscultation Auscultation: + diminished lung sounds Cardiovascular: Rate/Rhythm: regular rate and regular rhythm Vessels: posterior tibial pulses present (doppler LLE), dorsalis pedis pulses present (faintly palpable LLE, excellent doppler LLE) and radial pulses present Extremities: normal capillary refill (to R foot only) Gastrointestinal (Abdomen): Inspection/Auscultation: abdomen normal to inspection and normal bowel sounds Percussion/Palpation: abdomen soft; abdomen nontender Skin: no rashes, warm and dry + wound (l foot dressing in place.) and + incision (C/D/I with enma.) Neurologic: moves all extremities, awake and + confused (mildly); no focal motor deficits Psychiatric: A+Ox3, euthymic affect Results & Data ([facility]) Vital Signs (Past 12 Hours) Vital Signs Temp Pulse Resp BP Pulse Ox 01/12/22 07:46 36.6 C 69 16 152/66 H 94 01/11/22 23:00 36.7 C 65 16 96/57 L 96
[2022-01-12] MEDS: APIXABAN 2.5 MG TAB PO SCH ×2 (09:29→20:38)
[2022-01-12] MEDS: METOPROLOL SUCC 25MG EXT REL TAB PO SCH (09:29)
[2022-01-12] MEDS: NICOTINE 21 MG/24 HR TDSY TD SCH (09:29)
[2022-01-12] MEDS: THIAMINE HCL 100 MG TAB PO SCH (09:29)
[2022-01-12] MEDS: CYANOCOBALAMIN (B-12) 500 MCG TABLET PO SCH (09:30)
[2022-01-12] MEDS: FOLIC ACID 1 MG TAB PO SCH (09:30)
[2022-01-12] MEDS: PANTOprazole 40 MG TAB PO SCH ×2 (09:31→20:38)
[2022-01-12] MEDS: GABAPENTIN 300 MG CAP PO SCH ×3 (09:31→20:38)
[2022-01-12] MEDS: DOCUSATE SODIUM 100 MG CAP PO SCH ×2 (09:33→20:42)
[2022-01-12] MEDS: MAGNESIUM HYDROXIDE SUSP 30 ML UDC PO PRN ×2 (13:21→20:43)
--- NOTE | 2022-01-12 14:47 | Hospitalist Progress Note ---
Date of Service January 12, 2022 Assessment & Plan (1) Chest pain: (2) Abdominal discomfort: (3) Anemia: Plan: 71 year old female with left foot gangrene and PAD s/p femoropopliteal bypass 01/06. Patient had chest pain 01/07 prompting hospitalist consultation. Left foot gangrene and PAD s/p left femoral to anterior tibial bypass with prosthetic graft (left) 01/06/[address] Reed - S/p left first transmetarsal amputation, I&D of left foot wound with wound vac placement 01/09 - further management including pain medication, diet, DVT prophylaxis per primary team Chest pain- likely anxiety attack. Trop x3 negative, EKG with no acute ischemic change. Echo unremarkable, no change from prior. Post op blood loss anemia- Hb 9.7->8.1 post op and was hypotensive. EBL of 350 cc. S/p 1 U of PRBC 01/07 and Hb up to 8.9. Check intermittently CAD/ H/o [place] in 2018-Continue aspirin, metoprolol succinate, rosuvastatin HTN- Continue metoprolol succinate with holding parameters HLD-Continue rosuvastatin CKD III Cr: 1.4, relatively stable. Monitor renal functions, avoid nephrotoxic agents when possible History of GI bleed- No signs of current bleeding. Continue PPI Depression/anxiety-Hydroxyzine as needed Tobacco use-Smoking cessation recommended; continue Nicotine patch History of left breast cancer S/p surgery, chemo radiation DVT Prophylaxis- Eliquis- management per primary team Disposition per primary team Patient is stable from hospitalist perspective. Will follow prn. Please call us with any questions or concerns. Admission and Anticipated Discharge Date Admission Date: January 06, 2022 Subjective she continues to be emotionally labile. she was tearful during my encounter. Wound vac was changed today and she was in pain. she says she does not want to go to rehab and she will work hard with physical therapy to get home. no chest pain. no more anxiety attacks. Physical Exam Physical Exam: General: Lying comfortably in bed, not in distress, on room air HEENT: EOMI, ALINA, MMM Chest: Clear breath sounds bilaterally, no wheezes or crackles CVS: Regular rate and rhythm, normal heart sounds, no murmur Abdomen: Soft, non tender, not distended, normal bowel sounds Neuro: Awake, alert, oriented, conversing well, non focal Extremities: No cyanosis, clubbing. Groin and leg incisions dry and clean. Left great toe amputated, wound with wound vac Results & Data Results & Data ([facility]) Vital Signs (Past 12 Hours) Vital Signs Temp Pulse Resp BP Pulse Ox 01/12/22 14:18 36.6 C 72 16 106/56 L 96 01/12/22 07:46 36.6 C 69 16 152/66 H 94 (1) Anemia Anemia type: unspecified type Qualified Code(s): D64.9 - Anemia, unspecified
[2022-01-12] MEDS: ASPIRIN 81 MG ECTAB PO SCH (20:38)
[2022-01-12] MEDS: ROSUVASTATIN CALCIUM 20 MG TAB PO SCH (20:39)
[2022-01-12] MEDS: PSYLLIUM 58.6% POWDER PACKET PO SCH (20:39)
[2022-01-12] MEDS: HYDROCODONE/ACETAMOPHEN 5/325MG TAB PO PRN (22:41)
[2022-01-13] MEDS: oxyCODONE/ACETAMINOPHEN 5mg/325mg TAB PO PRN ×2 (07:52→11:47)
[2022-01-13] MEDS: PANTOprazole 40 MG TAB PO SCH ×2 (09:06→20:33)
[2022-01-13] MEDS: CYANOCOBALAMIN (B-12) 500 MCG TABLET PO SCH (09:07)
[2022-01-13] MEDS: APIXABAN 2.5 MG TAB PO SCH ×2 (09:07→20:33)
[2022-01-13] MEDS: METOPROLOL SUCC 25MG EXT REL TAB PO SCH (09:07)
[2022-01-13] MEDS: GABAPENTIN 300 MG CAP PO SCH ×3 (09:07→20:33)
[2022-01-13] MEDS: FOLIC ACID 1 MG TAB PO SCH (09:07)
[2022-01-13] MEDS: THIAMINE HCL 100 MG TAB PO SCH (09:08)
[2022-01-13] MEDS: NICOTINE 21 MG/24 HR TDSY TD SCH (09:08)
[2022-01-13] MEDS: DOCUSATE SODIUM 100 MG CAP PO SCH ×2 (09:12→20:31)
--- NOTE | 2022-01-13 15:54 | Hospitalist Progress Note ---
Date of Service January 13, 2022 Assessment & Plan (1) Chest pain: (2) Abdominal discomfort: (3) Anemia: Plan: 71 year old female with left foot gangrene and PAD s/p femoropopliteal bypass 01/06. Patient had chest pain 01/07 prompting hospitalist consultation. Left foot gangrene and PAD s/p left femoral to anterior tibial bypass with prosthetic graft (left) 01/06/[address] Reed - S/p left first transmetarsal amputation, I&D of left foot wound with wound vac placement 01/09. Vac changed yesterday. - further management including pain medication, diet, DVT prophylaxis per primary team Chest pain- likely anxiety attack. Trop x3 negative, EKG with no acute ischemic change. Echo unremarkable, no change from prior. Post op blood loss anemia- Hb 9.7->8.1 post op and was hypotensive. EBL of 350 cc. S/p 1 U of PRBC 01/07 and Hb up to 8.9. Check intermittently CAD/ H/o [place] in 2018-Continue aspirin, metoprolol succinate, rosuvastatin HTN- Continue metoprolol succinate with holding parameters HLD-Continue rosuvastatin CKD III Cr: 1.4, relatively stable. Monitor renal functions, avoid nephrotoxic agents when possible History of GI bleed- No signs of current bleeding. Continue PPI Depression/anxiety-Hydroxyzine as needed Tobacco use-Smoking cessation recommended; continue Nicotine patch History of left breast cancer S/p surgery, chemo radiation DVT Prophylaxis- Eliquis- management per primary team Disposition per primary team Patient is stable from hospitalist perspective. Admission and Anticipated Discharge Date Admission Date: January 06, 2022 Subjective No new issues. Has intermittent left thigh pain. States she is likely going home tomorrow or the next day with wound vac. No fever, chills, chest pain, shortness of breath. She did not have any questions for me today. Physical Exam Physical Exam: General: Lying comfortably in bed, not in distress, on room air HEENT: EOMI, ALINA, MMM Chest: Clear breath sounds bilaterally, no wheezes or crackles CVS: Regular rate and rhythm, normal heart sounds, no murmur Abdomen: Soft, non tender, not distended, normal bowel sounds Neuro: Awake, alert, oriented, conversing well, non focal Extremities: No cyanosis, clubbing. Groin and leg incisions dry and clean. Left great toe amputated, wound with wound vac. Some edema- postop. Results & Data Results & Data ([facility]) Vital Signs (Past 12 Hours) Vital Signs Temp Pulse Resp BP BP Pulse Ox 01/13/22 14:50 36.7 C 65 16 106/58 L 91 01/13/22 08:06 36.6 C 59 L 16 146/75 H 95 01/13/22 04:00 156/76 H (1) Anemia Anemia type: unspecified type Qualified Code(s): D64.9 - Anemia, unspecified
[2022-01-13] MEDS: PSYLLIUM 58.6% POWDER PACKET PO SCH (20:31)
[2022-01-13] MEDS: HYDROCODONE/ACETAMOPHEN 5/325MG TAB PO PRN (20:33)
[2022-01-13] MEDS: ROSUVASTATIN CALCIUM 20 MG TAB PO SCH (20:33)
[2022-01-13] MEDS: ASPIRIN 81 MG ECTAB PO SCH (20:35)
[2022-01-14] MEDS: oxyCODONE/ACETAMINOPHEN 5mg/325mg TAB PO PRN ×2 (09:39→19:28)
[2022-01-14] MEDS: NICOTINE 21 MG/24 HR TDSY TD SCH (09:39)
[2022-01-14] MEDS: FOLIC ACID 1 MG TAB PO SCH (09:40)
[2022-01-14] MEDS: APIXABAN 2.5 MG TAB PO SCH ×2 (09:40→20:20)
[2022-01-14] MEDS: METOPROLOL SUCC 25MG EXT REL TAB PO SCH (09:40)
[2022-01-14] MEDS: CYANOCOBALAMIN (B-12) 500 MCG TABLET PO SCH (09:40)
[2022-01-14] MEDS: PANTOprazole 40 MG TAB PO SCH ×2 (09:40→20:20)
[2022-01-14] MEDS: GABAPENTIN 300 MG CAP PO SCH ×3 (09:40→20:20)
[2022-01-14] MEDS: THIAMINE HCL 100 MG TAB PO SCH (09:40)
[2022-01-14] MEDS: DOCUSATE SODIUM 100 MG CAP PO SCH ×2 (09:44→20:23)
--- NOTE | 2022-01-14 12:29 | Surgery Progress Note ---
Date of Service January 14, 2022 Assessment & Plan (1) S/P femoral-tibial bypass: Plan: Doing well post op. Continue with wound vac changes M/W/F. Pt encouraged to continue oral pain control. Plan for d/c home tomorrow with home nursing if wound vac approved. Admission and Anticipated Discharge Date Admission Date: January 06, 2022 Subjective 71 yo f s/p LLE fem-ant tib prosthetic BPG and later L foot debridement d/t gangrene, seen in f/u today. Pt states pain in L foot is improved. Still having pain in L thigh with movement/ambulation. Very little pain at rest. Denies any other new complaints. Has been participating in PT/OT and looking forward to d/c home. Review of Systems Review of Systems: All systems reviewed & are unremarkable except as noted in HPI & below Physical Exam Constitutional: WD/WN, vitals as above cooperative; not in distress Respiratory: normal respiratory effort, lungs clear to auscultation Auscultation: + diminished lung sounds Cardiovascular: Rate/Rhythm: regular rate and regular rhythm Vessels: posterior tibial pulses present (doppler LLE), dorsalis pedis pulses present (faintly palpable LLE, excellent doppler LLE) and radial pulses present Extremities: normal capillary refill (to R foot only) Gastrointestinal (Abdomen): Inspection/Auscultation: abdomen normal to inspection and normal bowel sounds Percussion/Palpation: abdomen soft; abdomen nontender Skin: no rashes, warm and dry + wound (l foot dressing in place.) and + incision (C/D/I with enam.) Neurologic: moves all extremities and awake; no focal motor deficits and not confused Psychiatric: A+Ox3, euthymic affect Results & Data ([facility]) Vital Signs (Past 12 Hours) Vital Signs Temp Pulse Resp BP Pulse Ox 01/14/22 07:56 36.6 C 64 16 120/67 100
[2022-01-14] MEDS: ASPIRIN 81 MG ECTAB PO SCH (20:20)
[2022-01-14] MEDS: ROSUVASTATIN CALCIUM 20 MG TAB PO SCH (20:21)
[2022-01-14] MEDS: PSYLLIUM 58.6% POWDER PACKET PO SCH (20:23)
--- NOTE | 2022-01-14 23:46 | Hospitalist Progress Note ---
Date of Service January 14, 2022 Assessment & Plan (1) Chest pain: (2) Abdominal discomfort: (3) Anemia: Plan: 71 year old female with left foot gangrene and PAD s/p femoropopliteal bypass 01/06. Patient had chest pain 01/07 prompting hospitalist consultation. Left foot gangrene and PAD s/p left femoral to anterior tibial bypass with prosthetic graft (left) 01/06/[address] Reed - S/p left first transmetarsal amputation, I&D of left foot wound with wound vac placement 01/09. Vac changed yesterday. - further management including pain medication, diet, DVT prophylaxis per vascular team -We will need outpatient follow-up with vascular and wound care team Chest pain- likely anxiety attack. Trop x3 negative, EKG with no acute ischemic change. Echo unremarkable, no change from prior. Post op blood loss anemia- Hb 9.7->8.1 post op and was hypotensive. EBL of 350 cc. S/p 1 U of PRBC 01/07 and Hb up to 8.9. CAD/ H/o [place] in 2018-Continue aspirin, metoprolol succinate, rosuvastatin HTN- Continue metoprolol succinate with holding parameters HLD-Continue rosuvastatin CKD III Cr: 1.4, relatively stable. Monitor renal functions, avoid nephrotoxic agents when possible History of GI bleed- No signs of current bleeding. Continue PPI Depression/anxiety-Hydroxyzine as needed Tobacco use-Smoking cessation recommended; continue Nicotine patch History of left breast cancer S/p surgery, chemo radiation DVT Prophylaxis- Eliquis- management per primary team Disposition per primary team Patient is stable from hospitalist perspective. Admission and Anticipated Discharge Date Admission Date: January 06, 2022 Subjective Patient was seen and examined for follow-up of left foot gangrene Lying in bed with no acute distress watching TV Patient said that she feels much better Denies any chest pain, palpitation, dizziness, shortness of breath. Review of Systems Review of Systems: All systems reviewed & are unremarkable except as noted in Subjective Physical Exam Physical Exam: General: Lying comfortably in bed, not in distress, on room air HEENT: EOMI, ALINA, MMM Chest: Clear breath sounds bilaterally, no wheezes or crackles CVS: Regular rate and rhythm, normal heart sounds, no murmur Abdomen: Soft, non tender, not distended, normal bowel sounds Neuro: Awake, alert, oriented, conversing well, non focal Extremities: No cyanosis, clubbing. Groin and leg incisions dry and clean. Left great toe amputated, wound with wound vac. Results & Data Results & Data ([facility]) Vital Signs (Past 12 Hours) Vital Signs Temp Pulse Resp BP BP Pulse Ox 01/14/22 22:07 36.7 C 57 L 16 115/70 98 01/14/22 15:02 36.6 C 64 16 115/65 98 (1) Anemia Anemia type: unspecified type Qualified Code(s): D64.9 - Anemia, unspecified
[2022-01-15] MEDS: oxyCODONE/ACETAMINOPHEN 5mg/325mg TAB PO PRN ×2 (08:35→14:42)
[2022-01-15] MEDS: PANTOprazole 40 MG TAB PO SCH (08:35)
[2022-01-15] MEDS: APIXABAN 2.5 MG TAB PO SCH (08:35)
[2022-01-15] MEDS: THIAMINE HCL 100 MG TAB PO SCH (08:36)
[2022-01-15] MEDS: DOCUSATE SODIUM 100 MG CAP PO SCH (08:36)
[2022-01-15] MEDS: CYANOCOBALAMIN (B-12) 500 MCG TABLET PO SCH (08:36)
[2022-01-15] MEDS: METOPROLOL SUCC 25MG EXT REL TAB PO SCH (08:36)
[2022-01-15] MEDS: GABAPENTIN 300 MG CAP PO SCH ×2 (08:36→14:41)
[2022-01-15] MEDS: NICOTINE 21 MG/24 HR TDSY TD SCH (08:36)
[2022-01-15] MEDS: FOLIC ACID 1 MG TAB PO SCH (08:36)
--- NOTE | 2022-01-15 14:55 | Surgery Progress Note ---
Date of Service January 15, 2022 Assessment & Plan (1) S/P femoral-tibial bypass: Plan: Doing well Will d/c today with home wound vac Admission and Anticipated Discharge Date Admission Date: January 06, 2022 Subjective No complaints today. Says she has minimal pain. Ambulating Physical Exam 2 Constitutional: WD/WN, vitals as above Cardiovascular: Vessels: dorsalis pedis pulses present (good to doppler) Extremities: normal capillary refill and + edema (mild edema left lower extremity) Musculoskeletal: no cyanosis or clubbing, extremities motor strength 5/5 Skin: + incision (incisions dry and clean, vac in place with good suction) Psychiatric: Orientation: alert and oriented x 3 Results & Data ([facility]) Vital Signs (Past 12 Hours) Vital Signs Temp Pulse Resp BP Pulse Ox 01/15/22 07:36 36.7 C 59 L 18 96/51 L 94
--- NOTE | 2022-01-16 01:44 | Hospitalist Progress Note ---
Date of Service January 15, 2022 Assessment & Plan (1) Chest pain: (2) Abdominal discomfort: (3) Anemia: Plan: 71 year old female with left foot gangrene and PAD s/p femoropopliteal bypass 01/06. Patient had chest pain 01/07 prompting hospitalist consultation. Left foot gangrene and PAD s/p left femoral to anterior tibial bypass with prosthetic graft (left) 01/06/[address] Reed - S/p left first transmetarsal amputation, I&D of left foot wound with wound vac placement 01/09. Vac changed yesterday. - further management including pain medication, diet, DVT prophylaxis per vascular team -We will need outpatient follow-up with vascular and wound care team - Plan discharge home today Chest pain- likely anxiety attack. Trop x3 negative, EKG with no acute ischemic change. Echo unremarkable, no change from prior. Post op blood loss anemia- Hb 9.7->8.1 post op and was hypotensive. EBL of 350 cc. S/p 1 U of PRBC 01/07 and Hb up to 8.9. CAD/ H/o ND in 2018-Continue aspirin, metoprolol succinate, rosuvastatin HTN- Continue metoprolol succinate with holding parameters HLD-Continue rosuvastatin CKD III Cr: 1.4, relatively stable. Monitor renal functions, avoid nephrotoxic agents when possible History of GI bleed- No signs of current bleeding. Continue PPI Depression/anxiety-Hydroxyzine as needed Tobacco use-Smoking cessation recommended; continue Nicotine patch History of left breast cancer S/p surgery, chemo radiation DVT Prophylaxis- Eliquis- management per primary team Disposition per primary team Patient is stable from hospitalist perspective. Follow up with PCP Admission and Anticipated Discharge Date Admission Date: January 06, 2022 Subjective P was seen and examined Lying in bed with no distress She will be discharge home today with the wound vac Denies any chest pain, palpitation, dizziness and SOB Review of Systems Review of Systems: All systems reviewed & are unremarkable except as noted in Subjective Physical Exam Physical Exam: General: Lying comfortably in bed, not in distress, on room air HEENT: EOMI, ALINA, MMM Chest: Clear breath sounds bilaterally, no wheezes or crackles CVS: Regular rate and rhythm, normal heart sounds, no murmur Abdomen: Soft, non tender, not distended, normal bowel sounds Neuro: Awake, alert, oriented, conversing well, non focal Extremities: No cyanosis, clubbing. Groin and leg incisions dry and clean. Left great toe amputated, wound with wound vac. Results & Data Results & Data ([facility]) Vital Signs (Past 12 Hours) Vital Signs Temp Pulse Pulse Pulse Resp BP BP 01/15/22 15:11 36.7 C 82 79 59 L 18 96/51 L 115/70 Pulse Ox 01/15/22 15:11 94 (1) Anemia Anemia type: unspecified type Qualified Code(s): D64.9 - Anemia, unspecified
--- NOTE | 2022-01-16 11:22 | Discharge Summary ---
Date of Service January 16, 2022 Admission HPI Per Admitting Provider January 06, 2022 10:26 This patient underwent arteriography which showed occlusion of her femoral and popliteal arteries. She is now admitted at this time for a femoral to anterior tibial prosthetic bypass being that she has no usable vein. This is a redo operation on her lower extremity. Addendum Signed By: <Electronically signed by Volodymyr Andrea MD> 01/06/221025 Addendum Cosigned By: Created: 01/06/22 Date of Service January 06, 2022 History of Present Illness Primary Care Provider: Josie Sommer DO [facility], [id number] History & Physical Report SignedPatient:KACY BONE Admit Date:12/29/21 MR#:[id number] Att Phy:Volodymyr Andrea M.D. Acct ID:[id number] Almaz Phy:Josie Sommer DO Date:1950 Fam Phy: Age:71 Location:U Sex:F Room/Bed: cc: ~ *NOTICE TO RECEIVING LIBERTARIAN/AGENCY This information is strictly Confidential and protected under [place] law. [place] law prohibits you from making any further disclosure of this information unless further disclosure is expressly permitted by the written consent of the person to whom it pertains or is authorized by law. A general authorization for the release of medical or other information is not sufficient for this purpose. Hospital accepts no responsibility if the information is made available to any other person, INCLUDING THE PATIENT. Date of Service December 29, 2021 Assessment & Plan (1) Gangrene of left foot: Plan: Patient for arteriography of the left lower extremity. I have discussed the risks options and benefits of the procedure with the patient. The patient understands the risks options and benefits and agrees to the procedure. History of Present Illness Chief Complaint: Gangrenous wound left foot Primary Care Provider: Josie Sommer DO This is a 71yo female who has severe PAD. She underwent great toe amp about 2 weeks ago. The wound is now gangrenous. Patient admitted for arteriography. Allergies Allergy/AdvReac Type Severity Reaction Status Date / Time minocycline Allergy Intermediate Hives Verified 12/29/21 06:55 Tetracyclines Allergy Intermediate MINOCIN-ROSANNA Verified 12/29/21 06:55 H,HIVES duloxetine AdvReac Intermediate "MADE ME Verified 12/29/21 06:55 LOOPY" Home Medications Medication Instructions Recorded Confirmed Type rosuvastatin 40 mg tablet 40 mg PO HS #90 tab 12/31/20 12/29/21 Rx metoprolol succinate 25 mg 25 mg PO QAM #90 tab 03/06/21 12/29/21 R x tablet,extended release 24 hr nitroglycerin 0.4 mg sublingual 0.4 mg SL .COMPLEX PRN #25 tab 04/16/21 12/29/21 Rx tablet alpha lipoic acid 300 mg capsule 300 mg PO QAM 06/23/21 History cyanocobalamin (vitamin B-12) 1,000 mcg PO DAILY 06/23/21 12/29/21 History 1,000 mcg tablet folic acid 1 mg tablet 1 mg PO QAM 06/23/21 12/29/21 History furosemide 20 mg tablet 20 mg PO DAILY PRN 06/23/21 12/29/21 Histor y gabapentin 300 mg capsule 300 mg PO TID 06/23/21 12/29/21 Hist ory hydroxyzine HCl 25 mg tablet 25 mg PO Q6 PRN 06/23/21 12/29/21 H istory omeprazole 20 mg capsule,delayed 20 mg PO BID 06/23/21 History release thiamine HCl (vitamin B1) 100 mg 100 mg PO QAM 06/23/21 History tablet aspirin 81 mg tablet,delayed 81 mg PO HS 08/07/21 12/29/21 H istory release apixaban 2.5 mg tablet (Eliquis) 2.5 mg PO BID #180 tab 10/10/21 Rx hydrocodone 5 mg-acetaminophen 300 1 tab PO Q6H PRN #30 tab 12/12/21 12/29/21 Rx mg tablet levofloxacin 250 mg tablet 250 mg PO DAILY 12/29/21 12/29/21 His tory Past Med/Surg History Medical History Alcohol use disorder Anemia pt declined iron supplementation and transfusion per heme/onc noteCAD (coronary artery disease) [place] 2007-total distal LAD occlusion with unsuccessful attempt at PCI-mild atherosclerotic disease to remainder of LAD, left Cx and RCA. Negative stress test at 99% MPHR in 2010. Normal systolic function 12/2020 echo. Follows with [facility].Carotid stenosis 50-69% stenosis left ICA, less than 50% stenosis per 08/2020 carotid ultrasoundChronic kidney disease stage 3bCOPD (chronic obstructive pulmonary disease) stable per pt, last rescue inhaler use "never"; last appt with pulm 12/2020 did not return for f/uDepression Difficult intubation "Due to difficult airway (intubated w/ 5.5 ETT), she was kept on ventilator for two days for repeat vascular procedure on 01/22. She received 4 doses of decadron over 36H. After definitive vascular procedure, she was extubated successfully in ICU after cuff leak confirmed in addition to intact respiratory and neurological status. She has since had no stridor and has remained stable on room air with no increased WOB." [facility] discharge summary for 01/21/2021-01/24/2021 hospitalization.Dyslipidemia (high LDL; low HDL) GERD (gastroesophageal reflux disease) upper GI bleed 08/2021 per 09/09/21 d/c summary, CT Abd suggestive of PUD-EGD small hiatal hernia, gastritis, nonbleeding duodenal ulcer with no stigmata of bleeding- 2 units PRBCs and IV Protonix transitioned to oral-f/u EGD scheduled 12/2021 with [facility] per recordsHistory of blood transfusion 08/2021 during 9 day [facility] hospitalization-hypotension, anemia, upper GI bleeding d/t PUD, alcohol use disorder, right 9th rib fracture per discharge summaryHistory of breast cancer Lt -1999- s/p lumpectomy, chemo/radiationHistory of herpes simplex infection positive culture R lateral buttock per [facility] derm 11/12/21, resolved per ptHTN (hypertension) controlled, stable per ptLaryngocele bilat, s/p DML CO2 laser R ventriculectomy 03/2021, pt declined left, follows with [facility] ENTMyocardial Infarction 2008Neuropathy follows with [place] neuro[place] anticoagulant therapy Prediabetes Pulmonary nodule stable per f/u CT scan VD (peripheral vascular disease) h/o 2 failed bypasses left leg, follows with vascular surgeryRosacea Pt deniesSmoker Thyroid nodule right, follows with [facility] ENTValvular heart disease Mild mitral regurgitation. Mild to moderate tricuspid regurgitation. 12/2020 echo. Surgical History History of anesthesia reaction combativeHistory of angioplasty of peripheral vessel X 2 - LLE - FOLLOWS W/ DR. ANDREA - on EliquisHistory of breast biopsy History of cardiac cath 2007 - [facility] - "total distal LAD occlusion. Unsuccessful attempt at PCI to this occlusion. Mild atherosclerotic disease of the remainder of the LAD, left circumflex, and right coronary arteries." Follows with Dr. Prabhakar [facility] cardio.History of cataract surgery Rt eyeHistory of colonoscopy w/ polypectomyHistory of laparoscopy x 3History of lumpectomy History of lymph node excision History of surgery CO2 laser R ventriculectomy 03/2021, pt declined left due to GI/vascular co- morbidities at time of 06/2021 [facility] ENT noteHistory of surgery on extremity broken RLE d/t compound fracture after mechanical fall 04/2019 per recordsHistory of tonsillectomy S/P femoral-popliteal bypass surgery Family History Mother Breast cancerGrandmother (Maternal) Family hx of colon cancer Social History Smoking Status: Current every day smoker Tobacco Type: Cigarettes Cigarettes Per Day: 15-20; Second Hand Exposure: No; Hx Alcohol Use: Yes Alcohol type: hard liquor Alcohol type Comment: pt states one drink of lisbet's irishi cream weekly Hx Substance Use: No Preferred Language: Azeri Communication Ability: Effective Visual Impairment: Limited Hearing Ability: Normal Data Architect Manager Required: No Beliefs That Will Affect Care: None marital status: Single Current Living Situation: Alone current occupational status: retired Feels Safe at Home: Yes caffeine: Yes during the past year weight has: decreased > 10 lbs Gender Identity: Female Assistive Devices: Glasses and Walker Review of Systems All systems reviewed & are unremarkable except as noted in HPI & below Admission Exam Per Admitting Provider Constitutional:L well developed and well nourished; n o acute distress Respiratory: normal respiratory effort, lungs tamanna ar to auscultation Cardiovascular:L Rate/Rhythm: regul ar rate and regula r rhythm Vessels: + posterior tibia l pulses abnormal and + dorsalis ped is pulses abnormal The left great toe is mummified a nd is demarcated n icely. There is a gangrenous eschar along the foot in cision. There is no drainage from e ither toe. Gastrointestinal ( Abdomen): Inspection/Auscult ation: abdomen nor mal to inspection Percussion/Palpat ion: abdomen soft; abdomen nontender Musculoskeletal: Extremities: stren gth 5/5 throughout Neurologic: CN's II-XI intact bilaterally and mo ves all extremitie s Psychiatric: Orientation: alert and oriented x 3 Principal Diagnosis 1. s/p LLE femoral to anterior tibial artery prosthetic BPG 2. s/p debridement of L foot with wound vac placement 3. Severe PAD with gangrene of L foot Discharge Exam Constitutional WD/WN, vitals as above cooperative; not in distress Respiratory normal respiratory effort, lungs clear to auscultation Auscultation: + diminished lung sounds Cardiovascular Rate/Rhythm: regular rate and regular rhythm Vessels: posterior tibial pulses present (doppler LLE), dorsalis pedis pulses present (good to doppler) and radial pulses present Extremities: normal capillary refill and + edema (mild edema left lower extremity) Gastrointestinal (Abdomen) Inspection/Auscultation: abdomen normal to inspection and normal bowel sounds Percussion/Palpation: abdomen soft; abdomen nontender Musculoskeletal no cyanosis or clubbing, extremities motor strength 5/5 Skin no rashes, warm and dry + wound (l foot dressing in place.) and + incision (incisions dry and clean, vac in place with good suction) Neurologic moves all extremities and awake; no focal motor deficits and not confused Psychiatric A+Ox3, euthymic affect Orientation: alert and oriented x 3 Discharge Data Allergies Allergy/AdvReac Type Severity Reaction Status Date / Time minocycline Allergy Intermediate Hives Verified 01/06/22 11:12 Tetracyclines Allergy Intermediate MINOCIN-ROSANNA Verified 01/06/22 11:12 H,HIVES duloxetine AdvReac Intermediate "MADE ME Verified 01/06/22 11:12 LOOPY" Consultations 01/06/22 18:50 Consult Installer Interior Assemblies Routine 01/07/22 17:28 Consult Hospitalist Stat Procedures Performed Operation Date: 01/06/22 12:10 Actual Procedures p Left Femoral to Anterior Tibial Bypass with Prosthetic Graft(Left) - Volodymyr Andrea MD Operation Date: 01/09/22 10:20 Actual Procedures p Left First Toe Amputation, Debridement Left Foot Wound(Left) - Volodymyr Andrea MD Ordered Studies 01/09/22 07:37 US - OR guided needle placemen Routine Hospital Course (1) S/P femoral-tibial bypass: Doing well s/p revascularization and debridement. Will d/c today with home wound vac Total Time Total Time Spent Total Time Spent (In Minutes): 0 Discharge Plan Discharge Items Patient Disposition: Home - Home Health Services Reason For Visit: GANGRENE LEFT FOOT Discharge Diagnosis: gangrene of amputation site left foot Activity: Per Instructions section Non-emergency contact: Surgeon Call non-emergency contact if: your temperature is above 101.5, your wound has increased redness, your wound has increased drainage and your wound pain has increased Follow-up/Referrals: Josie Sommer DO [Primary Care Provider] - 01/20/22 9:45 am Diet: Heart Healthy Addtl Attending Provider Instructions: ACTIVITY RECOMMENDATIONS: Keep wound VAC dressing dry May wash her left lower extremity Ambulate as much as possible Elevate leg when sitting SPECIAL CARE INSTRUCTIONS: Call your doctor if: * Temperature above 101 degrees * Pain not relieved by pain medicine ordered * There is increased drainage or redness from any incision * You have any unanswered questions or concerns. Call [phone] to schedule a follow up appointment if one not already scheduled. Pending Studies at Discharge: No Stand-Alone Forms: My [facility] [employer], Smoking Cessation Medications and DC Order Prescriptions: Continued rosuvastatin 40 mg tablet 40 mg PO HS Qty: 90 RF: 3 metoprolol succinate 25 mg tablet extended release 24 hr 25 mg PO QAM Qty: 90 RF: 3 Eliquis 2.5 mg tablet 2.5 mg PO BID Qty: 180 RF: 3 aspirin 81 mg tablet,delayed release (DR/EC) 81 mg PO HS RF: 0 nitroglycerin 0.4 mg tablet, sublingual 0.4 mg SL .COMPLEX PRN (Reason: chest pain) Qty: 25 RF: 2 levofloxacin 250 mg Tablet 250 mg PO DAILY RF: 0 folic acid 1 mg tablet 1 mg PO QAM RF: 0 omeprazole 20 mg capsule,delayed release(DR/EC) 20 mg PO BID RF: 0 gabapentin 300 mg capsule 300 mg PO TID RF: 0 hydroxyzine HCl 25 mg tablet 25 mg PO Q6 PRN (Reason: Anxiety) RF: 0 thiamine HCl (vitamin B1) 100 mg tablet 100 mg PO QAM RF: 0 cyanocobalamin (vitamin B-12) 1,000 mcg Tablet 1,000 mcg PO DAILY RF: 0 alpha lipoic acid 300 mg Capsule 300 mg PO QAM RF: 0 furosemide 20 mg Tablet 20 mg PO DAILY PRN (Reason: Fluid Retention) RF: 0 hydrocodone-acetaminophen 5-300 mg tablet 1 tab PO Q6H PRN (Reason: pain) Qty: 30 RF: 0 Discharge Orders: Discharge Order (Routine); Ordered 01/15/22 Ordered By: Volodymyr Barreto/Other Patient Handouts: Peripheral Artery Bypass Surgery Admission Data Admit Date/Time: 01/06/22 18:50 Attending Provider: Volodymyr Andrea Admit Provider: Volodymyr Andrea Primary Care Provider: Josie Sommer Other Providers: Corbin Gomez ; [facility] ; Bryce Lockett ; Deyvi Tejada ; Satish Hayden ; Bora Serrato ; Anjum Llamas ; Dony Aguayo ; Jennifer Contreras ; Evan Peñaloza ; David Gonzales ; [facility] ; Miriam Heck Other Interventions: Discharge Summary Assessment (RN) Last Done: 01/15/22 15:11
== END 2022-01-15 17:30 | disposition home health service (06) | DRG 240 ==
LOC: ASU 10:54 → 1E 18:50 → 2W 01-07 13:16 → 3E 01-10 13:11

== ENCOUNTER 2023-03-02 17:53 | Inpatient (IN) ==
[2023-03-02 18:26] LABS: Basophils # (auto) 0.08 K/uL (0-0.2); Basophils % (auto) 1.1 %; Eosinophils # (auto) 0.38 K/uL (0-0.50); Eosinophils % (auto) 5.2 %; Hematocrit (blood only) 32.8 % (37.0-47.0); Hemoglobin 11.1 g/dl (12.0-16.0); Immature Granulocytes # (auto) 0.02 K/uL (0.01-0.20); Immature Granulocytes % (auto) 0.3 %; Lymphocytes # (auto) 1.55 K/uL (1.2-3.4); Lymphocytes % (auto) 21.1 %; Mean Corpuscular Hemoglobin 30.2 pg (25.0-34.0); Mean Corpuscular Hgb Conc 33.8 g/dL (32.0-36.0); Mean Corpuscular Volume 89.4 fL (80.0-100.0); Mean Platelet Volume 10.3 fL (9.4-12.4); Monocytes # (auto) 0.72 K/uL (0.11-0.59); Monocytes % (auto) 9.8 %; Neutrophils # (auto) 4.59 K/uL (1.40-6.50); Neutrophils % (auto) 62.5 %; Platelet Count 206 K/uL (130-400); RDW Coefficient of Variation 15.9 % (11.5-14.5); RDW Standard Deviation 51.9 fL (36.4-46.3); Red Blood Count 3.67 M/uL (4.20-5.40); White Blood Count 7.34 K/ul (4.8-10.8)
--- NOTE | 2023-03-02 18:28 | Emergency Department Note ---
ED Provider Note History of Present Illness Chief Complaint: Leg Injury/Pain Stated Complaint: R femur fracture Time Seen by Provider: 03/02/23 18:04 Source: patient Mode of arrival: EMS Limitations: intoxication This patient is a 72-year-old female who presents to the emergency department via EMS for evaluation of a fall and right leg pain. According to EMS, patient was intoxicated and tripped over her cat falling onto her left leg. Patient states that she had 2 glasses of wine tonight. She states that she was trying to get her cat into carrier and she tripped over the cat and fell. She reports pain in the right leg, denies striking her head or any other injuries. She has had a prior right tibia-fibula fracture which was repaired at [facility]. Home Medications Medication Instructions Recorded Confirmed Type gabapentin 300 mg capsule 300 mg PO TID 06/23/21 03/02/23 History hydroxyzine HCl 25 mg tablet 25 mg PO Q6 PRN Anxiety 06/23/21 03/02/23 History omeprazole 20 mg capsule,delayed 20 mg PO BID 06/23/21 03/02/23 History release aspirin 81 mg tablet,delayed 81 mg PO HS 08/07/21 03/02/23 History release rosuvastatin 40 mg tablet 40 mg PO HS #90 tabs 03/09/22 03/02/23 Rx apixaban 2.5 mg tablet (Eliquis) 2.5 mg PO BID #180 tabs 10/28/22 03/02/23 Rx metoprolol succinate 25 mg 25 mg PO QAM #90 tabs 11/25/22 03/02/23 Rx tablet,extended release 24 hr nitroglycerin 0.4 mg sublingual 0.4 mg sublingual .COMPLEX PRN 11/25/22 03/02/23 Rx tablet chest pain #25 tabs Allergies Allergy/AdvReac Type Severity Reaction Status Date / Time minocycline Allergy Intermediate Hives Verified 03/02/23 19:43 Tetracyclines Allergy Intermediate MINOCIN-ROSANNA Verified 03/02/23 19:43 H,HIVES duloxetine AdvReac Intermediate "MADE ME Verified 03/02/23 19:43 LOOPY" Past Med/Surg History Medical History Alcohol use disorder Anemia pt declined iron supplementation and transfusion per heme/onc note CAD (coronary artery disease) SD 2007-total distal LAD occlusion with unsuccessful attempt at PCI-mild atherosclerotic disease to remainder of LAD, left Cx and RCA. Negative stress test at 99% MPHR in 2010. Normal systolic function 12/2020 echo. Follows with [place] [facility]. Carotid stenosis 50-69% stenosis left ICA, less than 50% stenosis per 08/2020 carotid ultrasound Chest pain Chronic kidney disease stage 3b COPD (chronic obstructive pulmonary disease) stable per pt, last rescue inhaler use "never"; last appt with pulm 12/2020 did not return for f/u Depression Difficult intubation "Due to difficult airway (intubated w/ 5.5 ETT), she was kept on ventilator for two days for repeat vascular procedure on 01/22. She received 4 doses of decadron over 36H. After definitive vascular procedure, she was extubated successfully in ICU after cuff leak confirmed in addition to intact respiratory and neurological status. She has since had no stridor and has remained stable on room air with no increased WOB." [facility] discharge summary for 01/21/2021-01/24/2021 hospitalization. Dyslipidemia (high LDL; low HDL) Femoral-popliteal bypass graft occlusion Dr. Andrea consulted and aware of patient. Heparin drip started. Coumadin held. Await vascular recommendations. Doppler pulse checks q2h. Femoral-popliteal bypass graft occlusion, left Foot ulcer Gangrene of left foot GERD (gastroesophageal reflux disease) upper GI bleed 08/2021 per 09/09/21 d/c summary, CT Abd suggestive of PUD-EGD small hiatal hernia, gastritis, nonbleeding duodenal ulcer with no stigmata of bleeding- 2 units PRBCs and IV Protonix transitioned to oral-f/u EGD scheduled 12/2021 with [facility] per records History of blood transfusion 08/2021 during 9 day [facility] hospitalization-hypotension, anemia, upper GI bleeding d/t PUD, alcohol use disorder, right 9th rib fracture per discharge summary History of breast cancer Lt -1999- s/p lumpectomy, chemo/radiation History of herpes simplex infection positive culture R lateral buttock per [facility] derm 11/12/21, resolved per pt HTN (hypertension) controlled, stable per pt Laryngocele bilat, s/p DML CO2 laser R ventriculectomy 03/2021, pt declined left, follows with [facility] ENT Myocardial Infarction 2008 Neuropathy follows with [place] neuro On anticoagulant therapy Prediabetes Pulmonary nodule stable per f/u CT scan 04/2021 PVD (peripheral vascular disease) h/o 2 failed bypasses left leg, follows with vascular surgery Rosacea Pt denies S/P angiogram of extremity Left Lower Extremity Angiogram, Smoker Thyroid nodule right, follows with [facility] ENT Valvular heart disease Mild mitral regurgitation. Mild to moderate tricuspid regurgitation. 12/2020 echo. Surgical History History of amputation Left Great Toe Transmetatarsal amputation and left Second Toe Amputation History of anesthesia reaction combative History of angioplasty of peripheral vessel X 2 - LLE - FOLLOWS W/ DR. ANDREA - on Eliquis History of breast biopsy History of cardiac cath 2007 - [place] - [facility] - "total distal LAD occlusion. Unsuccessful attempt at PCI to this occlusion. Mild atherosclerotic disease of the remainder of the LAD, left circumflex, and right coronary arteries." Follows with Dr. Radford [place] cardio. History of cataract surgery Rt eye History of colonoscopy w/ polypectomy History of laparoscopy x 3 History of lumpectomy History of lymph node excision History of surgery CO2 laser R ventriculectomy 03/2021, pt declined left due to GI/vascular co- morbidities at time of 06/2021 [facility] ENT note History of surgery on extremity broken RLE d/t compound fracture after mechanical fall 04/2019 per records History of tonsillectomy S/P femoral-popliteal bypass surgery S/P femoral-tibial bypass Family History Mother Breast cancer Grandmother (Maternal) Family hx of colon cancer Denies family history of Ovarian cancer Social History Smoking Status: Current some day smoker Tobacco Type: Cigarettes Cigarettes Per Day: 15-20; Second Hand Exposure: No; Do You Dip or Chew Tobacco: No; Hx Alcohol Use: Yes Alcohol type: hard liquor Alcohol type Comment: pt states one drink of lisbet's irishi cream weekly Hx Substance Use: No Preferred Language: [place] Citizen Communication Ability: Effective Visual Impairment: Limited Hearing Ability: Normal Meat Dresser Required: No Beliefs That Will Affect Care: None marital status: Single Current Living Situation: Alone current occupational status: retired Feels Safe at Home: Yes Diet: regular caffeine: Yes during the past year weight has: decreased > 10 lbs Gender Identity: Female Assistive Devices: Walker Physical Exam Vital Signs Vital Signs - 24 hr 03/02/23 18:03 03/02/23 18:11 03/02/23 18:11 Temperature 36.6 C Temperature Source Oral Pulse Rate 63 63 Pulse Rate [Apical] 65 Pulse Rhythm [Apical] Regular Respiratory Rate 18 18 Respiratory Depth Normal Normal Blood Pressure 121/67 Blood Pressure Mean 85 Pulse Oximetry 96 96 Oxygen Delivery Method Room Air Room Air Sepsis Recent Fever Within 48 Hours No Sepsis New/Unexplained Change in Mental Status No Sepsis Action Taken by Nursing No Action Required 03/02/23 20:00 03/02/23 20:30 03/02/23 21:00 Temperature Temperature Source Pulse Rate 61 66 66 Pulse Rate [Apical] Pulse Rhythm [Apical] Respiratory Rate 18 14 18 Respiratory Depth Blood Pressure 118/73 117/63 111/60 Blood Pressure Mean 88 81 77 Pulse Oximetry 99 99 97 Oxygen Delivery Method Sepsis Recent Fever Within 48 Hours Sepsis New/Unexplained Change in Mental Status Sepsis Action Taken by Nursing 03/02/23 21:30 Temperature Temperature Source Pulse Rate Pulse Rate [Apical] Pulse Rhythm [Apical] Respiratory Rate 20 Respiratory Depth Blood Pressure 135/84 Blood Pressure Mean 101 Pulse Oximetry Oxygen Delivery Method Sepsis Recent Fever Within 48 Hours Sepsis New/Unexplained Change in Mental Status Sepsis Action Taken by Nursing VITALS: Vitals are noted on the nurse's note and reviewed by myself. GENERAL: This is a 72-year-old female, slurring her speech, appears to be into xicated. HEAD: Normocephalic atraumatic. EARS: External auditory canals clear, tympanic membranes pearly rajan without erythema or effusion bilaterally. No hemotympanum. EYES: Pupils equal round and reactive to light and accommodation. Extraocular movements intact. MOUTH: Mucous membranes moist. NECK: Supple without nuchal rigidity. Cervical spine is nontender. HEART: Regular rate and rhythm without murmurs gallops or rubs. LUNGS: Clear to auscultation bilaterally without wheezes, rales or rhonchi. MUSCULOSKELETAL: Tenderness noted of the right proximal femur. EXTREMITIES: Prior amputations noted to the left toes. Dorsalis pedis pulses are faint bilaterally. NEURO: Patient was alert and oriented to person place and time. Diminished distal sensation in bilateral lower extremities. Course Administered Medications Hydromorphone HCl (Hydromorphone Inj 0.5 Mg/0.5 Ml Syr) 0.25 mg IV Q3H PRN PRN Reason: Pain Stop: 03/16/23 21:49 Last Admin: 03/02/23 22:23 Dose: 0.25 mg Documented By: AQUILINO Thiamine HCl 100 mg/ Folic (Acid 1 mg/ Sodium Chloride) 1,001.2 mls @ 60 mls/hr IV .[id number] STA; Protocol Stop: 03/03/23 12:57 Last Admin: 03/02/23 21:27 Dose: 60 mls/hr Documented By: AQUILINO Lorazepam (Lorazepam 2 Mg/1 Ml Vial) 0.25 mg IV Q4H PRN PRN Reason: Anxiety Stop: 04/01/23 21:49 Last Admin: 03/02/23 22:23 Dose: 0.25 mg Documented By: AQUILINO Oxycodone HCl (Oxycodone Hcl Ir 5 Mg Tab (Immediate Release)) 5 - 10 mg PO QID PRN PRN Reason: Pain Stop: 03/16/23 21:49 Last Admin: 03/02/23 23:04 Dose: 10 mg Documented By: FELICITA Discontinued Medications Fentanyl Citrate (Fentanyl Citrate Pf 100 Mcg/2 Ml Vial) 50 mcg IV NOW STA Stop: 03/02/23 18:38 Last Admin: 03/02/23 18:42 Dose: 50 mcg Documented By: ESPINOZA Gabapentin (Gabapentin 300 Mg Cap) 300 mg PO NOW STA Stop: 03/02/23 21:51 Last Admin: 03/02/23 22:24 Dose: 300 mg Documented By: AQUILINO Ketorolac Tromethamine (Ketorolac Tromethamine 15 Mg/Ml Vial) 15 mg IV NOW ONE Stop: 03/02/23 21:19 Last Admin: 03/02/23 21:25 Dose: 15 mg Documented By: AQUILINO Morphine Sulfate (Morphine Sulfate 4 Mg/Ml 1 Ml Carp\\Vial) 4 mg IV NOW STA Stop: 03/02/23 19:59 Last Admin: 03/02/23 20:06 Dose: 4 mg Documented By: COREEN Multivitamins/Minerals (Cerovite Adv Formula Tab) 1 tab PO ONE STA Stop: 03/02/23 20:15 Last Admin: 03/02/23 21:27 Dose: 1 tab Documented By: AQUILINO Medical Decision Making Differential Diagnosis Fracture, dislocation, neurovascular compromise, compartment syndrome, soft tissue injury, as well as other pathologies. Home Medications was personally reviewed by me Laboratory Data Attestation: I reviewed the patient's lab results. 03/02/23 18:08 03/02/23 18:08 Lab Results 03/02/23 03/02/23 03/02/23 Range/Units 18:08 18:08 18:08 WBC 7.34 (4.8-10.8) K/ul RBC 3.67 L (4.20-5.40) M/uL Hgb 11.1 L (12.0-16.0) g/dl Hct 32.8 L (37.0-47.0) % MCV 89.4 (80.0-100.0) fL MCH 30.2 (25.0-34.0) pg MCHC 33.8 (32.0-36.0) g/dL RDW Std Deviation 51.9 H (36.4-46.3) fL RDW Coeff of Farrah 15.9 H (11.5-14.5) % Plt Count 206 (130-400) K/uL MPV 10.3 (9.4-12.4) fL Immature Gran % (Auto) 0.3 % Neut % (Auto) 62.5 % Lymph % (Auto) 21.1 % Dade % (Auto) 9.8 % Eos % (Auto) 5.2 % Baso % (Auto) 1.1 % Neut # (Auto) 4.59 (1.40-6.50) K/uL Lymph # (Auto) 1.55 (1.2-3.4) K/uL Dade # (Auto) 0.72 H (0.11-0.59) K/uL Eos # (Auto) 0.38 (0-0.50) K/uL Baso # (Auto) 0.08 (0-0.2) K/uL Immature Gran # (Auto) 0.02 (0.01-0.20) K/uL PT Cancelled INR Cancelled APTT Cancelled PTT Ratio Cancelled Sodium 139 (136-145) mmol/L Potassium 4.8 (3.5-5.1) mmol/L Chloride 111 H (98-107) mmol/L Carbon Dioxide 22 (21-32) mmol/L Anion Gap 6 (3-11) BUN 14 (6-23) mg/dl Creatinine 1.18 (0.6-1.2) mg/dl Est Cr Clr Drug Dosing 38.2 ml/min Est GFR ( Amer) 53.7 ml/min Est GFR (Non-Af Amer) 46.4 ml/min BUN/Creatinine Ratio 11.9 (10-20) Glucose 93 (70-99(Fasting)) mg/dl Calcium 8.4 L (8.6-10.3) mg/dl Magnesium 2.3 (1.7-2.4) mg/dl Total Bilirubin 0.3 (0.2-1.0) mg/dl AST 42 H (13-39) U/L ALT 19 (7-52) U/L Alkaline Phosphatase 96 (34-104) U/L Total Protein 6.6 (6.0-8.3) gm/dl Albumin 3.6 (3.4-5.0) gm/dl Globulin 3.0 (2.5-4.0) gm/dl Albumin/Globulin Ratio 1.2 (0.9-2) Ethyl Alcohol mg/dL (<10.0) mg/dl 03/02/23 03/02/23 Range/Units 18:08 20:00 WBC (4.8-10.8) K/ul RBC (4.20-5.40) M/uL Hgb (12.0-16.0) g/dl Hct (37.0-47.0) % MCV (80.0-100.0) fL MCH (25.0-34.0) pg MCHC (32.0-36.0) g/dL RDW Std Deviation (36.4-46.3) fL RDW Coeff of Farrah (11.5-14.5) % Plt Count (130-400) K/uL MPV (9.4-12.4) fL Immature Gran % (Auto) % Neut % (Auto) % Lymph % (Auto) % Dade % (Auto) % Eos % (Auto) % Baso % (Auto) % Neut # (Auto) (1.40-6.50) K/uL Lymph # (Auto) (1.2-3.4) K/uL Dade # (Auto) (0.11-0.59) K/uL Eos # (Auto) (0-0.50) K/uL Baso # (Auto) (0-0.2) K/uL Immature Gran # (Auto) (0.01-0.20) K/uL PT 10.4 INR 0.9 APTT 24.6 PTT Ratio 0.9 Sodium (136-145) mmol/L Potassium (3.5-5.1) mmol/L Chloride (98-107) mmol/L Carbon Dioxide (21-32) mmol/L Anion Gap (3-11) BUN (6-23) mg/dl Creatinine (0.6-1.2) mg/dl Est Cr Clr Drug Dosing ml/min Est GFR ( Amer) ml/min Est GFR (Non-Af Amer) ml/min BUN/Creatinine Ratio (10-20) Glucose (70-99(Fasting)) mg/dl Calcium (8.6-10.3) mg/dl Magnesium (1.7-2.4) mg/dl Total Bilirubin (0.2-1.0) mg/dl AST (13-39) U/L ALT (7-52) U/L Alkaline Phosphatase (34-104) U/L Total Protein (6.0-8.3) gm/dl Albumin (3.4-5.0) gm/dl Globulin (2.5-4.0) gm/dl Albumin/Globulin Ratio (0.9-2) Ethyl Alcohol mg/dL 126.1 H (<10.0) mg/dl Imaging Data Attestation: I personally reviewed and interpreted this imaging study as follows: Radiologist's Impression: Femur X-Ray 03/02/23 18:13 XR pelvis 1-2V routine, XR femur RT 2V routine CLINICAL HISTORY: fall right hip/femur injury TECHNIQUE: A single frontal view of the pelvis was obtained. 2 views of the femur were obtained. Comparison: Comparison is made to CT abdomen pelvis 08/30/2021 FINDINGS: There is a comminuted intertrochanteric fracture of the right femur. Partial visualization of a medullary cathleen in the right tibia. Soft tissue swelling is seen about the knee. IMPRESSION: Right intratrochanteric femur fracture. ACT 112: Negative or not required by law. Electronically signed by: Yassine Gil M.D. 03/02/2023 7:40 PM Pelvis X-Ray 03/02/23 18:13 XR pelvis 1-2V routine, XR femur RT 2V routine CLINICAL HISTORY: fall right hip/femur injury TECHNIQUE: A single frontal view of the pelvis was obtained. 2 views of the femur were obtained. Comparison: Comparison is made to CT abdomen pelvis 08/30/2021 FINDINGS: There is a comminuted intertrochanteric fracture of the right femur. Partial visualization of a medullary cathleen in the right tibia. Soft tissue swelling is seen about the knee. IMPRESSION: Right intratrochanteric femur fracture. ACT 112: Negative or not required by law. Electronically signed by: Yassine Gil M.D. 03/02/2023 7:[address] 03/02/23 18:14 CT head/brain wo con CLINICAL HISTORY: fall, etoh Technique: Contiguous axial CT images of the head were acquired from the base of the skull to the vertex without intravenous contrast administration. Images were viewed in brain, subdural and bone windows. Automated dose lowering techniques and/or adjustment according to patient size were utilized for this exam. Comparison: Comparison is made to CT head 08/09/2021 Findings: Areas of decreased attenuation are present in the periventricular and subcortical white matter bilaterally consistent with small vessel ischemic disease. Generalized cerebral atrophy with commensurate enlargement of the ventricles, sulci, and cisterns is also present. There is no acute intracranial hemorrhage or evidence of acute territorial infarction. No shift of the midline structures, mass effect, or extra-axial abnormalities are shown. Atherosclerotic calcifications are present in the intracranial segments of the internal carotid arteries. Imaged portions of the paranasal sinuses and mastoid air cells are clear. The orbits appear normal. There are no acute fractures of the calvaria or scalp swelling. Impression: No acute intracranial hemorrhage, no evidence of acute territorial infarction or other acute intracranial disease process. ACT 112: Negative or not required by law. Electronically signed by: Yassine Gil M.D. 03/02/2023 7:21 PM Chest X-Ray 03/02/23 19:20 XR chest 1V portable CLINICAL HISTORY: hip fx TECHNIQUE: Single frontal radiograph of the chest was obtained. Comparison: Comparison is made to chest radiograph 12/01/2021 FINDINGS: No lines and tubes are seen. The cardiomediastinal silhouette is normal. Faint opacities are in the left midlung which likely represent overlying soft tissue. No evidence of pleural effusion or pneumothorax. IMPRESSION: No acute chest disease. ACT 112: Negative or not required by law. Electronically signed by: Yassine Gil M.D. 03/02/2023 7:42 PM ECG Data Attestation: I personally reviewed and interpreted this ECG as follows: Indication: + weakness Rate (beats per minute): 57 Rhythm: + sinus bradycardia ECG Intervals/blocks: + Normal QRS ECG ST segments: + Nonspecific ST abnormalities Change: no significant change MDM Narrative Continuous electronic device monitor: Order was placed for continuous electronic device monitor. Patient was placed on the electronic device monitor. Patient was noted to be in normal sinus rhythm at an initial rate of 65 bpm. The patient is a 72-year-old female who presents today complaining of right hip pain after a mechanical fall. Patient found to have a comminuted intertrochanteric fracture of the right femur. CT of the head was negative. There was no evidence of other trauma. Patient admitted to alcohol use [facility], [facility] alcohol elevated at 126. Patient initially treated with fentanyl for pain, then given a dose of morphine due to continued pain. [facility] was consulted and agreed to evaluate the patient for further care. Impression Intertrochanteric fracture of right femur Discharge Plan Visit Data Chief Complaint: Leg Injury/Pain Stated Complaint: R femur fracture ED Provider: Cristobal Chen ED Midlevel Provider: Hailey Frost Discharge Problem: Intertrochanteric fracture of right femur Patient Disposition: Admitted As Inpatient Discharge Instructions Interventions: ED Discharge Assessment Last Done: 03/02/23 22:43 Intertrochanteric fracture of right femur Qualifiers: Encounter type: initial encounter Fracture type: closed Fracture alignment: displaced Qualified Code(s): S72.141A - Displaced intertrochanteric fracture of right femur, initial encounter for closed fracture
[2023-03-02] MEDS ORDERED: fentaNYL citrate PF 100 MCG/2 ML VIAL IV STA (18:37)
[2023-03-02 18:48] LABS: Albumin Globulin Ratio 1.2 (0.9-2); Albumin Level 3.6 gm/dl (3.4-5.0); BUN Creatinine Ratio 11.9 (10-20); Bilirubin,Total 0.3 mg/dl (0.2-1.0); Calcium 8.4 mg/dl (8.6-10.3); Creatinine Clr Calc Pharmacy 38.2 ml/min; Est GFR (African American) 53.7 ml/min; Est GFR (Non-African American) 46.4 ml/min; Potassium 4.8 mmol/L (3.5-5.1); Total Protein 6.6 gm/dl (6.0-8.3)
--- NOTE | 2023-03-02 19:22 | CT Scan Report ---
CT head/brain wo con CLINICAL HISTORY: fall, etoh Technique: Contiguous axial CT images of the head were acquired from the base of the skull to the britney haroon without intravenous contrast administration. Images were viewed in brain, subdural and bone [facility] . Automated dose lowering techniques and/or adjustment according to patient size were utilized for this exam. Comparison: Comparison is made to CT head 08/09/2021 Findings: Areas of decreased attenuation are present in the periventricular and subcortical white matter bilate rally consistent with small vessel ischemic disease. Generalized cerebral atrophy with commensurate e nlargement of the ventricles, sulci, and cisterns is also present. There is no acute intracranial hem orrhage or evidence of acute territorial infarction. No shift of the midline structures, mass effect, or extra-axial abnormalities are shown. Atherosclerotic calcifications are present in the intracran ial segments of the internal carotid arteries. Imaged portions of the paranasal sinuses and mastoid air cells are clear. The orbits appear normal. There are no acute fractures of the calvaria or scalp swelling. Impression: No acute intracranial hemorrhage, no evidence of acute territorial infarction or other acute intracra nial disease process. ACT 112: Negative or not required by law. Electronically signed by: Yassine Gil M.D. 03/02/2023 7:21 PM
--- NOTE | 2023-03-02 19:42 | XRay Report ---
XR pelvis 1-2V routine, XR femur RT 2V routine CLINICAL HISTORY: fall right hip/femur injury TECHNIQUE: A single frontal view of the pelvis was obtained. 2 views of the femur were obtained. Comparison: Comparison is made to CT abdomen pelvis 08/30/2021 FINDINGS: There is a comminuted intertrochanteric fracture of the right femur. Partial visualization of a medul jasen cathleen in the right tibia. Soft tissue swelling is seen about the knee. IMPRESSION: Right intratrochanteric femur fracture. ACT 112: Negative or not required by law. Electronically signed by: Yassine Gil M.D. 03/02/2023 7:40 PM
--- NOTE | 2023-03-02 19:43 | XRay Report ---
XR chest 1V portable CLINICAL HISTORY: hip fx TECHNIQUE: Single frontal radiograph of the chest was obtained. Comparison: Comparison is made to chest radiograph 12/01/2021 FINDINGS: No lines and tubes are seen. The cardiomediastinal silhouette is normal. Faint opacities are in the l eft midlung which likely represent overlying soft tissue. No evidence of pleural effusion or pneumoth orax. IMPRESSION: No acute chest disease. ACT 112: Negative or not required by law. Electronically signed by: Yassine Gil M.D. 03/02/2023 7:42 PM
[2023-03-02] MEDS ORDERED: MoRPHine SULFATE 4 MG/ML 1 ML CARP\\VIAL IV STA (19:58)
[2023-03-02] MEDS ORDERED: CEROVITE ADV FORMULA TAB PO STA (20:14)
[2023-03-02] MEDS ORDERED: THIAMINE HCL 100 MG, FOLIC ACID 1 MG in SODIUM CHLORIDE 0.9% 1000ML 1,000 ML IV STA (20:16)
[2023-03-02 20:56] LABS: INR 0.9 (0.9-1.1); Partial Thromboplastin Ratio 0.9; Partial Thromboplastin Time 24.6 Seconds (21.0-31.0); Prothrombin Time 10.4 Seconds (9.0-12.0)
[2023-03-02 20:57] LABS: Magnesium 2.3 mg/dl (1.7-2.4)
[2023-03-02] MEDS ORDERED: KETOROLAC TROMETHAMINE 15 MG/ML VIAL IV ONE (21:18)
[2023-03-02] MEDS ORDERED: Heparin IV Adult Wt-Based Standard *NO* Bolus Protocol IV SCH (21:37)
--- NOTE | 2023-03-02 21:45 | History & Physical Report ---
Date of Service March 02, 2023 Assessment & Plan (1) Intertrochanteric fracture of right femur: Plan: hx CAD, stable disease on last follow-up with [place] [facility] [employer]ice 3 months ago. PAD status post surgery on Eliquis HTN, stable hyperlipidemia on statin Rx COPD, pulmonary hypertension, lung symptoms at baseline CRI, current creatinine better than baseline L breast cancer status post surgery/chemoradiation Prediabetes, hemoglobin A1c of 5 last 2020 chronic anemia, hemoglobin at baseline anxiety disorder, patient anxious and uncomfortable during encounter history laryngocele status post surgery/difficult intubation as per records chronic neuropathy on gabapentin ongoing tobacco/alcohol abuse. Medical telemetry given cardiovascular history and potential for alcohol withdrawal Analgesia Orthopedics consult RE right hip fracture (Patient known to [facility].) N.p.o. after midnight until patient seen by Orthopedics in anticipation of surgery. Acceptable risk for cardiac complications resulting from prospective procedure Revised Cardiac Risk Index (RCRI): 1. High-risk type of surgery (examples include vascular and any open intraperitoneal or intrathoracic procedures). No 2. History of ischemic heart disease (history of myocardial infarction or positive exercise test, current compliant of chest pain considered to be secondary to myocardial ischemia, use of nitrate therapy, or ECG with pathological Q waves; do not count prior coronary revascularization procedure unless one of the other criteria for ischemic heart disease is present). Yes 3. History of heart failure. No 4. History of cerebrovascular disease. No 5. Diabetes mellitus requiring treatment with insulin. No 6. Preoperative serum creatinine >2.0. No Pt has revised cardiac index score of 1 points. (Class II Risk.) 6 % 30-day risk of , [place], or cardiac arrest. Acceptable risk for cardiac complications if surgery recommended by Orthopedics and patient/family agreeable to attendant procedural benefits and risks.. Continue aspirin for secondary CAD prevention Hold Eliquis until patient seen by Orthopedics. IV heparin interim DT precautions, initiate ABILIO S if with signs of alcohol withdrawal Nicotine patch DVT prophylaxis. IV heparin Full code Patient requests for her daughter to be updated of plan of care. Ms. Azul Osorio, contact #[phone]. Text document was generated using [employer] voice recognition software. It may contain grammatical or spelling errors. Kindly contact undersigned for clarification of any documentation item in question. History of Present Illness Chief Complaint: Fall, right hip pain Primary Care Provider: Ridge Sommer DO History obtained from patient and records. Medical history significant for CAD, PAD status post surgery on Eliquis, HTN, hyperlipidemia, COPD, pulmonary hypertension, CRI (baseline creatinine 1.4), left breast cancer status post surgery/chemoradiation, fatty liver as per records, chronic anemia (baseline hemoglobin 10-11), anxiety/mood disorder, history laryngocele status post surgery, difficult intubation as per records, chronic neuropathy, prediabetes, ongoing tobacco/alcohol use. Last confinement December 2021 under Vascular Surgery service for elective femoral- tibial bypass surgery. Patient fell at home after trying to get her cat in a carrier. Patient experienced excruciating right hip pain. Right leg in a weird position as per patient. No head trauma, no chest pain, no SOB. Patient could not get up from the floor. Patient laid down on the floor for about an hour before she was able to yell for help when she heard her neighbor arrive. Patient brought to the ER for evaluation. Medical Historyas above Surgical History : Breast/lymph node biopsy, left breast surgery, femoropopliteal artery revascularization with stent and angioplasty, femoral- tibial bypass surgery, partial mastectomy left, pilonidal cyst removal, laryngoscopy with biopsy, laryngocele surgery, tibia fracture surgery Family History : Breast cancer, colon cancer, dementia, heart disease, stroke Personal/Social history : 1.5 packs daily, alcohol abuse, prior [employer] employment Allergies Allergy/AdvReac Type Severity Reaction Status Date / Time minocycline Allergy Intermediate Hives Verified 03/02/23 19:43 Tetracyclines Allergy Intermediate MINOCIN-ROSANNA Verified 03/02/23 19:43 H,HIVES duloxetine AdvReac Intermediate "MADE ME Verified 03/02/23 19:43 LOOPY" Home Medications Medication Instructions Recorded Confirmed Type gabapentin 300 mg capsule 300 mg PO TID 06/23/21 03/02/23 History hydroxyzine HCl 25 mg tablet 25 mg PO Q6 PRN Anxiety 06/23/21 03/02/23 History omeprazole 20 mg capsule,delayed 20 mg PO BID 06/23/21 03/02/23 History release aspirin 81 mg tablet,delayed 81 mg PO HS 08/07/21 03/02/23 History release rosuvastatin 40 mg tablet 40 mg PO HS #90 tabs 03/09/22 03/02/23 Rx apixaban 2.5 mg tablet (Eliquis) 2.5 mg PO BID #180 tabs 10/28/22 03/02/23 Rx metoprolol succinate 25 mg 25 mg PO QAM #90 tabs 11/25/22 03/02/23 Rx tablet,extended release 24 hr nitroglycerin 0.4 mg sublingual 0.4 mg sublingual .COMPLEX PRN 11/25/22 03/02/23 Rx tablet chest pain #25 tabs Past Med/Surg History Medical History Alcohol use disorder Anemia pt declined iron supplementation and transfusion per heme/onc note CAD (coronary artery disease) [place] 2007-total distal LAD occlusion with unsuccessful attempt at PCI-mild atherosclerotic disease to remainder of LAD, left Cx and RCA. Negative stress test at 99% MPHR in 2010. Normal systolic function 12/2020 echo. Follows with [facility]. Carotid stenosis 50-69% stenosis left ICA, less than 50% stenosis per 08/2020 carotid ultrasound Chest pain Chronic kidney disease stage 3b COPD (chronic obstructive pulmonary disease) stable per pt, last rescue inhaler use "never"; last appt with pulm 12/2020 did not return for f/u Depression Difficult intubation "Due to difficult airway (intubated w/ 5.5 ETT), she was kept on ventilator for two days for repeat vascular procedure on 01/22. She received 4 doses of decadron over 36H. After definitive vascular procedure, she was extubated successfully in ICU after cuff leak confirmed in addition to intact respiratory and neurological status. She has since had no stridor and has remained stable on room air with no increased WOB." [facility] discharge summary for 01/21/2021-01/24/2021 hospitalization. Dyslipidemia (high LDL; low HDL) Femoral-popliteal bypass graft occlusion Dr. Andrea consulted and aware of patient. Heparin drip started. Coumadin held. Await vascular recommendations. Doppler pulse checks q2h. Femoral-popliteal bypass graft occlusion, left Foot ulcer Gangrene of left foot GERD (gastroesophageal reflux disease) upper GI bleed 08/2021 per 09/09/21 d/c summary, CT Abd suggestive of PUD-EGD small hiatal hernia, gastritis, nonbleeding duodenal ulcer with no stigmata of bleeding- 2 units PRBCs and IV Protonix transitioned to oral-f/u EGD scheduled 12/2021 with [facility] per records History of blood transfusion 08/2021 during 9 day [facility] hospitalization-hypotension, anemia, upper GI bleeding d/t PUD, alcohol use disorder, right 9th rib fracture per discharge summary History of breast cancer Lt -1999- s/p lumpectomy, chemo/radiation History of herpes simplex infection positive culture R lateral buttock per [facility] derm 11/12/21, resolved per pt HTN (hypertension) controlled, stable per pt Laryngocele bilat, s/p DML CO2 laser R ventriculectomy 03/2021, pt declined left, follows with [facility] ENT Myocardial Infarction 2007 Neuropathy follows with [place] neuro On anticoagulant therapy Prediabetes Pulmonary nodule stable per f/u CT scan 04/2021 PVD (peripheral vascular disease) h/o 2 failed bypasses left leg, follows with vascular surgery Rosacea Pt denies S/P angiogram of extremity Left Lower Extremity Angiogram, Smoker Thyroid nodule right, follows with [facility] ENT Valvular heart disease Mild mitral regurgitation. Mild to moderate tricuspid regurgitation. 12/2020 echo. Surgical History History of amputation Left Great Toe Transmetatarsal amputation and left Second Toe Amputation History of anesthesia reaction combative History of angioplasty of peripheral vessel X 2 - LLE - FOLLOWS W/ DR. ANDREA - on Eliquis History of breast biopsy History of cardiac cath 2007 - [facility] - "total distal LAD occlusion. Unsuccessful attempt at PCI to this occlusion. Mild atherosclerotic disease of the remainder of the LAD, left circumflex, and right coronary arteries." Follows with Dr. Radford [place] cardio. History of cataract surgery Rt eye History of colonoscopy w/ polypectomy History of laparoscopy x 3 History of lumpectomy History of lymph node excision History of surgery CO2 laser R ventriculectomy 03/2021, pt declined left due to GI/vascular co- morbidities at time of 06/2021 [facility] ENT note History of surgery on extremity broken RLE d/t compound fracture after mechanical fall 04/2019 per records History of tonsillectomy S/P femoral-popliteal bypass surgery S/P femoral-tibial bypass Family History Mother Breast cancer Grandmother (Maternal) Family hx of colon cancer Denies family history of Ovarian cancer Social History Smoking Status: Current every day smoker Tobacco Type: Cigarettes Cigarettes Per Day: 15-20; Second Hand Exposure: No; Do You Dip or Chew Tobacco: No; Hx Alcohol Use: Yes Alcohol type: wine Alcohol type Comment: pt states one drink of lisbet's irishi cream weekly Hx Substance Use: No Preferred Language: Cymro Communication Ability: Effective Visual Impairment: Limited Hearing Ability: Normal Pest Controller Assistant Required: No Beliefs That Will Affect Care: None marital status: Single Current Living Situation: Alone Current Living Situation Comment: home alone current occupational status: retired Other Information That Helps Us Care for You: No Feels Safe at Home: Yes Safety Concerns: Feels Safe At This Time Diet: regular caffeine: Yes during the past year weight has: decreased > 10 lbs Gender Identity: Female Assistive Devices: Glasses Review of Systems Review of Systems: As per HPI, all other systems reviewed and negative Physical Exam Physical Exam: GENERAL: uncomfortable, alcoholic fetor, underweight, anxious, no respiratory distress SKIN: Pallor, warm HEENT: Bespectacled, pale palpebral conjunctivae, no ptosis, dry buccal mucosa NECK : Supple, no tenderness CHEST : Decreased breath sounds, no tenderness HEART : RRR, no obvious murmurs ABDOMEN: Minimal distention, no tenderness EXTREMITIES : Minimal LE swelling, right hip tenderness, no other conspicuous deformities noted NEUROLOGIC : Coherent, no facial asymmetry, no other gross focality Results & Data Results & Data Vital Signs (Past 12 Hours) Vital Signs Temp Pulse Pulse Resp BP Pulse Ox O2 Del Method 03/02/23 21:00 66 18 111/60 97 03/02/23 20:30 66 14 117/63 99 03/02/23 20:00 61 18 118/73 99 03/02/23 18:11 65 18 96 Room Air 03/02/23 18:11 36.6 C 63 18 121/67 96 Room Air 03/02/23 18:03 63 Laboratory Results Laboratory Results WBC 7.34 K/ul (4.8-10.8) 03/02/23 18:08 RBC 3.67 M/uL (4.20-5.40) L 03/02/23 18:08 Hgb 11.1 g/dl (12.0-16.0) L 03/02/23 18:08 Hct 32.8 % (37.0-47.0) L 03/02/23 18:08 MCV 89.4 fL (80.0-100.0) 03/02/23 18:08 MCH 30.2 pg (25.0-34.0) 03/02/23 18:08 MCHC 33.8 g/dL (32.0-36.0) 03/02/23 18:08 RDW Std Deviation 51.9 fL (36.4-46.3) H 03/02/23 18:08 RDW Coeff of Farrah 15.9 % (11.5-14.5) H 03/02/23 18:08 Plt Count 206 K/uL (130-400) 03/02/23 18:08 MPV 10.3 fL (9.4-12.4) 03/02/23 18:08 Immature Gran % (Auto) 0.3 % 03/02/23 18:08 Neut % (Auto) 62.5 % 03/02/23 18:08 Lymph % (Auto) 21.1 % 03/02/23 18:08 [place] % (Auto) 9.8 % 03/02/23 18:08 Eos % (Auto) 5.2 % 03/02/23 18:08 Baso % (Auto) 1.1 % 03/02/23 18:08 Neut # (Auto) 4.59 K/uL (1.40-6.50) 03/02/23 18:08 Lymph # (Auto) 1.55 K/uL (1.2-3.4) 03/02/23 18:08 [place] # (Auto) 0.72 K/uL (0.11-0.59) H 03/02/23 18:08 Eos # (Auto) 0.38 K/uL (0-0.50) 03/02/23 18:08 Baso # (Auto) 0.08 K/uL (0-0.2) 03/02/23 18:08 Immature Gran # (Auto) 0.02 K/uL (0.01-0.20) 03/02/23 18:08 PT 10.4 Seconds (9.0-12.0) 03/02/23 20:00 INR 0.9 (0.9-1.1) 03/02/23 20:00 APTT 24.6 Seconds (21.0-31.0) 03/02/23 20:00 PTT Ratio 0.9 03/02/23 20:00 Sodium 139 mmol/L (136-145) 03/02/23 18:08 Potassium 4.8 mmol/L (3.5-5.1) 03/02/23 18:08 Chloride 111 mmol/L (98-107) H 03/02/23 18:08 Carbon Dioxide 22 mmol/L (21-32) 03/02/23 18:08 Anion Gap 6 (3-11) 03/02/23 18:08 BUN 14 mg/dl (6-23) 03/02/23 18:08 Creatinine 1.18 mg/dl (0.6-1.2) 03/02/23 18:08 Est Cr Clr Drug Dosing 38.2 ml/min 03/02/23 18:08 Est GFR ( Amer) 53.7 ml/min 03/02/23 18:08 Est GFR (Non-Af Amer) 46.4 ml/min 03/02/23 18:08 BUN/Creatinine Ratio 11.9 (10-20) 03/02/23 18:08 Glucose 93 mg/dl (70-99(Fasting)) 03/02/23 18:08 Calcium 8.4 mg/dl (8.6-10.3) L 03/02/23 18:08 Magnesium 2.3 mg/dl (1.7-2.4) 03/02/23 18:08 Total Bilirubin 0.3 mg/dl (0.2-1.0) 03/02/23 18:08 AST 42 U/L (13-39) H 03/02/23 18:08 ALT 19 U/L (7-52) 03/02/23 18:08 Alkaline Phosphatase 96 U/L (34-104) 03/02/23 18:08 Total Protein 6.6 gm/dl (6.0-8.3) 03/02/23 18:08 Albumin 3.6 gm/dl (3.4-5.0) 03/02/23 18:08 Globulin 3.0 gm/dl (2.5-4.0) 03/02/23 18:08 Albumin/Globulin Ratio 1.2 (0.9-2) 03/02/23 18:08 Ethyl Alcohol mg/dL 126.1 mg/dl (<10.0) H 03/02/23 18:08 SARS-CoV-2, RNA, NAAT NEGATIVE (NEGATIVE) 03/02/23 Unknown Impressions Femur X-Ray 03/02/23 18:13 XR pelvis 1-2V routine, XR femur RT 2V routine CLINICAL HISTORY: fall right hip/femur injury TECHNIQUE: A single frontal view of the pelvis was obtained. 2 views of the femur were obtained. Comparison: Comparison is made to CT abdomen pelvis 08/30/2021 FINDINGS: There is a comminuted intertrochanteric fracture of the right femur. Partial visualization of a medullary cathleen in the right tibia. Soft tissue swelling is seen about the knee. IMPRESSION: Right intratrochanteric femur fracture. ACT 112: Negative or not required by law. Electronically signed by: Yassine Gil M.D. 03/02/2023 7:40 PM Pelvis X-Ray 03/02/23 18:13 XR pelvis 1-2V routine, XR femur RT 2V routine CLINICAL HISTORY: fall right hip/femur injury TECHNIQUE: A single frontal view of the pelvis was obtained. 2 views of the femur were obtained. Comparison: Comparison is made to CT abdomen pelvis 08/30/2021 FINDINGS: There is a comminuted intertrochanteric fracture of the right femur. Partial visualization of a medullary cathleen in the right tibia. Soft tissue swelling is seen about the knee. IMPRESSION: Right intratrochanteric femur fracture. ACT 112: Negative or not required by law. Electronically signed by: Yassine Gil M.D. 03/02/2023 7:[address] 03/02/23 18:14 CT head/brain wo con CLINICAL HISTORY: fall, etoh Technique: Contiguous axial CT images of the head were acquired from the base of the skull to the vertex without intravenous contrast administration. Images were viewed in brain, subdural and bone windows. Automated dose lowering techniques and/or adjustment according to patient size were utilized for this exam. Comparison: Comparison is made to CT head 08/09/2021 Findings: Areas of decreased attenuation are present in the periventricular and subcortical white matter bilaterally consistent with small vessel ischemic disease. Generalized cerebral atrophy with commensurate enlargement of the ventricles, sulci, and cisterns is also present. There is no acute intracranial hemorrhage or evidence of acute territorial infarction. No shift of the midline structures, mass effect, or extra-axial abnormalities are shown. Atherosclerotic calcifications are present in the intracranial segments of the internal carotid arteries. Imaged portions of the paranasal sinuses and mastoid air cells are clear. The orbits appear normal. There are no acute fractures of the calvaria or scalp swelling. Impression: No acute intracranial hemorrhage, no evidence of acute territorial infarction or other acute intracranial disease process. ACT 112: Negative or not required by law. Electronically signed by: Yassine Gil M.D. 03/02/2023 7:21 PM Chest X-Ray 03/02/23 19:20 XR chest 1V portable CLINICAL HISTORY: hip fx TECHNIQUE: Single frontal radiograph of the chest was obtained. Comparison: Comparison is made to chest radiograph 12/01/2021 FINDINGS: No lines and tubes are seen. The cardiomediastinal silhouette is normal. Faint opacities are in the left midlung which likely represent overlying soft tissue. No evidence of pleural effusion or pneumothorax. IMPRESSION: No acute chest disease. ACT 112: Negative or not required by law. Electronically signed by: Yassine Gil M.D. 03/02/2023 7:42 PM Diagnostic Findings EKG as per my interpretation : Rate 55, sinus bradycardia, LAD, LSB, diffuse T wave abnormalities (1) Intertrochanteric fracture of right femur Encounter type: initial encounter Fracture alignment: displaced Fracture type: closed Qualified Code(s): S72.141A - Displaced intertrochanteric fracture of right femur, initial encounter for closed fracture
--- NOTE | 2023-03-02 21:47 | Emergency Department Note ---
ED Visit Note I was consulted by the Advanced Practice Provider Hailey Frost PA-C. I saw the patient personally and performed a substantive portion of the visit. This includes aspects of the HPI, MDM, diagnostic interpretations, and disposition/plan. Patient presents as an intoxicated fall with a hip fracture. .
[2023-03-02] MEDS ORDERED: GABAPENTIN 300 MG CAP PO STA (21:50)
[2023-03-02] MEDS ORDERED: ASPIRIN 81 MG ECTAB PO STA (21:50)
[2023-03-02] MEDS ORDERED: PROMETHAZINE HCL 6.25 MG in SODIUM CHLORIDE 0.9% 50 ML IV PRN (21:50)
[2023-03-02] MEDS ORDERED: LORazepam 2 MG/1 ML VIAL IV PRN (21:50)
[2023-03-02] MEDS ORDERED: MAGNESIUM HYDROXIDE SUSP 30 ML UDC PO PRN (21:52)
[2023-03-02] MEDS ORDERED: NALOXONE HCL 0.4 MG/1 ML VIAL/CARP IV PRN (21:52)
[2023-03-02] MEDS: HYDROmorphone INJ 0.5 MG/0.5 ML SYR IV PRN (22:23)
[2023-03-02] MEDS ORDERED: NITROGLYCERIN SL 0.4 MG/TAB TAB SL PRN (22:54)
[2023-03-02] MEDS ORDERED: hydrOXYzine HCl 25 MG TAB PO PRN (22:54)
[2023-03-02] MEDS: oxyCODONE HCL IR 5 MG TAB (IMMEDIATE RELEASE) PO PRN (23:04)
[2023-03-02] MEDS: ROSUVASTATIN CALCIUM 20 MG TAB PO SCH (23:44)
[2023-03-02] MEDS: HEPARIN SODIUM/DEXTROSE 25,000 UNITS/500 ML BAG IV SCH (23:46)
[2023-03-02] MEDS ORDERED: ALBUT/IPRATROP 3MG/0.5MG NEB 3 ML VIAL NEB PRN (23:57)
[2023-03-03] MEDS: NICOTINE 21 MG/24 HR TDSY TD SCH ×2 (01:37→21:52)
[2023-03-03] MEDS: HYDROmorphone INJ 0.5 MG/0.5 ML SYR IV PRN ×4 (05:20→17:44)
[2023-03-03] MEDS: oxyCODONE HCL IR 5 MG TAB (IMMEDIATE RELEASE) PO PRN ×3 (05:26→21:23)
[2023-03-03] MEDS: SODIUM CHLORIDE 0.9% 1000ML 1,000 ML IV SCH ×2 (06:21→21:09)
[2023-03-03] MEDS ORDERED: ACETAMINOPHEN 325 MG TAB PO PRN (06:51)
[2023-03-03 07:09] LABS: Basophils # (auto) 0.05 K/uL (0-0.2); Basophils % (auto) 1.1 %; Eosinophils # (auto) 0.25 K/uL (0-0.50); Eosinophils % (auto) 5.3 %; Hematocrit (blood only) 27.9 % (37.0-47.0); Hemoglobin 9.3 g/dl (12.0-16.0); Immature Granulocytes # (auto) 0.01 K/uL (0.01-0.20); Immature Granulocytes % (auto) 0.2 %; Lymphocytes # (auto) 1.02 K/uL (1.2-3.4); Lymphocytes % (auto) 21.7 %; Mean Corpuscular Hemoglobin 30.3 pg (25.0-34.0); Mean Corpuscular Hgb Conc 33.3 g/dL (32.0-36.0); Mean Corpuscular Volume 90.9 fL (80.0-100.0); Monocytes # (auto) 0.63 K/uL (0.11-0.59); Monocytes % (auto) 13.4 %; Neutrophils # (auto) 2.74 K/uL (1.40-6.50); Neutrophils % (auto) 58.3 %; Platelet Count 170 K/uL (130-400); RDW Coefficient of Variation 15.8 % (11.5-14.5); RDW Standard Deviation 51.8 fL (36.4-46.3); Red Blood Count 3.07 M/uL (4.20-5.40)
[2023-03-03 07:27] LABS: BUN Creatinine Ratio 12.1 (10-20); Calcium 7.8 mg/dl (8.6-10.3); Creatinine Clr Calc Pharmacy 36.3 ml/min; Est GFR (African American) 50.6 ml/min; Est GFR (Non-African American) 43.7 ml/min; Potassium 4.4 mmol/L (3.5-5.1)
[2023-03-03 07:46] LABS: Partial Thromboplastin Ratio 4.8
[2023-03-03 08:02] LABS: Partial Thromboplastin Time 134.3 Seconds (21.0-31.0)
[2023-03-03] MEDS: METOPROLOL SUCC 25MG EXT REL TAB PO SCH (09:35)
[2023-03-03] MEDS: GABAPENTIN 300 MG CAP PO SCH ×3 (09:35→21:11)
[2023-03-03] MEDS: FOLIC ACID 1 MG TAB PO SCH (09:35)
[2023-03-03] MEDS: MULTIVITAMIN TAB PO SCH (09:36)
[2023-03-03] MEDS: PANTOprazole 40 MG TAB PO SCH ×2 (09:36→21:13)
[2023-03-03] MEDS: THIAMINE HCL 100 MG TAB PO SCH (09:36)
--- NOTE | 2023-03-03 09:38 | Orthopedic Consultation ---
Date of Consultation March 03, 2023 Assessment & Plan (1) Intertrochanteric fracture of right femur: Right intertrochanteric hip fracture: - Plans for ORIF of right hip fracture on 03/04/23. Her last Dose of Eliquis was yesterday morning so we need to hold this for 48 hours. Currently held. She is on a heparin IV. Discussed with hospitalist to have this stopped at midnight this evening. - Currently NPO. We will give a diet today and make her n.p.o. after midnight. - Bedrest today. - Nonweightbearing right lower extremity. - Pain medication as prescribed. - We did discuss the surgery and the risks and benefits which include but are not limited to infection, pain, bleeding, scarring, nerve and blood vessel damage, wound problems, weakness, stiffness, incomplete relief of symptoms, hardware failure, fracture, malunion, nonunion, blood clots, embolisms, heart attack, stroke and . I did call her daughter on the phone. She plans to come in this afternoon. - She understands and agrees with the plan. Postoperative course briefly discussed. - Will discuss with physician Dr. Gonzalez. - He would like her to have 1 unit of packed red blood cells today. This has been ordered. - Ancef and TXA preoperatively, orders placed. Supervising Physician Co-Signing Physician Notes I saw and examined the patient, reviewed her imaging, and formulated the above plan, performing the substantive portion of the visit. Agree with the above note. I reviewed the risks/benefits of surgery with the patient, alternatives and expected outcomes. She would like to proceed. Informed consent signed. Surgical site marked. Plan for surgery tomorrow at which point the bleeding risk should be acceptable. NPO after midnight tonight. Suspect she is malnourished, and recommend protein shake supplementation after surgery 2-3 times per day. History of Present Illness Reason for Consultation: Right intertrochanteric hip fracture Attending Physician: Fior Vargas MD History of Present Illness Patient is a pleasant 72-year-old female who is lying in bed and admitted to [facility] yesterday after sustaining a fall while at home. I was able to see her while in conjunction with the hospitalist evaluation this morning. She states that she was going to take her cat for a walk and as they were heading from her kitchen to the porch she tripped over the cat. She fell and landed onto the right side. She had immediate right hip pain. She is unable to get up. She lives very close to her neighbors and her neighbor was out in his driveway. She called him over and he was able to call the ambulance for assistance. She was brought to the emergency room and x-rays were taken of her right hip. She was found to have a right intertrochanteric hip fracture. She was admitted by the hospitalist service and consult was placed for [facility] orth[facility]ics for definitive care of her right hip fracture. She denies any loss of consciousness or any other injuries at the time of her fall. She denies any numbness or tingling in her lower extremity. She does have history have an IM cathleen of her right tibia after a fall which she tells me was last year but after discussing with her daughter was in 2018 or 2019. Last year she did have surgery for amputation of her left great toe due to ischemia. She states that she does not walk well but she uses no assistive device. She does have history of falling and her last fall was about a few months ago. She admits to drinking approximately 2 glasses of wine occasionally. Her last drink was yesterday. She smokes two thirds a pack of cigarettes per day. Today she states she is in a lot of pain. She did just get moved around in bed. She is requesting pain medication which was given during our visit by the nurse. She tells me that her last dose of Eliquis was yesterday morning, She says that she takes this for her peripheral artery disease. Allergies Allergy/AdvReac Type Severity Reaction Status Date / Time minocycline Allergy Intermediate Hives Verified 03/02/23 19:43 Tetracyclines Allergy Intermediate MINOCIN-ROSANNA Verified 03/02/23 19:43 H,HIVES duloxetine AdvReac Intermediate "MADE ME Verified 03/02/23 19:43 LOOPY" Home Medications Medication Instructions Recorded Confirmed Type gabapentin 300 mg capsule 300 mg PO TID 06/23/21 03/02/23 History hydroxyzine HCl 25 mg tablet 25 mg PO Q6 PRN Anxiety 06/23/21 03/02/23 History omeprazole 20 mg capsule,delayed 20 mg PO BID 06/23/21 03/02/23 History release aspirin 81 mg tablet,delayed 81 mg PO HS 08/07/21 03/02/23 History release rosuvastatin 40 mg tablet 40 mg PO HS #90 tabs 03/09/22 03/02/23 Rx apixaban 2.5 mg tablet (Eliquis) 2.5 mg PO BID #180 tabs 10/28/22 03/02/23 Rx metoprolol succinate 25 mg 25 mg PO QAM #90 tabs 11/25/22 03/02/23 Rx tablet,extended release 24 hr nitroglycerin 0.4 mg sublingual 0.4 mg sublingual .COMPLEX PRN 11/25/22 03/02/23 Rx tablet chest pain #25 tabs Patient History Medical History Alcohol use disorder Anemia pt declined iron supplementation and transfusion per heme/onc note CAD (coronary artery disease) [place] 2007-total distal LAD occlusion with unsuccessful attempt at PCI-mild atherosclerotic disease to remainder of LAD, left Cx and RCA. Negative stress test at 99% MPHR in 2010. Normal systolic function 12/2020 echo. Follows with [facility]. Carotid stenosis 50-69% stenosis left ICA, less than 50% stenosis per 08/2020 carotid ultrasound Chest pain Chronic kidney disease stage 3b COPD (chronic obstructive pulmonary disease) stable per pt, last rescue inhaler use "never"; last appt with pulm 12/2020 did not return for f/u Depression Difficult intubation "Due to difficult airway (intubated w/ 5.5 ETT), she was kept on ventilator for two days for repeat vascular procedure on 01/22. She received 4 doses of decadron over 36H. After definitive vascular procedure, she was extubated successfully in ICU after cuff leak confirmed in addition to intact respiratory and neurological status. She has since had no stridor and has remained stable on room air with no increased WOB." [facility] discharge summary for 01/21/2021-01/24/2021 hospitalization. Dyslipidemia (high LDL; low HDL) Femoral-popliteal bypass graft occlusion Dr. Andrea consulted and aware of patient. Heparin drip started. Coumadin held. Await vascular recommendations. Doppler pulse checks q2h. Femoral-popliteal bypass graft occlusion, left Foot ulcer Gangrene of left foot GERD (gastroesophageal reflux disease) upper GI bleed 08/2021 per 09/09/21 d/c summary, CT Abd suggestive of PUD-EGD small hiatal hernia, gastritis, nonbleeding duodenal ulcer with no stigmata of bleeding- 2 units PRBCs and IV Protonix transitioned to oral-f/u EGD scheduled 12/2021 with [facility] per records History of blood transfusion 08/2021 during 9 day [facility] hospitalization-hypotension, anemia, upper GI bleeding d/t PUD, alcohol use disorder, right 9th rib fracture per discharge summary History of breast cancer Lt -1999- s/p lumpectomy, chemo/radiation History of herpes simplex infection positive culture R lateral buttock per [facility] derm 11/12/21, resolved per pt HTN (hypertension) controlled, stable per pt Laryngocele bilat, s/p DML CO2 laser R ventriculectomy 03/2021, pt declined left, follows with [facility] ENT Myocardial Infarction 2007 Neuropathy follows with [facility] On anticoagulant therapy Prediabetes Pulmonary nodule stable per f/u CT scan 04/2021 PVD (peripheral vascular disease) h/o 2 failed bypasses left leg, follows with vascular surgery Rosacea Pt denies S/P angiogram of extremity Left Lower Extremity Angiogram, Smoker Thyroid nodule right, follows with [facility] ENT Valvular heart disease Mild mitral regurgitation. Mild to moderate tricuspid regurgitation. 12/2020 echo. Surgical History History of amputation Left Great Toe Transmetatarsal amputation and left Second Toe Amputation History of anesthesia reaction combative History of angioplasty of peripheral vessel X 2 - LLE - FOLLOWS W/ DR. ANDREA - on Eliquis History of breast biopsy History of cardiac cath 2007 - [facility] - "total distal LAD occlusion. Unsuccessful attempt at PCI to this occlusion. Mild atherosclerotic disease of the remainder of the LAD, left circumflex, and right coronary arteries." Follows with Dr. [facility]. History of cataract surgery Rt eye History of colonoscopy w/ polypectomy History of laparoscopy x 3 History of lumpectomy History of lymph node excision History of surgery CO2 laser R ventriculectomy 03/2021, pt declined left due to GI/vascular co- morbidities at time of 06/2021 [facility] ENT note History of surgery on extremity broken RLE d/t compound fracture after mechanical fall 04/2019 per records History of tonsillectomy S/P femoral-popliteal bypass surgery S/P femoral-tibial bypass Family History Mother Breast cancer Grandmother (Maternal) Family hx of colon cancer Denies family history of Ovarian cancer Social History Smoking Status: Current every day smoker Tobacco Type: Cigarettes Cigarettes Per Day: 15-20; Second Hand Exposure: No; Do You Dip or Chew Tobacco: No; Hx Alcohol Use: Yes Alcohol type: wine Alcohol type Comment: pt states one drink of lisbet's irishi cream weekly Hx Substance Use: No Preferred Language: [place]an Communication Ability: Effective Visual Impairment: Limited Hearing Ability: Normal Director Of Corporate Responsibility Required: No Beliefs That Will Affect Care: None marital status: Single Current Living Situation: Alone Current Living Situation Comment: home alone current occupational status: retired Other Information That Helps Us Care for You: No Feels Safe at Home: Yes Safety Concerns: Feels Safe At This Time Diet: regular caffeine: Yes during the past year weight has: decreased > 10 lbs Gender Identity: Female Assistive Devices: Glasses Review of Systems Review of Systems: All systems reviewed & are unremarkable except as noted in HPI & below and Other (She is very tearful during discussion and exam. Slow to answer questions. Cries occasionally when asked questions. ) Constitutional: no fever and no chills Eyes: She keeps her eyes closed during the entire exam. She is tearful. Physical Exam Constitutional: WD/WN, vitals as above well developed, well nourished, average body habitus and + in distress Musculoskeletal: Atraumatic bilateral upper extremities and left lower extremity. Absence of left great toe. Incision is healed. Dried callused skin on the plantar surface of that foot. Other toes are nontender. Pulses are palpable. Foot is warm. Tolerates range of motion of all other toes. right leg Without skin abrasions or ecchymosis noted. Dorsalis pedis and post erior tibial pulses are 1+. Distal sensation is normal. She is able to wiggle her toes and gently move her ankle. Right hip and knee range of motion not attempted today. The leg is held in external rotation. Previous incisions are healed from her left tibia fracture fixation. Results & Data Vital Signs (Past 12 Hours) Vital Signs Temp Pulse Pulse Pulse Resp BP BP 03/03/23 07:31 37.4 C 85 18 113/69 03/03/23 05:57 76 03/03/23 03:51 36.9 C 69 18 95/55 L 03/03/23 00:22 61 03/02/23 23:22 03/02/23 23:22 36.8 C 59 L 18 135/65 03/02/23 22:00 18 122/64 Pulse Ox O2 Del Method 03/03/23 07:31 92 Room Air 03/03/23 05:57 03/03/23 03:51 92 Room Air 03/03/23 00:22 03/02/23 23:22 Room Air 03/02/23 23:22 97 Room Air 03/02/23 22:00 93 Laboratory Results 03/03/23 03/03/23 03/03/23 Range/Units 06:45 06:45 06:45 WBC 4.70 L (4.8-10.8) K/ul RBC 3.07 L (4.20-5.40) M/uL Hgb 9.3 L (12.0-16.0) g/dl Hct 27.9 L (37.0-47.0) % MCV 90.9 (80.0-100.0) fL MCH 30.3 (25.0-34.0) pg MCHC 33.3 (32.0-36.0) g/dL RDW Std Deviation 51.8 H (36.4-46.3) fL RDW Coeff of Farrah 15.8 H (11.5-14.5) % Plt Count 170 (130-400) K/uL MPV 10.0 (9.4-12.4) fL Immature Gran % (Auto) 0.2 % Neut % (Auto) 58.3 % Lymph % (Auto) 21.7 % [place] % (Auto) 13.4 % Eos % (Auto) 5.3 % Baso % (Auto) 1.1 % Neut # (Auto) 2.74 (1.40-6.50) K/uL Lymph # (Auto) 1.02 L (1.2-3.4) K/uL [place] # (Auto) 0.63 H (0.11-0.59) K/uL Eos # (Auto) 0.25 (0-0.50) K/uL Baso # (Auto) 0.05 (0-0.2) K/uL Immature Gran # (Auto) 0.01 (0.01-0.20) K/uL PT INR APTT 134.3 H* PTT Ratio 4.8 Sodium 141 (136-145) mmol/L Potassium 4.4 (3.5-5.1) mmol/L Chloride 112 H (98-107) mmol/L Carbon Dioxide 25 (21-32) mmol/L Anion Gap 4 (3-11) BUN 15 (6-23) mg/dl Creatinine 1.24 H (0.6-1.2) mg/dl Est Cr Clr Drug Dosing 36.3 ml/min Est GFR ( Amer) 50.6 ml/min Est GFR (Non-Af Amer) 43.7 ml/min BUN/Creatinine Ratio 12.1 (10-20) Glucose 78 (70-99(Fasting)) mg/dl Calcium 7.8 L (8.6-10.3) mg/dl Magnesium (1.7-2.4) mg/dl Total Bilirubin (0.2-1.0) mg/dl AST (13-39) U/L ALT (7-52) U/L Alkaline Phosphatase (34-104) U/L Total Protein (6.0-8.3) gm/dl Albumin (3.4-5.0) gm/dl Globulin (2.5-4.0) gm/dl Albumin/Globulin Ratio (0.9-2) Ethyl Alcohol mg/dL (<10.0) mg/dl SARS-CoV-2, RNA, NAAT (NEGATIVE) Blood Type Antibody Screen 03/03/23 03/02/23 03/02/23 Range/Units 06:45 Unknown 20:00 WBC (4.8-10.8) K/ul RBC (4.20-5.40) M/uL Hgb (12.0-16.0) g/dl Hct (37.0-47.0) % MCV (80.0-100.0) fL MCH (25.0-34.0) pg MCHC (32.0-36.0) g/dL RDW Std Deviation (36.4-46.3) fL RDW Coeff of Farrah (11.5-14.5) % Plt Count (130-400) K/uL MPV (9.4-12.4) fL Immature Gran % (Auto) % Neut % (Auto) % Lymph % (Auto) % [place] % (Auto) % Eos % (Auto) % Baso % (Auto) % Neut # (Auto) (1.40-6.50) K/uL Lymph # (Auto) (1.2-3.4) K/uL [place] # (Auto) (0.11-0.59) K/uL Eos # (Auto) (0-0.50) K/uL Baso # (Auto) (0-0.2) K/uL Immature Gran # (Auto) (0.01-0.20) K/uL PT 10.4 INR 0.9 APTT 24.6 PTT Ratio 0.9 Sodium (136-145) mmol/L Potassium (3.5-5.1) mmol/L Chloride (98-107) mmol/L Carbon Dioxide (21-32) mmol/L Anion Gap (3-11) BUN (6-23) mg/dl Creatinine (0.6-1.2) mg/dl Est Cr Clr Drug Dosing ml/min Est GFR ( Amer) ml/min Est GFR (Non-Af Amer) ml/min BUN/Creatinine Ratio (10-20) Glucose (70-99(Fasting)) mg/dl Calcium (8.6-10.3) mg/dl Magnesium (1.7-2.4) mg/dl Total Bilirubin (0.2-1.0) mg/dl AST (13-39) U/L ALT (7-52) U/L Alkaline Phosphatase (34-104) U/L Total Protein (6.0-8.3) gm/dl Albumin (3.4-5.0) gm/dl Globulin (2.5-4.0) gm/dl Albumin/Globulin Ratio (0.9-2) Ethyl Alcohol mg/dL (<10.0) mg/dl SARS-CoV-2, RNA, NAAT NEGATIVE (NEGATIVE) Blood Type A Positive Antibody Screen NEGATIVE 03/02/23 03/02/23 03/02/23 Range/Units 18:08 18:08 18:08 WBC (4.8-10.8) K/ul RBC (4.20-5.40) M/uL Hgb (12.0-16.0) g/dl Hct (37.0-47.0) % MCV (80.0-100.0) fL MCH (25.0-34.0) pg MCHC (32.0-36.0) g/dL RDW Std Deviation (36.4-46.3) fL RDW Coeff of Farrah (11.5-14.5) % Plt Count (130-400) K/uL MPV (9.4-12.4) fL Immature Gran % (Auto) % Neut % (Auto) % Lymph % (Auto) % [place] % (Auto) % Eos % (Auto) % Baso % (Auto) % Neut # (Auto) (1.40-6.50) K/uL Lymph # (Auto) (1.2-3.4) K/uL [place] # (Auto) (0.11-0.59) K/uL Eos # (Auto) (0-0.50) K/uL Baso # (Auto) (0-0.2) K/uL Immature Gran # (Auto) (0.01-0.20) K/uL PT Cancelled INR Cancelled APTT Cancelled PTT Ratio Cancelled Sodium 139 (136-145) mmol/L Potassium 4.8 (3.5-5.1) mmol/L Chloride 111 H (98-107) mmol/L Carbon Dioxide 22 (21-32) mmol/L Anion Gap 6 (3-11) BUN 14 (6-23) mg/dl Creatinine 1.18 (0.6-1.2) mg/dl Est Cr Clr Drug Dosing 38.2 ml/min Est GFR ( Amer) 53.7 ml/min Est GFR (Non-Af Amer) 46.4 ml/min BUN/Creatinine Ratio 11.9 (10-20) Glucose 93 (70-99(Fasting)) mg/dl Calcium 8.4 L (8.6-10.3) mg/dl Magnesium 2.3 (1.7-2.4) mg/dl Total Bilirubin 0.3 (0.2-1.0) mg/dl AST 42 H (13-39) U/L ALT 19 (7-52) U/L Alkaline Phosphatase 96 (34-104) U/L Total Protein 6.6 (6.0-8.3) gm/dl Albumin 3.6 (3.4-5.0) gm/dl Globulin 3.0 (2.5-4.0) gm/dl Albumin/Globulin Ratio 1.2 (0.9-2) Ethyl Alcohol mg/dL 126.1 H (<10.0) mg/dl SARS-CoV-2, RNA, NAAT (NEGATIVE) Blood Type Antibody Screen 03/02/23 Range/Units 18:08 WBC 7.34 (4.8-10.8) K/ul RBC 3.67 L (4.20-5.40) M/uL Hgb 11.1 L (12.0-16.0) g/dl Hct 32.8 L (37.0-47.0) % MCV 89.4 (80.0-100.0) fL MCH 30.2 (25.0-34.0) pg MCHC 33.8 (32.0-36.0) g/dL RDW Std Deviation 51.9 H (36.4-46.3) fL RDW Coeff of Farrah 15.9 H (11.5-14.5) % Plt Count 206 (130-400) K/uL MPV 10.3 (9.4-12.4) fL Immature Gran % (Auto) 0.3 % Neut % (Auto) 62.5 % Lymph % (Auto) 21.1 % [place] % (Auto) 9.8 % Eos % (Auto) 5.2 % Baso % (Auto) 1.1 % Neut # (Auto) 4.59 (1.40-6.50) K/uL Lymph # (Auto) 1.55 (1.2-3.4) K/uL [place] # (Auto) 0.72 H (0.11-0.59) K/uL Eos # (Auto) 0.38 (0-0.50) K/uL Baso # (Auto) 0.08 (0-0.2) K/uL Immature Gran # (Auto) 0.02 (0.01-0.20) K/uL PT INR APTT PTT Ratio Sodium (136-145) mmol/L Potassium (3.5-5.1) mmol/L Chloride (98-107) mmol/L Carbon Dioxide (21-32) mmol/L Anion Gap (3-11) BUN (6-23) mg/dl Creatinine (0.6-1.2) mg/dl Est Cr Clr Drug Dosing ml/min Est GFR ( Amer) ml/min Est GFR (Non-Af Amer) ml/min BUN/Creatinine Ratio (10-20) Glucose (70-99(Fasting)) mg/dl Calcium (8.6-10.3) mg/dl Magnesium (1.7-2.4) mg/dl Total Bilirubin (0.2-1.0) mg/dl AST (13-39) U/L ALT (7-52) U/L Alkaline Phosphatase (34-104) U/L Total Protein (6.0-8.3) gm/dl Albumin (3.4-5.0) gm/dl Globulin (2.5-4.0) gm/dl Albumin/Globulin Ratio (0.9-2) Ethyl Alcohol mg/dL (<10.0) mg/dl SARS-CoV-2, RNA, NAAT (NEGATIVE) Blood Type Antibody Screen Diagnostic Findings XR chest 1V portable CLINICAL HISTORY: hip fx TECHNIQUE: Single frontal radiograph of the chest was obtained. Comparison: Comparison is made to chest radiograph 12/01/2021 FINDINGS: No lines and tubes are seen. The cardiomediastinal silhouette is normal. Faint opacities are in the left midlung which likely represent overlying soft tissue. No evidence of pleural effusion or pneumothorax. IMPRESSION: No acute chest disease. CT head/brain wo con CLINICAL HISTORY: fall, etoh Technique: Contiguous axial CT images of the head were acquired from the base of the skull to the vertex without intravenous contrast administration. Images were viewed in brain, subdural and bone windows. Automated dose lowering techniques and/or adjustment according to patient size were utilized for this exam. Comparison: Comparison is made to CT head 08/09/2021 Findings: Areas of decreased attenuation are present in the periventricular and subcortical white matter bilaterally consistent with small vessel ischemic dis ease. Generalized cerebral atrophy with commensurate enlargement of the ventricles, sulci, and cisterns is also present. There is no acute intracranial hemorrhage or evidence of acute territorial infarction. No shift of the midline structures, mass effect, or extra-axial abnormalities are shown. Atherosclerotic calcifications are present in the intracranial segments of the internal carotid arteries. Imaged portions of the paranasal sinuses and mastoid air cells are clear. The orbits appear normal. There are no acute fractures of the calvaria or scalp swelling. Impression: No acute intracranial hemorrhage, no evidence of acute territorial infarction or other acute intracranial disease process. --- XR pelvis 1-2V routine, XR femur RT 2V routine CLINICAL HISTORY: fall right hip/femur injury TECHNIQUE: A single frontal view of the pelvis was obtained. 2 views of the femur were obtained. Comparison: Comparison is made to CT abdomen pelvis 08/30/2021 FINDINGS: There is a comminuted intertrochanteric fracture of the right femur. Partial visualization of a medullary cathleen in the right tibia. Soft tissue swelling is seen about the knee. IMPRESSION: Right intratrochanteric femur fracture. XR pelvis 1-2V routine, XR femur RT 2V routine CLINICAL HISTORY: fall right hip/femur injury TECHNIQUE: A single frontal view of the pelvis was obtained. 2 views of the femur were obtained. Comparison: Comparison is made to CT abdomen pelvis 08/30/2021 FINDINGS: There is a comminuted intertrochanteric fracture of the right femur. Partial visualization of a medullary cathleen in the right tibia. Soft tissue swelling is seen about the knee. IMPRESSION: Right intratrochanteric femur fracture. (1) Intertrochanteric fracture of right femur Encounter type: initial encounter Fracture alignment: displaced Fracture type: closed Qualified Code(s): S72.141A - Displaced intertrochanteric fracture of right femur, initial encounter for closed fracture
--- NOTE | 2023-03-03 10:07 | Hospitalist Progress Note ---
Date of Service March 03, 2023 Assessment & Plan (1) Intertrochanteric fracture of right femur: Plan: Patient has hx of CAD, stable disease on last follow-up with [facility] weig[facility] operator 3 months ago, PAD status post surgery on Eliquis,HTN, hyperlipidemia on statin Rx, COPD, pulmonary hypertension, CRI, breast cancer status post surgery/chemoradiation who presents after fall with right hip pain XR Pelvis noted Right intratrochanteric femoral fracture Optimize pain control Patient needs surgery RCRI class II risk Hb is 9.3 today. Was 11.1 on admission. Patient has chronic anemia and based on past results, Hb runs 8-9 All cell lines dropped from yesterday to today which suggests likely dilutional effect. However, will monitor Hb considering patient was on eliquis at home. Will defer any preop transfusion to surgeon Discussed with Surgical PA. Plan is for surgery tomorrrow Continue to hold eliquis Will continue heparin gtt today per protocol, hold at midnight. Keep NPO at midnight. RN updated Anxiety disorder Alcohol use. Reports last drink was on day of admission. Denied alcohol withdrawal in the past Alcohol level was 126 on presentation CIWA protocol for now Continue folate, thiamine. Smokes 2/3rd of a pack per day Used marijuana about 2 days ago. Denied heroin/cocaine/meth use Counseled on alcohol and smoking cessation Nicotine patch while inpatient. Patient agreeable Per Admitting Provider, patient has history of laryngocele status post surgery/difficult intubation as per records Chronic neuropathy on gabapentin ongoing tobacco/alcohol abuse. DVT prophylaxis. IV heparin Full code Patient requests for her daughter to be updated of plan of care. Ms. Azul Osorio, contact #[phone]. I spent a total of 60 minutes coordinating, documenting and providing care for this patient excluding time spent in performance of separately billed services Admission and Anticipated Discharge Date Admission Date: March 02, 2023 Subjective Patient seen and examined Patient reports severe right hip pain. Just finished getting cleaned up She denied other complaints on ROS Physical Exam Constitutional: + acute distress (painful distress) and + well hydrated Eyes: PERRL, conjunctivae normal, anicteric sclerae ENMT: external ear and nose normal, oropharynx normal Respiratory: normal respiratory effort, lungs clear to auscultation Cardiovascular: Rate/Rhythm: regular rate and regular rhythm S1 S2 Gastrointestinal (Abdomen): normal bowel sounds, soft, nontender, no hepatosplenomegaly Musculoskeletal: Tenderness over right hip Neurologic: PERRL, EOMI, accommodation nl, no face palsy, no dysarthria Psychiatric: Alert, oriented to person, place, time, crying Results & Data Results & Data Vital Signs (Past 12 Hours) Vital Signs Temp Pulse Pulse Pulse Resp BP Pulse Ox 03/03/23 07:31 37.4 C 85 18 113/69 92 03/03/23 05:57 76 03/03/23 03:51 36.9 C 69 18 95/55 L 92 03/03/23 00:22 61 03/02/23 23:22 03/02/23 23:22 36.8 C 59 L 18 135/65 97 O2 Del Method 03/03/23 07:31 Room Air 03/03/23 05:57 03/03/23 03:51 Room Air 03/03/23 00:22 03/02/23 23:22 Room Air 03/02/23 23:22 Room Air Laboratory Results Abnormal lab results 03/02/23 03/02/23 03/02/23 Range/Units 18:08 18:08 18:08 WBC (4.8-10.8) K/ul RBC 3.67 L (4.20-5.40) M/uL Hgb 11.1 L (12.0-16.0) g/dl Hct 32.8 L (37.0-47.0) % RDW Std Deviation 51.9 H (36.4-46.3) fL RDW Coeff of Farrah 15.9 H (11.5-14.5) % Lymph # (Auto) (1.2-3.4) K/uL Teller # (Auto) 0.72 H (0.11-0.59) K/uL APTT (21.0-31.0) Seconds Chloride 111 H (98-107) mmol/L Creatinine (0.6-1.2) mg/dl Calcium 8.4 L (8.6-10.3) mg/dl AST 42 H (13-39) U/L Ethyl Alcohol mg/dL 126.1 H (<10.0) mg/dl Crossmatch 03/03/23 03/03/23 03/03/23 Range/Units 06:45 06:45 06:45 WBC 4.70 L (4.8-10.8) K/ul RBC 3.07 L (4.20-5.40) M/uL Hgb 9.3 L (12.0-16.0) g/dl Hct 27.9 L (37.0-47.0) % RDW Std Deviation 51.8 H (36.4-46.3) fL RDW Coeff of Farrah 15.8 H (11.5-14.5) % Lymph # (Auto) 1.02 L (1.2-3.4) K/uL Teller # (Auto) 0.63 H (0.11-0.59) K/uL APTT (21.0-31.0) Seconds Chloride 112 H (98-107) mmol/L Creatinine 1.24 H (0.6-1.2) mg/dl Calcium 7.8 L (8.6-10.3) mg/dl AST (13-39) U/L Ethyl Alcohol mg/dL (<10.0) mg/dl Crossmatch See Detail 03/03/23 Range/Units 06:45 WBC (4.8-10.8) K/ul RBC (4.20-5.40) M/uL Hgb (12.0-16.0) g/dl Hct (37.0-47.0) % RDW Std Deviation (36.4-46.3) fL RDW Coeff of Farrah (11.5-14.5) % Lymph # (Auto) (1.2-3.4) K/uL Teller # (Auto) (0.11-0.59) K/uL APTT 134.3 H* (21.0-31.0) Seconds Chloride (98-107) mmol/L Creatinine (0.6-1.2) mg/dl Calcium (8.6-10.3) mg/dl AST (13-39) U/L Ethyl Alcohol mg/dL (<10.0) mg/dl Crossmatch (1) Intertrochanteric fracture of right femur Encounter type: initial encounter Fracture alignment: displaced Fracture type: closed Qualified Code(s): S72.141A - Displaced intertrochanteric fracture of right femur, initial encounter for closed fracture
[2023-03-03] MEDS ORDERED: SODIUM CHLORIDE 0.9% 250 ML IV PRN (10:19)
[2023-03-03] MEDS ORDERED: LORazepam 1 MG TAB PO PRN (11:07)
[2023-03-03 15:18] LABS: Partial Thromboplastin Ratio 2.6
[2023-03-03 15:27] LABS: Partial Thromboplastin Time 74.5 Seconds (21.0-31.0)
[2023-03-03] MEDS ORDERED: HYDROmorphone INJ 0.5 MG/0.5 ML SYR IV PRN (18:09)
[2023-03-03 18:36] LABS: Appearance Urine Cloudy (Clear); Bilirubin Urine Negative (Negative); Blood Urine Trace (Negative); Color Urine Yellow; Epithelial Cell Urine Auto >30 /lpf (0-5); Glucose Urine UA Negative (Negative); Ketones Urine Negative (Negative); Leukocyte Esterase Urine Negative (Negative); Nitrite Urine Negative (Negative); Protein Urine 1+ (Negative); Specific Gravity Urine 1.015 (1.000-1.030); Urobilinogen Urine Negative (Negative); pH Urine 5.5 (4.5-7.5)
[2023-03-03 19:03] LABS: Bacteria Urine Automated 1+ (Negative); RBC Urine Automated 0-4 /hpf (0-4)
[2023-03-03] MEDS: ASPIRIN 81 MG ECTAB PO SCH (21:11)
[2023-03-03] MEDS: ROSUVASTATIN CALCIUM 20 MG TAB PO SCH (21:15)
[2023-03-03 22:34] LABS: Partial Thromboplastin Ratio 3.3
[2023-03-03 22:43] LABS: Partial Thromboplastin Time 92.5 Seconds (21.0-31.0)
[2023-03-03] MEDS: HEPARIN SODIUM/DEXTROSE 25,000 UNITS/500 ML BAG IV SCH (22:50)
--- NOTE | 2023-03-03 23:14 | Electrocardiogram Report ---
Test Reason : Blood Pressure : / mmHG Vent. Rate : 057 BPM Atrial Rate : 057 BPM P-R Int : 150 ms QRS Dur : 080 ms QT Int : 440 ms P-R-T Axes : 057 -11 019 degrees QTc Int : 428 ms Sinus bradycardia Possible Left atrial enlargement T wave abnormality, consider anterolateral ischemia Abnormal ECG When compared with ECG of 08-JAN-2022 11:42, T wave inversion more evident in Anterolateral leads Confirmed by Viktor Rasheed ([id number]) on 03/03/2023 11:14:24 PM Referred By: REFERRED SELF Confirmed By:Viktor Rasheed
[2023-03-04] MEDS ORDERED: ceFAZolin 2000MG 2,000 MG/15 ML SYR IV ONE (06:00)
[2023-03-04] MEDS ORDERED: TRANEXAMIC ACID / 0.7% NACL 1,000 MG/100 ML BAG IV ONE (06:00)
[2023-03-04] MEDS ORDERED: ROPIVACAINE 0.5% 5 MG/ML 30 ML VIAL ONE (06:39)
[2023-03-04] MEDS: oxyCODONE HCL IR 5 MG TAB (IMMEDIATE RELEASE) PO PRN ×2 (07:42→14:54)
[2023-03-04 07:45] LABS: Hematocrit (blood only) 33.6 % (37.0-47.0); Hemoglobin 10.9 g/dl (12.0-16.0)
[2023-03-04] MEDS: THIAMINE HCL 100 MG TAB PO SCH (07:45)
[2023-03-04] MEDS: PANTOprazole 40 MG TAB PO SCH ×2 (07:46→20:37)
[2023-03-04] MEDS: GABAPENTIN 300 MG CAP PO SCH ×3 (07:46→20:13)
[2023-03-04] MEDS: MULTIVITAMIN TAB PO SCH (07:46)
[2023-03-04] MEDS: FOLIC ACID 1 MG TAB PO SCH (07:46)
[2023-03-04 07:49] LABS: Basophils # (auto) 0.03 K/uL (0-0.2); Basophils % (auto) 0.4 %; Eosinophils # (auto) 0.31 K/uL (0-0.50); Hematocrit (blood only) 32.8 % (37.0-47.0); Hemoglobin 10.8 g/dl (12.0-16.0); Immature Granulocytes # (auto) 0.02 K/uL (0.01-0.20); Immature Granulocytes % (auto) 0.3 %; Lymphocytes # (auto) 0.96 K/uL (1.2-3.4); Lymphocytes % (auto) 12.3 %; Mean Corpuscular Hemoglobin 30.4 pg (25.0-34.0); Mean Corpuscular Hgb Conc 32.9 g/dL (32.0-36.0); Mean Corpuscular Volume 92.4 fL (80.0-100.0); Mean Platelet Volume 10.1 fL (9.4-12.4); Monocytes # (auto) 0.77 K/uL (0.11-0.59); Monocytes % (auto) 9.8 %; Neutrophils # (auto) 5.74 K/uL (1.40-6.50); Neutrophils % (auto) 73.2 %; Platelet Count 128 K/uL (130-400); RDW Coefficient of Variation 16.7 % (11.5-14.5); RDW Standard Deviation 56.3 fL (36.4-46.3); Red Blood Count 3.55 M/uL (4.20-5.40); White Blood Count 7.83 K/ul (4.8-10.8)
[2023-03-04 08:16] LABS: Calcium 7.7 mg/dl (8.6-10.3); Magnesium 1.9 mg/dl (1.7-2.4); Potassium 4.5 mmol/L (3.5-5.1)
[2023-03-04 08:22] LABS: BUN Creatinine Ratio 11.3 (10-20); Creatinine Clr Calc Pharmacy 39.1 ml/min; Est GFR (African American) 55.4 ml/min; Est GFR (Non-African American) 47.8 ml/min; Phosphorus 3.2 mg/dl (2.5-4.9)
[2023-03-04] MEDS: SODIUM CHLORIDE 0.9% 1000ML 1,000 ML IV SCH ×2 (09:21→20:55)
[2023-03-04] MEDS: METOPROLOL SUCC 25MG EXT REL TAB PO SCH (09:24)
--- NOTE | 2023-03-04 09:25 | Anesthesiology Consultation ---
Date of Service March 04, 2023 Assessment & Plan Chart Review Chart Review: Acceptable Risk for Surgery (urgent procedure) History Surgery Operation Date: 03/04/23 10:40 Proposed Procedures p Right Hip Fracture, Open Reduction Internal Fixation and Long Troch Nail - Mele Gonzalez MD Height/Weight Height: 5 ft 6 in Weight: 55.2 kg Allergies Allergy/AdvReac Type Severity Reaction Status Date / Time minocycline Allergy Intermediate Hives Verified 03/02/23 19:43 Tetracyclines Allergy Intermediate MINOCIN-ROSANNA Verified 03/02/23 19:43 H,HIVES duloxetine AdvReac Intermediate "MADE ME Verified 03/02/23 19:43 LOOPY" Medications Home Medications Medication Instructions Recorded Confirmed Last Taken gabapentin 300 mg capsule 300 mg PO TID 06/23/21 03/02/23 03/02/23 08:00 hydroxyzine HCl 25 mg tablet 25 mg PO Q6 PRN Anxiety 06/23/21 03/02/23 03/02/23 08:00 omeprazole 20 mg capsule,delayed 20 mg PO BID 06/23/21 03/02/23 03/02/23 08:00 release aspirin 81 mg tablet,delayed 81 mg PO HS 08/07/21 03/02/23 03/01/23 release rosuvastatin 40 mg tablet 40 mg PO HS #90 tabs 03/09/22 03/02/23 03/01/23 apixaban 2.5 mg tablet (Eliquis) 2.5 mg PO BID #180 tabs 10/28/22 03/02/23 03/02/23 08:00 metoprolol succinate 25 mg 25 mg PO QAM #90 tabs 11/25/22 03/02/23 03/02/23 08:00 tablet,extended release 24 hr nitroglycerin 0.4 mg sublingual 0.4 mg sublingual .COMPLEX PRN 11/25/22 03/02/23 Unknown tablet chest pain #25 tabs Active Medications Generic Name Dose Route Start Last Admin Trade Name Freq PRN Reason Stop Dose Admin Acetaminophen 650 mg 03/03/23 06:51 03/03/23 21:23 Acetaminophen 325 Mg Tab PO 04/02/23 06:50 650 mg Q6H PRN Administration Fever/pain Aspirin 81 mg 03/03/23 21:00 03/03/23 21:11 Aspirin 81 Mg Ectab PO 04/02/23 20:59 81 mg HS ELY Administration Folic Acid 1 mg 03/03/23 09:00 03/04/23 07:46 Folic Acid 1 Mg Tab PO 04/02/23 08:59 1 mg QAM ELY Administration Gabapentin 300 mg 03/03/23 09:00 03/04/23 07:46 Gabapentin 300 Mg Cap PO 04/02/23 08:59 300 mg TID ELY Administration Heparin Sodium/Dextrose 25,000 units in 500 mls @ 0 mls/hr 03/02/23 22:00 03/04/23 00:08 Heparin Sodium/Dextrose IV 04/01/23 21:59 Infused .Q0M ELY Titration Protocol 0 UNITS/HR Sodium Chloride 1,000 mls @ 80 mls/hr 03/03/23 06:00 03/04/23 09:21 Nss 1000ml IV 04/02/23 05:59 80 mls/hr .[id number] ELY Administration Metoprolol Succinate 25 mg 03/03/23 09:00 03/04/23 09:24 Metoprolol Succ 25mg Ext Rel Tab PO 04/02/23 08:59 25 mg QAM ELY Administration Miscellaneous 1 each 03/03/23 21:00 03/03/23 21:15 Remove Nicoderm Patch N/A 04/02/23 20:59 Not Given HS ELY Multivitamins 1 tab 03/03/23 09:00 03/04/23 07:46 Multivitamin Tab PO 04/02/23 08:59 1 tab QAM ELY Administration Nicotine 21 mg 03/02/23 21:55 03/03/23 21:52 Nicotine 21 Mg/24 Hr Tdsy TD 04/01/23 21:54 Not Given HS ELY Oxycodone HCl 5 - 10 mg 03/02/23 21:50 03/04/23 07:42 Oxycodone Hcl Ir 5 Mg Tab (Immediate Release) PO 03/16/23 21:49 10 mg QID PRN Administration Pain Pantoprazole Sodium 40 mg 03/03/23 09:00 03/04/23 07:46 Pantoprazole 40 Mg Tab PO 04/02/23 08:59 40 mg BID ELY Administration Rosuvastatin Calcium 40 mg 03/02/23 22:54 03/03/23 21:15 Rosuvastatin Calcium 20 Mg Tab PO 04/01/23 22:53 40 mg HS ELY Administration Thiamine HCl 100 mg 03/03/23 09:00 03/04/23 07:45 Thiamine Hcl 100 Mg Tab PO 04/02/23 08:59 100 mg QAM ELY Administration Past Medical History Medical History Alcohol use disorder Anemia pt declined iron supplementation and transfusion per heme/onc note CAD (coronary artery disease) [place] 2007-total distal LAD occlusion with unsuccessful attempt at PCI-mild atherosclerotic disease to remainder of LAD, left Cx and RCA. Negative stress test at 99% MPHR in 2010. Normal systolic function 12/2020 echo. Follows with [facility]. Carotid stenosis 50-69% stenosis left ICA, less than 50% stenosis per 08/2020 carotid ultrasound Chest pain Chronic kidney disease stage 3b COPD (chronic obstructive pulmonary disease) stable per pt, last rescue inhaler use "never"; last appt with pulm 12/2020 did not return for f/u Depression Difficult intubation "Due to difficult airway (intubated w/ 5.5 ETT), she was kept on ventilator for two days for repeat vascular procedure on 01/22. She received 4 doses of decadron over 36H. After definitive vascular procedure, she was extubated successfully in ICU after cuff leak confirmed in addition to intact respiratory and neurological status. She has since had no stridor and has remained stable on room air with no increased WOB." [facility] discharge summary for 01/21/2021-01/24/2021 hospitalization. Dyslipidemia (high LDL; low HDL) Femoral-popliteal bypass graft occlusion Dr. Andrea consulted and aware of patient. Heparin drip started. Coumadin held. Await vascular recommendations. Doppler pulse checks q2h. Femoral-popliteal bypass graft occlusion, left Foot ulcer Gangrene of left foot GERD (gastroesophageal reflux disease) upper GI bleed 08/2021 per 09/09/21 d/c summary, CT Abd suggestive of PUD-EGD small hiatal hernia, gastritis, nonbleeding duodenal ulcer with no stigmata of bleeding- 2 units PRBCs and IV Protonix transitioned to oral-f/u EGD scheduled 12/2021 with [facility] per records History of blood transfusion 08/2021 during 9 day [facility] hospitalization-hypotension, anemia, upper GI bl eeding d/t PUD, alcohol use disorder, right 9th rib fracture per discharge summary History of breast cancer Lt -1999- s/p lumpectomy, chemo/radiation History of herpes simplex infection positive culture R lateral buttock per [facility] derm 11/12/21, resolved per pt HTN (hypertension) controlled, stable per pt Laryngocele bilat, s/p DML CO2 laser R ventriculectomy 03/2021, pt declined left, follows with [facility]NT Myocardial Infarction 2007 Neuropathy follows with [place] [facility] On anticoagulant therapy Prediabetes Pulmonary nodule stable per f/u CT scan 04/2021 PVD (peripheral vascular disease) h/o 2 failed bypasses left leg, follows with vascular surgery Rosacea Pt denies S/P angiogram of extremity Left Lower Extremity Angiogram, Smoker Thyroid nodule right, follows with [facility] ENT Valvular heart disease Mild mitral regurgitation. Mild to moderate tricuspid regurgitation. 12/2020 echo. Past Family History Family History Mother Breast cancer Grandmother (Maternal) Family hx of colon cancer Denies family history of Ovarian cancer Past Surgical History Surgical History History of amputation Left Great Toe Transmetatarsal amputation and left Second Toe Amputation History of anesthesia reaction combative History of angioplasty of peripheral vessel X 2 - LLE - FOLLOWS W/ DR. ANDREA - on Eliquis History of breast biopsy History of cardiac cath 2007 - [facility] - "total distal LAD occlusion. Unsuccessful attempt at PCI to this occlusion. Mild atherosclerotic disease of the remainder of the LAD, left circumflex, and right coronary arteries." Follows with Dr. Prabhakar [facility] cardio. History of cataract surgery Rt eye History of colonoscopy w/ polypectomy History of laparoscopy x 3 History of lumpectomy History of lymph node excision History of surgery CO2 laser R ventriculectomy 03/2021, pt declined left due to GI/vascular co- morbidities at time of 06/2021 [facility] ENT note History of surgery on extremity broken RLE d/t compound fracture after mechanical fall 04/2019 per records History of tonsillectomy S/P femoral-popliteal bypass surgery S/P femoral-tibial bypass Social History Smoking Status: Current every day smoker tobacco type: cigarettes Smoking cigarettes per day: 15-20 Do You Dip or Chew Tobacco: No Hx Alcohol Use: Yes Alcohol type: wine alcohol intake frequency: a few times a week Hx Substance Use: No substance use type: does not use Last Used Substance: Just Prior to Arrival Physical Exam Vital Signs Last Vital Signs Temp 36.7 C 03/04/23 08:04 Pulse 70 03/04/23 08:04 Resp 20 03/04/23 08:04 BP 108/59 L 03/04/23 08:04 Pulse Ox 97 03/04/23 08:04 O2 Del Method Nasal Cannula 03/04/23 08:04 O2 Flow Rate 2 03/04/23 08:04 Testing Laboratory Results 03/04/23 07:24 03/04/23 07:24 PT 10.4 Seconds (9.0-12.0) 03/02/23 20:00 INR 0.9 (0.9-1.1) 03/02/23 20:00 APTT 92.5 Seconds (21.0-31.0) H* 03/03/23 21:58 Urine Color Yellow 03/02/23 Unknown Urine Appearance Cloudy (Clear) A 03/02/23 Unknown Urine pH 5.5 (4.5-7.5) 03/02/23 Unknown Ur Specific [place] 1.015 (1.000-1.030) 03/02/23 Unknown Urine Protein 1+ (Negative) H 03/02/23 Unknown Urine Glucose (UA) Negative (Negative) 03/02/23 Unknown Urine Ketones Negative (Negative) 03/02/23 Unknown Urine Nitrite Negative (Negative) 03/02/23 Unknown Ur Leukocyte Esterase Negative (Negative) 03/02/23 Unknown Urine WBC (Auto) 1-5 /hpf (0-5) 03/02/23 Unknown Urine RBC (Auto) 0-4 /hpf (0-4) 03/02/23 Unknown U Hyaline Cast (Auto) 1-5 /lpf (0-5) 03/02/23 Unknown U Epithel Cells (Auto) >30 /lpf (0-5) H 03/02/23 Unknown Urine Bacteria (Auto) 1+ (Negative) H 03/02/23 Unknown Blood Type A Positive 03/03/23 06:45 Antibody Screen NEGATIVE 03/03/23 06:45 Electrocardiogram Date: 03/02/23 Findings: + NSST changes and + SB @ (57) Echocardiogram Date: 01/08/23 LV Function: normal Valvular Disease: + no significant valvular disease
--- NOTE | 2023-03-04 09:31 | Orthopedic Progress Note ---
Date of Service March 04, 2023 Assessment & Plan (1) Intertrochanteric fracture of right femur: Plan: The patient was educated regarding today's findings. Necessity of surgery was discussed with her. She was given a chance to ask questions, but she did not formulate coherent questions. She was reassured that fixing her hip would allow her to return to more normal activity. I did review her chart, and reminded her that she was seen yesterday by both a PA and Dr. Gonzalez. She agreed that sometimes time passes differently by laying in a hospital and not doing her usual routine. She is already NPO. I did explain to her the necessity of the oxygen tubing and the IV tubing. IV pump was silenced. I will speak with the hospitalist service regarding her mental status, and possible necessity of psychiatric consult as well. She is already receiving supplementation for likely alcohol abuse. Anticipate surgery later this morning. Admission and Anticipated Discharge Date Admission Date: March 02, 2023 Supervising Physician Co-Signing Physician Notes I saw and examined the patient and agree with above note. Patient seen in the pre-op area. She is anxious about the surgery, which I reassured her is normal. All questions answered. Proceed to operating room today. Readmit to floor post-op. Subjective The patient is seen in her room this morning. She is confused and tearful. She states that the machine next to her bed is beeping constantly and is getting her upset. She is referring to the IV pump. She is not sure why she has "all of this tubing". She does know that she broke her hip. She states she is very anxious. She is upset that no one has come to see her or evaluate her over the last 2 days. She is currently having intermittent nonsensical speech and is very difficult to keep focused. Conversation goes on tangents frequently. She does note pain in her right hip. She states she would like to have someone with her to help decipher her speech. Physical Exam Physical Exam: General: Well-developed, well-nourished, elderly female, in obvious discomfort. She is tearful. Nonsensical speech. Appears quite confused. Skin: Warm and dry with good turgor. No rashes or lesions. Musculoskeletal: Gross motor function of the upper extremities is intact and unremarkable. She has intact motor function of the left leg at the hip, knee, and ankle. Right hip motion was not assessed due to a known fracture. There is intact function of the ankle and toes. Neurologic: Gross sensation is intact across the upper and lower extremities by soft touch. Peripheral pulses are 2+. Psych: Patient appears very anxious. She is tearful. She is fearful of surgery. She is also upset at the IV pump. Obvious confusion with not understanding what the IV tubing or O2 tubing are, nor why she needs them. Results & Data Vital Signs (Past 12 Hours) Vital Signs Temp Pulse Pulse Resp BP BP Pulse Ox 03/04/23 08:04 36.7 C 70 20 108/59 L 97 03/04/23 07:16 62 03/03/23 22:00 68 03/04/23 03:23 36.7 C 68 18 124/68 95 03/04/23 01:36 03/03/23 23:02 36.8 C 63 16 91/57 L 99 O2 Del Method O2 Flow Rate 03/04/23 08:04 Nasal Cannula 2 03/04/23 07:16 03/03/23 22:00 03/04/23 03:23 Nasal Cannula 2 03/04/23 01:36 Nasal Cannula 2 03/03/23 23:02 Nasal Cannula Laboratory Results CBC obtained today shows a white count of 7.83. H&H of 10.8 and 32.8. Platelets slightly low at 128,000. Electrolytes are overall good. Chloride is mildly elevated at 112. Sodium and potassium are normal. BUN and creatinine are normal. Glucose 85 this morning. Mag is normal at 1.9. (1) Intertrochanteric fracture of right femur Encounter type: initial encounter Fracture alignment: displaced Fracture type: closed Qualified Code(s): S72.141A - Displaced intertrochanteric fracture of right femur, initial encounter for closed fracture
[2023-03-04] MEDS ORDERED: ceFAZolin 2,000 MG/15 ML IV PUSH IV ONE (09:58)
--- NOTE | 2023-03-04 10:40 | Hospitalist Progress Note ---
Date of Service March 04, 2023 Assessment & Plan (1) Intertrochanteric fracture of right femur: Plan: Patient has hx of CAD, stable disease on last follow-up with [facility] 3 months ago, PAD status post surgery on Eliquis,HTN, hyperlipidemia on statin Rx, COPD, pulmonary hypertension, CRI, breast cancer status post surgery/chemoradiation who presents after fall with right hip pain XR Pelvis noted Right intratrochanteric femoral fracture RCRI class II risk Patient has chronic anemia and based on past results, Hb runs 8-9 Got 1 PRBC yesterday per surgeon Hb is 10.8 today Continue to hold eliquis for surgery Plan for OR today Anxiety disorder Alcohol use. Reports last drink was on day of admission. Denied alcohol withdrawal in the past Alcohol level was 126 on presentation Continue CIWA protocol for now Continue folate, thiamine. Continue hydroxyzine prn anxiety Will get psych eval post op Smokes 2/3rd of a pack per day Used marijuana about 2 days prior to presentation.. Denied heroin/cocaine/meth use Counseled on alcohol and smoking cessation Nicotine patch while inpatient. Patient agreeable Per Admitting Provider, patient has history of laryngocele status post surgery/difficult intubation as per records Chronic neuropathy on gabapentin ongoing tobacco/alcohol abuse. DVT prophylaxis. Anticoagulation on hold in view of OR Full code Patient requests for her daughter to be updated of plan of care. Ms. Azul Osorio, contact #[phone]. I spent a total of 50 minutes coordinating, documenting and providing care for this patient excluding time spent in performance of separately billed services Admission and Anticipated Discharge Date Admission Date: March 02, 2023 Subjective Patient seen and examined Had some urinary retention yesterday and lopez was placed Was drowsy during the day yesterday and dilaudid use was reduced Patient reports severe right hip pain usually on any kind of movement Reports chronic peripheral neuropathy in both legs Denied other complaints However, patient occasionally crying. When asked about this, she stated she is anxious. Denied any SI/HI She stated she will like to have the surgery as soon as possible Physical Exam Constitutional: + well hydrated; no acute distress Eyes: PERRL, conjunctivae normal, anicteric sclerae ENMT: external ear and nose normal, oropharynx normal Respiratory: normal respiratory effort, lungs clear to auscultation Cardiovascular: Rate/Rhythm: regular rate and regular rhythm S1 S2 Gastrointestinal (Abdomen): normal bowel sounds, soft, nontender, no hepatosplenomegaly Neurologic: PERRL, EOMI, accommodation nl, no face palsy, no dysarthria Psychiatric: Alert and oriented to person, place. Intermittently crying Demonstrates tangentiality Genitourinary: Lopez in situ Results & Data Results & Data Vital Signs (Past 12 Hours) Vital Signs Temp Pulse Pulse Resp BP BP Pulse Ox 03/04/23 10:14 37.2 C 71 18 120/66 94 03/04/23 08:04 36.7 C 70 20 108/59 L 97 03/04/23 07:16 62 03/04/23 03:23 36.7 C 68 18 124/68 95 03/04/23 01:36 03/03/23 23:02 36.8 C 63 16 91/57 L 99 O2 Del Method O2 Flow Rate 03/04/23 10:14 Nasal Cannula 2 03/04/23 08:04 Nasal Cannula 2 03/04/23 07:16 03/04/23 03:23 Nasal Cannula 2 03/04/23 01:36 Nasal Cannula 2 03/03/23 23:02 Nasal Cannula (1) Intertrochanteric fracture of right femur Encounter type: initial encounter Fracture alignment: displaced Fracture type: closed Qualified Code(s): S72.141A - Displaced intertrochanteric fracture of right femur, initial encounter for closed fracture
[2023-03-04] MEDS ORDERED: MIDAZOLAM HCL 1 MG/ML 2ML VIAL ONE (11:01)
[2023-03-04] MEDS ORDERED: ONDANSETRON INJ 2 MG/ML 2 ML VIAL ONE (11:01)
[2023-03-04] MEDS ORDERED: fentaNYL citrate PF 100 MCG/2 ML VIAL ONE (11:01)
[2023-03-04] MEDS ORDERED: ROCURONIUM BROMIDE 10 MG/ML 5 ML VIAL IV ONE (11:01)
[2023-03-04] MEDS ORDERED: PROPOFOL IV EMULSION 10 MG/ML 20 ML VIAL IV ONE (11:01)
[2023-03-04] MEDS ORDERED: GLYCOPYRROLATE 0.2 MG/ML VIAL ONE (11:01)
[2023-03-04] MEDS ORDERED: KETAMINE 50 MG/5 ML SYRINGE ONE (11:02)
[2023-03-04] MEDS ORDERED: BUPIVACAINE 0.5 % 5 MG/1 ML MPF 30ML VIAL ONE (11:10)
[2023-03-04] MEDS ORDERED: ePHEDrine sulfate 50 MG/ML AMP ONE (12:01)
[2023-03-04] MEDS ORDERED: SUGAMMADEX SODIUM 200 MG/2 ML VIAL IV ONE (12:53)
--- NOTE | 2023-03-04 13:07 | Operative Report ---
Post Operative Report Pre & Post Diagnosis Operation Date: 03/04/23 10:40 Pre-Op Diagnosis: Displaced, comminuted Intertrochanteric fracture of right femur Post-Op Diagnosis: Displaced, comminuted Intertrochanteric fracture of right femur I identified the patient and participated in the time-out.: Yes Procedure Operation Date: 03/04/23 10:40 Actual Procedures Open Reduction Internal Fixation of Right Hip Displaced, comminuted Intertrochanteric fracture of right femur using Trochanteric Fixation Nail - Mele Gonzalez MD Surgeon Mele Gonzalez MD Supply Clerk TAMEKA Davila PA-C. No resident or fellow was available to assist. Estimated Blood Loss 100 Findings Consistent with Post-Op Diagnosis Specimens None Anesthesia Type General Complications none Disposition Disposition: Recovery Room Indications 72-year-old female, fell onto her right hip a little under 2 days ago. She was brought to the emergency room where x-rays were obtained demonstrating a right displaced, comminuted, intertrochanteric femur fracture. She is on Eliquis for history of vascular disease. Her Eliquis was held after being hospitalized under the internal medicine service. After an appropriate time interval from her last Eliquis dose she is now indicated for open reduction internal fixation of her intertrochanteric femur fracture. I do long discussion with her about the risks and benefits of surgery, alternatives to surgery, and expected outcomes. After reviewing all these she elected to proceed with surgery. All questions were answered. Informed consent was signed. Description of Procedure Patient was identified in the preoperative holding area where her surgical site was marked. She is brought back to the main operating room where general anesthesia was administered on the hospital bed. She was then carefully moved onto the operating room table. Perineal post was placed. She was carefully slid down against the perineal post. The nonoperative hip was flexed and AB ducted to facilitate fluoroscopic visualization. The operative foot was padded with ABD pads and cotton padding. She was then placed into a traction boot. Fluoroscopy was then brought in. We were able to obtain a closed reduction using a combination of traction and internal rotation of the leg. The surgical site was then prepped and draped in the usual sterile fashion. Prior to incision multistrand timeout was called. All in the room in agreement. I began by marking out on the skin that appropriate trajectory of the femur using lateral fluoroscopic image. A 4 cm incision was then made approximately 3 fingerbreadths above the tip of the greater trochanter in line with the femur. I dissected down through subcutaneous tissues to level the fascia. A sharp tipped guidewire was then placed on the optimal starting position and the angle was optimized under AP and lateral fluoroscopic views. This was then driven down to approximately the level of the lesser trochanter. The opening reamer was then placed over the top of this guidewire. These were then removed. The ball-tipped guidewire was then advanced down to the superior pole of the patella and we took our measurement which was for a 380 mm long nail. A 12.5 mm reamer was then used to ream over the top of the guidewire. This was advanced past the isthmus. We therefore opened up a 11 mm diameter nail 380 mm in length for a right femur. The nail was then impacted over the guidewire to just beyond the isthmus. The guidewire was then removed and the nail was further advanced until it was in the appropriate location for placement of the helical blade into the femoral head. A stab incision was made along the lateral aspect of the femur to allow the guide for the helical blade to be slid down onto the lateral cortex of the femur. The angle of the outrigger was optimized on the lateral fluoroscopic view and then the K wire was advanced to the subchondral bone of the femoral head in the center center position. We took our measurement at 101 mm. I elected to use a 95 mm helical blade. The lateral cortical opening reamer was used followed by the step reamer to the appropriate length. A 95 mm helical bl mia was then driven up into the femoral head over the guidewire. Once the blade was in the appropriate position we then compressed the fracture by turning the knob on the outrigger in the clockwise direction. This reduced her fracture gap nicely. The locking screw was then screwed down from the top of the nail to lock the helical blade in a static locking position. Excellent fixation was obtained. At this point the traction was let off the hip and the operative leg was AB ducted to facilitate perfect circles visualization of the nail distally. A 1 and half centimeter stab incision was made in the lateral aspect of the distal femur and a single 5.0 mm Static cross locking screw was placed at a length of 40 mm. Again excellent fixation was obtained. At this point her final fluoroscopic images were obtained and saved to the system. The wounds were irrigated out with copious amounts normal saline. A single 0 Vicryl suture was placed in the subcutaneous tissues for the proximal incision. 2-0 Vicryl was used in the deep dermal layer for all incisions. Jalen were used for the skin. 30 cc of half percent Marcaine was injected into the subcutaneous tissues spread out through all the incisions for postoperative pain control. Sterile dressings were applied. Patient was then awoke from anesthesia and transferred to recovery room in stable condition. Postoperative course: Patient be readmitted to the internal medicine service. She will be weightbearing as tolerated using a walker for ambulation for safety and fall precautions. Resume Eliquis for DVT prophylaxis. She is an alcoholic and is on appropriate withdrawal precautions. However this increases her risk of falling. She also is at risk for malnourishment and therefore recommend supplementing her diet with protein shakes to optimize wound healing. I attest to the content of the Intraoperative Record and any orders documented therein. Any exceptions are noted below.
--- NOTE | 2023-03-04 13:10 | Operative Report ---
Post Operative Report Pre & Post Diagnosis Operation Date: 03/04/23 10:40 Pre-Op Diagnosis: Intertrochanteric fracture of right femur Post-Op Diagnosis: Intertrochanteric fracture of right femur I identified the patient and participated in the time-out.: Yes Procedure Operation Date: 03/04/23 10:40 Actual Procedures p Right Hip Fracture, Open Reduction Internal Fixation Trochanteric Fixation Nail - Mele Gonzalez MD Surgeon Mele Gonzalez MD Search Marketing Analyst TAMEKA Davila PA-C. No resident or fellow was available to assist. Estimated Blood Loss 100 Findings Consistent with Post-Op Diagnosis Specimens none Description of Procedure I was present during the entire case assisting with positioning, prepping, draping, wound retraction, wound closure and dressing application. No fellow present. Please see Dr. Gonzalez procedure note for specifics of the case. I attest to the content of the Intraoperative Record and any orders documented therein. Any exceptions are noted below.
[2023-03-04] MEDS ORDERED: PROMETHAZINE HCL 6.25 MG in SODIUM CHLORIDE 0.9% 50 ML IV PRN (13:36)
[2023-03-04] MEDS ORDERED: ONDANSETRON INJ 2 MG/ML 2 ML VIAL IV PRN (13:36)
[2023-03-04] MEDS ORDERED: ATROPINE SULFATE 0.1 MG/ML 10ML SYR IV PRN (13:36)
--- NOTE | 2023-03-04 13:45 | Fluoroscopy Report ---
FL femur RT 2V CLINICAL HISTORY: RT ORIF LONG TROCHacute fracture of the right hip COMPARISON STUDY: 03/02/2023 FLUOROSCOPY TIME: 139.7 seconds FLUOROSCOPY IMAGES: 5 EXPOSURE DOSE: 18.40 mGy Air Kerma FINDINGS: Status post placement of an intertrochanteric nail with medullary cathleen fixating the acute in tertrochanteric right femoral fracture with improved alignment. No unexpected opaque foreign bodies. IMPRESSION: Fluoroscopic assistance as above. ACT 112: Negative or not required by law. Electronically signed by: García Acevedo M.D. 03/04/2023 1:44 PM
[2023-03-04] MEDS: HYDROmorphone INJ 1 MG/ML SYRINGE IV PRN ×3 (13:49→14:06)
--- NOTE | 2023-03-04 14:16 | XRay Report ---
XR hip RT min 2V HISTORY: 72 years-old Female Post-Operative implant position right hip arthroplasty COMPARISON: Pelvis radiograph 03/02/2023 TECHNIQUE: 2 views of the right hip FINDINGS: Status post placement of an intertrochanteric nail with elongated medullary cathleen fixating the acute in tertrochanteric fracture. There is improved alignment. Lateral skin enma with expected postoperati ve soft tissue swelling and deep tissue air. Partially imaged hardware within the tibia. IMPRESSION: Expected postoperative changes. ACT 112: Negative or not required by law. The above report was generated using voice recognition software. It may contain grammatical, syntax o r spelling errors. Electronically signed by: García Acevedo M.D. 03/04/2023 2:15 PM
--- NOTE | 2023-03-04 14:27 | Anesthesiology Progress Note ---
Date of Service March 04, 2023 Anesthesia Post Procedure Vital Signs Vital Signs: Temp Pulse Pulse Pulse Resp BP BP 03/04/23 14:05 36.2 C L 75 16 03/04/23 13:55 75 18 03/04/23 13:45 80 20 03/04/23 13:35 79 20 03/04/23 13:25 36.2 C L 86 20 03/04/23 07:00 03/04/23 10:14 37.2 C 71 18 120/66 03/04/23 08:04 36.7 C 70 20 108/59 L 03/04/23 07:16 62 03/03/23 22:00 68 03/04/23 03:23 36.7 C 68 18 03/04/23 01:36 03/03/23 23:02 36.8 C 63 16 03/03/23 19:42 37.7 C H 72 18 103/63 03/03/23 19:20 38.0 C H 70 18 128/75 03/03/23 19:20 38.0 C H 70 18 128/75 03/03/23 18:20 37.6 C H 70 18 101/61 03/03/23 18:20 37.6 C H 70 18 101/61 03/03/23 17:20 38.2 C H 69 18 97/59 L 03/03/23 16:50 37.8 C H 70 18 94/55 L 03/03/23 16:35 37.9 C H 71 18 91/49 L 03/03/23 16:11 37.3 C 72 18 100/55 L 03/03/23 15:42 36.8 C 71 18 BP Pulse Ox Pulse Ox O2 Del Method O2 Del Method O2 Flow Rate O2 Flow Rate 03/04/23 14:05 120/64 100 Nasal Cannula 3 03/04/23 13:55 123/60 100 Nasal Cannula 3 03/04/23 13:45 113/56 L 98 Room Air 03/04/23 13:35 118/60 98 Room Air 03/04/23 13:25 111/58 L 98 Oxymask 6 03/04/23 07:00 95 Nasal Cannula 2 03/04/23 10:14 94 Nasal Cannula 2 03/04/23 08:04 97 Nasal Cannula 2 03/04/23 07:16 03/03/23 22:00 03/04/23 03:23 124/68 95 Nasal Cannula 2 03/04/23 01:36 Nasal Cannula 2 03/03/23 23:02 91/57 L 99 Nasal Cannula 03/03/23 19:42 97 2 03/03/23 19:20 93 2 03/03/23 19:20 93 2 03/03/23 18:20 97 2 03/03/23 18:20 97 2 03/03/23 17:20 96 2 03/03/23 16:50 94 2 03/03/23 16:35 94 1 03/03/23 16:11 93 03/03/23 15:42 92/51 L 90 Room Air Pain Intensity Right Leg: Pain Intensity: 6 Transfer of Care Handoff Completed per policy Notes Mental Status: alert / awake / arousable Patient Amnestic to Procedure: Yes Nausea / Vomiting: adequately controlled Pain: adequately controlled Airway Patency, RR, SpO2: stable & adequate BP & HR: stable & adequate Hydration State: stable & adequate Anesthetic Complications: no major complications apparent
[2023-03-04 16:59] LABS: Hemoglobin 10.7 g/dl (12.0-16.0); Mean Corpuscular Hemoglobin 30.2 pg (25.0-34.0); Mean Corpuscular Hgb Conc 32.4 g/dL (32.0-36.0); Mean Corpuscular Volume 93.2 fL (80.0-100.0); Mean Platelet Volume 10.2 fL (9.4-12.4); Platelet Count 136 K/uL (130-400); RDW Coefficient of Variation 16.4 % (11.5-14.5); RDW Standard Deviation 55.8 fL (36.4-46.3); Red Blood Count 3.54 M/uL (4.20-5.40)
[2023-03-04] MEDS: ACETAMINOPHEN 325 MG TAB PO SCH (20:10)
[2023-03-04] MEDS: ASPIRIN 81 MG ECTAB PO SCH (20:12)
[2023-03-04] MEDS: ROSUVASTATIN CALCIUM 20 MG TAB PO SCH (20:18)
[2023-03-04] MEDS: APIXABAN 2.5 MG TAB PO SCH (20:37)
[2023-03-04] MEDS: NICOTINE 21 MG/24 HR TDSY TD SCH (20:38)
[2023-03-04] MEDS: ceFAZolin 2000MG 2,000 MG/15 ML SYR IV SCH (20:56)
[2023-03-04] MEDS ORDERED: SODIUM CHLORIDE 0.9% 500 ML IV ONE (23:46)
[2023-03-05 00:18] LABS: Hematocrit (blood only) 25.3 % (37.0-47.0); Hemoglobin 8.2 g/dl (12.0-16.0)
--- NOTE | 2023-03-05 01:44 | Communication Note ---
Date of Service: March 05, 2023 Patient SBP noted to be 60s. Patient sleeping as per RN. Hemoglobin 8.2 from 10.7 No overt bleeding as per RN. AP Postop hypotension Postop anemia Increase IVF rate Hold aspirin and Eliquis for now until H&H stable.
[2023-03-05] MEDS: ceFAZolin 2000MG 2,000 MG/15 ML SYR IV SCH (03:19)
[2023-03-05] MEDS: SODIUM CHLORIDE 0.9% 1000ML 1,000 ML IV SCH ×2 (04:17→14:17)
[2023-03-05 07:09] LABS: BUN Creatinine Ratio 10.1 (10-20); Calcium 7.2 mg/dl (8.6-10.3); Creatinine Clr Calc Pharmacy 39.8 ml/min; Est GFR (African American) 53.2 ml/min; Est GFR (Non-African American) 45.9 ml/min; Potassium 4.1 mmol/L (3.5-5.1)
[2023-03-05 07:20] LABS: Partial Thromboplastin Ratio 1.3; Partial Thromboplastin Time 37.9 Seconds (21.0-31.0)
[2023-03-05 07:28] LABS: Basophils # (auto) 0.03 K/uL (0-0.2); Basophils % (auto) 0.4 %; Eosinophils # (auto) 0.19 K/uL (0-0.50); Eosinophils % (auto) 2.7 %; Hematocrit (blood only) 26.8 % (37.0-47.0); Hemoglobin 8.6 g/dl (12.0-16.0); Immature Granulocytes # (auto) 0.03 K/uL (0.01-0.20); Immature Granulocytes % (auto) 0.4 %; Lymphocytes # (auto) 0.64 K/uL (1.2-3.4); Mean Corpuscular Hemoglobin 30.4 pg (25.0-34.0); Mean Corpuscular Hgb Conc 32.1 g/dL (32.0-36.0); Mean Corpuscular Volume 94.7 fL (80.0-100.0); Mean Platelet Volume 10.6 fL (9.4-12.4); Monocytes # (auto) 0.73 K/uL (0.11-0.59); Monocytes % (auto) 10.3 %; Neutrophils # (auto) 5.46 K/uL (1.40-6.50); Neutrophils % (auto) 77.2 %; Platelet Count 97 K/uL (130-400); RDW Coefficient of Variation 16.2 % (11.5-14.5); Red Blood Count 2.83 M/uL (4.20-5.40); White Blood Count 7.08 K/ul (4.8-10.8)
[2023-03-05] MEDS: GABAPENTIN 300 MG CAP PO SCH ×3 (07:41→20:22)
[2023-03-05] MEDS: oxyCODONE HCL IR 5 MG TAB (IMMEDIATE RELEASE) PO PRN (07:46)
[2023-03-05] MEDS: THIAMINE HCL 100 MG TAB PO SCH (07:50)
[2023-03-05] MEDS: ACETAMINOPHEN 325 MG TAB PO SCH ×3 (07:50→20:21)
[2023-03-05] MEDS: MULTIVITAMIN TAB PO SCH (07:50)
[2023-03-05] MEDS: METOPROLOL SUCC 25MG EXT REL TAB PO SCH (07:50)
[2023-03-05] MEDS: PANTOprazole 40 MG TAB PO SCH ×2 (07:50→20:23)
[2023-03-05] MEDS: FOLIC ACID 1 MG TAB PO SCH (07:50)
--- NOTE | 2023-03-05 10:12 | Hospitalist Progress Note ---
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 support specialist 3 months ago, PAD status post surgery on Eliquis,HTN, hyperlipidemia on statin Rx, COPD, pulmonary hypertension, CRI, breast cancer status post surgery/chemoradiation who presents after fall with right hip pain XR Pelvis noted Right intratrochanteric femoral fracture S/p Right Hip Fracture, Open Reduction Internal Fixation Trochanteric Fixation Nail POD#1 Got 1 PRBC preop on 03/03/23 Hb dropped from preop to 8.2 Currently 8.6 this morning Likely post op blood loss anemia + dilutional Patient has chronic anemia and based on past results, Hb runs 8-9 Will continue to hold ASA and eliquis and repeat CBC this afternoon If stable, may resume eliquis Pain control. Counseled patient about need to avoid high dose opioids as she does not tolerate them well. It makes her drowsy and worsens her occasional confusion. Dilaudid discontinued Continue scheduled tylenol, prn oxycodone, lidocaine patch PT/OT rehab recommended Vitamin D deficiency. Started on [id number] q weekly Anxiety disorder Alcohol use. Reports last drink was on day of admission. Denied alcohol withdrawal in the past Alcohol level was 126 on presentation Continue CIWA protocol for now Continue folate, thiamine. Continue hydroxyzine prn anxiety Had discussed with daughter yesterday post op. Will get psych eval per patient/family request Smokes 2/3rd of a pack per day Used marijuana about 2 days prior to presentation.. Denied heroin/cocaine/meth use Provided more counselling on alcohol and smoking cessation Nicotine patch while inpatient. Per Admitting Provider, patient has history of laryngocele status post surgery/difficult intubation as per records Chronic neuropathy on gabapentin ongoing tobacco/alcohol abuse. DVT prophylaxis. Anticoagulation on hold in view of above Full code Patient requests for her daughter to be updated of plan of care. Ms. Azul Osorio, contact #[phone]. I spent a total of 45 minutes coordinating, documenting and providing care for this patient excluding time spent in performance of separately billed services Admission and Anticipated Discharge Date Admission Date: March 02, 2023 Subjective Patient seen and examined Reports surgical site pain She occasionally start crying, asking about going home She acknowledges anxiety. Denied depression this morning Demonstrates occasional tangentiality. Denied dizziness, headache, nausea, vomiting, abd pain Denied cough, chest pain, shortness of breath Yet to have a BM Was hypotensive overnight and was started on IVF and eliquis held after post Hb was 8.2 Physical Exam Constitutional: + well hydrated; no acute distress Eyes: PERRL, conjunctivae normal, anicteric sclerae ENMT: external ear and nose normal, oropharynx normal Respiratory: normal respiratory effort, lungs clear to auscultation Cardiovascular: Rate/Rhythm: regular rate and regular rhythm S1 S2 Gastrointestinal (Abdomen): normal bowel sounds, soft, nontender, no hepatosplenomegaly Musculoskeletal: Clean dressing over right hip No pedal edema Neurologic: PERRL, EOMI, accommodation nl, no face palsy, no dysarthria Psychiatric: Aox3, anxious Genitourinary: [place] in situ Results & Data Results & Data Vital Signs (Past 12 Hours) Vital Signs Temp Pulse Pulse Resp BP Pulse Ox Pulse Ox 03/05/23 07:00 91 03/05/23 08:03 36.3 C L 51 L 18 112/62 98 03/05/23 07:53 101/61 03/05/23 07:25 70 03/05/23 03:25 36.6 C 65 16 102/60 98 03/05/23 03:00 94 03/05/23 01:24 58 L 16 88/43 L 94 03/04/23 23:21 37.3 C 87 16 67/42 L 94 O2 Del Method O2 Del Method 03/05/23 07:00 Room Air 03/05/23 08:03 Room Air 03/05/23 07:53 03/05/23 07:25 03/05/23 03:25 Room Air 03/05/23 03:00 Room Air 03/05/23 01:24 Room Air 03/04/23 23:21 Room Air Laboratory Results Abnormal lab results 03/04/23 03/05/23 03/05/23 Range/Units 16:39 00:03 06:18 WBC 11.30 H (4.8-10.8) K/ul RBC 3.54 L 2.83 L (4.20-5.40) M/uL Hgb 10.7 L 8.2 L 8.6 L (12.0-16.0) g/dl Hct 33.0 L 25.3 L 26.8 L (37.0-47.0) % RDW Std Deviation 55.8 H 56.0 H (36.4-46.3) fL RDW Coeff of Farrah 16.4 H 16.2 H (11.5-14.5) % Plt Count 97 L (130-400) K/uL Lymph # (Auto) 0.64 L (1.2-3.4) K/uL [place]uel # (Auto) 0.73 H (0.11-0.59) K/uL APTT (21.0-31.0) Seconds Chloride (98-107) mmol/L Anion Gap (3-11) Glucose (70-99(Fasting)) mg/dl Calcium (8.6-10.3) mg/dl 25-OH Vitamin D Total (30-100) ng/ml 03/05/23 03/05/23 03/05/23 Range/Units 06:18 06:18 06:18 WBC (4.8-10.8) K/ul RBC (4.20-5.40) M/uL Hgb (12.0-16.0) g/dl Hct (37.0-47.0) % RDW Std Deviation (36.4-46.3) fL RDW Coeff of Farrah (11.5-14.5) % Plt Count (130-400) K/uL Lymph # (Auto) (1.2-3.4) K/uL Deuel # (Auto) (0.11-0.59) K/uL APTT 37.9 H (21.0-31.0) Seconds Chloride 111 H (98-107) mmol/L Anion Gap 2 L (3-11) Glucose 100 H (70-99(Fasting)) mg/dl Calcium 7.2 L (8.6-10.3) mg/dl 25-OH Vitamin D Total < 7.0 L (30-100) ng/ml (1) Intertrochanteric fracture of right femur Encounter type: initial encounter Fracture alignment: displaced Fracture type: closed Qualified Code(s): S72.141A - Displaced intertrochanteric fracture of right femur, initial encounter for closed fracture
--- NOTE | 2023-03-05 10:17 | Orthopedic Progress Note ---
Date of Service March 05, 2023 Assessment & Plan (1) Intertrochanteric fracture of right femur: Plan: PT/OT Weightbearing as tolerated with walker assistance Ice with easy wrap Pain control with p.o. or IV pain medication per medicine service discretion DVT prophylaxis with Eliquis and aspirin (medicine will determine when she is able to resume) I advised the patient that she will most likely need to be discharged to either half-way or rehab facility to regain function of her lower extremity We will have her follow-up in our clinic with either Dr. Gonzalez or myself in 2 weeks Admission and Anticipated Discharge Date Admission Date: March 02, 2023 Subjective This 72-year-old female is day 1 status post right hip fracture fixation with trochanteric nailing. She states her pain is fairly well controlled. Her biggest complaint this morning is bowel distention and inability to defecate. She attributes this to the use of narcotic pain medication pre and postoperatively. She states she has considerable pain in her right hip and knee region. She states that she has not been out of bed since the surgery yesterday. She denies chest pain, shortness of breath, fever, chills, sweats or numbness or tingling in her right lower extremity that is out of the ordinary. 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 The hospitalist was also in the room after I examined the patient and he stated that her blood pressure and hemoglobin dropped a little bit last night so the held her Eliquis and aspirin. He is going to recheck her hemoglobin this morning and if it is staying stable he will resume the Eliquis. He also states that if it continues to trend downward he may consider transfusing the patient. Review of Systems Review of Systems: All systems reviewed & are unremarkable except as noted in Subjective Physical Exam Physical Exam: Right hip: Dressings are clean dry and intact and left in place. Patient is unable to perform active straight leg raise test however she is able to actively dorsi and plantarflex her foot. She experiences significant pain with passive straight leg raise testing and logroll testing. I attempted to slightly flex her hip and perform passive internal/external rotation however she did not tolerate this so I did not put her through. Her quad strength is 3 out of 5. She was able to detect light sedation to touch over the plantar surface of her foot. Her peripheral pulses were 2+. Her capillary fill was around 2 seconds. Results & Data Vital Signs (Past 12 Hours) Vital Signs Temp Pulse Pulse Resp BP Pulse Ox Pulse Ox 03/05/23 07:00 91 03/05/23 08:03 36.3 C L 51 L 18 112/62 98 03/05/23 07:53 101/61 03/05/23 07:25 70 03/05/23 03:25 36.6 C 65 16 102/60 98 03/05/23 03:00 94 03/05/23 01:24 58 L 16 88/43 L 94 03/04/23 23:21 37.3 C 87 16 67/42 L 94 O2 Del Method O2 Del Method 03/05/23 07:00 Room Air 03/05/23 08:03 Room Air 03/05/23 07:53 03/05/23 07:25 03/05/23 03:25 Room Air 03/05/23 03:00 Room Air 03/05/23 01:24 Room Air 03/04/23 23:21 Room Air Diagnostic Findings Laboratory Results WBC 7.08 K/ul (4.8-10.8) 03/05/23 06:18 RBC 2.83 M/uL (4.20-5.40) L 03/05/23 06:18 Hgb 8.6 g/dl (12.0-16.0) L 03/05/23 06:18 Hct 26.8 % (37.0-47.0) L 03/05/23 06:18 MCV 94.7 fL (80.0-100.0) 03/05/23 06:18 MCH 30.4 pg (25.0-34.0) 03/05/23 06:18 MCHC 32.1 g/dL (32.0-36.0) 03/05/23 06:18 RDW Std Deviation 56.0 fL (36.4-46.3) H 03/05/23 06:18 RDW Coeff of Farrah 16.2 % (11.5-14.5) H 03/05/23 06:18 Plt Count 97 K/uL (130-400) L 03/05/23 06:18 MPV 10.6 fL (9.4-12.4) 03/05/23 06:18 Immature Gran % (Auto) 0.4 % 03/05/23 06:18 Neut % (Auto) 77.2 % 03/05/23 06:18 Lymph % (Auto) 9.0 % 03/05/23 06:18 Pratt % (Auto) 10.3 % 03/05/23 06:18 Eos % (Auto) 2.7 % 03/05/23 06:18 Baso % (Auto) 0.4 % 03/05/23 06:18 Neut # (Auto) 5.46 K/uL (1.40-6.50) 03/05/23 06:18 Lymph # (Auto) 0.64 K/uL (1.2-3.4) L 03/05/23 06:18 Pratt # (Auto) 0.73 K/uL (0.11-0.59) H 03/05/23 06:18 Eos # (Auto) 0.19 K/uL (0-0.50) 03/05/23 06:18 Baso # (Auto) 0.03 K/uL (0-0.2) 03/05/23 06:18 Immature Gran # (Auto) 0.03 K/uL (0.01-0.20) 03/05/23 06:18 PT 10.4 Seconds (9.0-12.0) 03/02/23 20:00 INR 0.9 (0.9-1.1) 03/02/23 20:00 APTT 37.9 Seconds (21.0-31.0) H 03/05/23 06:18 PTT Ratio 1.3 03/05/23 06:18 Sodium 137 mmol/L (136-145) 03/05/23 06:18 Potassium 4.1 mmol/L (3.5-5.1) 03/05/23 06:18 Chloride 111 mmol/L (98-107) H 03/05/23 06:18 Carbon Dioxide 24 mmol/L (21-32) 03/05/23 06:18 Anion Gap 2 (3-11) L 03/05/23 06:18 BUN 12 mg/dl (6-23) 03/05/23 06:18 Creatinine 1.19 mg/dl (0.6-1.2) 03/05/23 06:18 Est Cr Clr Drug Dosing 39.8 ml/min 03/05/23 06:18 Est GFR ( Amer) 53.2 ml/min 03/05/23 06:18 Est GFR (Non-Af Amer) 45.9 ml/min 03/05/23 06:18 BUN/Creatinine Ratio 10.1 (10-20) 03/05/23 06:18 Glucose 100 mg/dl (70-99(Fasting)) H 03/05/23 06:18 Lactate 1.0 mmol/L (0.4-2.0) 03/05/23 00:03 Calcium 7.2 mg/dl (8.6-10.3) L 03/05/23 06:18 Phosphorus 3.2 mg/dl (2.5-4.9) 03/04/23 07:24 Magnesium 1.9 mg/dl (1.7-2.4) 03/04/23 07:24 Total Bilirubin 0.3 mg/dl (0.2-1.0) 03/02/23 18:08 AST 42 U/L (13-39) H 03/02/23 18:08 ALT 19 U/L (7-52) 03/02/23 18:08 Alkaline Phosphatase 96 U/L (34-104) 03/02/23 18:08 Total Protein 6.6 gm/dl (6.0-8.3) 03/02/23 18:08 Albumin 3.6 gm/dl (3.4-5.0) 03/02/23 18:08 Globulin 3.0 gm/dl (2.5-4.0) 03/02/23 18:08 Albumin/Globulin Ratio 1.2 (0.9-2) 03/02/23 18:08 25-OH Vitamin D Total < 7.0 ng/ml (30-100) L 03/05/23 06:18 Urine Color Yellow 03/02/23 Unknown Urine Appearance Cloudy (Clear) A 03/02/23 Unknown Urine pH 5.5 (4.5-7.5) 03/02/23 Unknown Ur Specific [place] 1.015 (1.000-1.030) 03/02/23 Unknown Urine Protein 1+ (Negative) H 03/02/23 Unknown Urine Glucose (UA) Negative (Negative) 03/02/23 Unknown Urine Ketones Negative (Negative) 03/02/23 Unknown Urine Blood Trace (Negative) H 03/02/23 Unknown Urine Nitrite Negative (Negative) 03/02/23 Unknown Urine Bilirubin Negative (Negative) 03/02/23 Unknown Urine Urobilinogen Negative (Negative) 03/02/23 Unknown Ur Leukocyte Esterase Negative (Negative) 03/02/23 Unknown Urine WBC (Auto) 1-5 /hpf (0-5) 03/02/23 Unknown Urine RBC (Auto) 0-4 /hpf (0-4) 03/02/23 Unknown U Hyaline Cast (Auto) 1-5 /lpf (0-5) 03/02/23 Unknown U Epithel Cells (Auto) >30 /lpf (0-5) H 03/02/23 Unknown Urine Bacteria (Auto) 1+ (Negative) H 03/02/23 Unknown Urine Yeast Not Reportable 03/02/23 Unknown Ethyl Alcohol mg/dL 126.1 mg/dl (<10.0) H 03/02/23 18:08 SARS-CoV-2, RNA, NAAT NEGATIVE (NEGATIVE) 03/02/23 Unknown Blood Type A Positive 03/03/23 06:45 Antibody Screen NEGATIVE 03/03/23 06:45 Crossmatch See Detail 03/03/23 06:45 Impressions Pelvis X-Ray 03/02/23 18:13 XR pelvis 1-2V routine, XR femur RT 2V routine CLINICAL HISTORY: fall right hip/femur injury TECHNIQUE: A single frontal view of the pelvis was obtained. 2 views of the femur were obtained. Comparison: Comparison is made to CT abdomen pelvis 08/30/2021 FINDINGS: There is a comminuted intertrochanteric fracture of the right femur. Partial visualization of a medullary cathleen in the right tibia. Soft tissue swelling is seen about the knee. IMPRESSION: Right intratrochanteric femur fracture. ACT 112: Negative or not required by law. Electronically signed by: Yassine Gil M.D. 03/02/2023 7:[address] 03/02/23 18:14 CT head/brain wo con CLINICAL HISTORY: fall, etoh Technique: Contiguous axial CT images of the head were acquired from the base of the skull to the vertex without intravenous contrast administration. Images were viewed in brain, subdural and bone windows. Automated dose lowering techniques and/or adjustment according to patient size were utilized for this exam. Comparison: Comparison is made to CT head 08/09/2021 Findings: Areas of decreased attenuation are present in the periventricular and subcortical white matter bilaterally consistent with small vessel ischemic disease. Generalized cerebral atrophy with commensurate enlargement of the ventricles, sulci, and cisterns is also present. There is no acute intracranial hemorrhage or evidence of acute territorial infarction. No shift of the midline structures, mass effect, or extra-axial abnormalities are shown. Atherosclerotic calcifications are present in the intracranial segments of the internal carotid arteries. Imaged portions of the paranasal sinuses and mastoid air cells are clear. The orbits appear normal. There are no acute fractures of the calvaria or scalp swelling. Impression: No acute intracranial hemorrhage, no evidence of acute territorial infarction or other acute intracranial disease process. ACT 112: Negative or not required by law. Electronically signed by: Yassine Gil M.D. 03/02/2023 7:21 PM Chest X-Ray 03/02/23 19:20 XR chest 1V portable CLINICAL HISTORY: hip fx TECHNIQUE: Single frontal radiograph of the chest was obtained. Comparison: Comparison is made to chest radiograph 12/01/2021 FINDINGS: No lines and tubes are seen. The cardiomediastinal silhouette is normal. Faint opacities are in the left midlung which likely represent overlying soft tissue. No evidence of pleural effusion or pneumothorax. IMPRESSION: No acute chest disease. ACT 112: Negative or not required by law. Electronically signed by: Yassine Gil M.D. 03/02/2023 7:42 PM Femur X-Ray 03/04/23 10:40 FL femur RT 2V CLINICAL HISTORY: RT ORIF LONG TROCHacute fracture of the right hip COMPARISON STUDY: 03/02/2023 FLUOROSCOPY TIME: 139.7 seconds FLUOROSCOPY IMAGES: 5 EXPOSURE DOSE: 18.40 mGy Air Kerma FINDINGS: Status post placement of an intertrochanteric nail with medullary cathleen fixating the acute intertrochanteric right femoral fracture with improved alignment. No unexpected opaque foreign bodies. IMPRESSION: Fluoroscopic assistance as above. ACT 112: Negative or not required by law. Electronically signed by: García Acevedo M.D. 03/04/2023 1:44 PM Hip X-Ray 03/04/23 13:11 XR hip RT min 2V HISTORY: 72 years-old Female Post-Operative implant position right hip arthroplasty COMPARISON: Pelvis radiograph 03/02/2023 TECHNIQUE: 2 views of the right hip FINDINGS: Status post placement of an intertrochanteric nail with elongated medullary cathleen fixating the acute intertrochanteric fracture. There is improved alignment. Lateral skin enma with expected postoperative soft tissue swelling and deep tissue air. Partially imaged hardware within the tibia. IMPRESSION: Expected postoperative changes. ACT 112: Negative or not required by law. The above report was generated using voice recognition software. It may contain grammatical, syntax or spelling errors. Electronically signed by: García Acevedo M.D. 03/04/2023 2:15 PM (1) Intertrochanteric fracture of right femur Encounter type: initial encounter Fracture alignment: displaced Fracture type: closed Qualified Code(s): S72.141A - Displaced intertrochanteric fracture of right femur, initial encounter for closed fracture
[2023-03-05] MEDS: LIDOCAINE 5% 1 PATCH TD SCH (11:05)
[2023-03-05] MEDS: ERGOCALCIFEROL 50,000 UNITS 1250 MCG CAP PO SCH (14:10)
[2023-03-05 14:39] LABS: Hematocrit (blood only) 25.9 % (37.0-47.0); Hemoglobin 8.4 g/dl (12.0-16.0); Mean Corpuscular Hemoglobin 30.5 pg (25.0-34.0); Mean Corpuscular Hgb Conc 32.4 g/dL (32.0-36.0); Mean Corpuscular Volume 94.2 fL (80.0-100.0); Mean Platelet Volume 10.4 fL (9.4-12.4); Platelet Count 104 K/uL (130-400); RDW Coefficient of Variation 16.2 % (11.5-14.5); RDW Standard Deviation 55.5 fL (36.4-46.3); Red Blood Count 2.75 M/uL (4.20-5.40); White Blood Count 8.95 K/ul (4.8-10.8)
[2023-03-05] MEDS: NICOTINE 21 MG/24 HR TDSY TD SCH (20:22)
[2023-03-05] MEDS: ROSUVASTATIN CALCIUM 20 MG TAB PO SCH (20:23)
[2023-03-05] MEDS ORDERED: hydrOXYzine HCl 25 MG TAB PO PRN (20:53)
[2023-03-05] MEDS: APIXABAN 2.5 MG TAB PO SCH (21:24)
--- NOTE | 2023-03-05 23:26 | CT Scan Report ---
Exam(s): CT HEAD Without Contrast EXAM: CT Head Without Intravenous Contrast CLINICAL HISTORY: Reason for exam: ams, noac. TECHNIQUE: Axial computed tomography images of the head/brain without intravenous contrast. CTDI is 36.43 mGy and DLP is 625.8 mGy-cm. Automated exposure control was utilized for the study. A dose lowering technique was utilized adhering to the principles of ALARA. COMPARISON: No relevant prior studies available. FINDINGS: No acute intracranial hemorrhage. No midline shift or mass effect. The territorial rajan-white matter differentiation is maintained throughout. Age-related cerebral volume loss. Periventricular and subcortical white matter hypoattenuation, consistent with chronic microangiopathy. The visualized orbits appear grossly unremarkable. RIGHT periorbital soft tissue swelling. The calvarium is intact. The visualized paranasal sinuses and mastoid air cells are grossly clear. IMPRESSION: No acute intracranial hemorrhage, midline shift, or mass effect. RIGHT periorbital soft tissue swelling. Electronically signed by: Hawk Mcintosh MD 03/05/23 23:24 PM
--- NOTE | 2023-03-06 00:04 | Communication Note ---
Date of Service: March 06, 2023 Patient daughter worried about patient confusion. PPE Lethargic, disoriented CT head no bleed AP Postop delirium Rule out UTI Decrease maintenance gabapentin dose to 100 mg twice daily for now with hold parameters for sedation confusion. Change oxycodone to Vicodin with hold parameters for sedation confusion. Check UA.
[2023-03-06] MEDS: SODIUM CHLORIDE 0.9% 1000ML 1,000 ML IV SCH (00:35)
[2023-03-06 00:56] LABS: Appearance Urine Clear (Clear); Bacteria Urine Automated Negative (Negative); Bilirubin Urine Negative (Negative); Blood Urine 2+ (Negative); Color Urine Yellow; Glucose Urine UA Negative (Negative); Ketones Urine Negative (Negative); Leukocyte Esterase Urine Negative (Negative); Nitrite Urine Negative (Negative); Protein Urine 2+ (Negative); RBC Urine Automated 0-4 /hpf (0-4); Urobilinogen Urine Negative (Negative); pH Urine 5.5 (4.5-7.5)
[2023-03-06] MEDS: HYDROCODONE/ACETAMOPHEN 5/325MG TAB PO PRN ×3 (04:08→17:50)
[2023-03-06 07:53] LABS: Hematocrit (blood only) 26.1 % (37.0-47.0); Hemoglobin 8.6 g/dl (12.0-16.0); Mean Corpuscular Hemoglobin 30.1 pg (25.0-34.0); Mean Corpuscular Volume 91.3 fL (80.0-100.0); Mean Platelet Volume 10.5 fL (9.4-12.4); Platelet Count 113 K/uL (130-400); RDW Coefficient of Variation 15.9 % (11.5-14.5); RDW Standard Deviation 53.1 fL (36.4-46.3); Red Blood Count 2.86 M/uL (4.20-5.40); White Blood Count 8.51 K/ul (4.8-10.8)
[2023-03-06 08:31] LABS: BUN Creatinine Ratio 9.8 (10-20); Calcium 7.9 mg/dl (8.6-10.3); Creatinine Clr Calc Pharmacy 47.4 ml/min; Est GFR (African American) 64.1 ml/min; Est GFR (Non-African American) 55.3 ml/min; Magnesium 1.7 mg/dl (1.7-2.4)
[2023-03-06] MEDS: GABAPENTIN 100 MG CAP PO SCH ×3 (08:56→21:11)
[2023-03-06] MEDS: LIDOCAINE 5% 1 PATCH TD SCH (08:57)
[2023-03-06] MEDS: METOPROLOL SUCC 25MG EXT REL TAB PO SCH (08:57)
[2023-03-06] MEDS: PANTOprazole 40 MG TAB PO SCH ×2 (08:58→21:12)
[2023-03-06] MEDS: ACETAMINOPHEN 325 MG TAB PO SCH ×3 (08:58→21:10)
[2023-03-06] MEDS: THIAMINE HCL 100 MG TAB PO SCH (08:59)
[2023-03-06] MEDS: MULTIVITAMIN TAB PO SCH (08:59)
[2023-03-06] MEDS: FOLIC ACID 1 MG TAB PO SCH (08:59)
[2023-03-06] MEDS: APIXABAN 2.5 MG TAB PO SCH ×2 (11:07→21:11)
[2023-03-06] MEDS ORDERED: DOCUSATE SODIUM/SENNA 50/8.6MG TAB PO SCH (12:15)
[2023-03-06] MEDS: POLYETHYLENE (MIRALAX) 17 GM PACK PO SCH (13:34)
--- NOTE | 2023-03-06 13:52 | Psychiatric Consultation ---
Date of Consultation March 06, 2023 Impression / Recommendations Impression Diagnostically consistent with hospital acquired encephalopathy/delirium due to surgery and need for pain medication as well as possible adjustment disorder with anxious mood in setting of hip fracture with increased pain and frustration of having to be in the hospital. Today she is fully oriented which may represent resolving delirium versus continuing to wax and wane and I caught her in a moment of increased mental clarity. Regardless given likely delirium would avoid starting any new psychiatric medications at this time and she reports improvement in anxiety and mood symptoms as well as denial of SI. (1) Delirium: (2) Intertrochanteric fracture of right femur: Encounter type: initial encounter Fracture alignment: displaced Fracture type: closed Qualified Code(s): S72.141A - Displaced intertrochanteric fracture of right femur, initial encounter for closed fracture Plan -Consider seroquel 12.5 mg qhs if she develops symptoms of acute agitation related to delirium otherwise would avoid starting any new psychiatric medication -Consider melatonin 3mg qhs -Continue medical workup to rule out and treat any underlying causes contributing to potential delirium, attempt to avoid or limit use of deli riogenic medications (benzodiazepines, opioids, anticholinergics) -Continue with delirium prevention measures: raising blinds during the day, closing at night, frequent re-orientation, contact with family/friends, explaining procedures/nursing care measures prior to physical contact, correct any hearing and visual impairments -In outpatient setting once delirium has fully resolved could consider trial of an SSRI, mirtazapine or ongoing use of gabapentin for management of anxiety Psych History Identifying Data 72 yo woman with history of peripheral neuropathy, peripheral vascular disease, CAD admitted medically following hip fracture and s/p surgical repair. Psychiatry consulted for "anxiety management, per pt/family request". Chief Complaint "I don't feel confused today but I still mix up my words sometimes but I know what I'm trying to say". History of Present Illness Genet described events leading to her hip fracture of losing her balance and falling while trying to put her new kitten in an outside crate so he could sit on the porch with her as she read. She expresses sadness and frustration related to breaking her hip and having increased pain but denies any symptoms of depression and reports her anxiety "is back to how it always is". She is not particularly interested in any medications for anxiety or mood at this time but would consider it in the future if her anxiety worsened again. Reported her biggest challenge is coping with chronic neuropathy and that she's tried duloxetine in the past but it caused confusion and gabapentin is what seems to work the best. Discussed that gabapentin can also help with anxiety and if often used off-label for this. Today she is fully oriented but she agrees yesterday she couldn't remember where she was when the nurses were asking and is only today "finally putting together all the details of what happened" to cause her to be in the hospital. She denies any SI. She has hydroxyzine 25mg daily prn at home for anxiety but states she rarely uses this, finds it helpful when she does. Reports she lives alone, family helps her and she has a caregiver who comes into the home twice a day to help her as well. Allergies Allergy/AdvReac Type Severity Reaction Status Date / Time minocycline Allergy Intermediate Hives Verified 03/02/23 19:43 Tetracyclines Allergy Intermediate MINOCIN-ROSANNA Verified 03/02/23 19:43 H,HIVES duloxetine AdvReac Intermediate "MADE ME Verified 03/02/23 19:43 LOOPY" Home Medications Medication Instructions Recorded Confirmed Type gabapentin 300 mg capsule 300 mg PO TID 06/23/21 03/02/23 History hydroxyzine HCl 25 mg tablet 25 mg PO Q6 PRN Anxiety 06/23/21 03/02/23 History omeprazole 20 mg capsule,delayed 20 mg PO BID 06/23/21 03/02/23 History release aspirin 81 mg tablet,delayed 81 mg PO HS 08/07/21 03/02/23 History release rosuvastatin 40 mg tablet 40 mg PO HS #90 tabs 03/09/22 03/02/23 Rx apixaban 2.5 mg tablet (Eliquis) 2.5 mg PO BID #180 tabs 10/28/22 03/02/23 Rx metoprolol succinate 25 mg 25 mg PO QAM #90 tabs 11/25/22 03/02/23 Rx tablet,extended release 24 hr nitroglycerin 0.4 mg sublingual 0.4 mg sublingual .COMPLEX PRN 11/25/22 03/02/23 Rx tablet chest pain #25 tabs Patient History Medical History Alcohol use disorder Anemia pt declined iron supplementation and transfusion per heme/onc note CAD (coronary artery disease) [place] 2007-total distal LAD occlusion with unsuccessful attempt at PCI-mild atherosclerotic disease to remainder of LAD, left Cx and RCA. Negative stress test at 99% MPHR in 2010. Normal systolic function 12/2020 echo. Follows with [place] [facility]. Carotid stenosis 50-69% stenosis left ICA, less than 50% stenosis per 08/2020 carotid ultrasound Chest pain Chronic kidney disease stage 3b COPD (chronic obstructive pulmonary disease) stable per pt, last rescue inhaler use "never"; last appt with pulm 12/2020 did not return for f/u Depression Difficult intubation "Due to difficult airway (intubated w/ 5.5 ETT), she was kept on ventilator for two days for repeat vascular procedure on 01/22. She received 4 doses of decadron over 36H. After definitive vascular procedure, she was extubated successfully in ICU after cuff leak confirmed in addition to intact respiratory and neurological status. She has since had no stridor and has remained stable on room air with no increased WOB." S discharge summary for 01/21/2021-01/24/2021 hospitalization. Dyslipidemia (high LDL; low HDL) Femoral-popliteal bypass graft occlusion Dr. Andrea consulted and aware of patient. Heparin drip started. Coumadin held. Await vascular recommendations. Doppler pulse checks q2h. Femoral-popliteal bypass graft occlusion, left Foot ulcer Gangrene of left foot GERD (gastroesophageal reflux disease) upper GI bleed 08/2021 per 09/09/21 d/c summary, CT Abd suggestive of PUD-EGD small hiatal hernia, gastritis, nonbleeding duodenal ulcer with no stigmata of bleeding- 2 units PRBCs and IV Protonix transitioned to oral-f/u EGD scheduled 12/2021 with S per records History of blood transfusion 08/2021 during 9 day [facility] hospitalization-hypotension, anemia, upper GI bleeding d/t PUD, alcohol use disorder, right 9th rib fracture per discharge summary History of breast cancer Lt -1999- s/p lumpectomy, chemo/radiation History of herpes simplex infection positive culture R lateral buttock per [facility] derm 11/12/21, resolved per pt HTN (hypertension) controlled, stable per pt Laryngocele bilat, s/p DML CO2 laser R ventriculectomy 03/2021, pt declined left, follows with [facility] Myocardial Infarction 2008 Neuropathy follows with [place] neuro On anticoagulant therapy Prediabetes Pulmonary nodule stable per f/u CT scan 04/2021 PVD (peripheral vascular disease) h/o 2 failed bypasses left leg, follows with vascular surgery Rosacea Pt denies S/P angiogram of extremity Left Lower Extremity Angiogram, Smoker Thyroid nodule right, follows with [facility] Valvular heart disease Mild mitral regurgitation. Mild to moderate tricuspid regurgitation. 12/2020 echo. Surgical History History of amputation Left Great Toe Transmetatarsal amputation and left Second Toe Amputation History of anesthesia reaction combative History of angioplasty of peripheral vessel X 2 - LLE - FOLLOWS W/ DR. ANDREA - on Eliquis History of breast biopsy History of cardiac cath 2007 - [facility] - "total distal LAD occlusion. Unsuccessful attempt at PCI to this occlusion. Mild atherosclerotic disease of the remainder of the LAD, left circumflex, and right coronary arteries." Follows with Dr. [place] [facility]. History of cataract surgery Rt eye History of colonoscopy w/ polypectomy History of laparoscopy x 3 History of lumpectomy History of lymph node excision History of surgery CO2 laser R ventriculectomy 03/2021, pt declined left due to GI/vascular co- morbidities at time of 06/2021 [facility] note History of surgery on extremity broken RLE d/t compound fracture after mechanical fall 04/2019 per records History of tonsillectomy S/P femoral-popliteal bypass surgery S/P femoral-tibial bypass Family History Mother Breast cancer Grandmother (Maternal) Family hx of colon cancer Denies family history of Ovarian cancer Social History Smoking Status: Current every day smoker Tobacco Type: Cigarettes Cigarettes Per Day: 15-20; Second Hand Exposure: No; Do You Dip or Chew Tobacco: No; Hx Alcohol Use: Yes Alcohol type: wine Alcohol type Comment: pt states one drink of lisbet's irishi cream weekly Hx Substance Use: No Preferred Language: Croatian Communication Ability: Effective Visual Impairment: Limited Hearing Ability: Normal Plastic Tool Maker Required: No Beliefs That Will Affect Care: None marital status: Single Current Living Situation: Alone Current Living Situation Comment: home alone current occupational status: retired Other Information That Helps Us Care for You: No Feels Safe at Home: Yes Safety Concerns: Feels Safe At This Time Diet: regular caffeine: Yes during the past year weight has: decreased > 10 lbs Gender Identity: Female Assistive Devices: Cane and Walker Physical Exam Psychiatric: Orientation: alert and oriented x 3 Apperance: appropriately dressed and appropriately groomed Eye Contact: good eye contact Motor Behavior: no abnormal motor movements Speech: normal rate/rhythm/volume of speech Affect: euthymic affect Mood: + anxious mood; no depressed mood Thought Process: linear/logical thought process Thought Content: reality based without delusions Suicidal Thoughts: denies suicidal thoughts Homicidal Thoughts: denies homicidal thoughts Hallucinations: no auditory hallucinations and no visual hallucinations Cognition: recent memory grossly intact, remote memory grossly intact, attention grossly intact and language grossly intact Estimated Intelligence: consistent with education level Insight: + fair insight Judgment: + fair judgement Vital Signs (Past 24 Hours): Last Vital Signs Temp 37 C 03/06/23 11:31 Pulse 71 03/06/23 12:08 Resp 19 03/06/23 11:31 BP 101/57 L 03/06/23 11:31 Pulse Ox 95 03/06/23 11:31 O2 Del Method Room Air 03/06/23 11:31 O2 Flow Rate 2 03/04/23 19:24 Review of Systems All systems reviewed & are unremarkable except as noted in HPI & below (hip pain with movement) Results & Data (PSY) Laboratory Results Na+ normal Diagnostic Findings QTc 428ms on EKG on 03/02/23 Medications Administered Acetaminophen (Acetaminophen 325 Mg Tab) 975 mg PO TID ELY Stop: 04/03/23 18:59 Last Admin: 03/06/23 13:33 Dose: Not Given Documented By: Admin: 03/06/23 08:58 Dose: 975 mg Documented By: Admin: 03/05/23 20:21 Dose: 975 mg Documented By: Admin: 03/05/23 14:10 Dose: 975 mg Documented By: Admin: 03/05/23 07:50 Dose: Not Given Documented By: Admin: 03/04/23 20:10 Dose: 975 mg Documented By: ROXANNA Hydrocodone Bitart/Acetaminophen (Hydrocodone/Acetamophen 5/325mg Tab) 1 tab PO QID PRN PRN Reason: Pain Stop: 03/19/23 22:06 Last Admin: 03/06/23 09:07 Dose: 1 tab Documented By: Admin: 03/06/23 04:08 Dose: 1 tab Documented By: JADA Apixaban (Apixaban 2.5 Mg Tab) 2.5 mg PO BID [facility]Y Stop: 04/03/23 20:59 Last Admin: 03/06/23 11:07 Dose: 2.5 mg Documented By: Admin: 03/05/23 21:24 Dose: 2.5 mg Documented By: Admin: 03/04/23 20:37 Dose: 2.5 mg Documented By: ROXANNA Aspirin (Aspirin 81 Mg Ectab) 81 mg PO HS [facility] Stop: 04/02/23 20:59 Last Admin: 03/04/23 20:12 Dose: 81 mg Documented By: Admin: 03/03/23 21:11 Dose: 81 mg Documented By: ROXANNA Ergocalciferol (Ergocalciferol 50,000 Units 1250 Mcg Cap) 50,000 units PO Q7D [facility] Stop: 04/04/23 13:29 Last Admin: 03/05/23 14:10 Dose: 50,000 units Documented By: KASSANDRA Folic Acid (Folic Acid 1 Mg Tab) 1 mg PO QAM [facility] Stop: 04/02/23 08:59 Last Admin: 03/06/23 08:59 Dose: 1 mg Documented By: Admin: 03/05/23 07:50 Dose: Not Given Documented By: Admin: 03/04/23 07:46 Dose: 1 mg Documented By: Admin: 03/03/23 09:35 Dose: 1 mg Documented By: CONNOR Gabapentin (Gabapentin 100 Mg Cap) 100 mg PO TID [facility] Stop: 04/05/23 08:59 Last Admin: 03/06/23 13:33 Dose: 100 mg Documented By: Admin: 03/06/23 08:56 Dose: 100 mg Documented By: TEJINDER Sodium Chloride (Nss 1000ml) 1,000 mls @ 100 mls/hr IV .Q10H [facility] Stop: 04/02/23 05:59 Last Infusion: 03/06/23 10:35 Dose: 0 mls/hr Documented By: Admin: 03/06/23 00:35 Dose: 100 mls/hr Documented By: Infusion: 03/06/23 00:17 Dose: 100 mls/hr Documented By: Admin: 03/05/23 14:17 Dose: 100 mls/hr Documented By: Infusion: 03/05/23 14:17 Dose: 100 mls/hr Documented By: Infusion: 03/05/23 06:20 Dose: 100 mls/hr Documented By: Admin: 03/05/23 04:17 Dose: 80 mls/hr Documented By: Infusion: 03/05/23 04:17 Dose: 80 mls/hr Documented By: Admin: 03/04/23 20:55 Dose: 80 mls/hr Documented By: Infusion: 03/04/23 20:55 Dose: 80 mls/hr Documented By: Admin: 03/04/23 09:21 Dose: 80 mls/hr Documented By: Infusion: 03/04/23 09:21 Dose: 0 mls/hr Documented By: [facility] Admin: 03/03/23 21:09 Dose: 80 mls/hr Documented By: Infusion: 03/03/23 18:51 Dose: 80 mls/hr Documented By: Admin: 03/03/23 06:21 Dose: 80 mls/hr Documented By: FELICITA Lidocaine (Lidocaine 5% 1 Patch) 1 patch TD [facility] Stop: 04/04/23 09:59 Last Admin: 03/06/23 08:57 Dose: 1 patch Documented By: Admin: 03/05/23 11:05 Dose: 1 patch Documented By: KASSANDRA Metoprolol Succinate (Metoprolol Succ 25mg Ext Rel Tab) 25 mg PO [facility] Stop: 04/02/23 08:59 Last Admin: 03/06/23 08:57 Dose: 25 mg Documented By: Admin: 03/05/23 07:50 Dose: Not Given Documented By: Admin: 03/04/23 09:24 Dose: 25 mg Documented By: [facility] Admin: 03/03/23 09:35 Dose: 25 mg Documented By: CONNOR Miscellaneous (Remove Nicoderm Patch) 1 each N/A HS [facility] Stop: 04/02/23 20:59 Last Admin: 03/05/23 20:23 Dose: 1 each Documented By: Admin: 03/04/23 20:19 Dose: Not Given Documented By: Admin: 03/03/23 21:15 Dose: Not Given Documented By: ROXANNA Miscellaneous (Remove Lidoderm Patch) 1 each N/A DAILY@2100 [facility] Stop: 04/04/23 20:59 Last Admin: 03/05/23 20:23 Dose: 1 each Documented By: JADA Multivitamins (Multivitamin Tab) 1 tab PO QAM [facility] Stop: 04/02/23 08:59 Last Admin: 03/06/23 08:59 Dose: 1 tab Documented By: Admin: 03/05/23 07:50 Dose: Not Given Documented By: Admin: 03/04/23 07:46 Dose: 1 tab Documented By: Admin: 03/03/23 09:36 Dose: 1 tab Documented By: CONNOR Nicotine (Nicotine 21 Mg/24 Hr Tdsy) 21 mg TD HS [facility] Stop: 04/01/23 21:54 Last Admin: 03/05/23 20:22 Dose: 21 mg Documented By: Admin: 03/04/23 20:38 Dose: Not Given Documented By: Admin: 03/03/23 21:52 Dose: Not Given Documented By: Admin: 03/03/23 01:37 Dose: Not Given Documented By: FELICITA Pantoprazole Sodium (Pantoprazole 40 Mg Tab) 40 mg PO BID [facility] Stop: 04/02/23 08:59 Last Admin: 03/06/23 08:58 Dose: 40 mg Documented By: Admin: 03/05/23 20:23 Dose: 40 mg Documented By: Admin: 03/05/23 07:50 Dose: Not Given Documented By: Admin: 03/04/23 20:37 Dose: Not Given Documented By: Admin: 03/04/23 07:46 Dose: 40 mg Documented By: Admin: 03/03/23 21:13 Dose: 40 mg Documented By: Admin: 03/03/23 09:36 Dose: 40 mg Documented By: CONNOR Polyethylene Glycol (Polyethylene (Miralax) 17 Gm Pack) 17 gm PO DAILY [facility] Stop: 04/05/23 12:14 Last Admin: 03/06/23 13:34 Dose: 17 gm Documented By: TEJINDER Rosuvastatin Calcium (Rosuvastatin Calcium 20 Mg Tab) 40 mg PO [facility] Stop: 04/01/23 22:53 Last Admin: 03/05/23 20:23 Dose: 40 mg Documented By: Admin: 03/04/23 20:18 Dose: 40 mg Documented By: Admin: 03/03/23 21:15 Dose: 40 mg Documented By: Admin: 03/02/23 23:44 Dose: 40 mg Documented By: [facility] Senna/Docusate Sodium (Docusate Sodium/Senna 50/8.6mg Tab) 1 tab PO [facility] Stop: 04/05/23 12:14 Last Admin: 03/06/23 13:33 Dose: 1 tab Documented By: TEJINDER Thiamine HCl (Thiamine Hcl 100 Mg Tab) 100 mg PO [facility] Stop: 04/02/23 08:59 Last Admin: 03/06/23 08:59 Dose: 100 mg Documented By: Admin: 03/05/23 07:50 Dose: Not Given Documented By: Admin: 03/04/23 07:45 Dose: 100 mg Documented By: Admin: 03/03/23 09:36 Dose: 100 mg Documented By: CONNOR Coding Level of Care Code 65215 IN/OBS CONSULT LVL 4,60M Diagnoses Delirium R41.0 Intertrochanteric fracture of right femur S72.141A Encounter type: initial encounter Fracture alignment: displaced Fracture type: closed Time Spent (min) 60
--- NOTE | 2023-03-06 14:34 | Hospitalist Progress Note ---
Date of Service March 06, 2023 Assessment & Plan (1) Intertrochanteric fracture of right femur: Plan: Patient has hx of CAD, stable disease on last follow-up with [place] [facility] 3 months ago, PAD status post surgery on Eliquis,HTN, hyperlipidemia on statin Rx, COPD, pulmonary hypertension, CRI, breast cancer status post surgery/chemoradiation who presents after fall with right hip pain XR Pelvis noted Right intratrochanteric femoral fracture S/p Right Hip Fracture, Open Reduction Internal Fixation Trochanteric Fixation Nail POD#2 Got 1 PRBC preop on 03/03/23 Hb dropped from preop to 8.2 Likely post op blood loss anemia + dilutional Patient has chronic anemia and based on past results, Hb runs 8-9 Hb has been stable so far Provided more counseling about pain med and need to limit/judiciously use op ioids due to effects on her She agreed Continue tylenol, lidocaine patch Oxycodone changed to hydrocodone by machine precision engraver and home gabapentin reduced to 100mg TID PT/OT eval noted: rehab recommended Vitamin D deficiency. Continue Vit D [id number] q weekly Anxiety disorder Alcohol use. Reported last drink was on day of admission. Denied alcohol withdrawal in the past Alcohol level was 126 on presentation Continue folate, thiamine. Intermittent confusion, lethargy likely post op delirium compounded by meds Psych recs noted Start melatonin 3mg HS Will plan to start seroquel 12.5mg HS if patient develops any agitation as Psych recommended Will need to follow up with psych outpatient Smokes 2/3rd of a pack per day Used marijuana about 2 days prior to presentation.. Denied heroin/cocaine/meth use Nicotine patch while inpatient. Per Admitting Provider, patient has history of laryngocele status post surgery/difficult intubation as per records Chronic neuropathy on gabapentin DVT prophylaxis. Eliquis Full code Patient requests for her daughter to be updated of plan of care. Ms. Azul Osorio, contact #[phone]. I called daughter and updated her Counseled patient on need for rehab. She will discuss it further with her daughter RN advised to remove lopez catheter I spent a total of 50 minutes coordinating, documenting and providing care for this patient excluding time spent in performance of separately billed services Admission and Anticipated Discharge Date Admission Date: March 02, 2023 Subjective Patient seen and examined Was reported to be lethargic overnight Patient is AOx3 this morning, not confused, more interactive She does not recall event overnight Reports she still has surgical site pain but better controlled She reports chronic neuropathic pain in both feet Denied dizziness, headache, nausea, vomiting, abd pain Denied cough, chest pain, shortness of breath Reports constipation Physical Exam Constitutional: + well hydrated; no acute distress Eyes: PERRL, conjunctivae normal, anicteric sclerae ENMT: external ear and nose normal, oropharynx normal Respiratory: normal respiratory effort, lungs clear to auscultation Cardiovascular: Rate/Rhythm: regular rate and regular rhythm S1 S2 Gastrointestinal (Abdomen): normal bowel sounds, soft, nontender, no hepatosplenomegaly Neurologic: PERRL, EOMI, accommodation nl, no face palsy, no dysarthria Psychiatric: A+Ox3, euthymic affect Results & Data Results & Data Vital Signs (Past 12 Hours) Vital Signs Temp Pulse Pulse Resp BP Pulse Ox Pulse Ox 03/06/23 12:08 71 03/06/23 09:00 03/06/23 11:00 95 03/06/23 07:00 94 03/06/23 11:31 37 C 81 19 101/57 L 95 03/06/23 08:01 36.8 C 78 20 103/57 L 94 03/06/23 04:15 36.7 C 74 18 110/71 98 O2 Del Method O2 Del Method 03/06/23 12:08 03/06/23 09:00 Room Air 03/06/23 11:00 Room Air 03/06/23 07:00 Room Air 03/06/23 11:31 Room Air 03/06/23 08:01 Room Air 03/06/23 04:15 Room Air Laboratory Results Abnormal lab results 03/05/23 03/05/23 03/06/23 Range/Units 14:07 21:05 00:35 RBC 2.75 L (4.20-5.40) M/uL Hgb 8.4 L (12.0-16.0) g/dl Hct 25.9 L (37.0-47.0) % RDW Std Deviation 55.5 H (36.4-46.3) fL RDW Coeff of Farrah 16.2 H (11.5-14.5) % Plt Count 104 L (130-400) K/uL Chloride (98-107) mmol/L Anion Gap (3-11) BUN/Creatinine Ratio (10-20) Calcium (8.6-10.3) mg/dl Phosphorus (2.5-4.9) mg/dl Ammonia 11.0 L (18-72) umol/L Urine Protein 2+ H (Negative) Urine Blood 2+ H (Negative) U Epithel Cells (Auto) 10-20 H (0-5) /lpf 03/06/23 03/06/23 Range/Units 07:37 07:37 RBC 2.86 L (4.20-5.40) M/uL Hgb 8.6 L (12.0-16.0) g/dl Hct 26.1 L (37.0-47.0) % RDW Std Deviation 53.1 H (36.4-46.3) fL RDW Coeff of Farrah 15.9 H (11.5-14.5) % Plt Count 113 L (130-400) K/uL Chloride 114 H (98-107) mmol/L Anion Gap 1 L (3-11) BUN/Creatinine Ratio 9.8 L (10-20) Calcium 7.9 L (8.6-10.3) mg/dl Phosphorus 2.0 L (2.5-4.9) mg/dl Ammonia (18-72) umol/L Urine Protein (Negative) Urine Blood (Negative) U Epithel Cells (Auto) (0-5) /lpf (1) Intertrochanteric fracture of right femur Encounter type: initial encounter Fracture alignment: displaced Fracture type: closed Qualified Code(s): S72.141A - Displaced intertrochanteric fracture of right femur, initial encounter for closed fracture
[2023-03-06] MEDS ORDERED: bisacodyL 10 MG SUPP PR STA (17:24)
[2023-03-06] MEDS: NICOTINE 21 MG/24 HR TDSY TD SCH (21:11)
[2023-03-06] MEDS: ROSUVASTATIN CALCIUM 20 MG TAB PO SCH (21:12)
[2023-03-06] MEDS: MELATONIN 3 MG TAB PO SCH (21:13)
[2023-03-06] MEDS ORDERED: POLYETHYLENE (MIRALAX) 17 GM PACK PO STA (22:50)
[2023-03-06] MEDS ORDERED: DOCUSATE SODIUM/SENNA 50/8.6MG TAB PO STA (22:50)
[2023-03-07] MEDS: HYDROCODONE/ACETAMOPHEN 5/325MG TAB PO PRN ×4 (05:56→19:42)
[2023-03-07 06:35] LABS: Hematocrit (blood only) 25.5 % (37.0-47.0); Hemoglobin 8.4 g/dl (12.0-16.0); Mean Corpuscular Hemoglobin 29.8 pg (25.0-34.0); Mean Corpuscular Hgb Conc 32.9 g/dL (32.0-36.0); Mean Corpuscular Volume 90.4 fL (80.0-100.0); Mean Platelet Volume 11.2 fL (9.4-12.4); Platelet Count 148 K/uL (130-400); RDW Coefficient of Variation 15.8 % (11.5-14.5); RDW Standard Deviation 52.1 fL (36.4-46.3); Red Blood Count 2.82 M/uL (4.20-5.40); White Blood Count 6.92 K/ul (4.8-10.8)
[2023-03-07 06:44] LABS: BUN Creatinine Ratio 11.4 (10-20); Calcium 8.1 mg/dl (8.6-10.3); Est GFR (African American) 61.9 ml/min; Est GFR (Non-African American) 53.4 ml/min; Magnesium 1.7 mg/dl (1.7-2.4); Potassium 3.9 mmol/L (3.5-5.1)
[2023-03-07] MEDS ORDERED: POT PHOSPHATE MONOBASIC W/ SOD TAB PO ONE (08:30)
[2023-03-07] MEDS: DOCUSATE SODIUM/SENNA 50/8.6MG TAB PO SCH ×2 (08:54→20:35)
[2023-03-07] MEDS: APIXABAN 2.5 MG TAB PO SCH ×2 (08:55→20:31)
[2023-03-07] MEDS: GABAPENTIN 100 MG CAP PO SCH ×4 (08:57→20:31)
[2023-03-07] MEDS: ACETAMINOPHEN 325 MG TAB PO SCH ×4 (08:57→20:30)
[2023-03-07] MEDS: PANTOprazole 40 MG TAB PO SCH ×2 (08:57→20:32)
[2023-03-07] MEDS: FOLIC ACID 1 MG TAB PO SCH (08:57)
[2023-03-07] MEDS: THIAMINE HCL 100 MG TAB PO SCH (08:58)
[2023-03-07] MEDS: LIDOCAINE 5% 1 PATCH TD SCH (08:58)
[2023-03-07] MEDS: MULTIVITAMIN TAB PO SCH (08:58)
[2023-03-07] MEDS: POLYETHYLENE (MIRALAX) 17 GM PACK PO SCH ×2 (08:58→09:06)
[2023-03-07] MEDS: NICOTINE 21 MG/24 HR TDSY TD SCH (08:59)
[2023-03-07] MEDS: METOPROLOL SUCC 25MG EXT REL TAB PO SCH (09:00)
[2023-03-07] MEDS ORDERED: LACTULOSE SYRUP 20 GM/30 ML UDC PO ONE (09:23)
--- NOTE | 2023-03-07 12:22 | Hospitalist Progress Note ---
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, PAD status post surgery on Eliquis,HTN, hyperlipidemia on statin Rx, COPD, pulmonary hypertension, CRI, breast cancer status post surgery/chemoradiation who presents after fall with right hip pain XR Pelvis noted Right intratrochanteric femoral fracture S/p Right Hip Fracture, Open Reduction Internal Fixation Trochanteric Fixation Nail POD#3 Got 1 PRBC preop on 03/03/23 Hb dropped from preop 10.7 to 8.2 Likely post op blood loss anemia + dilutional Patient has chronic anemia and based on past results, Hb runs 8-9 Hb has been stable so far Continue tylenol, lidocaine patch Continue prn hydrocodone Increase gabapentin to 200mg QID. Was on 300mg QID at home. Was reduced some days ago due to lethargy PT/OT eval noted: rehab recommended Vitamin D deficiency. Continue Vit D [id number] q weekly Continue bowel regimen Anxiety disorder Alcohol use. Reported last drink was on day of admission. Denied alcohol withdrawal in the past Alcohol level was 126 on presentation Continue folate, thiamine. Intermittent confusion, lethargy likely post op delirium compounded by meds Psych recs noted Continue melatonin 3mg HS This has greatly improved. No confusion today Will plan to start seroquel 12.5mg HS if patient develops any agitation as Psych recommended Will need to follow up with psych outpatient Smokes 2/3rd of a pack per day Used marijuana about 2 days prior to presentation.. Denied heroin/cocaine/meth u se Nicotine patch while inpatient. Provided smoking cessation counselling Per Admitting Provider, patient has history of laryngocele status post surgery/difficult intubation as per records Chronic neuropathy on gabapentin DVT prophylaxis. Eliquis Full code Patient requests for her daughter to be updated of plan of care. Ms. Azul Osorio, contact #[phone]. I spent a total of 45 minutes coordinating, documenting and providing care for this patient excluding time spent in performance of separately billed services Admission and Anticipated Discharge Date Admission Date: March 02, 2023 Subjective Patient seen and examined Reports surgical site pain especially with movement She reports chronic neuropathic pain in both feet Denied dizziness, headache, nausea, vomiting, abd pain. No BM yet but passing flatus Denied cough, chest pain, shortness of breath Physical Exam Constitutional: + well hydrated; no acute distress Eyes: PERRL, conjunctivae normal, anicteric sclerae ENMT: external ear and nose normal, oropharynx normal Respiratory: normal respiratory effort, lungs clear to auscultation Cardiovascular: Rate/Rhythm: regular rate and regular rhythm S1 S2 Gastrointestinal (Abdomen): normal bowel sounds, soft, nontender, no hepatosplenomegaly Musculoskeletal: Clean dressing over right hip surgical site Neurologic: PERRL, EOMI, accommodation nl, no face palsy, no dysarthria Psychiatric: A+Ox3, euthymic affect Results & Data Results & Data Vital Signs (Past 12 Hours) Vital Signs Temp Pulse Pulse Resp BP BP Pulse Ox 03/07/23 09:00 64 03/07/23 07:00 03/07/23 07:46 36.6 C 62 18 97/54 L 91/44 L 95 03/07/23 04:00 36.5 C 88 18 106/57 L 93 03/07/23 01:32 72 Pulse Ox O2 Del Method O2 Del Method 03/07/23 09:00 03/07/23 07:00 95 Room Air 03/07/23 07:46 Room Air 03/07/23 04:00 Room Air 03/07/23 01:32 Laboratory Results Abnormal lab results 03/07/23 03/07/23 Range/Units 05:23 05:23 RBC 2.82 L (4.20-5.40) M/uL Hgb 8.4 L (12.0-16.0) g/dl Hct 25.5 L (37.0-47.0) % RDW Std Deviation 52.1 H (36.4-46.3) fL RDW Coeff of Farrah 15.8 H (11.5-14.5) % Chloride 114 H (98-107) mmol/L Anion Gap 0 L (3-11) Calcium 8.1 L (8.6-10.3) mg/dl Phosphorus 2.0 L (2.5-4.9) mg/dl (1) Intertrochanteric fracture of right femur Encounter type: initial encounter Fracture alignment: displaced Fracture type: closed Qualified Code(s): S72.141A - Displaced intertrochanteric fracture of right femur, initial encounter for closed fracture
[2023-03-07] MEDS: ROSUVASTATIN CALCIUM 20 MG TAB PO SCH (20:32)
[2023-03-07] MEDS: MELATONIN 3 MG TAB PO SCH (20:35)
[2023-03-07] MEDS ORDERED: SODIUM CHLORIDE 0.9% 500 ML IV ONE (22:57)
[2023-03-07 23:54] LABS: Hematocrit (blood only) 22.9 % (37.0-47.0); Hemoglobin 7.6 g/dl (12.0-16.0)
--- NOTE | 2023-03-08 00:03 | Communication Note ---
Date of Service: March 08, 2023 Patient inquired from RN about home aspirin Rx (held a few days ago due to hemoglobin drop). Home aspirin resumed with note of stable hemoglobin in a.m. of 8. SBP later noted to be 80s as per RN. Hemoglobin 7.6 from 8.4. No overt bleed as per RN. AP Acute on chronic anemia rule out occult GI bleed Transfuse PRBC to maintain hemoglobin greater than 8 Hold aspirin and Eliquis for now. FOBT
[2023-03-08] MEDS ORDERED: SODIUM CHLORIDE 0.9% 250 ML IV PRN (00:04)
[2023-03-08] MEDS: HYDROCODONE/ACETAMOPHEN 5/325MG TAB PO PRN ×3 (04:21→20:40)
[2023-03-08 09:14] LABS: BUN Creatinine Ratio 10.2 (10-20); Calcium 8.2 mg/dl (8.6-10.3); Creatinine Clr Calc Pharmacy 40.9 ml/min; Est GFR (African American) 53.7 ml/min; Est GFR (Non-African American) 46.4 ml/min; Magnesium 1.7 mg/dl (1.7-2.4); Phosphorus 2.5 mg/dl (2.5-4.9); Potassium 3.8 mmol/L (3.5-5.1)
[2023-03-08 09:31] LABS: Hematocrit (blood only) 31.6 % (37.0-47.0); Hemoglobin 10.6 g/dl (12.0-16.0); Mean Corpuscular Hemoglobin 30.1 pg (25.0-34.0); Mean Corpuscular Hgb Conc 33.5 g/dL (32.0-36.0); Mean Corpuscular Volume 89.8 fL (80.0-100.0); Mean Platelet Volume 10.4 fL (9.4-12.4); Platelet Count 188 K/uL (130-400); RDW Coefficient of Variation 15.5 % (11.5-14.5); RDW Standard Deviation 50.1 fL (36.4-46.3); Red Blood Count 3.52 M/uL (4.20-5.40); White Blood Count 6.58 K/ul (4.8-10.8)
[2023-03-08] MEDS: ACETAMINOPHEN 325 MG TAB PO SCH ×3 (09:51→20:32)
[2023-03-08] MEDS: GABAPENTIN 100 MG CAP PO SCH ×4 (09:52→20:31)
[2023-03-08] MEDS: PANTOprazole 40 MG TAB PO SCH ×2 (09:52→20:31)
[2023-03-08] MEDS: MULTIVITAMIN TAB PO SCH (09:52)
[2023-03-08] MEDS: METOPROLOL SUCC 25MG EXT REL TAB PO SCH ×2 (09:53→09:55)
[2023-03-08] MEDS: THIAMINE HCL 100 MG TAB PO SCH (09:53)
[2023-03-08] MEDS: FOLIC ACID 1 MG TAB PO SCH (09:53)
[2023-03-08] MEDS: POLYETHYLENE (MIRALAX) 17 GM PACK PO SCH (09:54)
[2023-03-08] MEDS: LIDOCAINE 5% 1 PATCH TD SCH (09:54)
[2023-03-08] MEDS: DOCUSATE SODIUM/SENNA 50/8.6MG TAB PO SCH ×2 (09:55→20:32)
--- NOTE | 2023-03-08 10:08 | Orthopedic Progress Note ---
Date of Service March 08, 2023 Assessment & Plan (1) Intertrochanteric fracture of right femur: Plan: PT/OT Weightbearing as tolerated with walker assistance Dressing changed today because edges were peeling off, reinforce with 4x4s and tegaderm as needed Ice with easy wrap Pain control with p.o. or IV pain medication per medicine service discretion DVT prophylaxis with Eliquis and aspirin (medicine will determine when she is able to resume) Case management for discharge needs, patient will likely need rehab We will have her follow-up in our clinic with either Dr. Gonzalez or TAMEKA Davila PA-C in 2 weeks Admission and Anticipated Discharge Date Admission Date: March 02, 2023 Subjective Pt seen and examined bedside this morning. She wants to get on the bed lopez. She said she is having pain. She denies any numbness or tingling in her leg. She endorses calf pain but said it has gotten better since yesterday. She denies dizziness, CP, SOB, F/C Results & Data Vital Signs (Past 12 Hours) Vital Signs Temp Pulse Pulse Resp BP BP Pulse Ox 03/08/23 07:49 36.9 C 52 L 18 97/60 L 97 03/08/23 05:35 36.5 C 67 18 100/50 L 95 03/08/23 05:15 36.6 C 63 16 108/61 94 03/08/23 04:15 36.6 C 66 18 110/64 97 03/08/23 03:15 36.6 C 69 18 123/69 95 03/08/23 02:54 36.4 C L 64 18 103/58 L 96 03/08/23 02:45 36.4 C L 64 18 103/58 L 96 03/08/23 02:30 36.5 C 65 18 100/59 L 95 03/08/23 02:10 36.4 C L 65 18 92/51 L 96 03/08/23 00:37 73 03/07/23 22:56 36.3 C L 68 18 88/47 L 96 O2 Del Method O2 Flow Rate 03/08/23 07:49 Room Air 03/08/23 05:35 03/08/23 05:15 0 03/08/23 04:15 03/08/23 03:15 03/08/23 02:54 Room Air 03/08/23 02:45 0 03/08/23 02:30 03/08/23 02:10 03/08/23 00:37 03/07/23 22:56 Room Air Diagnostic Findings General: Pt laying in hospital bed. She seems annoyed and frusterated during today's exam Lower Extremity: Patient has moderate swelling and ecchymosis noted about her hip. She is tender to palpate. There does feel to be some hematoma surrounding her most proximal incision. Dressing was peeling at the proximal edges so they were taken down. Incisions clean, dry and with minimal drainage and no surrounding erythema, warmth or purulent drainage. She is able to slightly bend her knee and tolerate some light passive motion of hip. She is able to PF against resistance but struggles to DF. SLR in tact. Calf supple and non tender. NVI with sensation to light touch distally and good distal pulses present. Lower extremity noted to have good color and temperature with no signs of vascular or lymphatic insufficiency. Incisions were redressed with 4x4s and tegaderm. (1) Intertrochanteric fracture of right femur Encounter type: initial encounter Fracture alignment: displaced Fracture type: closed Qualified Code(s): S72.141A - Displaced intertrochanteric fracture of right femur, initial encounter for closed fracture
--- NOTE | 2023-03-08 11:20 | Hospitalist Progress Note ---
Date of Service March 08, 2023 Assessment & Plan (1) Intertrochanteric fracture of right femur: Plan: Patient has hx of CAD, stable disease on last follow-up with [facility] 3 months ago, PAD status post surgery on Eliquis,HTN, hyperlipidemia on statin Rx, COPD, pulmonary hypertension, CRI, breast cancer status post surgery/chemoradiation who presents after fall with right hip pain XR Pelvis noted Right intratrochanteric femoral fracture S/p Right Hip Fracture, Open Reduction Internal Fixation Trochanteric Fixation Nail POD#4 Got 1 PRBC preop on 03/03/23 Hb dropped from preop 10.7 to 8.2 post op Likely post op blood loss anemia + dilutional Patient has chronic anemia and based on past results, Hb runs 8-9 Hb had been stable in 8s but was 7.6 overnight. Patient got 1 PRBC and Hb came up to 10.6, which makes me wonder if the Hb of 7.6 overnight was true. Will recheck later today. Eliquis on hold till then. Continue tylenol, lidocaine patch Continue prn hydrocodone Continue gabapentin 200mg QID. Was on 300mg QID at home. Was reduced some days ago due to lethargy PT/OT eval noted: rehab recommended Vitamin D deficiency. Continue Vit D [id number] q weekly Anxiety disorder Alcohol use. Reported last drink was on day of admission. Denied alcohol withdrawal in the past Alcohol level was 126 on presentation Continue folate, thiamine. Intermittent confusion, lethargy likely post op delirium compounded by meds Psych recs noted Continue melatonin 3mg HS This has resolved so far Will need to follow up with psych outpatient Smokes 2/3rd of a pack per day Used marijuana about 2 days prior to presentation.. Denied heroin/cocaine/meth use Nicotine patch while inpatient. Provided smoking cessation counselling Per Admitting Provider, patient has history of laryngocele status post surgery/d ifficult intubation as per records Chronic neuropathy on gabapentin Patient reports her BP runs low chronically, usually 90s-100s. DVT prophylaxis. Eliquis on hold this morning as above Full code Patient requests for her daughter to be updated of plan of care. Ms. Azul Osorio, contact #[phone]. I spent a total of 50 minutes coordinating, documenting and providing care for this patient excluding time spent in performance of separately billed services Admission and Anticipated Discharge Date Admission Date: March 02, 2023 Subjective Patient seen and examined Reports surgical site pain is better controlled today She also stated neuropathic pain is also improved with increased in dose of gabapentin yesterday. Constipation is resolved Denied any other complaints on ROS Patient had Hb of 7.6 overnight and got 1 PRBC with eliquis held Physical Exam Constitutional: + well hydrated; no acute distress Eyes: PERRL, conjunctivae normal, anicteric sclerae ENMT: external ear and nose normal, oropharynx normal Respiratory: normal respiratory effort, lungs clear to auscultation Cardiovascular: Rate/Rhythm: regular rate and regular rhythm S1 S2 Gastrointestinal (Abdomen): normal bowel sounds, soft, nontender, no hepatosplenomegaly Musculoskeletal: Tenderness over right hip with some swelling. Clean dressing Patient moving RLE better today Neurologic: PERRL, EOMI, accommodation nl, no face palsy, no dysarthria Psychiatric: A+Ox3, euthymic affect Results & Data Results & Data Vital Signs (Past 12 Hours) Vital Signs Temp Pulse Pulse Resp BP BP BP 03/08/23 11:06 36.9 C 63 18 104/61 03/08/23 07:49 36.9 C 52 L 18 97/60 L 03/08/23 05:35 36.5 C 67 18 100/50 L 03/08/23 05:15 36.6 C 63 16 108/61 03/08/23 04:15 36.6 C 66 18 110/64 03/08/23 03:15 36.6 C 69 18 123/69 03/08/23 02:54 36.4 C L 64 18 103/58 L 03/08/23 02:45 36.4 C L 64 18 103/58 L 03/08/23 02:30 36.5 C 65 18 100/59 L 03/08/23 02:10 36.4 C L 65 18 92/51 L 03/08/23 00:37 73 Pulse Ox O2 Del Method O2 Flow Rate 03/08/23 11:06 95 Room Air 03/08/23 07:49 97 Room Air 03/08/23 05:35 95 03/08/23 05:15 94 0 03/08/23 04:15 97 03/08/23 03:15 95 03/08/23 02:54 96 Room Air 03/08/23 02:45 96 0 03/08/23 02:30 95 03/08/23 02:10 96 03/08/23 00:37 Laboratory Results Abnormal lab results 03/07/23 03/07/23 03/08/23 Range/Units 23:33 23:33 08:28 RBC 3.52 L (4.20-5.40) M/uL Hgb 7.6 L 10.6 L D (12.0-16.0) g/dl Hct 22.9 L 31.6 L (37.0-47.0) % RDW Std Deviation 50.1 H (36.4-46.3) fL RDW Coeff of Farrah 15.5 H (11.5-14.5) % Chloride (98-107) mmol/L Glucose (70-99(Fasting)) mg/dl Calcium (8.6-10.3) mg/dl Crossmatch See Detail 03/08/23 Range/Units 08:28 RBC (4.20-5.40) M/uL Hgb (12.0-16.0) g/dl Hct (37.0-47.0) % RDW Std Deviation (36.4-46.3) fL RDW Coeff of Farrah (11.5-14.5) % Chloride 110 H (98-107) mmol/L Glucose 130 H (70-99(Fasting)) mg/dl Calcium 8.2 L (8.6-10.3) mg/dl Crossmatch (1) Intertrochanteric fracture of right femur Encounter type: initial encounter Fracture alignment: displaced Fracture type: closed Qualified Code(s): S72.141A - Displaced intertrochanteric fracture of right femur, initial encounter for closed fracture
[2023-03-08 14:44] LABS: Hematocrit (blood only) 29.2 % (37.0-47.0); Mean Corpuscular Hgb Conc 34.2 g/dL (32.0-36.0); Mean Corpuscular Volume 87.7 fL (80.0-100.0); Mean Platelet Volume 10.2 fL (9.4-12.4); Platelet Count 203 K/uL (130-400); RDW Coefficient of Variation 15.3 % (11.5-14.5); Red Blood Count 3.33 M/uL (4.20-5.40); White Blood Count 6.88 K/ul (4.8-10.8)
[2023-03-08] MEDS: ROSUVASTATIN CALCIUM 20 MG TAB PO SCH (20:31)
[2023-03-08] MEDS: MELATONIN 3 MG TAB PO SCH (20:32)
[2023-03-08] MEDS: NICOTINE 21 MG/24 HR TDSY TD SCH (20:32)
[2023-03-08] MEDS ORDERED: Nursing to Pharmacy Communication SCH (23:00)
[2023-03-09] MEDS: HYDROCODONE/ACETAMOPHEN 5/325MG TAB PO PRN ×3 (04:23→22:17)
[2023-03-09 06:04] LABS: Hemoglobin 9.4 g/dl (12.0-16.0); Mean Corpuscular Hemoglobin 29.9 pg (25.0-34.0); Mean Corpuscular Hgb Conc 33.6 g/dL (32.0-36.0); Mean Corpuscular Volume 89.2 fL (80.0-100.0); Mean Platelet Volume 10.2 fL (9.4-12.4); Platelet Count 213 K/uL (130-400); RDW Coefficient of Variation 15.2 % (11.5-14.5); RDW Standard Deviation 49.1 fL (36.4-46.3); Red Blood Count 3.14 M/uL (4.20-5.40)
[2023-03-09 06:18] LABS: BUN Creatinine Ratio 11.6 (10-20); Calcium 8.3 mg/dl (8.6-10.3); Creatinine Clr Calc Pharmacy 39.9 ml/min; Est GFR (African American) 52.1 ml/min; Potassium 4.1 mmol/L (3.5-5.1)
[2023-03-09] MEDS: FOLIC ACID 1 MG TAB PO SCH (09:26)
[2023-03-09] MEDS: PANTOprazole 40 MG TAB PO SCH ×2 (09:27→20:16)
[2023-03-09] MEDS: MULTIVITAMIN TAB PO SCH (09:27)
[2023-03-09] MEDS: METOPROLOL SUCC 25MG EXT REL TAB PO SCH (09:27)
[2023-03-09] MEDS: ACETAMINOPHEN 325 MG TAB PO SCH ×3 (09:27→20:13)
[2023-03-09] MEDS: GABAPENTIN 100 MG CAP PO SCH ×3 (09:28→16:53)
[2023-03-09] MEDS: THIAMINE HCL 100 MG TAB PO SCH (09:28)
[2023-03-09] MEDS: LIDOCAINE 5% 1 PATCH TD SCH (09:28)
[2023-03-09] MEDS: DOCUSATE SODIUM/SENNA 50/8.6MG TAB PO SCH ×2 (09:28→20:15)
[2023-03-09] MEDS: POLYETHYLENE (MIRALAX) 17 GM PACK PO SCH (09:29)
--- NOTE | 2023-03-09 09:29 | Orthopedic Progress Note ---
Date of Service March 09, 2023 Assessment & Plan (1) Intertrochanteric fracture of right femur: Plan: Patient is postop day #5 status post right intertrochanteric hip fracture with trochanteric femoral nail with screw fixation. Patient was questioning what her hip fracture looked like and surgical intervention. I did review imaging with her at bedside and she was able to see hip fracture appearance before and after surgical intervention. Dressing was changed today at the most proximal incision. Negative for any active bleeding or signs of infection. She will continue with PT/OT Weightbearing as tolerated with walker assistance Continue with ice with easy wrap Pain control with p.o. or IV pain medication per medicine service discretion DVT prophylaxis with Eliquis and aspirin (medicine will determine when she is able to resume) Case management for discharge needs recommend inpatient transfer to SNF/rehabilitation facility Patient has follow-up scheduled in our outpatient office on 03/19/2023 with TAMEKA Davila PA-C Present on Admission?: Yes Admission and Anticipated Discharge Date Admission Date: March 02, 2023 Subjective Patient is a 72-year-old female postop day #5 status post a right intratrochanteric fracture femoral nail and screw fixation with Dr. Allen off. She was seen bedside this AM. She is alert and oriented x3 conversive and pleasant. She reports she continues to have pain in the right lower extremity. She states it is mainly over the groin and the thigh with movement. She states the pain is 5/10. She continues to have pain with activities and especially with therapy. She feels she is getting a little bit better each day. She denies any calf pain, fever, chills, chest pain, dizziness, or shortness of breath. Review of Systems Review of Systems: Please refer to HPI Physical Exam Physical Exam: General: Patient is alert and oriented x3 pleasant and conversive Integumentary/musculoskeletal: 3 dressings are intact and in place over the right hip. The most proximal dressing is soiled. This was removed. Negative for any active bleeding or drainage. She is resolving ecchymosis surrounding this area. [place] are in place. Negative for any fluctuance or induration surrounding any of the incisions. New dressing was applied to proximal incision consisting of Xeroform, gauze and covered with Tegaderm. She is able to flex knee slightly and needs some assistance and encouragement to get to 100 degrees able to extend the knee. She tolerates gentle hip abduction, internal and external rotation. She is able to dorsiflex and plantarflex right ankle. Dorsal pedis pulse 1+ sensation is intact over right lower extremity. Right lower extremity is neurovascularly intact. Results & Data Vital Signs (Past 12 Hours) Vital Signs Temp Pulse Pulse Resp BP Pulse Ox Pulse Ox 03/09/23 07:00 95 03/09/23 07:31 37.2 C 63 18 120/68 94 03/09/23 07:09 70 03/09/23 03:23 99 03/09/23 00:06 36.6 C 64 18 105/63 94 03/08/23 23:04 99 O2 Del Method O2 Del Method 03/09/23 07:00 Room Air 03/09/23 07:31 Room Air 03/09/23 07:09 03/09/23 03:23 Room Air 03/09/23 00:06 Room Air 03/08/23 23:04 Room Air Laboratory Results 03/09/23 03/09/23 03/08/23 Range/Units 05:42 05:42 14:21 WBC 5.00 6.88 (4.8-10.8) K/ul RBC 3.14 L 3.33 L (4.20-5.40) M/uL Hgb 9.4 L 10.0 L (12.0-16.0) g/dl Hct 28.0 L 29.2 L (37.0-47.0) % MCV 89.2 87.7 (80.0-100.0) fL MCH 29.9 30.0 (25.0-34.0) pg MCHC 33.6 34.2 (32.0-36.0) g/dL RDW Std Deviation 49.1 H 49.0 H (36.4-46.3) fL RDW Coeff of Farrah 15.2 H 15.3 H (11.5-14.5) % Plt Count 213 203 (130-400) K/uL MPV 10.2 10.2 (9.4-12.4) fL Sodium 140 (136-145) mmol/L Potassium 4.1 (3.5-5.1) mmol/L Chloride 111 H (98-107) mmol/L Carbon Dioxide 26 (21-32) mmol/L Anion Gap 3 (3-11) BUN 14 (6-23) mg/dl Creatinine 1.21 H (0.6-1.2) mg/dl Est Cr Clr Drug Dosing 39.9 ml/min Est GFR ( Amer) 52.1 ml/min Est GFR (Non-Af Amer) 45.0 ml/min BUN/Creatinine Ratio 11.6 (10-20) Glucose 85 (70-99(Fasting)) mg/dl Calcium 8.3 L (8.6-10.3) mg/dl 03/08/23 Range/Units 08:28 WBC 6.58 (4.8-10.8) K/ul RBC 3.52 L (4.20-5.40) M/uL Hgb 10.6 L D (12.0-16.0) g/dl Hct 31.6 L (37.0-47.0) % MCV 89.8 (80.0-100.0) fL MCH 30.1 (25.0-34.0) pg MCHC 33.5 (32.0-36.0) g/dL RDW Std Deviation 50.1 H (36.4-46.3) fL RDW Coeff of Farrah 15.5 H (11.5-14.5) % Plt Count 188 (130-400) K/uL MPV 10.4 (9.4-12.4) fL Sodium (136-145) mmol/L Potassium (3.5-5.1) mmol/L Chloride (98-107) mmol/L Carbon Dioxide (21-32) mmol/L Anion Gap (3-11) BUN (6-23) mg/dl Creatinine (0.6-1.2) mg/dl Est Cr Clr Drug Dosing ml/min Est GFR ( Amer) ml/min Est GFR (Non-Af Amer) ml/min BUN/Creatinine Ratio (10-20) Glucose (70-99(Fasting)) mg/dl Calcium (8.6-10.3) mg/dl (1) Intertrochanteric fracture of right femur Encounter type: initial encounter Fracture alignment: displaced Fracture type: closed Qualified Code(s): S72.141A - Displaced intertrochanteric fracture of right femur, initial encounter for closed fracture
--- NOTE | 2023-03-09 10:52 | Hospitalist Progress Note ---
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 Patient got 1 PRBC, eliquis was held and Hb came up to 10.6, which makes me wonder if the Hb of 7.6 overnight was true. Hb trend in the past 24h has been 10.6-10-9.4 Considering patient significant vascular history and stable surgical site, will resume eliquis tonight but continue to monitor Hb trends/signs of bleeding Discussed with Vasc Sx team per patient's request. Spoke with PA. She agrees with resuming eliquis and ASA as soon as possible due to vasculopathy ASA on hold for now. Will resume as soon as possible Continue tylenol, lidocaine patch Continue prn hydrocodone Continue gabapentin 200mg QID. Was on 300mg QID at home. Was reduced some days ago due to lethargy PT/OT eval noted: rehab recommended Vitamin D deficiency. Continue Vit D [id number] q weekly Anxiety disorder Alcohol use. Reported last drink was on day of admission. Denied alcohol withdrawal in the past Alcohol level was 126 on presentation Continue folate, thiamine. Intermittent confusion, lethargy likely post op delirium compounded by meds Psych recs noted Continue melatonin 3mg HS This has resolved so far Will need to follow up with psych outpatient Smokes 2/3rd of a pack per day Used marijuana about 2 days prior to presentation.. Denied heroin/cocaine/meth use Nicotine patch while inpatient. Provided smoking cessation counselling Per Admitting Provider, patient has history of laryngocele status post surgery/difficult intubation as per records Chronic neuropathy on gabapentin Patient reports her BP runs low chronically, usually 90s-100s. DVT prophylaxis. John Full code Patient requests for her daughter to be updated of plan of care. Ms. Azul Osorio, contact #[phone]. I spent a total of 50 minutes coordinating, documenting and providing care for this patient excluding time spent in performance of separately billed services Admission and Anticipated Discharge Date Admission Date: March 02, 2023 Subjective Patient seen and examined Reports surgical site pain is controlled Constipation is resolved Have chronic neuropathic pain Denied any other complaints on ROS Physical Exam Constitutional: + well hydrated; no acute distress Eyes: PERRL, conjunctivae normal, anicteric sclerae ENMT: external ear and nose normal, oropharynx normal Respiratory: normal respiratory effort, lungs clear to auscultation Cardiovascular: Rate/Rhythm: regular rate and regular rhythm S1 S2 Gastrointestinal (Abdomen): normal bowel sounds, soft, nontender, no hepatosplenomegaly Musculoskeletal: Improving ecchymoses around right hip Clean dressing Neurologic: PERRL, EOMI, accommodation nl, no face palsy, no dysarthria Psychiatric: A+Ox3, euthymic affect Results & Data Results & Data Vital Signs (Past 12 Hours) Vital Signs Temp Pulse Pulse Resp BP Pulse Ox Pulse Ox 03/09/23 10:42 36.7 C 62 18 106/74 94 03/09/23 07:00 95 03/09/23 07:31 37.2 C 63 18 120/68 94 03/09/23 07:09 70 03/09/23 03:23 99 03/09/23 00:06 36.6 C 64 18 105/63 94 03/08/23 23:04 99 O2 Del Method O2 Del Method 03/09/23 10:42 Room Air 03/09/23 07:00 Room Air 03/09/23 07:31 Room Air 03/09/23 07:09 03/09/23 03:23 Room Air 03/09/23 00:06 Room Air 03/08/23 23:04 Room Air Laboratory Results Abnormal lab results 03/08/23 03/09/23 03/09/23 Range/Units 14:21 05:42 05:42 RBC 3.33 L 3.14 L (4.20-5.40) M/uL Hgb 10.0 L 9.4 L (12.0-16.0) g/dl Hct 29.2 L 28.0 L (37.0-47.0) % RDW Std Deviation 49.0 H 49.1 H (36.4-46.3) fL RDW Coeff of Farrah 15.3 H 15.2 H (11.5-14.5) % Chloride 111 H (98-107) mmol/L Creatinine 1.21 H (0.6-1.2) mg/dl Calcium 8.3 L (8.6-10.3) mg/dl (1) Intertrochanteric fracture of right femur Encounter type: initial encounter Fracture alignment: displaced Fracture type: closed Qualified Code(s): S72.141A - Displaced intertrochanteric fracture of right femur, initial encounter for closed fracture
[2023-03-09 15:43] LABS: Hematocrit (blood only) 30.2 % (37.0-47.0); Hemoglobin 10.1 g/dl (12.0-16.0); Mean Corpuscular Hemoglobin 30.2 pg (25.0-34.0); Mean Corpuscular Hgb Conc 33.4 g/dL (32.0-36.0); Mean Corpuscular Volume 90.4 fL (80.0-100.0); Mean Platelet Volume 10.4 fL (9.4-12.4); Platelet Count 234 K/uL (130-400); RDW Coefficient of Variation 15.5 % (11.5-14.5); RDW Standard Deviation 50.8 fL (36.4-46.3); Red Blood Count 3.34 M/uL (4.20-5.40); White Blood Count 6.01 K/ul (4.8-10.8)
[2023-03-09] MEDS: NICOTINE 21 MG/24 HR TDSY TD SCH (20:15)
[2023-03-09] MEDS: MELATONIN 3 MG TAB PO SCH (20:15)
[2023-03-09] MEDS: ROSUVASTATIN CALCIUM 20 MG TAB PO SCH (20:16)
[2023-03-09] MEDS: GABAPENTIN 300 MG CAP PO SCH (20:22)
[2023-03-09] MEDS: APIXABAN 2.5 MG TAB PO SCH (20:29)
[2023-03-10 07:15] LABS: Hematocrit (blood only) 28.8 % (37.0-47.0); Hemoglobin 9.8 g/dl (12.0-16.0); Mean Corpuscular Hemoglobin 30.1 pg (25.0-34.0); Mean Corpuscular Volume 88.3 fL (80.0-100.0); Platelet Count 238 K/uL (130-400); RDW Coefficient of Variation 15.3 % (11.5-14.5); RDW Standard Deviation 50.2 fL (36.4-46.3); Red Blood Count 3.26 M/uL (4.20-5.40); White Blood Count 5.49 K/ul (4.8-10.8)
[2023-03-10 07:34] LABS: BUN Creatinine Ratio 13.2 (10-20); Calcium 8.7 mg/dl (8.6-10.3); Creatinine Clr Calc Pharmacy 42.4 ml/min; Est GFR (Non-African American) 48.3 ml/min; Potassium 3.7 mmol/L (3.5-5.1)
[2023-03-10] MEDS: METOPROLOL SUCC 25MG EXT REL TAB PO SCH (08:51)
[2023-03-10] MEDS: PANTOprazole 40 MG TAB PO SCH ×2 (08:51→20:17)
[2023-03-10] MEDS: GABAPENTIN 300 MG CAP PO SCH ×4 (08:51→20:16)
[2023-03-10] MEDS: MULTIVITAMIN TAB PO SCH (08:52)
[2023-03-10] MEDS: FOLIC ACID 1 MG TAB PO SCH (08:52)
[2023-03-10] MEDS: THIAMINE HCL 100 MG TAB PO SCH (08:52)
[2023-03-10] MEDS: APIXABAN 2.5 MG TAB PO SCH ×2 (08:53→20:15)
[2023-03-10] MEDS: DOCUSATE SODIUM/SENNA 50/8.6MG TAB PO SCH ×2 (08:54→20:16)
[2023-03-10] MEDS: ACETAMINOPHEN 325 MG TAB PO SCH ×3 (08:54→20:20)
[2023-03-10] MEDS: POLYETHYLENE (MIRALAX) 17 GM PACK PO SCH (08:56)
[2023-03-10] MEDS: HYDROCODONE/ACETAMOPHEN 5/325MG TAB PO PRN (10:55)
[2023-03-10] MEDS: LIDOCAINE 5% 1 PATCH TD SCH (10:55)
--- NOTE | 2023-03-10 12:25 | Orthopedic Progress Note ---
Date of Service March 10, 2023 Assessment & Plan (1) Intertrochanteric fracture of right femur: Plan: Patient is postop day #6 status post right intertrochanteric hip fracture with trochanteric femoral nail with screw fixation. Dressing was changed today at the most proximal incision. Negative for any active bleeding or signs of infection. Discussed findings with Dr. Gonzalez and due to the continued drainage would recommend holding her Eliquis if at all possible. I know patient is adamant about taking this. This may be contributing to the drainage. We will also start her on Keflex 500 mg 3 times daily for 10 days which will continue once discharged as well. She will continue with PT/OT Weightbearing as tolerated with walker assistance Continue with ice with easy wrap Pain control with p.o. or IV pain medication per medicine service discretion DVT prophylaxis with Eliquis and aspirin Resumed yesterday. Case management for discharge needs recommend inpatient transfer to SNF/rehabilitation facility Patient has follow-up scheduled in our outpatient office on 03/19/2023 with TAMEKA Davila PA-C Admission and Anticipated Discharge Date Admission Date: March 02, 2023 Subjective Patient is participating in physical therapy. No complaints of pain in her right hip today. Waiting for placement to [facility]. States that they did change her dressing last evening due to some drainage. She also tells me that her Eliquis was held up until yesterday and she was adamant about them giving it back to her. She states that it is something that she cannot and will not miss. She does not want to get a blood clot in her legs. She checks her pulses in her feet daily to make sure there is blood flowing. Physical Exam Musculoskeletal: Right hip incisions, dressings were removed and reapplied. The proximal incision dressing was saturated with serosanguineous fluid. The incision is well approximated. There is induration and edema around the incision itself. There is no erythema or warmth. No purulence. It is nontender with palpation. No active drainage able to be expressed from the wound today. A new dressing was applied. We also reapplied a new dressing to the middle incision just because the Tegaderm was peeling out. The middle and distal incisions are clean, dry and intact. She has mild edema bilateral lower extremities. Distal pulses are 1+. Distal sensation is diminished but normal for her. Tolerates ankle range of motion bilaterally. No calf tenderness with palpation. Calves are supple. Results & Data Vital Signs (Past 12 Hours) Vital Signs Temp Pulse Pulse Resp BP Pulse Ox O2 Del Method 03/10/23 08:02 36.8 C 67 16 127/76 98 Room Air 03/10/23 06:38 60 03/10/23 05:25 36.5 C 78 20 122/89 95 Room Air (1) Intertrochanteric fracture of right femur Encounter type: initial encounter Fracture alignment: displaced Fracture type: closed Qualified Code(s): S72.141A - Displaced intertrochanteric fracture of right femur, initial encounter for closed fracture
[2023-03-10] MEDS: cephALEXin 500 MG CAP PO SCH ×3 (13:11→20:18)
--- NOTE | 2023-03-10 17:36 | Hospitalist Progress Note ---
Date of Service March 10, 2023 Assessment & Plan (1) Intertrochanteric fracture of right femur: Plan: Patient has hx of CAD, stable disease on last follow-up with [facility] 3 months ago, PAD status post surgery on Eliquis,HTN, hyperlipidemia on statin Rx, COPD, pulmonary hypertension, CRI, breast cancer status post surgery/chemoradiation who presents after fall with right hip pain Right femur intertrochanteric fracture Pelvic X ray:Right intratrochanteric femur fracture. S/p Right Hip Fracture, Open Reduction Internal Fixation Trochanteric Fixation Nail by on 03/04/23 Likely post op blood loss anemia + dilutional S/P 2 units PRBCs H/O Chronic anemia Considering patient significant vascular history and stable surgical site, Resumed Eliquis tonight but continue to monitor Hb trends/signs of bleeding Prior hospitalist discussed with Vasc Sx team per patient's request. Vascular Surgery agrees with resuming Eliquis and ASA as soon as possible due to vasculopathy ASA resumed as well Continue wound care Appreciate orthopedic surgery input Pain control Empirically on Keflex Continue PT OT Rehab as able Vitamin D deficiency Continue Vit D [id number] q weekly Anxiety disorder Alcohol use. Reported last drink was on day of admission. Denied alcohol withdrawal in the past Alcohol level was 126 on presentation Continue folate, thiamine. Intermittent confusion, lethargy likely post op delirium compounded by meds Psych recs noted Continue melatonin 3mg HS Mental status back to baseline Monitor Tobacco use disorder Smokes 2/3rd of a pack per day Used marijuana about 2 days prior to presentation.. Denied heroin/cocaine/meth use Nicotine patch while inpatient. Provided smoking cessation counselling H/O Laryngocele S/P surgery Chronic neuropathy on gabapentin Chronic hypotension Monitor BP DVT Px: Eliquis Code Status Full code Admission and Anticipated Discharge Date Admission Date: March 02, 2023 Subjective Patient is seen and examined at bedside States having right leg pain at surgical site Offers no other complaints Denies any chest pain, dyspnea, dizziness, nausea vomiting, abdominal pain Had dressing change today Review of Systems Review of Systems: All systems reviewed & are unremarkable except as noted in Subjective Physical Exam Physical Exam: Physical Exam: Vitals signs as noted above General Appearance: Thin, frail, no apparent distress Head: normocephalic, Atraumatic Eyes: normal inspection, EOMI Neck: supple, Trachea midline Respiratory/Chest: Normal breath sounds, CTA, No accessory muscle use Cardiovascular: S1, S2, No murmur Abdomen/GI:Soft, Non tender, Bowel sounds present Extremities/Musculoskeletal:normal inspection, 1+ Pedal edema, RLE surgical site in dressing Neurologic/Psych:AAOX3, grossly no focal neurological deficits Skin: normal color, warm Results & Data Results & Data Vital Signs (Past 12 Hours) Vital Signs Temp Pulse Pulse Resp BP Pulse Ox O2 Del Method 03/10/23 15:08 36.8 C 50 L 16 127/76 97 Room Air 03/10/23 14:11 80 03/10/23 08:02 36.8 C 67 16 127/76 98 Room Air 03/10/23 06:38 60 03/10/23 05:25 36.5 C 78 20 122/89 95 Room Air Laboratory Results Short CBC 03/10/23 Range/Units 06:43 WBC 5.49 (4.8-10.8) K/ul Hgb 9.8 L (12.0-16.0) g/dl Hct 28.8 L (37.0-47.0) % Plt Count 238 (130-400) K/uL BMP 03/10/23 06:43 Sodium 140 Potassium 3.7 Chloride 109 H Carbon Dioxide 27 BUN 15 Creatinine 1.14 Glucose 90 Calcium 8.7 (1) Intertrochanteric fracture of right femur Encounter type: initial encounter Fracture alignment: displaced Fracture type: closed Qualified Code(s): S72.141A - Displaced intertrochanteric fracture of right femur, initial encounter for closed fracture
[2023-03-10] MEDS: ASPIRIN 81 MG ECTAB PO SCH (20:16)
[2023-03-10] MEDS: NICOTINE 21 MG/24 HR TDSY TD SCH (20:17)
[2023-03-10] MEDS: ROSUVASTATIN CALCIUM 20 MG TAB PO SCH (20:17)
[2023-03-10] MEDS: MELATONIN 3 MG TAB PO SCH (20:18)
[2023-03-10] MEDS: oxyCODONE/ACETAMINOPHEN 5mg/325mg TAB PO PRN (20:18)
[2023-03-11 07:50] LABS: Hematocrit (blood only) 29.1 % (37.0-47.0); Hemoglobin 9.7 g/dl (12.0-16.0)
[2023-03-11] MEDS: GABAPENTIN 300 MG CAP PO SCH ×4 (09:29→20:03)
[2023-03-11] MEDS: FOLIC ACID 1 MG TAB PO SCH (09:30)
[2023-03-11] MEDS: PANTOprazole 40 MG TAB PO SCH ×2 (09:30→20:06)
[2023-03-11] MEDS: APIXABAN 2.5 MG TAB PO SCH ×2 (09:31→20:05)
[2023-03-11] MEDS: oxyCODONE/ACETAMINOPHEN 5mg/325mg TAB PO PRN ×2 (09:31→20:03)
[2023-03-11] MEDS: ACETAMINOPHEN 325 MG TAB PO SCH ×3 (09:33→20:01)
[2023-03-11] MEDS: METOPROLOL SUCC 25MG EXT REL TAB PO SCH (09:34)
[2023-03-11] MEDS: DOCUSATE SODIUM/SENNA 50/8.6MG TAB PO SCH ×2 (09:34→20:05)
[2023-03-11] MEDS: cephALEXin 500 MG CAP PO SCH (09:34)
[2023-03-11] MEDS: LIDOCAINE 5% 1 PATCH TD SCH (09:35)
[2023-03-11] MEDS: POLYETHYLENE (MIRALAX) 17 GM PACK PO SCH (09:36)
[2023-03-11] MEDS: MULTIVITAMIN TAB PO SCH (09:36)
[2023-03-11] MEDS: THIAMINE HCL 100 MG TAB PO SCH (09:37)
--- NOTE | 2023-03-11 11:05 | Orthopedic Progress Note ---
Date of Service March 11, 2023 Assessment & Plan (1) Intertrochanteric fracture of right femur: Plan: Patient is postop day #7 status post right intertrochanteric hip fracture with trochanteric femoral nail with screw fixation. I discontinued her Keflex and started her on Bactrim for the wound drainage from her proximal incision. She should continue protein shakes and eat as much as possible since she is likely malnourished, which can negatively affect wound h ealing. Recommend continuing Bactrim after discharge for a total of 7 days of treatment. She will continue with PT/OT Weightbearing as tolerated with walker assistance Continue with ice with easy wrap Pain control with p.o. or IV pain medication per medicine service discretion DVT prophylaxis with Eliquis and aspirin Case management for discharge needs recommend inpatient transfer to SNF/rehabili tation facility Patient has follow-up scheduled in our outpatient office on 03/19/2023 with TAMEKA Davila PA-C Admission and Anticipated Discharge Date Admission Date: March 02, 2023 Subjective Patient seen and examined on a.m. rounds. She reports that her right hip is sore when she moves it but she does not have any pain at rest. She has been getting out of bed with physical therapy. She declined to take the Keflex that was prescribed yesterday because its upset her stomach in the past she says. She has been taking her protein shakes. She says she does not like the food in the hospital. Physical Exam Physical Exam: Resting comfortably in bed. She does get a little bit tearful during today's visit. Inspection of her dressings on the right hip reveals mild serous drainag e in the proximal dressing. The other 2 dressings are clean dry and intact. Results & Data Vital Signs (Past 12 Hours) Vital Signs Temp Pulse Pulse Resp BP BP Pulse Ox 03/11/23 08:01 36.4 C L 87 18 105/64 95 03/11/23 07:00 67 03/11/23 04:00 36.7 C 69 18 129/74 98 03/11/23 02:53 70 03/11/23 00:00 36.7 C 69 18 106/81 96 O2 Del Method 03/11/23 08:01 Room Air 03/11/23 07:00 03/11/23 04:00 Room Air 03/11/23 02:53 03/11/23 00:00 Room Air (1) Intertrochanteric fracture of right femur Encounter type: initial encounter Fracture alignment: displaced Fracture type: closed Qualified Code(s): S72.141A - Displaced intertrochanteric fracture of right femur, initial encounter for closed fracture
--- NOTE | 2023-03-11 19:06 | Hospitalist Progress Note ---
Date of Service March 11, 2023 Assessment & Plan (1) Intertrochanteric fracture of right femur: Plan: Patient has hx of CAD, stable disease on last follow-up with [facility] 3 months ago, PAD status post surgery on Eliquis,HTN, hyperlipidemia on statin Rx, COPD, pulmonary hypertension, CRI, breast cancer status post surgery/chemoradiation who presents after fall with right hip pain Right femur intertrochanteric fracture Pelvic X ray:Right intratrochanteric femur fracture. S/p Right Hip Fracture, Open Reduction Internal Fixation Trochanteric Fixation Nail by on 03/04/23 Likely post op blood loss anemia + dilutional S/P 2 units PRBCs H/O Chronic anemia Considering patient significant vascular history and stable surgical site, Resumed Eliquis tonight but continue to monitor Hb trends/signs of bleeding Prior hospitalist discussed with Vasc Sx team per patient's request. Vascular Surgery agrees with resuming Eliquis and ASA as soon as possible due to vasculopathy ASA resumed as well Continue wound care Appreciate orthopedic surgery input Pain control Empirically on Keflex Continue PT OT Plan to discharge to rehab facility when accepted Vitamin D deficiency Continue Vit D [id number] q weekly Anxiety disorder Alcohol use. Reported last drink was on day of admission. Denied alcohol withdrawal in the past Alcohol level was 126 on presentation Continue folate, thiamine. Intermittent confusion, lethargy likely post op delirium compounded by meds Psych recs noted Continue melatonin 3mg HS Mental status back to baseline Monitor Tobacco use disorder Smokes 2/3rd of a pack per day Used marijuana about 2 days prior to presentation.. Denied heroin/cocaine/meth use Nicotine patch while inpatient. Provided smoking cessation counselling H/O Laryngocele S/P surgery Chronic neuropathy on gabapentin Chronic hypotension Monitor BP DVT Px: Eliquis Code Status Full code Admission and Anticipated Discharge Date Admission Date: March 02, 2023 Subjective Patient is seen and examined at bedside Right leg pain at surgical site is marked better controlled today Waiting for rehab placement No new complaints Denies any chest pain, dyspnea, dizziness, nausea vomiting, abdominal pain Review of Systems Review of Systems: All systems reviewed & are unremarkable except as noted in Subjective Physical Exam Physical Exam: Physical Exam: Vitals signs as noted above General Appearance: Thin, frail, no apparent distress Head: normocephalic, Atraumatic Eyes: normal inspection, EOMI Neck: supple, Trachea midline Respiratory/Chest: Normal breath sounds, CTA, No accessory muscle use Cardiovascular: S1, S2, No murmur Abdomen/GI:Soft, Non tender, Bowel sounds present Extremities/Musculoskeletal:normal inspection, 1+ Pedal edema, RLE surgical site in dressing Neurologic/Psych:AAOX3, grossly no focal neurological deficits Skin: normal color, warm Results & Data Results & Data Vital Signs (Past 12 Hours) Vital Signs Temp Pulse Pulse Resp BP BP Pulse Ox 03/11/23 14:12 67 03/11/23 15:08 36.8 C 64 18 131/69 94 03/11/23 11:27 36.7 C 59 L 20 104/66 91 03/11/23 08:01 36.4 C L 87 18 105/64 95 O2 Del Method 03/11/23 14:12 03/11/23 15:08 Room Air 03/11/23 11:27 Room Air 03/11/23 08:01 Room Air Laboratory Results Short CBC 03/11/23 Range/Units 07:05 Hgb 9.7 L (12.0-16.0) g/dl Hct 29.1 L (37.0-47.0) % (1) Intertrochanteric fracture of right femur Encounter type: initial encounter Fracture alignment: displaced Fracture type: closed Qualified Code(s): S72.141A - Displaced intertrochanteric fracture of right femur, initial encounter for closed fracture
[2023-03-11] MEDS: NICOTINE 21 MG/24 HR TDSY TD SCH (20:04)
[2023-03-11] MEDS: ROSUVASTATIN CALCIUM 20 MG TAB PO SCH (20:04)
[2023-03-11] MEDS: SULFAMETHOXAZOLE/TRIMETHOPRIM DS 800/160MG TAB PO SCH (20:05)
[2023-03-11] MEDS: MELATONIN 3 MG TAB PO SCH (20:05)
[2023-03-11] MEDS: ASPIRIN 81 MG ECTAB PO SCH (20:06)
[2023-03-11] MEDS ORDERED: cephALEXin 500 MG CAP PO SCH (21:00)
[2023-03-12 07:19] LABS: Hematocrit (blood only) 29.9 % (37.0-47.0); Hemoglobin 9.7 g/dl (12.0-16.0)
[2023-03-12] MEDS: MULTIVITAMIN TAB PO SCH (09:03)
[2023-03-12] MEDS: SULFAMETHOXAZOLE/TRIMETHOPRIM DS 800/160MG TAB PO SCH ×2 (09:03→20:11)
[2023-03-12] MEDS: PANTOprazole 40 MG TAB PO SCH ×2 (09:03→20:10)
[2023-03-12] MEDS: POLYETHYLENE (MIRALAX) 17 GM PACK PO SCH (09:04)
[2023-03-12] MEDS: LIDOCAINE 5% 1 PATCH TD SCH (09:04)
[2023-03-12] MEDS: GABAPENTIN 300 MG CAP PO SCH ×4 (09:04→20:12)
[2023-03-12] MEDS: DOCUSATE SODIUM/SENNA 50/8.6MG TAB PO SCH ×2 (09:04→20:10)
[2023-03-12] MEDS: APIXABAN 2.5 MG TAB PO SCH ×2 (09:04→20:10)
[2023-03-12] MEDS: METOPROLOL SUCC 25MG EXT REL TAB PO SCH (09:05)
[2023-03-12] MEDS: ERGOCALCIFEROL 50,000 UNITS 1250 MCG CAP PO SCH (09:08)
[2023-03-12] MEDS: FOLIC ACID 1 MG TAB PO SCH (09:08)
[2023-03-12] MEDS: ACETAMINOPHEN 325 MG TAB PO SCH ×3 (09:08→20:13)
[2023-03-12] MEDS: THIAMINE HCL 100 MG TAB PO SCH (09:09)
[2023-03-12] MEDS: oxyCODONE/ACETAMINOPHEN 5mg/325mg TAB PO PRN ×2 (09:13→20:12)
--- NOTE | 2023-03-12 10:16 | Orthopedic Progress Note ---
Date of Service March 12, 2023 Assessment & Plan (1) Intertrochanteric fracture of right femur: Plan: Patient is postop day #8 status post right intertrochanteric hip fracture with trochanteric femoral nail with screw fixation. Patient is currently on oral Bactrim for infection prophylaxis She will continue with PT/OT Weightbearing as tolerated with walker assistance Continue with ice with easy wrap Pain control with p.o. or IV pain medication per medicine service discretion DVT prophylaxis with Eliquis and aspirin Case management for discharge needs recommend inpatient transfer to SNF/rehabilitation facility Patient has follow-up scheduled in our outpatient office on 03/19/2023 with TAMEKA Davila PA-C Admission and Anticipated Discharge Date Admission Date: March 02, 2023 Subjective This 72-year-old female is day 8 status post right hip open reduction internal fixation with trochanteric nailing. Patient states that she is still unable to actively raise her leg off the bed. She has extreme pain with knee flexion. She states that she was told that she will be going to therapy sometime today, hopefully. She understands that she does need rehab for this. She states that her pain is well controlled with a prescription medicine they are giving her. She states that she has worked with physical therapy and feels that she is doing okay. Currently she denies chest pain, shortness of breath, fever, chills, sweats or numbness or tingling in her right lower extremity that is out of the ordinary. She states she does have neuropathy and always has some sense of numbness in her toes. Review of Systems Review of Systems: Please refer to HPI Physical Exam Physical Exam: Right hip: Dressings are clean dry and intact and left in place. Patient is unable to perform active straight leg raise test however she is able to actively dorsi and plantarflex her foot. She experiences significant pain with passive straight leg raise testing and logroll testing. I asked the patient to sit on the edge of the bed and she was able to reach 90 degrees of flexion in her knee. She did not tolerate passive hip flexion, internal or external rotation. Her quad strength is 3 out of 5. She was able to detect light sedation to touch over the plantar surface of her foot. Her peripheral pulses were 2+. Her capillary fill was around 2 seconds. Results & Data Vital Signs (Past 12 Hours) Vital Signs Temp Pulse Pulse Resp BP Pulse Ox Pulse Ox 03/12/23 07:00 98 03/12/23 07:58 36.9 C 66 20 114/68 96 03/12/23 07:44 60 03/12/23 03:00 94 03/12/23 03:00 36.7 C 69 18 124/73 94 03/11/23 23:01 65 03/11/23 23:00 95 03/11/23 23:09 O2 Del Method O2 Del Method 03/12/23 07:00 Room Air 03/12/23 07:58 Room Air 03/12/23 07:44 03/12/23 03:00 Room Air 03/12/23 03:00 Room Air 03/11/23 23:01 03/11/23 23:00 Room Air 03/11/23 23:09 Room Air Diagnostic Findings Laboratory Results WBC 5.49 K/ul (4.8-10.8) 03/10/23 06:43 RBC 3.26 M/uL (4.20-5.40) L 03/10/23 06:43 Hgb 9.7 g/dl (12.0-16.0) L 03/12/23 06:09 Hct 29.9 % (37.0-47.0) L 03/12/23 06:09 MCV 88.3 fL (80.0-100.0) 03/10/23 06:43 MCH 30.1 pg (25.0-34.0) 03/10/23 06:43 MCHC 34.0 g/dL (32.0-36.0) 03/10/23 06:43 RDW Std Deviation 50.2 fL (36.4-46.3) H 03/10/23 06:43 RDW Coeff of Farrah 15.3 % (11.5-14.5) H 03/10/23 06:43 Plt Count 238 K/uL (130-400) 03/10/23 06:43 MPV 10.0 fL (9.4-12.4) 03/10/23 06:43 Immature Gran % (Auto) 0.4 % 03/05/23 06:18 Neut % (Auto) 77.2 % 03/05/23 06:18 Lymph % (Auto) 9.0 % 03/05/23 06:18 [place] % (Auto) 10.3 % 03/05/23 06:18 Eos % (Auto) 2.7 % 03/05/23 06:18 Baso % (Auto) 0.4 % 03/05/23 06:18 Neut # (Auto) 5.46 K/uL (1.40-6.50) 03/05/23 06:18 Lymph # (Auto) 0.64 K/uL (1.2-3.4) L 03/05/23 06:18 [place] # (Auto) 0.73 K/uL (0.11-0.59) H 03/05/23 06:18 Eos # (Auto) 0.19 K/uL (0-0.50) 03/05/23 06:18 Baso # (Auto) 0.03 K/uL (0-0.2) 03/05/23 06:18 Immature Gran # (Auto) 0.03 K/uL (0.01-0.20) 03/05/23 06:18 PT 10.4 Seconds (9.0-12.0) 03/02/23 20:00 INR 0.9 (0.9-1.1) 03/02/23 20:00 APTT 37.9 Seconds (21.0-31.0) H 03/05/23 06:18 PTT Ratio 1.3 03/05/23 06:18 Sodium 140 mmol/L (136-145) 03/10/23 06:43 Potassium 3.7 mmol/L (3.5-5.1) 03/10/23 06:43 Chloride 109 mmol/L (98-107) H 03/10/23 06:43 Carbon Dioxide 27 mmol/L (21-32) 03/10/23 06:43 Anion Gap 4 (3-11) 03/10/23 06:43 BUN 15 mg/dl (6-23) 03/10/23 06:43 Creatinine 1.14 mg/dl (0.6-1.2) 03/10/23 06:43 Est Cr Clr Drug Dosing 42.4 ml/min 03/10/23 06:43 Est GFR ( Amer) 56.0 ml/min 03/10/23 06:43 Est GFR (Non-Af Amer) 48.3 ml/min 03/10/23 06:43 BUN/Creatinine Ratio 13.2 (10-20) 03/10/23 06:43 Glucose 90 mg/dl (70-99(Fasting)) 03/10/23 06:43 Lactate 0.7 mmol/L (0.4-2.0) 03/07/23 23:33 Calcium 8.7 mg/dl (8.6-10.3) 03/10/23 06:43 Phosphorus 2.5 mg/dl (2.5-4.9) 03/08/23 08:28 Magnesium 1.7 mg/dl (1.7-2.4) 03/08/23 08:28 Total Bilirubin 0.3 mg/dl (0.2-1.0) 03/02/23 18:08 AST 42 U/L (13-39) H 03/02/23 18:08 ALT 19 U/L (7-52) 03/02/23 18:08 Alkaline Phosphatase 96 U/L (34-104) 03/02/23 18:08 Ammonia 11.0 umol/L (18-72) L 03/05/23 21:05 Total Protein 6.6 gm/dl (6.0-8.3) 03/02/23 18:08 Albumin 3.6 gm/dl (3.4-5.0) 03/02/23 18:08 Globulin 3.0 gm/dl (2.5-4.0) 03/02/23 18:08 Albumin/Globulin Ratio 1.2 (0.9-2) 03/02/23 18:08 25-OH Vitamin D Total < 7.0 ng/ml (30-100) L 03/05/23 06:18 Urine Color Yellow 03/06/23 00:35 Urine Appearance Clear (Clear) 03/06/23 00:35 Urine pH 5.5 (4.5-7.5) 03/06/23 00:35 Ur Specific [place] 1.010 (1.000-1.030) 03/06/23 00:35 Urine Protein 2+ (Negative) H 03/06/23 00:35 Urine Glucose (UA) Negative (Negative) 03/06/23 00:35 Urine Ketones Negative (Negative) 03/06/23 00:35 Urine Blood 2+ (Negative) H 03/06/23 00:35 Urine Nitrite Negative (Negative) 03/06/23 00:35 Urine Bilirubin Negative (Negative) 03/06/23 00:35 Urine Urobilinogen Negative (Negative) 03/06/23 00:35 Ur Leukocyte Esterase Negative (Negative) 03/06/23 00:35 Urine WBC (Auto) 1-5 /hpf (0-5) 03/06/23 00:35 Urine RBC (Auto) 0-4 /hpf (0-4) 03/06/23 00:35 U Hyaline Cast (Auto) 1-5 /lpf (0-5) 03/06/23 00:35 U Epithel Cells (Auto) 10-20 /lpf (0-5) H 03/06/23 00:35 Urine Bacteria (Auto) Negative (Negative) 03/06/23 00:35 Urine Yeast Not Reportable 03/02/23 Unknown Ethyl Alcohol mg/dL 126.1 mg/dl (<10.0) H 03/02/23 18:08 SARS-CoV-2, RNA, NAAT NEGATIVE (NEGATIVE) 03/02/23 Unknown Blood Type A Positive 03/07/23 23:33 Antibody Screen NEGATIVE 03/07/23 23:33 Crossmatch See Detail 03/07/23 23:33 Impressions Pelvis X-Ray 03/02/23 18:13 XR pelvis 1-2V routine, XR femur RT 2V routine CLINICAL HISTORY: fall right hip/femur injury TECHNIQUE: A single frontal view of the pelvis was obtained. 2 views of the femur were obtained. Comparison: Comparison is made to CT abdomen pelvis 08/30/2021 FINDINGS: There is a comminuted intertrochanteric fracture of the right femur. Partial visualization of a medullary cathleen in the right tibia. Soft tissue swelling is seen about the knee. IMPRESSION: Right intratrochanteric femur fracture. ACT 112: Negative or not required by law. Electronically signed by: Yassine Gil M.D. 03/02/2023 7:40 PM Chest X-Ray 03/02/23 19:20 XR chest 1V portable CLINICAL HISTORY: hip fx TECHNIQUE: Single frontal radiograph of the chest was obtained. Comparison: Comparison is made to chest radiograph 12/01/2021 FINDINGS: No lines and tubes are seen. The cardiomediastinal silhouette is normal. Faint opacities are in the left midlung which likely represent overlying soft tissue. No evidence of pleural effusion or pneumothorax. IMPRESSION: No acute chest disease. ACT 112: Negative or not required by law. Electronically signed by: Yassine Gil M.D. 03/02/2023 7:42 PM Femur X-Ray 03/04/23 10:40 FL femur RT 2V CLINICAL HISTORY: RT ORIF LONG TROCHacute fracture of the right hip COMPARISON STUDY: 03/02/2023 FLUOROSCOPY TIME: 139.7 seconds FLUOROSCOPY IMAGES: 5 EXPOSURE DOSE: 18.40 mGy Air Kerma FINDINGS: Status post placement of an intertrochanteric nail with medullary cathleen fixating the acute intertrochanteric right femoral fracture with improved alignment. No unexpected opaque foreign bodies. IMPRESSION: Fluoroscopic assistance as above. ACT 112: Negative or not required by law. Electronically signed by: García Acevedo M.D. 03/04/2023 1:44 PM Hip X-Ray 03/04/23 13:11 XR hip RT min 2V HISTORY: 72 years-old Female Post-Operative implant position right hip arthroplasty COMPARISON: Pelvis radiograph 03/02/2023 TECHNIQUE: 2 views of the right hip FINDINGS: Status post placement of an intertrochanteric nail with elongated medullary cathleen fixating the acute intertrochanteric fracture. There is improved alignment. Lateral skin enma with expected postoperative soft tissue swelling and deep tissue air. Partially imaged hardware within the tibia. IMPRESSION: Expected postoperative changes. ACT 112: Negative or not required by law. The above report was generated using voice recognition software. It may contain grammatical, syntax or spelling errors. Electronically signed by: García Acevedo M.D. 03/04/2023 2:[address] 03/05/23 22:08 Exam(s): CT HEAD Without Contrast EXAM: CT Head Without Intravenous Contrast CLINICAL HISTORY: Reason for exam: ams, noac. TECHNIQUE: Axial computed tomography images of the head/brain without intravenous contrast. CTDI is 36.43 mGy and DLP is 625.8 mGy-cm. Automated exposure control was utilized for the study. A dose lowering technique was utilized adhering to the principles of ALARA. COMPARISON: No relevant prior studies available. FINDINGS: No acute intracranial hemorrhage. No midline shift or mass effect. The territorial rajan-white matter differentiation is maintained throughout. Age-related cerebral volume loss. Periventricular and subcortical white matter hypoattenuation, consistent with chronic microangiopathy. The visualized orbits appear grossly unremarkable. RIGHT periorbital soft tissue swelling. The calvarium is intact. The visualized paranasal sinuses and mastoid air cells are grossly clear. IMPRESSION: No acute intracranial hemorrhage, midline shift, or mass effect. RIGHT periorbital soft tissue swelling. Electronically signed by: Hawk Mcintosh MD 03/05/23 23:24 PM (1) Intertrochanteric fracture of right femur Encounter type: initial encounter Fracture alignment: displaced Fracture type: closed Qualified Code(s): S72.141A - Displaced intertrochanteric fracture of right femur, initial encounter for closed fracture
--- NOTE | 2023-03-12 18:18 | Hospitalist Progress Note ---
Date of Service March 12, 2023 Assessment & Plan (1) Intertrochanteric fracture of right femur: Plan: Patient has hx of CAD, stable disease on last follow-up with [facility] gaug[facility] 3 months ago, PAD status post surgery on Eliquis,HTN, hyperlipidemia on statin Rx, COPD, pulmonary hypertension, CRI, breast cancer status post surgery/chemoradiation who presents after fall with right hip pain Right femur intertrochanteric fracture Pelvic X ray:Right intratrochanteric femur fracture. S/p Right Hip Fracture, Open Reduction Internal Fixation Trochanteric Fixation Nail by on 03/04/23 Likely post op blood loss anemia + dilutional S/P 2 units PRBCs H/O Chronic anemia Considering patient significant vascular history and stable surgical site, Resumed Eliquis tonight but continue to monitor Hb trends/signs of bleeding Prior hospitalist discussed with Vasc Sx team per patient's request. Vascular Surgery agrees with resuming Eliquis and ASA as soon as possible due to vasculopathy ASA resumed as well Continue wound care Appreciate orthopedic surgery input Pain control Continue Keflex to complete the course Continue PT OT Insurance denied Acute Rehab placement SNF when accepted Vitamin D deficiency Continue Vit D [id number] q weekly Anxiety disorder Alcohol use. Reported last drink was on day of admission. Denied alcohol withdrawal in the past Alcohol level was 126 on presentation Continue folate, thiamine. Intermittent confusion, lethargy likely post op delirium compounded by meds Psych recs noted Continue melatonin 3mg HS Mental status back to baseline Monitor Tobacco use disorder Smokes 2/3rd of a pack per day Used marijuana about 2 days prior to presentation.. Denied heroin/cocaine/meth use Nicotine patch while inpatient. Provided smoking cessation counselling H/O Laryngocele S/P surgery Chronic neuropathy on gabapentin Chronic hypotension Monitor BP DVT Px: Eliquis Code Status Full code Admission and Anticipated Discharge Date Admission Date: March 02, 2023 Subjective Patient is seen and examined at bedside No new complaints Had PT earlier today during my encounter Right leg pain is controlled Waiting for rehab placement Denies any chest pain, dyspnea, dizziness, nausea vomiting, abdominal pain Review of Systems Review of Systems: All systems reviewed & are unremarkable except as noted in Subjective Physical Exam Physical Exam: Physical Exam: Vitals signs as noted above General Appearance: Thin, frail, no apparent distress Head: normocephalic, Atraumatic Eyes: normal inspection, EOMI Neck: supple, Trachea midline Respiratory/Chest: Normal breath sounds, CTA, No accessory muscle use Cardiovascular: S1, S2, No murmur Abdomen/GI:Soft, Non tender, Bowel sounds present Extremities/Musculoskeletal:normal inspection, 1+ Pedal edema, RLE surgical site in dressing Neurologic/Psych:AAOX3, grossly no focal neurological deficits Skin: normal color, warm Results & Data Results & Data Vital Signs (Past 12 Hours) Vital Signs Temp Pulse Pulse Resp BP Pulse Ox Pulse Ox 03/12/23 16:15 84 03/12/23 14:18 36.9 C 74 18 125/82 98 03/12/23 12:05 36.6 C 69 18 102/59 L 96 03/12/23 07:00 98 03/12/23 07:58 36.9 C 66 20 114/68 96 03/12/23 07:44 60 O2 Del Method O2 Del Method 03/12/23 16:15 03/12/23 14:18 Room Air 03/12/23 12:05 Room Air 03/12/23 07:00 Room Air 03/12/23 07:58 Room Air 03/12/23 07:44 Laboratory Results Short CBC 03/12/23 Range/Units 06:09 Hgb 9.7 L (12.0-16.0) g/dl Hct 29.9 L (37.0-47.0) % (1) Intertrochanteric fracture of right femur Encounter type: initial encounter Fracture alignment: displaced Fracture type: closed Qualified Code(s): S72.141A - Displaced intertrochanteric fracture of right femur, initial encounter for closed fracture
[2023-03-12] MEDS: ASPIRIN 81 MG ECTAB PO SCH (20:05)
[2023-03-12] MEDS: NICOTINE 21 MG/24 HR TDSY TD SCH (20:09)
[2023-03-12] MEDS: ROSUVASTATIN CALCIUM 20 MG TAB PO SCH (20:10)
[2023-03-12] MEDS: MELATONIN 3 MG TAB PO SCH (20:13)
[2023-03-13] MEDS: ACETAMINOPHEN 325 MG TAB PO SCH ×3 (09:12→20:00)
[2023-03-13] MEDS: FOLIC ACID 1 MG TAB PO SCH (09:13)
[2023-03-13] MEDS: THIAMINE HCL 100 MG TAB PO SCH (09:13)
[2023-03-13] MEDS: MULTIVITAMIN TAB PO SCH (09:13)
[2023-03-13] MEDS: METOPROLOL SUCC 25MG EXT REL TAB PO SCH (09:14)
[2023-03-13] MEDS: DOCUSATE SODIUM/SENNA 50/8.6MG TAB PO SCH ×2 (09:15→19:57)
[2023-03-13] MEDS: SULFAMETHOXAZOLE/TRIMETHOPRIM DS 800/160MG TAB PO SCH ×2 (09:15→19:58)
[2023-03-13] MEDS: GABAPENTIN 300 MG CAP PO SCH ×4 (09:15→19:59)
[2023-03-13] MEDS: PANTOprazole 40 MG TAB PO SCH ×2 (09:16→19:59)
[2023-03-13] MEDS: LIDOCAINE 5% 1 PATCH TD SCH (09:16)
[2023-03-13] MEDS: APIXABAN 2.5 MG TAB PO SCH ×2 (09:16→19:58)
[2023-03-13] MEDS: POLYETHYLENE (MIRALAX) 17 GM PACK PO SCH (09:16)
[2023-03-13] MEDS: oxyCODONE/ACETAMINOPHEN 5mg/325mg TAB PO PRN ×2 (10:46→19:57)
--- NOTE | 2023-03-13 16:41 | Hospitalist Progress Note ---
Date of Service March 13, 2023 Assessment & Plan (1) Intertrochanteric fracture of right femur: Plan: Patient has hx of CAD, stable disease on last follow-up with [facility] 3 months ago, PAD status post surgery on Eliquis,HTN, hyperlipidemia on statin Rx, COPD, pulmonary hypertension, CRI, breast cancer status post surgery/chemoradiation who presents after fall with right hip pain Right femur intertrochanteric fracture Pelvic X ray:Right intratrochanteric femur fracture. S/p Right Hip Fracture, Open Reduction Internal Fixation Trochanteric Fixation Nail by on 03/04/23 Likely post op blood loss anemia + dilutional S/P 2 units PRBCs H/O Chronic anemia Considering patient significant vascular history and stable surgical site, Resumed Eliquis tonight but continue to monitor Hb trends/signs of bleeding Prior hospitalist discussed with Vasc Sx team per patient's request. Vascular Surgery agrees with resuming Eliquis and ASA as soon as possible due to vasculopathy ASA resumed as well Continue wound care Appreciate orthopedic surgery input Pain control Continue Keflex to complete the course Continue PT OT Waiting for rehab placement Case management following Vitamin D deficiency Continue Vit D [id number] q weekly Anxiety disorder Alcohol use. Reported last drink was on day of admission. Denied alcohol withdrawal in the past Alcohol level was 126 on presentation Continue folate, thiamine. Intermittent confusion, lethargy likely post op delirium compounded by meds Psych recs noted Continue melatonin 3mg HS Mental status back to baseline Monitor Tobacco use disorder Smokes 2/3rd of a pack per day Used marijuana about 2 days prior to presentation.. Denied heroin/cocaine/meth use Nicotine patch while inpatient. Provided smoking cessation counselling H/O Laryngocele S/P surgery Chronic neuropathy on gabapentin Chronic hypotension Monitor BP DVT Px: Eliquis Code Status Full code Admission and Anticipated Discharge Date Admission Date: March 02, 2023 Subjective Patient is seen and examined at bedside Doing well today Right leg pain is controlled Waiting for rehab placement Denies any chest pain, dyspnea, dizziness, nausea vomiting, abdominal pain Review of Systems Review of Systems: All systems reviewed & are unremarkable except as noted in Subjective Physical Exam Physical Exam: Physical Exam: Vitals signs as noted above General Appearance: Thin, frail, no apparent distress Head: normocephalic, Atraumatic Eyes: normal inspection, EOMI Neck: supple, Trachea midline Respiratory/Chest: Normal breath sounds, CTA, No accessory muscle use Cardiovascular: S1, S2, No murmur Abdomen/GI:Soft, Non tender, Bowel sounds present Extremities/Musculoskeletal:normal inspection, 1+ Pedal edema, RLE surgical site in dressing Neurologic/Psych:AAOX3, grossly no focal neurological deficits Skin: normal color, warm Results & Data Results & Data Vital Signs (Past 12 Hours) Vital Signs Temp Pulse Pulse Resp BP Pulse Ox O2 Del Method 03/13/23 15:39 71 03/13/23 14:55 36.7 C 71 20 122/62 95 Room Air 03/13/23 11:09 37.3 C 68 18 96/58 L 97 Room Air 03/13/23 07:45 36.7 C 80 18 116/68 96 Room Air 03/13/23 07:40 64 (1) Intertrochanteric fracture of right femur Encounter type: initial encounter Fracture alignment: displaced Fracture type: closed Qualified Code(s): S72.141A - Displaced intertrochanteric fracture of right femur, initial encounter for closed fracture
[2023-03-13] MEDS: ASPIRIN 81 MG ECTAB PO SCH (19:55)
[2023-03-13] MEDS: ROSUVASTATIN CALCIUM 20 MG TAB PO SCH (19:58)
[2023-03-13] MEDS: MELATONIN 3 MG TAB PO SCH (20:00)
[2023-03-13] MEDS: NICOTINE 21 MG/24 HR TDSY TD SCH (20:00)
[2023-03-14] MEDS: LIDOCAINE 5% 1 PATCH TD SCH (07:06)
[2023-03-14] MEDS: ACETAMINOPHEN 325 MG TAB PO SCH ×3 (07:06→20:26)
[2023-03-14 07:45] LABS: Hematocrit (blood only) 29.4 % (37.0-47.0); Hemoglobin 9.8 g/dl (12.0-16.0)
[2023-03-14] MEDS: POLYETHYLENE (MIRALAX) 17 GM PACK PO SCH (08:30)
[2023-03-14] MEDS: DOCUSATE SODIUM/SENNA 50/8.6MG TAB PO SCH ×2 (08:31→20:31)
[2023-03-14] MEDS: MULTIVITAMIN TAB PO SCH (08:31)
[2023-03-14] MEDS: FOLIC ACID 1 MG TAB PO SCH (08:31)
[2023-03-14] MEDS: SULFAMETHOXAZOLE/TRIMETHOPRIM DS 800/160MG TAB PO SCH ×2 (08:32→20:29)
[2023-03-14] MEDS: METOPROLOL SUCC 25MG EXT REL TAB PO SCH (08:32)
[2023-03-14] MEDS: GABAPENTIN 300 MG CAP PO SCH ×4 (08:33→20:30)
[2023-03-14] MEDS: PANTOprazole 40 MG TAB PO SCH ×2 (08:33→20:29)
[2023-03-14] MEDS: APIXABAN 2.5 MG TAB PO SCH ×2 (08:33→20:30)
[2023-03-14] MEDS: THIAMINE HCL 100 MG TAB PO SCH (08:33)
[2023-03-14] MEDS: oxyCODONE/ACETAMINOPHEN 5mg/325mg TAB PO PRN ×2 (08:36→20:29)
--- NOTE | 2023-03-14 16:18 | Hospitalist Progress Note ---
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 S/p Right Hip Fracture, Open Reduction Internal Fixation Trochanteric Fixation Nail by on 03/04/23 Likely post op blood loss anemia + dilutional S/P 2 units PRBCs H/O Chronic anemia Considering patient significant vascular history and stable surgical site, Resumed Eliquis tonight but continue to monitor Hb trends/signs of bleeding Prior hospitalist discussed with Vasc Sx team per patient's request. Vascular Surgery agrees with resuming Eliquis and ASA as soon as possible due to vasculopathy ASA resumed as well Continue wound care Appreciate orthopedic surgery input Pain control Continue Bactrim to complete the course Continue PT OT Waiting for rehab placement Likely discharge to SNF tomorrow if accepted Vitamin D deficiency Continue Vit D [id number] q weekly Anxiety disorder Alcohol use. Reported last drink was on day of admission. Denied alcohol withdrawal in the past Alcohol level was 126 on presentation Continue folate, thiamine. Intermittent confusion, lethargy likely post op delirium compounded by meds Psych recs noted Continue melatonin 3mg HS Mental status back to baseline Monitor Tobacco use disorder Smokes 2/3rd of a pack per day Used marijuana about 2 days prior to presentation.. Denied heroin/cocaine/meth use Nicotine patch while inpatient. Provided smoking cessation counselling H/O Laryngocele S/P surgery Chronic neuropathy on gabapentin Chronic hypotension Monitor BP DVT Px: Eliquis Code Status Full code Admission and Anticipated Discharge Date Admission Date: March 02, 2023 Subjective Patient is seen and examined at bedside No new complaints Denies any chest pain, dyspnea, dizziness, nausea vomiting, abdominal pain Waiting for rehab placement Review of Systems Review of Systems: All systems reviewed & are unremarkable except as noted in Subjective Physical Exam Physical Exam: Physical Exam: Vitals signs as noted above General Appearance: Thin, frail, no apparent distress Head: normocephalic, Atraumatic Eyes: normal inspection, EOMI Neck: supple, Trachea midline Respiratory/Chest: Normal breath sounds, CTA, No accessory muscle use Cardiovascular: S1, S2, No murmur Abdomen/GI:Soft, Non tender, Bowel sounds present Extremities/Musculoskeletal:normal inspection, 1+ Pedal edema, RLE surgical site in dressing Neurologic/Psych:AAOX3, grossly no focal neurological deficits Skin: normal color, warm Results & Data Results & Data Vital Signs (Past 12 Hours) Vital Signs Temp Pulse Pulse Resp BP Pulse Ox Pulse Ox 03/14/23 16:09 67 03/14/23 15:00 98 03/14/23 15:10 36.7 C 68 18 106/68 95 03/14/23 11:40 36.8 C 77 20 113/75 96 03/14/23 07:51 37.0 C 66 18 105/67 95 03/14/23 07:02 59 L O2 Del Method O2 Del Method 03/14/23 16:09 03/14/23 15:00 Room Air 03/14/23 15:10 Room Air 03/14/23 11:40 Room Air 03/14/23 07:51 Room Air 03/14/23 07:02 Laboratory Results Short CBC 03/14/23 Range/Units 07:27 Hgb 9.8 L (12.0-16.0) g/dl Hct 29.4 L (37.0-47.0) % (1) Intertrochanteric fracture of right femur Encounter type: initial encounter Fracture alignment: displaced Fracture type: closed Qualified Code(s): S72.141A - Displaced intertrochanteric fracture of right femur, initial encounter for closed fracture
--- NOTE | 2023-03-14 20:12 | Orthopedic Progress Note ---
Date of Service March 14, 2023 Assessment & Plan (1) Intertrochanteric fracture of right femur: Plan: The patient was educated regarding today's findings. Conservative care measures were discussed. Hopefully she will get approved for [facility] tomorrow. The patient states she needs to go to rehab to become stronger. She understands that she would not do well on her own at home in her current condition. She was encouraged to continue with her quad sets and work toward a straight leg raise. Continue with ice as needed. Her dressings do not require changing at this time. Appointments have already been made for her to follow-up in the office upon discharge. Continue anticoagulation. Continue pain management per the hospitalist service. Admission and Anticipated Discharge Date Admission Date: March 02, 2023 Subjective This 73-year-old female seen today in follow-up of her right thigh. She states she has been out of bed today. Her right leg is sore because she did so much activity today. She has no new complaints. She is awaiting placement, hopefully at [facility] tomorrow. No new complaints. Physical Exam Physical Exam: General: Well-developed, elderly female, in no acute distress. She has just finished dinner. Conversive. Skin: Warm and dry with good turgor. No rashes. Intact surgical dressings on the right thigh. They are dry. No bleeding or leakage. Mild ecchymosis present throughout the right thigh. Musculoskeletal: The patient is able to set her quad on the right side, though this does cause knee pain. She is unable to perform straight leg raise. There is intact motor function of her ankle and toes. Neurologic: Gross sensation is intact across both lower extremities by soft touch. Peripheral pulses are 2+. Results & Data Vital Signs (Past 12 Hours) Vital Signs Temp Pulse Pulse Resp BP Pulse Ox Pulse Ox 03/14/23 19:40 37.4 C 68 18 100/65 91 03/14/23 16:09 67 03/14/23 15:00 98 03/14/23 15:10 36.7 C 68 18 106/68 95 03/14/23 11:40 36.8 C 77 20 113/75 96 O2 Del Method O2 Del Method 03/14/23 19:40 Room Air 03/14/23 16:09 03/14/23 15:00 Room Air 03/14/23 15:10 Room Air 03/14/23 11:40 Room Air Laboratory Results H&H today was 9.8 and 29.4. (1) Intertrochanteric fracture of right femur Encounter type: initial encounter Fracture alignment: displaced Fracture type: closed Qualified Code(s): S72.141A - Displaced intertrochanteric fracture of right femur, initial encounter for closed fracture
[2023-03-14] MEDS: MELATONIN 3 MG TAB PO SCH (20:26)
[2023-03-14] MEDS: ASPIRIN 81 MG ECTAB PO SCH (20:30)
[2023-03-14] MEDS: ROSUVASTATIN CALCIUM 20 MG TAB PO SCH (20:30)
[2023-03-14] MEDS: NICOTINE 21 MG/24 HR TDSY TD SCH (20:30)
[2023-03-15] MEDS: oxyCODONE/ACETAMINOPHEN 5mg/325mg TAB PO PRN (09:30)
[2023-03-15] MEDS: GABAPENTIN 300 MG CAP PO SCH ×2 (09:31→12:06)
[2023-03-15] MEDS: PANTOprazole 40 MG TAB PO SCH (09:32)
[2023-03-15] MEDS: SULFAMETHOXAZOLE/TRIMETHOPRIM DS 800/160MG TAB PO SCH (09:32)
[2023-03-15] MEDS: FOLIC ACID 1 MG TAB PO SCH (09:32)
[2023-03-15] MEDS: THIAMINE HCL 100 MG TAB PO SCH (09:32)
[2023-03-15] MEDS: METOPROLOL SUCC 25MG EXT REL TAB PO SCH (09:33)
[2023-03-15] MEDS: ACETAMINOPHEN 325 MG TAB PO SCH (09:34)
[2023-03-15] MEDS: DOCUSATE SODIUM/SENNA 50/8.6MG TAB PO SCH (09:35)
[2023-03-15] MEDS: MULTIVITAMIN TAB PO SCH (09:36)
[2023-03-15] MEDS: LIDOCAINE 5% 1 PATCH TD SCH (09:36)
[2023-03-15] MEDS: APIXABAN 2.5 MG TAB PO SCH (09:36)
[2023-03-15] MEDS: POLYETHYLENE (MIRALAX) 17 GM PACK PO SCH (09:37)
--- NOTE | 2023-03-15 09:38 | Hospitalist Progress Note ---
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 S/p Right Hip Fracture, Open Reduction Internal Fixation Trochanteric Fixation Nail by on 03/04/23 Likely post op blood loss anemia + dilutional S/P 2 units PRBCs H/O Chronic anemia Considering patient significant vascular history and stable surgical site, Resumed Eliquis tonight but continue to monitor Hb trends/signs of bleeding Prior hospitalist discussed with Vasc Sx team per patient's request. Vascular Surgery agrees with resuming Eliquis and ASA as soon as possible due to vasculopathy ASA resumed as well Continue wound care Appreciate orthopedic surgery input Pain control Continue Bactrim to complete the course Continue PT OT Discharge to SNF today Vitamin D deficiency Continue Vit D [id number] q weekly Anxiety disorder Alcohol use. Reported last drink was on day of admission. Denied alcohol withdrawal in the past Alcohol level was 126 on presentation Continue folate, thiamine. Intermittent confusion, lethargy likely post op delirium compounded by meds Psych recs noted Continue melatonin 3mg HS Mental status back to baseline Monitor Tobacco use disorder Smokes 2/3rd of a pack per day Used marijuana about 2 days prior to presentation.. Denied heroin/cocaine/meth use Nicotine patch while inpatient. Provided smoking cessation counselling H/O Laryngocele S/P surgery Chronic neuropathy on gabapentin Chronic hypotension Monitor BP DVT Px: Eliquis Code Status Full code Disposition SNF Admission and Anticipated Discharge Date Admission Date: March 02, 2023 Subjective Patient is seen and examined at bedside Doing well today Denies any chest pain, dyspnea, dizziness, nausea vomiting, abdominal pain Plan to discharge to Rehab facility today Review of Systems Review of Systems: All systems reviewed & are unremarkable except as noted in Subjective Physical Exam Physical Exam: Physical Exam: Vitals signs as noted above General Appearance: Thin, frail, no apparent distress Head: normocephalic, Atraumatic Eyes: normal inspection, EOMI Neck: supple, Trachea midline Respiratory/Chest: Normal breath sounds, CTA, No accessory muscle use Cardiovascular: S1, S2, No murmur Abdomen/GI:Soft, Non tender, Bowel sounds present Extremities/Musculoskeletal:normal inspection, 1+ Pedal edema, RLE surgical site in dressing Neurologic/Psych:AAOX3, grossly no focal neurological deficits Skin: normal color, warm Results & Data Results & Data Vital Signs (Past 12 Hours) Vital Signs Temp Pulse Pulse Resp BP Pulse Ox Pulse Ox 03/15/23 08:41 36.6 C 81 18 100/57 L 94 03/15/23 07:00 60 03/15/23 04:17 36.3 C L 60 18 99/62 L 93 03/15/23 02:03 95 03/14/23 23:13 36.7 C 61 18 92/55 L 94 03/14/23 22:03 60 03/14/23 22:53 03/14/23 22:53 96 03/14/23 21:41 96 O2 Del Method O2 Del Method 03/15/23 08:41 Room Air 03/15/23 07:00 03/15/23 04:17 Room Air 03/15/23 02:03 Room Air 03/14/23 23:13 Room Air 03/14/23 22:03 03/14/23 22:53 Room Air 03/14/23 22:53 Room Air 03/14/23 21:41 Room Air (1) Intertrochanteric fracture of right femur Encounter type: initial encounter Fracture alignment: displaced Fracture type: closed Qualified Code(s): S72.141A - Displaced intertrochanteric fracture of right femur, initial encounter for closed fracture
--- NOTE | 2023-03-15 10:21 | Orthopedic Progress Note ---
Date of Service March 15, 2023 Assessment & Plan (1) Intertrochanteric fracture of right femur: Plan: The patient was educated regarding today's findings. Conservative care measures were discussed. [facility]. This will be beneficial for her to help in her recovery process and given her strong again. She was encouraged to continue with her quad sets and work toward a straight leg raise. Continue with ice as needed. Her dressings do not require changing at this time, dressing change as needed prior to discharge. Appointments have already been made for her to follow-up in the office upon discharge. Continue anticoagulation. Continue pain management per the hospitalist service. Admission and Anticipated Discharge Date Admission Date: March 02, 2023 Subjective Patient Was seen and examined at bedside this morning. She said that she is doing well. She says she has pain in her leg and not her hip. She has been working with physical therapy. She she has been doing some quad sets. She is going to rehab today she says. Physical Exam Physical Exam: Dressings are intact with no major drainage noted. Patient slightly tender to palpate over the hip. She is able to bend and extend her knee. She struggles with a straight leg raise but she can do quad sets. Strength intact with resisted dorsiflexion plantarflexion. Calf is supple nontender. Negative logroll. Results & Data Vital Signs (Past 12 Hours) Vital Signs Temp Pulse Pulse Resp BP Pulse Ox Pulse Ox 03/15/23 08:41 36.6 C 81 18 100/57 L 94 03/15/23 07:00 60 03/15/23 04:17 36.3 C L 60 18 99/62 L 93 03/15/23 02:03 95 03/14/23 23:13 36.7 C 61 18 92/55 L 94 03/14/23 22:53 03/14/23 22:53 96 O2 Del Method O2 Del Method 03/15/23 08:41 Room Air 03/15/23 07:00 03/15/23 04:17 Room Air 03/15/23 02:03 Room Air 03/14/23 23:13 Room Air 03/14/23 22:53 Room Air 03/14/23 22:53 Room Air (1) Intertrochanteric fracture of right femur Encounter type: initial encounter Fracture alignment: displaced Fracture type: closed Qualified Code(s): S72.141A - Displaced intertrochanteric fracture of right femur, initial encounter for closed fracture
--- NOTE | 2023-03-15 12:23 | Discharge Summary ---
Date of Service March 15, 2023 Admission HPI Per Admitting Provider History obtained from patient and records. Medical history significant for CAD, PAD status post surgery on Eliquis, HTN, hyperlipidemia, COPD, pulmonary hypertension, CRI (baseline creatinine 1.4), left breast cancer status post surgery/chemoradiation, fatty liver as per records, chronic anemia (baseline hemoglobin 10-11), anxiety/mood disorder, history laryngocele status post surgery, difficult intubation as per records, chronic neuropathy, prediabetes, ongoing tobacco/alcohol use. Last confinement December 2021 under Vascular Surgery service for elective femoral- tibial bypass surgery. Patient fell at home after trying to get her cat in a carrier. Patient experienced excruciating right hip pain. Right leg in a weird position as per patient. No head trauma, no chest pain, no SOB. Patient could not get up from the floor. Patient laid down on the floor for about an hour before she was able to yell for help when she heard her neighbor arrive. Patient brought to the ER for evaluation. Medical Historyas above Surgical History : Breast/lymph node biopsy, left breast surgery, femoropopliteal artery revascularization with stent and angioplasty, femoral- tibial bypass surgery, partial mastectomy left, pilonidal cyst removal, laryngoscopy with biopsy, laryngocele surgery, tibia fracture surgery Family History : Breast cancer, colon cancer, dementia, heart disease, stroke Personal/Social history : 1.5 packs daily, alcohol abuse, prior [employer] employment Admission Exam Per Admitting Provider GENERAL: uncomfortable, alcoholic fetor, underweight, anxious, no respiratory distress SKIN: Pallor, warm HEENT: Bespectacled, pale palpebral conjunctivae, no ptosis, dry buccal mucosa NECK : Supple, no tenderness CHEST : Decreased breath sounds, no tenderness HEART : RRR, no obvious murmurs ABDOMEN: Minimal distention, no tenderness EXTREMITIES : Minimal LE swelling, right hip tenderness, no other conspicuous deformities noted NEUROLOGIC : Coherent, no facial asymmetry, no other gross focality Principal Diagnosis Right femur intertrochanteric fracture Vitamin D deficiency Discharge Data Allergies Allergy/AdvReac Type Severity Reaction Status Date / Time minocycline Allergy Intermediate Hives Verified 03/02/23 19:43 Tetracyclines Allergy Intermediate MINOCIN-ROSANNA Verified 03/02/23 19:43 H,HIVES duloxetine AdvReac Intermediate "MADE ME Verified 03/02/23 19:43 LOOPY" Consultations 03/05/23 13:23 Consult Psychiatry Routine Procedures Performed Operation Date: 03/04/23 10:40 Actual Procedures p Right Hip Fracture, Open Reduction Internal Fixation Trochanteric Fixation Nail - Mele Gonzalez MD Ordered Studies 03/02/23 18:14 CT head/brain wo con Stat 03/04/23 10:40 FL femur RT 2V Routine 03/05/23 22:08 CT head/brain wo con Stat Laboratory Results WBC 5.49 K/ul (4.8-10.8) 03/10/23 06:43 RBC 3.26 M/uL (4.20-5.40) L 03/10/23 06:43 Hgb 9.8 g/dl (12.0-16.0) L 03/14/23 07:27 Hct 29.4 % (37.0-47.0) L 03/14/23 07:27 MCV 88.3 fL (80.0-100.0) 03/10/23 06:43 MCH 30.1 pg (25.0-34.0) 03/10/23 06:43 MCHC 34.0 g/dL (32.0-36.0) 03/10/23 06:43 RDW Std Deviation 50.2 fL (36.4-46.3) H 03/10/23 06:43 RDW Coeff of Farrah 15.3 % (11.5-14.5) H 03/10/23 06:43 Plt Count 238 K/uL (130-400) 03/10/23 06:43 MPV 10.0 fL (9.4-12.4) 03/10/23 06:43 Immature Gran % (Auto) 0.4 % 03/05/23 06:18 Neut % (Auto) 77.2 % 03/05/23 06:18 Lymph % (Auto) 9.0 % 03/05/23 06:18 [place] % (Auto) 10.3 % 03/05/23 06:18 Eos % (Auto) 2.7 % 03/05/23 06:18 Baso % (Auto) 0.4 % 03/05/23 06:18 Neut # (Auto) 5.46 K/uL (1.40-6.50) 03/05/23 06:18 Lymph # (Auto) 0.64 K/uL (1.2-3.4) L 03/05/23 06:18 [place] # (Auto) 0.73 K/uL (0.11-0.59) H 03/05/23 06:18 Eos # (Auto) 0.19 K/uL (0-0.50) 03/05/23 06:18 Baso # (Auto) 0.03 K/uL (0-0.2) 03/05/23 06:18 Immature Gran # (Auto) 0.03 K/uL (0.01-0.20) 03/05/23 06:18 PT 10.4 Seconds (9.0-12.0) 03/02/23 20:00 INR 0.9 (0.9-1.1) 03/02/23 20:00 APTT 37.9 Seconds (21.0-31.0) H 03/05/23 06:18 PTT Ratio 1.3 03/05/23 06:18 Sodium 140 mmol/L (136-145) 03/10/23 06:43 Potassium 3.7 mmol/L (3.5-5.1) 03/10/23 06:43 Chloride 109 mmol/L (98-107) H 03/10/23 06:43 Carbon Dioxide 27 mmol/L (21-32) 03/10/23 06:43 Anion Gap 4 (3-11) 03/10/23 06:43 BUN 15 mg/dl (6-23) 03/10/23 06:43 Creatinine 1.14 mg/dl (0.6-1.2) 03/10/23 06:43 Est Cr Clr Drug Dosing 42.4 ml/min 03/10/23 06:43 Est GFR ( Amer) 56.0 ml/min 03/10/23 06:43 Est GFR (Non-Af Amer) 48.3 ml/min 03/10/23 06:43 BUN/Creatinine Ratio 13.2 (10-20) 03/10/23 06:43 Glucose 90 mg/dl (70-99(Fasting)) 03/10/23 06:43 Lactate 0.7 mmol/L (0.4-2.0) 03/07/23 23:33 Calcium 8.7 mg/dl (8.6-10.3) 03/10/23 06:43 Phosphorus 2.5 mg/dl (2.5-4.9) 03/08/23 08:28 Magnesium 1.7 mg/dl (1.7-2.4) 03/08/23 08:28 Total Bilirubin 0.3 mg/dl (0.2-1.0) 03/02/23 18:08 AST 42 U/L (13-39) H 03/02/23 18:08 ALT 19 U/L (7-52) 03/02/23 18:08 Alkaline Phosphatase 96 U/L (34-104) 03/02/23 18:08 Ammonia 11.0 umol/L (18-72) L 03/05/23 21:05 Total Protein 6.6 gm/dl (6.0-8.3) 03/02/23 18:08 Albumin 3.6 gm/dl (3.4-5.0) 03/02/23 18:08 Globulin 3.0 gm/dl (2.5-4.0) 03/02/23 18:08 Albumin/Globulin Ratio 1.2 (0.9-2) 03/02/23 18:08 25-OH Vitamin D Total < 7.0 ng/ml (30-100) L 03/05/23 06:18 Urine Color Yellow 03/06/23 00:35 Urine Appearance Clear (Clear) 03/06/23 00:35 Urine pH 5.5 (4.5-7.5) 03/06/23 00:35 Ur Specific [place] 1.010 (1.000-1.030) 03/06/23 00:35 Urine Protein 2+ (Negative) H 03/06/23 00:35 Urine Glucose (UA) Negative (Negative) 03/06/23 00:35 Urine Ketones Negative (Negative) 03/06/23 00:35 Urine Blood 2+ (Negative) H 03/06/23 00:35 Urine Nitrite Negative (Negative) 03/06/23 00:35 Urine Bilirubin Negative (Negative) 03/06/23 00:35 Urine Urobilinogen Negative (Negative) 03/06/23 00:35 Ur Leukocyte Esterase Negative (Negative) 03/06/23 00:35 Urine WBC (Auto) 1-5 /hpf (0-5) 03/06/23 00:35 Urine RBC (Auto) 0-4 /hpf (0-4) 03/06/23 00:35 U Hyaline Cast (Auto) 1-5 /lpf (0-5) 03/06/23 00:35 U Epithel Cells (Auto) 10-20 /lpf (0-5) H 03/06/23 00:35 Urine Bacteria (Auto) Negative (Negative) 03/06/23 00:35 Urine Yeast Not Reportable 03/02/23 Unknown Ethyl Alcohol mg/dL 126.1 mg/dl (<10.0) H 03/02/23 18:08 SARS-CoV-2, RNA, NAAT NEGATIVE (NEGATIVE) 03/15/23 Unknown Blood Type A Positive 03/07/23 23:33 Antibody Screen NEGATIVE 03/07/23 23:33 Crossmatch See Detail 03/07/23 23:33 Impressions Pelvis X-Ray 03/02/23 18:13 XR pelvis 1-2V routine, XR femur RT 2V routine CLINICAL HISTORY: fall right hip/femur injury TECHNIQUE: A single frontal view of the pelvis was obtained. 2 views of the femur were obtained. Comparison: Comparison is made to CT abdomen pelvis 08/30/2021 FINDINGS: There is a comminuted intertrochanteric fracture of the right femur. Partial v isualization of a medullary cathleen in the right tibia. Soft tissue swelling is seen about the knee. IMPRESSION: Right intratrochanteric femur fracture. ACT 112: Negative or not required by law. Electronically signed by: Yassine Gil M.D. 03/02/2023 7:40 PM Chest X-Ray 03/02/23 19:20 XR chest 1V portable CLINICAL HISTORY: hip fx TECHNIQUE: Single frontal radiograph of the chest was obtained. Comparison: Comparison is made to chest radiograph 12/01/2021 FINDINGS: No lines and tubes are seen. The cardiomediastinal silhouette is normal. Faint opacities are in the left midlung which likely represent overlying soft tissue. No evidence of pleural effusion or pneumothorax. IMPRESSION: No acute chest disease. ACT 112: Negative or not required by law. Electronically signed by: Yassine Gil M.D. 03/02/2023 7:42 PM Femur X-Ray 03/04/23 10:40 FL femur RT 2V CLINICAL HISTORY: RT ORIF LONG TROCHacute fracture of the right hip COMPARISON STUDY: 03/02/2023 FLUOROSCOPY TIME: 139.7 seconds FLUOROSCOPY IMAGES: 5 EXPOSURE DOSE: 18.40 mGy Air Kerma FINDINGS: Status post placement of an intertrochanteric nail with medullary cathleen fixating the acute intertrochanteric right femoral fracture with improved alignment. No unexpected opaque foreign bodies. IMPRESSION: Fluoroscopic assistance as above. ACT 112: Negative or not required by law. Electronically signed by: García Acevedo M.D. 03/04/2023 1:44 PM Hip X-Ray 03/04/23 13:11 XR hip RT min 2V HISTORY: 72 years-old Female Post-Operative implant position right hip arthroplasty COMPARISON: Pelvis radiograph 03/02/2023 TECHNIQUE: 2 views of the right hip FINDINGS: Status post placement of an intertrochanteric nail with elongated medullary cathleen fixating the acute intertrochanteric fracture. There is improved alignment. Lateral skin enma with expected postoperative soft tissue swelling and deep tissue air. Partially imaged hardware within the tibia. IMPRESSION: Expected postoperative changes. ACT 112: Negative or not required by law. The above report was generated using voice recognition software. It may contain grammatical, syntax or spelling errors. Electronically signed by: García Acevedo M.D. 03/04/2023 2:[address] 03/05/23 22:08 Exam(s): CT HEAD Without Contrast EXAM: CT Head Without Intravenous Contrast CLINICAL HISTORY: Reason for exam: ams, noac. TECHNIQUE: Axial computed tomography images of the head/brain without intravenous contrast. CTDI is 36.43 mGy and DLP is 625.8 mGy-cm. Automated exposure control was utilized for the study. A dose lowering technique was utilized adhering to the principles of ALARA. COMPARISON: No relevant prior studies available. FINDINGS: No acute intracranial hemorrhage. No midline shift or mass effect. The territorial rajan-white matter differentiation is maintained throughout. Age-related cerebral volume loss. Periventricular and subcortical white matter hypoattenuation, consistent with chronic microangiopathy. The visualized orbits appear grossly unremarkable. RIGHT periorbital soft tissue swelling. The calvarium is intact. The visualized paranasal sinuses and mastoid air cells are grossly clear. IMPRESSION: No acute intracranial hemorrhage, midline shift, or mass effect. RIGHT periorbital soft tissue swelling. Electronically signed by: Hawk Mcintosh MD 03/05/23 23:24 PM Hospital Course (1) Intertrochanteric fracture of right femur: Patient has hx of CAD, stable disease on last follow-up with [facility] [employer] 3 months ago, PAD status post surgery on Eliquis,HTN, hyperlipidemia on statin Rx, COPD, pulmonary hypertension, CRI, breast cancer status post surgery/chemoradiation who presents after fall with right hip pain Right femur intertrochanteric fracture Pelvic X ray:Right intratrochanteric femur fracture. S/p Right Hip Fracture, Open Reduction Internal Fixation Trochanteric Fixation Nail by on 03/04/23 Likely post op blood loss anemia + dilutional S/P 2 units PRBCs H/O Chronic anemia Considering patient significant vascular history and stable surgical site, Resumed Eliquis tonight but continue to monitor Hb trends/signs of bleeding Prior hospitalist discussed with Vasc Sx team per patient's request. Vascular Surgery agrees with resuming Eliquis and ASA as soon as possible due to vas culopathy ASA resumed as well Continue wound care Appreciate orthopedic surgery input Pain control Continue Bactrim to complete the course Continue PT OT Discharge to SNF today Vitamin D deficiency Continue Vit D 35095A q weekly Anxiety disorder Alcohol use. Reported last drink was on day of admission. Denied alcohol withdrawal in the past Alcohol level was 126 on presentation Continue folate, thiamine. Intermittent confusion, lethargy likely post op delirium compounded by meds Psych recs noted Continue melatonin 3mg HS Mental status back to baseline Monitor Tobacco use disorder Smokes 2/3rd of a pack per day Used marijuana about 2 days prior to presentation.. Denied heroin/cocaine/meth use Nicotine patch while inpatient. Provided smoking cessation counselling H/O Laryngocele S/P surgery Chronic neuropathy on gabapentin Chronic hypotension Monitor BP DVT Px: Eliquis Code Status Full code Disposition SNF Total Time Total Time Spent Total Time Spent (In Minutes): 54 minutes Discharge Plan Discharge Items Patient Disposition: Transfer Half-Way Fac Reason For Visit: HIP FX, HX CAD Discharge Diagnosis: Right femur intertrochanteric fracture Vitamin D deficiency Activity: Per Instructions section Exercise/Sports: Gradually increase as tolerated Non-emergency contact: Primary Care Provider and Surgeon Call non-emergency contact if: you have any medication questions, your symptoms worsen, your pain is concerning for you and you have a fever Follow-up/Referrals: Dg Davila PA-C [Physician Claim Taker] - 03/19/23 3:30 pm Ridge Sommer, [Primary Care Provider] - Diet: Regular Add Attending Provider Instructions: Follow-up with your primary care physician Dr. Nelson in 1 week upon discharge from your physician Follow-up with your orthopedic surgeon /Dg Davila PA-C on 03/19/2023 at 3:30 PM as scheduled. Seek immediate medical attention if your symptoms reoccur or worsen Please take all medications as instructed on discharge list below. Please call if you have any questions or problems. You can reach a [facility] hospitalist on duty at [facility] 24 hours a day by calling [phone] [facility] [employer] Provider Instructions: You may place weight on right lower extremity as tolerated. Use walker Keep incision clean and dry Return to the office as scheduled on 03/19/23 at 3:30 for suture removal. Keflex 500 mg 3 times a day for the next 10 days due to the drainage of her proximal incision. Change dressings on a daily basis or as needed. Keep incisions covered. Please call the office at [phone] if you have any questions or concerns. Pending Studies at Discharge: No Stand-Alone Forms: My [facility] Skilled Items Patient informed of condition?: Yes DNR: No Discharge Level of Care: Skilled Communicable Disease: No Discharge Prognosis: Stable Lines: None Urinary Catheter: No Medications and DC Order Prescriptions: New polyethylene glycol 3350 [Miralax] 17 gram Powder In Packet 17 g PO DAILY PRN (Reason: constipation) Qty: 14 0RF sulfamethoxazole-trimethoprim [Bactrim DS] 800-160 mg Tablet 1 tab PO Q12 Qty: 6 0RF oxycodone-acetaminophen [Percocet] 5-325 mg Tablet 1 tab PO Q6H PRN (Reason: pain) Qty: 10 0RF ergocalciferol (vitamin D2) 1,250 mcg (50,000 unit) Capsule 50,000 unit PO Q7D Qty: 4 0RF Rx Instructions: on Fridays Continued rosuvastatin 40 mg tablet 40 mg PO HS Qty: 90 3RF Rx Instructions: PER PT "CAN'T SWALLOW". Eliquis 2.5 mg tablet 2.5 mg PO BID Qty: 180 3RF aspirin 81 mg tablet,delayed release (DR/EC) 81 mg PO HS nitroglycerin 0.4 mg tablet, sublingual 0.4 mg SL .COMPLEX PRN (Reason: chest pain) Qty: 25 2RF Rx Instructions: 0.4 mg SL Q5M FOR UP TO 3 DOSES PRN; omeprazole 20 mg capsule,delayed release(DR/EC) 20 mg PO BID Rx Instructions: PER PT "CAN'T SWALLOW". gabapentin 300 mg capsule 300 mg PO QID Rx Instructions: PER PT "CAN'T SWALLOW". hydroxyzine HCl 25 mg tablet 25 mg PO Q6 PRN (Reason: Anxiety) Rx Instructions: PER PT "CAN'T SWALLOW". Changed metoprolol succinate 25 mg tablet extended release 24 hr 12.5 mg PO QAM Qty: 90 3RF Discharge Orders: Discharge Order (Routine); Ordered 03/15/23 Ordered By: [place] Admission Data Admit Date/Time: 03/02/23 21:48 Attending Provider: [place] Admit Provider: Pancho Perdue Primary Care Provider: Ridge Sommer Other Providers: Davi Lewis ; Katie Pat ; Carolyn Chavez ; Dat Fernández ; Garret Desai [facility] ; [facility] ; [facility] Other Interventions: Discharge Summary Assessment (RN) Last Done: 03/15/23 11:39
== END 2023-03-15 12:49 | DRG 481 ==
LOC: ED 17:53 → 2N 21:48 → SUATTDRO 21:48 → 2N 22:43